=== PATIENT | female | born 1945 | race Caucasian/White ===

== ENCOUNTER → 2020-02-06 | Outpatient (CLI) | payer MEDICARE ==
[2020-02-06 12:22] LABS: Albumin 3.6 g/dL (3.5-5.0); Calcium 8.9 mg/dL (8.4-10.2); Potassium 4.2 mmol/L (3.5-5.1); Total Protein 6.4 g/dL (6.3-8.2)
[2020-02-06 12:25] LABS: Basophils # (A) 0.1 k/uL (0-0.2); Basophils % (A) 1 %; Eosinophils # (A) 0.2 k/uL (0-0.7); Eosinophils % (A) 4 %; HCT 40.6 % (34.0-46.0); HGB 12.8 gm/dL (11.4-16.0); Lymphocytes # (A) 1.2 k/uL (1.0-4.8); Lymphocytes % (A) 19 %; MCH 28.3 pg (25.0-35.0); MCHC 31.7 g/dL (31.0-37.0); MCV 89.5 fL (80.0-100.0); Mean Platelet Volume 6.8; Monocytes # (A) 0.4 k/uL (0-1.0); Monocytes % (A) 6 %; Neutrophils # (A) 4.4 k/uL (1.3-7.7); Neutrophils % (A) 67 %; Platelet Count 194 k/uL (150-450); RBC 4.53 m/uL (3.80-5.40); RDW 15.5 % (11.5-15.5); WBC 6.5 k/uL (3.8-10.6)
--- NOTE | 2020-02-06 13:25 | CT ---
EXAMINATION TYPE: CT angio chest DATE OF EXAM: 02/06/2020 1:13 PM COMPARISON: None. HISTORY: hemoptysis CT DLP: 122.7 mGycm Automated exposure control for dose reduction was used. CONTRAST: CTA scan of the thorax is performed with IV Contrast, patient injected with 58cc mL of Isovue 370, pu lmonary embolism protocol. . FINDINGS: There are diffuse emphysematous changes throughout both lungs. There is interstitial change present bilaterally. There is gross honeycombing in the right lower lobe. There is apical pleural thickening present bilaterally. There is extensive vascular calcification present. There is aneurysmal dilatation of the aortic root which measures 4.7 cm. The proximal arch is aneurysmal measuring 3.6 cm. The proximal descending thor acic aorta is aneurysmal measuring 3.2 cm. At the level of the aortic hiatus, there is ectasia of the thoracic aorta measuring 3 cm. There is no significant axillary, internal mammary, mediastinal or hilar adenopathy. There is no evidence of pulmonary embolus. There is a tiny right-sided effusion. There is a 6.8 mm pericardial effusion. Visualized upper abdominal structures are unremarkable.. IMPRESSION: 1. THIS EXAMINATION IS NEGATIVE FOR PULMONARY EMBOLUS. 2. THORACIC AORTIC ANEURYSM WITH MAXIMAL TRANSVERSE DIAMETER OF 4.7 CM. 3. DIFFUSE EMPHYSEMATOUS CHANGE WITH HONEYCOMBING IN THE RIGHT LOWER LOBE. 4. TINY RIGHT PLEURAL EFFUSION WELL A 6.8 MM PERICARDIAL EFFUSION.
== END | disposition home or self-care (01) ==
LOC: RADCTMAIN 11:36
PROVIDERS: ATTEND Family Medicine
DX: I71.2 Thoracic aortic aneurysm, without rupture (principal); J43.8 Other emphysema; J90 Pleural effusion, not elsewhere classified; I31.3 Pericardial effusion (noninflammatory); R04.2 Hemoptysis
CPT/HCPCS: 80053; 85025; 71275; 36415; Q9967

== ENCOUNTER → 2022-01-18 | Outpatient (CLI) | payer MEDICARE | END | disposition home or self-care (01) | LOC: RADCTMAIN 08:10 | PROVIDERS: ATTEND Surgery | DX: I71.4 Abdominal aortic aneurysm, without rupture (principal) | CPT/HCPCS: 82565; 84520 ==

== ENCOUNTER → 2022-02-09 | Outpatient (CLI) | payer MEDICARE ==
--- NOTE | 2022-02-12 23:46 | CT ---
EXAMINATION TYPE: CT angio abd aorta w/Runoff DATE OF EXAM: 02/09/2022 INDICATION: AAA CT DLP: 1443.2 mGy.cm Automated Exposure Control for Dose Reduction was Utilized. TECHNIQUE AND CONTRAST: CT scan of the abdomen, pelvis and lower extremity is performed without and with IV Contrast, patient injected with 80ml mL of Isovue 370. MIP and 3-D reconstruction images were generated on an [employer] workstation and reviewed. COMPARISON: None available FINDINGS: Extensive arterial atherosclerotic calcification and atheromatous plaques. Ascending aortic aneurysm measuring up to 4.7 cm. Dilated inferior aspect of the descending thoracic aorta measuring up to 3.2 cm. Abdominal aortic aneurysm repair with aortoiliac bypass graft, apparently patent. No gross eviden ce of endovascular leak. The aneurysmal sac measures up to 5.9 cm. No evidence of aortic stenosis, occlusion or dissection. Severe stenosis of the origin of the superio r mesenteric artery yet patent distally. Apparently occluded superior aspect of the inferior mesenter ic artery yet patent distally. Severe stenosis of the origin the left renal artery yet patent distall y. Apparently occluded proximal portion of the right renal artery yet opacified distally. Ectatic iliac arteries without significant stenosis or occlusion. Severe atherosclerotic changes of t he internal iliac arteries. Atherosclerotic changes of the external iliac arteries. Questionable yaneth ts at the external iliac/common femoral arteries bilaterally. Complete occlusion of the left superfic ial femoral artery with reconstitution of the popliteal artery posterior to the knee likely via colla terals from the left deep femoral artery. Unremarkable deep femoral artery bilaterally. Attenuated yet opacified left leg arteries down to the ankle. Hypoplastic inferior aspect of the left peroneal artery. Opacified left dorsalis pedis artery. Atherosclerotic changes of the right superfic ial femoral artery with multiple segments of stenosis yet without complete occlusion. Severe stenosis is seen at the proximal portion of the right popliteal artery yet patent distally. Opacified right l eg arteries down to the ankle with hypoplastic right peroneal artery. Opacified right dorsalis pedis artery. Cardiomegaly. Coronary arterial calcifications. Small pericardial effusion. COPD changes and mild fib rotic changes in the lung bases. Few millimetric hyperenhancing foci in segment 7/8 of the liver, non specific. Recommend further targeted ultrasound assessment. Possible small hemangioma in segment 4A o f the liver measuring 11 mm which can be also assessed on the ultrasound. A few pancreatic head cysts measuring up to 14 mm, please correlate with previous unavailable scans. Further MRI assessment can be considered. Atrophic right kidney with multiple variable sized bilatera l renal cysts. Suspected left parapelvic hemorrhagic renal cyst measuring 12 mm, for ultrasound confi rmation. Multiple uterine calcifications. Colonic diverticulosis. 9 mm skin lesion at the right poste rolateral aspect of the abdominal wall, please correlate clinically. 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 Postoperative changes and other atherosclerotic changes as detailed above. Recommend clinical correlation and correlation with previous unavailable CT scans. Other multiple incidental findings and recommendations as described jose enrique ortiz.
== END | disposition home or self-care (01) ==
LOC: RADCTMAIN 13:34
PROVIDERS: ATTEND Surgery
DX: I71.4 Abdominal aortic aneurysm, without rupture (principal); I70.202 Unspecified atherosclerosis of native arteries of extremities, left leg; N26.1 Atrophy of kidney (terminal); K57.30 Diverticulosis of large intestine without perforation or abscess without bleeding
CPT/HCPCS: 82565; 84520; 75635; 36415; 96360; Q9967

== ENCOUNTER → 2022-02-09 | Outpatient (CLI) | payer MEDICARE ==
[~2022-02-09] MED LIST: SODIUM CHLORIDE 0.9% 1,000 ML IV ONE
[2022-02-09 14:02] VITALS: BP 117/68; PULSE 81; RESP 16; TEMP 97.8
== END ==
LOC: PROCWHC3 08:12
PROVIDERS: ATTEND Surgery
DX: E86.0 Dehydration (principal)
CPT/HCPCS: 96360

== ENCOUNTER → 2022-03-13 | Outpatient (CLI) | payer MEDICARE ==
--- NOTE | 2022-03-13 10:46 | US ---
EXAMINATION TYPE: US venous doppler duplex LE LT DATE OF EXAM: 03/13/2022 10:36 AM COMPARISON: NONE CLINICAL HISTORY: I82.40 ACUTE EMBOLISM AND THOMBOS UNSP DEEP VEINS. Left calf swelling x 1 week SIDE PERFORMED: Left TECHNIQUE: The lower extremity deep venous system is examined utilizing real time linear array sonog madison with graded compression, doppler sonography and color-flow sonography. VESSELS IMAGED: Common Femoral Vein Deep Femoral Vein Greater Saphenous Vein * Femoral Vein Popliteal Vein Small Saphenous Vein * Proximal Calf Veins (* superficial vessels) Left Leg: Negative for DVT IMPRESSION: Grayscale, color doppler, spectral doppler imaging performed of the deep veins of the lo wer extremities. There is normal flow, compressibility, vascular waveforms.
== END | disposition home or self-care (01) ==
LOC: RADUSWWP 10:12
PROVIDERS: ATTEND Surgery
DX: I82.402 Acute embolism and thrombosis of unspecified deep veins of left lower extremity (principal); M79.662 Pain in left lower leg; R22.42 Localized swelling, mass and lump, left lower limb

== ENCOUNTER 2022-07-04 18:18 | Inpatient (IN) | payer MEDICARE ==
[2022-07-04] MEDS ORDERED: RX INFO: IV CONTRAST WAS GIVEN 1 EACH MISC MISCELLANE PRN (19:10)
[2022-07-04] MEDS ORDERED: HYDROmorphone 1 MG/ML 1 ML SYRINGE IVP STA (19:12)
[2022-07-04 19:14] LABS: Anisocytosis Slight; Basophils # (A) 0.1 k/uL (0-0.2); Basophils % (A) 1 %; Eosinophils # (A) 0.3 k/uL (0-0.7); Eosinophils % (A) 3 %; HCT 48.7 % (34.0-46.0); Hypochromasia Marked; Lymphocytes % (A) 20 %; MCH 23.6 pg (25.0-35.0); MCHC 30.8 g/dL (31.0-37.0); MCV 76.6 fL (80.0-100.0); Mean Platelet Volume 7.6; Microcytosis Slight; Monocytes # (A) 1.1 k/uL (0-1.0); Monocytes % (A) 11 %; Neutrophils # (A) 6.5 k/uL (1.3-7.7); Neutrophils % (A) 63 %; Platelet Count 248 k/uL (150-450); RBC 6.36 m/uL (3.80-5.40); WBC 10.3 k/uL (3.8-10.6)
[2022-07-04 19:25] LABS: Albumin 4.1 g/dL (3.5-5.0); Calcium 8.8 mg/dL (8.4-10.2); Magnesium 2.2 mg/dL (1.6-2.3); Potassium 4.6 mmol/L (3.5-5.1); Total Bilirubin 0.7 mg/dL (0.2-1.3); Total Protein 6.6 g/dL (6.3-8.2)
[2022-07-04 19:49] LABS: INR 1.1 (<1.2); Partial Thromboplastin Time 22.7 sec (22.0-30.0); Prothrombin Time 11.4 sec (9.0-12.0)
--- NOTE | 2022-07-04 19:52 | XR ---
EXAMINATION TYPE: XR chest 2V DATE OF EXAM: 07/04/2022 7:36 PM COMPARISON: Chest radiographs from 06/30/2012. TECHNIQUE: XR chest 2V Frontal and lateral views of the chest. CLINICAL INDICATION:Female, 77 years old with history of Chest Pain; FINDINGS: Lungs/Pleura: There is no evidence of pleural effusion, focal consolidation, or pneumothorax. Pulmonary vascularity: Unremarkable. Heart/mediastinum: Cardiomediastinal silhouette is unremarkable. Musculoskeletal: No acute osseous pathology. IMPRESSION: No acute cardiopulmonary disease/process.
--- NOTE | 2022-07-04 20:40 | CT ---
EXAMINATION TYPE: CT angio abd aorta w/Runoff CT DLP: 1105.7 mGycm, Automated exposure control for dose reduction was used. DATE OF EXAM: 07/04/2022 8:01 PM COMPARISON: 02/09/2022 CLINICAL INDICATION:Female, 77 years old with history of pulseless, painful right leg, pulseless, sun nful right leg TECHNIQUE: Multiple thin slice sub-millimeter images were obtained through the abdomen, pelvis, and l ower extremities after administration of contrast. 3-D reconstructed images and maximum intensity pr ojection images were obtained of the abdomen, pelvis, and lower extremities. CT Contrast: Contrast used:80 mL of Isovue 370 with IV Contrast, Oral contrast used: None FINDINGS: CTA Abdomen and pelvis: Atherosclerosis of the arterial vasculature. There is an aortic stent graft n oted in the proximal aorta. Its appears intact. There is a infrarenal aortic aneurysm with patency ma terial within the aneurysmal sac 09/30/2001 image 58 which is unchanged from prior. Aneurysmal sac capo suring up to 5.1 cm which may be minimally decreased from prior. Bilateral iliac artery stent grafts are in place. They both appear intact. Mild mural thrombus seen throughout the visualized aorta inclu ding the stent grafts. Just distal to the stent graft bilaterally is calcified and noncalcified plaqu ing of the external iliac arteries. The origin of the celiac artery is patent. The superior mesenteri c artery is similar in morphology. The connection of the superior mesenteric artery to the aorta is n ot definitively visualized however there is dense contrast within the superior mesenteric artery sugg esting patency. Stent within the left renal artery appears patent with contrast within the left renal artery. The right renal artery is atrophic with a diminutive appearance of the more proximal portion of aorta. CTA Lower extremities: Right: The right common femoral artery romaine patent. There is occlusion of the superficial femoral zulema ry just at its origin with reconstitution at the popliteal artery. There is atherosclerosis with vary ing degrees of narrowing of the popliteal artery. The right leg vessels appear diminutive. Only the a nterior tibial artery crosses the ankle. The posterior artery does not definitely cross the ankle. Left: A left common femoral artery is patent. There is occlusion of the and left superficial femoral artery just past its origin extending to the distal portion with reconstitution at the popliteal zulema ry. The vessels of the leg are created. The anterior and posterior tibial arteries do not definitely cross the ankle. LOWER CHEST: No evidence of focal consolidation, pneumothorax or pleural effusion. LIVER: Hepatic dome hyperenhancing 9 mm focus in segment 7/8. GALLBLADDER AND BILE DUCTS: Unremarkable. PANCREAS: Unremarkable. SPLEEN: Unremarkable. ADRENAL GLANDS: Unremarkable. KIDNEYS AND URETERS: No evidence of hydronephrosis or renal calculus. Multiple right-sided renal cyst s are present. Hyperdense left renal cyst measuring 84 Hounsfield units consistent with a hemorrhagic /proteinaceous cyst. PELVIS BLADDER: Unremarkable REPRODUCTIVE: Unremarkable. ABDOMEN & PELVIS STOMACH AND BOWEL: No evidence of bowel obstruction. Scattered clonic diverticula present. Small hiat al hernia is present PERITONEUM: No evidence of pneumoperitoneum or free fluid. VASCULATURE: No evidence of aortic aneurysm. MUSCULOSKELETAL: No acute osseous abnormalities LYMPH NODES: No gross evidence for lymphadenopathy. SOFT TISSUE/ABDOMINAL WALL: Unremarkable IMPRESSION: Right: * Occlusion of the right superficial femoral artery extending from its origin to the distal portion near the popliteal artery. * Only the anterior tibial artery crosses the right ankle. Posterior tibial artery is diminutive and does not cross the ankle. Left: * Occlusion of the left superficial femoral artery extending from its origin to the distal portion o f the proximal artery. * No vessels definitively cross the ankle. Abdomen: * Indeterminate right hepatic dome lesion. Liver mass protocol CT or MRI as clinically warranted. * Small hiatal hernia. * Colonic diverticulosis. * Atrophic right kidney with cystic changes. * Abdominal aorta aneurysm with similar morphology.
--- NOTE | 2022-07-04 20:59 | ED ---
General Adult HPI - General Chief complaint: Chest Pain Stated complaint: chest pain Time Seen by Provider: 07/04/22 18:35 Source: EMS Mode of arrival: EMS Limitations: no limitations - History of Present Illness Initial comments: 77-year-old female with past medical history of A. fib, heart failure, COPD, DVT, aortic aneurysm with grafting who presents to the emergency department with chest pain and right foot numbness. Patient reports that for 2 weeks she has noted a bulge to her right groin. She followed with Dr. Tovar who is her vascular surgeon. States that she was evaluated and was told that if her symptoms got worse she would need further imaging studies. Patient states that she has had no pain in the groin. On Saturday the patient began having some numbness to her right foot. States that her symptoms are better with her leg at rest and symptoms are worse with ambulation. She called Dr. Pisano office and is supposed to be seeing him tomorrow. He states that today she began having intense chest pain therefore called an ambulance transported to the hospital. EMS gave her 324 of aspirin and nitro. She was found to be in A. fib with a rapid rate. She denies a history of A. fib to me however this is in her chart. She denies fevers, chills or cough. Patient not on any anticoagulation. No other alleviating, precipitating or modifying factors - Related Data Home Medications Medication Instructions Recorded Confirmed Albuterol Inhaler [Ventolin Hfa 2 puff INHALATION RT-QID PRN 02/09/22 07/04/22 Inhaler] Aspirin [Adult Low Dose Aspirin EC] 81 mg PO DAILY 02/09/22 07/04/22 Atorvastatin [Lipitor] 80 mg PO DAILY 02/09/22 07/04/22 Cholecalciferol [Vitamin D3 (25 50 mcg PO DAILY 02/09/22 07/04/22 Mcg = 1000 Iu)] Clopidogrel [Plavix] 75 mg PO DAILY 02/09/22 07/04/22 Hydrocodone/Acetaminophen 1 tab PO BID PRN 02/09/22 07/04/22 [Hydrocodone/Acetaminophen 5-325] Montelukast Sodium [Singulair] 10 mg PO DAILY 02/09/22 07/04/22 carvediloL 25 mg PO BID 02/09/22 07/04/22 Benazepril HCl 20 mg PO DAILY 07/04/22 07/04/22 Budesonide/Glycopyr/Formoterol 2 puff INHALATION DIRECTED 07/04/22 07/04/22 [Breztri Aerosphere Inhaler] Ipratropium-Albuterol Nebulize 3 ml INHALATION RT-QID 07/04/22 07/05/22 [Duoneb 0.5 mg-3 mg/3 ml Soln] Allergies Allergy/AdvReac Type Severity Reaction Status Date / Time No Known Allergies Allergy Verified 07/04/22 20:41 Review of Systems ROS Statement: Those systems with pertinent positive or pertinent negative responses have been documented in the HPI. ROS Other: All systems not noted in ROS Statement are negative. Past Medical History Past Medical History: Atrial Fibrillation, Heart Failure, COPD, Deep Vein Thrombosis (DVT), Hyperlipidemia, Hypertension, Osteoarthritis (OA), Pneumonia, Thyroid Disorder Additional Past Medical History / Comment(s): AORTIC ANEURYSM. History of Any Multi-Drug Resistant Organisms: None Reported Past Surgical History: Appendectomy, Tonsillectomy, Tubal Ligation Additional Past Surgical History / Comment(s): STENT- AORTIC ANEURSYM AND STENT- RENAL ARTERY. BILATERAL CAROTIDS. Past Anesthesia/Blood Transfusion Reactions: No Reported Reaction Past Psychological History: No Psychological Hx Reported Smoking Status: Former smoker Past Alcohol Use History: None Reported Past Drug Use History: None Reported - Past Family History fmaily Family Medical History: Cancer General Exam Limitations: no limitations General appearance: alert, in no apparent distress Eye exam: Present: normal appearance, PERRL, EOMI. Absent: scleral icterus, conjunctival injection, periorbital swelling ENT exam: Present: normal exam, mucous membranes moist Neck exam: Present: normal inspection. Absent: tenderness, meningismus, lymphadenopathy Respiratory exam: Present: normal lung sounds bilaterally. Absent: respiratory distress, wheezes, rales, rhonchi, stridor Cardiovascular Exam: Present: regular rate, irregular rhythm GI/Abdominal exam: Present: soft, normal bowel sounds. Absent: distended, tenderness, guarding, rebound, rigid Extremities exam: Present: other (no palpable pulse rle. normal color, normal cap refill bl le) Course Vital Signs 07/04/22 07/04/22 07/04/22 18:26 19:23 20:00 Temperature 97.5 F L Pulse Rate 96 85 73 Respiratory 22 22 11 L Rate Blood Pressure 195/138 183/124 200/116 O2 Sat by Pulse 98 96 97 Oximetry 07/04/22 07/04/22 07/04/22 20:15 20:30 20:31 Temperature Pulse Rate 84 82 82 Respiratory 12 25 H 20 Rate Blood Pressure 172/104 O2 Sat by Pulse 96 96 95 Oximetry 07/04/22 07/04/22 07/04/22 20:45 21:00 21:15 Temperature Pulse Rate 78 82 73 Respiratory 23 23 10 L Rate Blood Pressure 172/104 160/119 O2 Sat by Pulse 94 L 98 Oximetry 07/04/22 07/04/22 07/04/22 21:21 21:30 21:45 Temperature Pulse Rate 82 82 84 Respiratory 18 17 18 Rate Blood Pressure 160/119 173/133 O2 Sat by Pulse 95 97 Oximetry 07/04/22 07/04/22 07/04/22 22:00 22:15 22:23 Temperature Pulse Rate 75 67 79 Respiratory 18 14 18 Rate Blood Pressure 171/89 171/89 O2 Sat by Pulse 95 98 95 Oximetry 07/04/22 07/04/22 22:30 22:45 Temperature Pulse Rate 74 Respiratory 19 Rate Blood Pressure 151/108 O2 Sat by Pulse 96 Oximetry - Reevaluation(s) Reevaluation #1: 07/04/22 20:[address] Vincent - does not feel heparin drip is necessary as this is a chronic issue EKG Findings - EKG Comments: EKG Findings:: EKG interpreted by myself. Demonstrates A. fib with rate of 88. QRS 98. QTC of 429. Baseline artifact. No acute ST segment elevations or depressions Medical Decision Making - Medical Decision Making Upon arrival patient was placed in room trauma 2. There are history and physical exam was performed. IV access was established laboratory studies were conducted. Patient is sent for CT angiography of her abdomen, pelvis and lower extremities. Does demonstrate cut off of the contrasts bilaterally. Patient d oes have good pulses in the left lower extremity. Right pulse is unable to be palpated. She does have normal coloration to the right lower extremity. Called and spoke with Dr. Vincent about the patient. He does not feel the patient needs to be heparinized at this time and to be followed up in the outpatient setting. Patient will be admitted for chest pain for which she was agreeable. Patient pending a bed on the floor stable condition - Lab Data Result diagrams: 07/07/22 19:18 07/07/22 06:15 Lab Results 07/04/22 07/04/22 07/04/22 Range/Units 19:00 19:00 19:00 WBC 10.3 (3.8-10.6) k/uL RBC 6.36 H (3.80-5.40) m/uL Hgb 15.0 (11.4-16.0) gm/dL Hct 48.7 H (34.0-46.0) % MCV 76.6 L (80.0-100.0) fL MCH 23.6 L (25.0-35.0) pg MCHC 30.8 L (31.0-37.0) g/dL RDW 17.0 H (11.5-15.5) % Plt Count 248 (150-450) k/uL MPV 7.6 Neutrophils % 63 % Lymphocytes % 20 % Monocytes % 11 % Eosinophils % 3 % Basophils % 1 % Neutrophils # 6.5 (1.3-7.7) k/uL Lymphocytes # 2.0 (1.0-4.8) k/uL Monocytes # 1.1 H (0-1.0) k/uL Eosinophils # 0.3 (0-0.7) k/uL Basophils # 0.1 (0-0.2) k/uL Hypochromasia Marked Anisocytosis Slight Microcytosis Slight PT 11.4 (9.0-12.0) sec INR 1.1 (<1.2) APTT 22.7 (22.0-30.0) sec D-Dimer 4.93 H (<0.60) mg/L FEU Sodium 139 (137-145) mmol/L Potassium 4.6 (3.5-5.1) mmol/L Chloride 103 (98-107) mmol/L Carbon Dioxide 28 (22-30) mmol/L Anion Gap 8 mmol/L BUN 28 H (7-17) mg/dL Creatinine 1.07 H (0.52-1.04) mg/dL Est GFR (CKD-EPI)AfAm 58 (>60 ml/min/1.73 sqM) Est GFR (CKD-EPI)NonAf 50 (>60 ml/min/1.73 sqM) Glucose 100 H (74-99) mg/dL Plasma Lactic Acid Adam (0.7-2.0) mmol/L Calcium 8.8 (8.4-10.2) mg/dL Magnesium 2.2 (1.6-2.3) mg/dL Total Bilirubin 0.7 (0.2-1.3) mg/dL AST 23 (14-36) U/L ALT 17 (4-34) U/L Alkaline Phosphatase 105 (38-126) U/L Troponin I (0.000-0.034) ng/mL NT-Pro-B Natriuret Pep pg/mL Total Protein 6.6 (6.3-8.2) g/dL Albumin 4.1 (3.5-5.0) g/dL 07/04/22 07/04/22 07/04/22 Range/Units 19:00 19:00 19:19 WBC (3.8-10.6) k/uL RBC (3.80-5.40) m/uL Hgb (11.4-16.0) gm/dL Hct (34.0-46.0) % MCV (80.0-100.0) fL MCH (25.0-35.0) pg MCHC (31.0-37.0) g/dL RDW (11.5-15.5) % Plt Count (150-450) k/uL MPV Neutrophils % % Lymphocytes % % Monocytes % % Eosinophils % % Basophils % % Neutrophils # (1.3-7.7) k/uL Lymphocytes # (1.0-4.8) k/uL Monocytes # (0-1.0) k/uL Eosinophils # (0-0.7) k/uL Basophils # (0-0.2) k/uL Hypochromasia Anisocytosis Microcytosis PT (9.0-12.0) sec INR (<1.2) APTT (22.0-30.0) sec D-Dimer (<0.60) mg/L FEU Sodium (137-145) mmol/L Potassium (3.5-5.1) mmol/L Chloride (98-107) mmol/L Carbon Dioxide (22-30) mmol/L Anion Gap mmol/L BUN (7-17) mg/dL Creatinine (0.52-1.04) mg/dL Est GFR (CKD-EPI)AfAm (>60 ml/min/1.73 sqM) Est GFR (CKD-EPI)NonAf (>60 ml/min/1.73 sqM) Glucose (74-99) mg/dL Plasma Lactic Acid Adam 1.2 (0.7-2.0) mmol/L Calcium (8.4-10.2) mg/dL Magnesium (1.6-2.3) mg/dL Total Bilirubin (0.2-1.3) mg/dL AST (14-36) U/L ALT (4-34) U/L Alkaline Phosphatase (38-126) U/L Troponin I <0.012 (0.000-0.034) ng/mL NT-Pro-B Natriuret Pep 4150 pg/mL Total Protein (6.3-8.2) g/dL Albumin (3.5-5.0) g/dL Disposition Clinical Impression: Chest pain, Accelerated hypertension, Right leg numbness Disposition: ADMITTED IP TO THIS [facility] Condition: Stable Is patient prescribed a controlled substance at d/c from ED?: No Time of Disposition: 20:59 Decision to Admit Reason: Admit from EC Decision Date: 07/04/22 Decision Time: 20:59
[2022-07-04] MEDS ORDERED: NALOXONE 0.4 MG/ML 1 ML VIAL IV PRN (21:00)
[2022-07-04] MEDS ORDERED: NITROGLYCERIN OINT 1 INCH/GM PACKET TOPICAL STA (21:08)
[2022-07-04] MEDS ORDERED: IPRATROPIUM-ALBUTEROL 3 ML NEB INHALATION SCH (21:15)
[2022-07-04] MEDS: carvediloL 12.5 MG TAB PO SCH (21:23)
[2022-07-04] MEDS: HYDROcodone/APAP 5-325MG 1 EACH TAB PO PRN (23:51)
[2022-07-05] MEDS: IPRATROPIUM-ALBUTEROL 3 ML NEB INHALATION PRN ×3 (00:10→19:54)
[2022-07-05] MEDS ORDERED: HEPARIN SODIUM 1,000 UN/ML (10ML VL) IV PRN (02:56)
[2022-07-05] MEDS ORDERED: HEPARIN SODIUM 1,000 UN/ML (10ML VL) IV ONE (02:56)
--- NOTE | 2022-07-05 02:56 | P.HPIM ---
History of Present Illness H&P Date: 07/04/22 Chief Complaint: chest pain 77 year old female with afib peripheral arterial disease patient coming in for evaluation due to sudden onset chest pain , felt like central chest pressure 7/10 wiht some heavy breathing, and nausea. denies any profuse sweating, dizziness or palpitations. she denies any cardiac history. she is not aware of history of afib. she also reports that for 3 days now she noticed some buldging over the right groin with intermittent claudications over her right leg with ambulation , and associated numbness in the right foot with ambulation . however these symptoms disappear with rest. she had an appointment with her vascular surgeon tomorrow. she had history of AAA with stenting and PAD with stenting no recent travel or hospital stay. denies any URI symptoms workup in the ed showed microcytosis with out anemia , elevated d dimer vital signs stable Ct angio showed peripheral arterial disease bilateral legs, with occlusion of superficial femoral arteries bilaterally , vascular surgery notified and recommended no heparin at this time , as they recognize its a chronic problem trops negative ekg SHOWED afib , patient is not on blood thinners for that Review of Systems Pertinent positives as noted in HPI. All other systems were reviewed and are negative Past Medical History Past Medical History: Atrial Fibrillation, Heart Failure, COPD, Deep Vein Thrombosis (DVT), Hyperlipidemia, Hypertension, Osteoarthritis (OA), Pneumonia, Thyroid Disorder Additional Past Medical History / Comment(s): AORTIC ANEURYSM. History of Any Multi-Drug Resistant Organisms: None Reported Past Surgical History: Appendectomy, Tonsillectomy, Tubal Ligation Additional Past Surgical History / Comment(s): STENT- AORTIC ANEURSYM AND STENT- RENAL ARTERY. BILATERAL CAROTIDS. Past Anesthesia/Blood Transfusion Reactions: No Reported Reaction Past Psychological History: No Psychological Hx Reported Smoking Status: Former smoker Past Alcohol Use History: None Reported Past Drug Use History: None Reported - Past Family History fmaily Family Medical History: Cancer Medications and Allergies Home Medications Medication Instructions Recorded Confirmed Type Albuterol Inhaler [Ventolin Hfa 2 puff INHALATION RT-QID PRN 02/09/22 07/04/22 History Inhaler] Aspirin [Adult Low Dose Aspirin EC] 81 mg PO DAILY 02/09/22 07/04/22 History Atorvastatin [Lipitor] 80 mg PO DAILY 02/09/22 07/04/22 History Cholecalciferol [Vitamin D3 (25 50 mcg PO DAILY 02/09/22 07/04/22 History Mcg = 1000 Iu)] Clopidogrel [Plavix] 75 mg PO DAILY 02/09/22 07/04/22 History Hydrocodone/Acetaminophen 1 tab PO BID PRN 02/09/22 07/04/22 History [Hydrocodone/Acetaminophen 5-325] Montelukast Sodium [Singulair] 10 mg PO DAILY 02/09/22 07/04/22 History carvediloL 25 mg PO BID 02/09/22 07/04/22 History Benazepril HCl 20 mg PO DAILY 07/04/22 07/04/22 History Budesonide/Glycopyr/Formoterol 2 puff INHALATION DIRECTED 07/04/22 07/04/22 History [Breztri Aerosphere Inhaler] Ipratropium-Albuterol Nebulize 3 ml INHALATION DIRECTED 07/04/22 07/04/22 History [Duoneb 0.5 mg-3 mg/3 ml Soln] Allergies Allergy/AdvReac Type Severity Reaction Status Date / Time No Known Allergies Allergy Verified 07/04/22 20:41 Physical Exam Vitals: Vital Signs Temp Pulse Resp BP Pulse Ox 07/04/22 20:31 82 20 172/104 95 07/04/22 19:23 85 22 183/124 96 07/04/22 18:26 97.5 F L 96 22 195/138 98 Intake and Output 07/04/22 07/04/22 07/04/22 06:59 14:59 22:59 Other: Weight 52.163 kg Constitutional: No acute distress, conversant, pleasant Eyes: Anicteric sclerae, moist conjunctiva, Pupils equal round reactive to light ENMT: NC/AT Oropharynx clear, no erythema, or exudates Neck: Supple, no masses, or JVD No carotid bruits No thyromegaly Lungs: Clear to auscultation Clear to percussion Normal respiratory effort, no accessory muscle use Cardiovascular: Heart irregular No murmurs, gallops, or rubs No peripheral edema Abdominal: Soft Nontender, no guarding, rebound or rigidity Abdomen moving with respiration Normoactive bowel sounds No hepatomegaly, No splenomegaly No palpable mass No abdominal wall hernia noted Skin: Normal temperature, tone, texture, turgor No induration No subcutaneous nodules No rash, lesions No ulcers Extremities: No digital cyanosis No clubbing Pedal pulses absent on the right , postive with doppler on the left Radial pulses intact and symmetrical No calf tenderness Psychiatric: Alert and oriented to person, place and time Appropriate affect fair judgement Neuro Muscles Strength 5/5 in all 4 extremities Sensation to light touch grossly present throughout Cranial nerves II-XII grossly intact Lymphatics: no palpable cervical or supraclavicular lymph nodes Results CBC & Chem 7: 07/04/22 19:00 07/04/22 19:00 Labs: Abnormal Lab Results - Last 24 Hours (Table) 07/04/22 07/04/22 07/04/22 Range/Units 19:00 19:00 19:00 RBC 6.36 H (3.80-5.40) m/uL Hct 48.7 H (34.0-46.0) % MCV 76.6 L (80.0-100.0) fL MCH 23.6 L (25.0-35.0) pg MCHC 30.8 L (31.0-37.0) g/dL RDW 17.0 H (11.5-15.5) % Monocytes # 1.1 H (0-1.0) k/uL D-Dimer 4.93 H (<0.60) mg/L FEU BUN 28 H (7-17) mg/dL Creatinine 1.07 H (0.52-1.04) mg/dL Glucose 100 H (74-99) mg/dL Assessment and Plan Assessment: atypical chest pain rule out ACS EKG no acute changes CXR no acute pathology trops negative X2 monitoring specialist monitor vital signs ASA, statin cardiology consult A1c, lipid panel , TSH pain control severe Peripheral arterial disease vascular consult continue plavix , ASA , statin CT angio showed peripheral arterial disease afib rate controlled not on blood thinners await cardiology input initiate heprin drip hypertensive urgency improved resume home meds DVT PPX heparin gtt for afib full code
[2022-07-05 04:23] LABS: Anisocytosis Slight; Basophils % (A) 1 %; Eosinophils # (A) 0.2 k/uL (0-0.7); Eosinophils % (A) 3 %; HCT 42.4 % (34.0-46.0); HGB 13.4 gm/dL (11.4-16.0); Hypochromasia Marked; Lymphocytes # (A) 1.3 k/uL (1.0-4.8); Lymphocytes % (A) 20 %; MCH 24.2 pg (25.0-35.0); MCHC 31.6 g/dL (31.0-37.0); MCV 76.7 fL (80.0-100.0); Mean Platelet Volume 7.4; Microcytosis Slight; Monocytes # (A) 0.7 k/uL (0-1.0); Monocytes % (A) 10 %; Neutrophils # (A) 4.3 k/uL (1.3-7.7); Neutrophils % (A) 64 %; Platelet Count 185 k/uL (150-450); RBC 5.53 m/uL (3.80-5.40); RDW 16.9 % (11.5-15.5); WBC 6.8 k/uL (3.8-10.6)
[2022-07-05 04:32] LABS: Calcium 8.3 mg/dL (8.4-10.2); Potassium 4.4 mmol/L (3.5-5.1)
[2022-07-05 04:34] LABS: INR 1.1 (<1.2); Partial Thromboplastin Time 23.8 sec (22.0-30.0); Prothrombin Time 11.8 sec (9.0-12.0)
[2022-07-05] MEDS: HEPARIN SOD,PORK IN 0.45% NACL 25,000 UNIT in 0.45% NACL 1 250ML.BAG IV SCH (04:46)
--- NOTE | 2022-07-05 08:17 | P.CRDCN ---
History of Present Illness Consult date: 07/05/22 History of present illness: History of Present Illness: The patient is a 77-year-old female with a known history of hypertension, hyperlipidemia, peripheral vascular disease, followed by Dr. Sanchez who presented with worsening right leg discomfort. This started initially was physical activity on Saturday and yesterday was quite severe even at rest. She presented to the emergency room and subsequently admitted. She has chronic dyspnea on exertion and chronic obstructive lung disease, has been on inhalers in the past. She has stopped smoking. She has been complaining of sharp chest discomfort, respirophasic, not activity related. She was noted to be in atrial fibrillation which is new since she was seen in the office in March of this year. She had an echocardiogram at in May of last year that showed a normal systolic function was mild to moderate mitral and mild aortic regurgitation. She underwent an MPI in November that showed no evidence of stress-induced ischemia. She has underwent revascularization of her lower extremities with stenting of the left lower extremity. She has no peripheral edema, no PND or orthopnea. She denies any dizziness or palpitation or knowledge of the arrhythmia. Her activity has been limited recently because of her leg pain. She underwent CT angiogram of the lower extremities that showed occlusion of the right superficial femoral artery with the intertibial noted and closure of the posterior tibial. In the emergency room her troponin was normal. Medications: DuoNeb, Singulair, benazepril 20 mg daily, Plavix 75 mg daily, Lipitor 80 mg daily, aspirin once a day Review of Systems: Respiratory: She has chronic dyspnea on exertion with wheezing and cough GI: No nausea or vomiting . No history of peptic ulcer disease. No recent GI bleed. : No hematuria or dysuria. Nervous System: No stroke or seizure. Physical Examination: 7 atrial female, alert oriented no apparent distress,Blood pressure 131/60, Heart rate 60 Head: Normocephalic. Eyes: Sclerae nonicteric. Neck: Good carotid upstroke, bilateral bruit, no jugular venous distention. Lungs: Scattered rhonchi and wheezes Heart: Irregular rate and rhythm, S1-S2, no S3, no rub. Systolic ejection murmur. Abdomen: Soft nontender, positive bowel sounds no organomegaly. Extremities: No edema, absent posterior tibial bilaterally, weak dorsalis pedis. 2+ femoral pulse Labs: Hemoglobin 13.4, potassium 4.4, BUN 25, creatinine 1.07. Troponin less than 0.012. NT proBNP 4150. EKG: Atrial fibrillation with nonspecific ST-T wave changes Impression: 1. Right lower extremity discomfort with occluded SFA and rest pain in a patient with known history of abdominal aortic aneurysm and revascularization of the lower extremities 2. Atrial fibrillation, not diagnosed in the past,[id number] score is 5 3. Chest discomfort, probably noncardiac 4. History of COPD 5. History of hypertension 6. History of hyperlipidemia Plan: 1. Continue IV heparin 2. Patient will need to be anticoagulated because of the atrial fibrillation once evaluated by vascular surgery 3. Continue statin and BAM inhibitor 4. Obtain an echocardiogram with Doppler 5. Depending on her progress further recommendations will be made, thank you for this consult we will follow with you. Past Medical History Past Medical History: Atrial Fibrillation, Heart Failure, COPD, Deep Vein Thrombosis (DVT), Hyperlipidemia, Hypertension, Osteoarthritis (OA), Pneumonia, Thyroid Disorder Additional Past Medical History / Comment(s): AORTIC ANEURYSM. History of Any Multi-Drug Resistant Organisms: None Reported Past Surgical History: Appendectomy, Tonsillectomy, Tubal Ligation Additional Past Surgical History / Comment(s): STENT- AORTIC ANEURSYM AND STENT- RENAL ARTERY. BILATERAL CAROTIDS. Past Anesthesia/Blood Transfusion Reactions: No Reported Reaction Past Psychological History: No Psychological Hx Reported Smoking Status: Former smoker Past Alcohol Use History: None Reported Past Drug Use History: None Reported - Past Family History fmaily Family Medical History: Cancer Medications and Allergies Home Medications Medication Instructions Recorded Confirmed Type Albuterol Inhaler [Ventolin Hfa 2 puff INHALATION RT-QID PRN 02/09/22 07/04/22 History Inhaler] Aspirin [Adult Low Dose Aspirin EC] 81 mg PO DAILY 02/09/22 07/04/22 History Atorvastatin [Lipitor] 80 mg PO DAILY 02/09/22 07/04/22 History Cholecalciferol [Vitamin D3 (25 50 mcg PO DAILY 02/09/22 07/04/22 History Mcg = 1000 Iu)] Clopidogrel [Plavix] 75 mg PO DAILY 02/09/22 07/04/22 History Hydrocodone/Acetaminophen 1 tab PO BID PRN 02/09/22 07/04/22 History [Hydrocodone/Acetaminophen 5-325] Montelukast Sodium [Singulair] 10 mg PO DAILY 02/09/22 07/04/22 History carvediloL 25 mg PO BID 02/09/22 07/04/22 History Benazepril HCl 20 mg PO DAILY 07/04/22 07/04/22 History Budesonide/Glycopyr/Formoterol 2 puff INHALATION DIRECTED 07/04/22 07/04/22 History [Breztri Aerosphere Inhaler] Ipratropium-Albuterol Nebulize 3 ml INHALATION DIRECTED 07/04/22 07/04/22 History [Duoneb 0.5 mg-3 mg/3 ml Soln] Allergies Allergy/AdvReac Type Severity Reaction Status Date / Time No Known Allergies Allergy Verified 07/04/22 20:41 Physical Exam Vitals: Vital Signs Temp Pulse Pulse Resp BP BP Pulse Ox 07/05/22 02:18 98.0 F 66 18 131/63 97 07/05/22 00:19 84 07/05/22 00:10 84 07/04/22 23:46 97.4 F L 84 19 133/82 98 07/04/22 22:23 79 18 171/89 95 07/04/22 21:21 82 18 160/119 95 07/04/22 20:31 82 20 172/104 95 07/04/22 19:23 85 22 183/124 96 07/04/22 18:26 97.5 F L 96 22 195/138 98 Intake and Output 07/04/22 07/05/22 07/05/22 22:59 06:59 14:59 Other: Voiding Method Toilet # Voids 1 Weight 52.163 kg 52.163 kg Results 07/05/22 03:53 07/05/22 03:53 Cardiac Enzymes 07/04/22 07/04/22 07/04/22 Range/Units 19:00 19:00 23:43 AST 23 (14-36) U/L Troponin I <0.012 <0.012 (0.000-0.034) ng/mL 07/05/22 Range/Units 03:53 AST (14-36) U/L Troponin I <0.012 (0.000-0.034) ng/mL Coagulation 07/04/22 07/05/22 Range/Units 19:00 03:53 PT 11.4 11.8 (9.0-12.0) sec APTT 22.7 23.8 (22.0-30.0) sec CBC 07/04/22 07/05/22 Range/Units 19:00 03:53 WBC 10.3 6.8 (3.8-10.6) k/uL RBC 6.36 H 5.53 H (3.80-5.40) m/uL Hgb 15.0 13.4 (11.4-16.0) gm/dL Hct 48.7 H 42.4 (34.0-46.0) % Plt Count 248 185 (150-450) k/uL Comprehensive Metabolic Panel 07/04/22 07/05/22 Range/Units 19:00 03:53 Sodium 139 134 L (137-145) mmol/L Potassium 4.6 4.4 (3.5-5.1) mmol/L Chloride 103 102 (98-107) mmol/L Carbon Dioxide 28 29 (22-30) mmol/L BUN 28 H 25 H (7-17) mg/dL Creatinine 1.07 H 1.07 H (0.52-1.04) mg/dL Glucose 100 H 86 (74-99) mg/dL Calcium 8.8 8.3 L (8.4-10.2) mg/dL AST 23 (14-36) U/L ALT 17 (4-34) U/L Alkaline Phosphatase 105 (38-126) U/L Total Protein 6.6 (6.3-8.2) g/dL Albumin 4.1 (3.5-5.0) g/dL Current Medications Generic Name Dose Route Start Last Admin Trade Name Freq PRN Reason Stop Dose Admin Hydrocodone Bitart/Acetaminophen 1 each 07/04/22 21:14 07/04/22 23:51 Hydrocodone/Apap 5-325mg 1 Each Tab PO 1 each BID PRN Administration Pain Albuterol/Ipratropium 3 ml 07/04/22 21:17 07/05/22 00:10 Ipratropium-Albuterol 3 Ml Neb INHALATION 3 ml Q4HR PRN Administration Shortness Of Breath Or Wheezing Aspirin 81 mg 07/05/22 09:00 Aspirin 81 Mg PO DAILY DEWEY Atorvastatin Calcium 80 mg 07/05/22 09:00 Atorvastatin 80 Mg Tab PO DAILY DEWEY Carvedilol 25 mg 07/04/22 21:15 07/04/22 21:23 Carvedilol 12.5 Mg Tab PO 25 mg BID DEWEY Administration Clopidogrel Bisulfate 75 mg 07/05/22 09:00 Clopidogrel 75 Mg Tab PO DAILY [facility] Heparin Sodium (Porcine) 0 unit 07/05/22 02:56 Heparin Sodium 1,000 Un/Ml (10ml Vl) IV PER PROTOCOL PRN Low PTT Protocol Heparin Sodium/Sodium Chloride 250 mls @ 6.26 mls/hr 07/05/22 03:00 07/05/22 04:46 25,000 unit/ Sodium Chloride IV 12 units/kg/hr .Q24H DEWEY 6.26 mls/hr Administration Protocol 12 UNITS/KG/HR Lisinopril 20 mg 07/05/22 09:00 Lisinopril 20 Mg Tab PO DAILY [facility] Miscellaneous Information 1 each 07/04/22 19:10 Rx Info: Iv Contrast Was Given 1 Each Misc MISCELLANE 07/06/22 19:10 DAILY PRN Per Protocol Montelukast Sodium 10 mg 07/05/22 09:00 Montelukast 10 Mg Tab PO DAILY [facility] Naloxone HCl 0.2 mg 07/04/22 21:00 Naloxone 0.4 Mg/Ml 1 Ml Vial IV Q2M PRN Opioid Reversal Non-Formulary Medication 2 puff 07/05/22 09:00 Budesonide/Glycopyr/Formoterol [Breztri Aerosphere Inhaler] INHALATION DIRECTED [facility] Intake and Output 07/04/22 07/05/22 07/05/22 22:59 06:59 14:59 Other: Voiding Method Toilet # Voids 1 Weight 52.163 kg 52.163 kg 07/05/22 03:53 07/05/22 03:53
[2022-07-05] MEDS: CLOPIDOGREL 75 MG TAB PO SCH (09:47)
[2022-07-05] MEDS: ASPIRIN 81 MG PO SCH (09:47)
[2022-07-05] MEDS: carvediloL 12.5 MG TAB PO SCH ×2 (09:47→20:53)
[2022-07-05] MEDS: ATORVASTATIN 80 MG TAB PO SCH (09:47)
[2022-07-05] MEDS: MONTELUKAST 10 MG TAB PO SCH (09:47)
[2022-07-05] MEDS: lisinopriL 20 MG TAB PO SCH (09:47)
[2022-07-05] MEDS: IPRATROPIUM 0.5 MG/2.5 ML NEBU INHALATION SCH ×4 (11:21→19:51)
--- NOTE | 2022-07-05 14:36 | P.GSCN ---
History of Present Illness Consult date: 07/05/22 Reason for Consult: Right lower extremity pain Requesting physician: Sabrina Rodriguez History of present illness: This is a pleasant 77-year-old female with a past medical history including peripheral arterial disease, abdominal aortic aneurysm with repair and iliac stenting, atrial fibrillation, heart failure, COPD, and DVT. The patient states she's been having right lower extremity pain since Saturday pain is present when standing and ambulating. She was at the grocery store with her son and states that she started having pain and progressively went down her leg she started getting numbness. It has progressively gotten worse over the week. She was planning on coming into the emergency department for evaluation, prior to leaving for the hospital she started having intense chest pain and called EMS. She was found to be in A. fib with rapid rate. She is seeing Dr. Sanchez in the past and underwent abdominal aortic aneurysm repair with iliac stenting in January of this year at [facility]. Vascular surgery [place] patient had no palpable pulse in the right PT DP. s consulted for right lower extremity numbness and pain with previous abdominal aortic aneurysm repair. Patient currently denies any chest pain or shortness of breath. She was getting a breathing treatment this morning. Denies any pain currently as she is sitting down. When she gets up and walks around she does have pain in that right lower extremity. She had a CT of the abdomen, pelvis and aorta with runoff which reported right SFA patency. Occlusion of the SFA just at its origin with reconstitution at the popliteal artery. There is a nurse there sclerosis with varying degree of narrowing of the popliteal artery. The right leg vessels appear diminutive. Only anterior tibial artery crosses the ankle. Posterior artery does not definitely cross the ankle. Left lower extremity shows left common femoral artery patency. Occlusion of the left SFA just past its origin extending to the distal portion with reconstitution at the popliteal artery. Vessels of the leg are created. Anterior posterior tibial arteries do not definitely cross the ankle. Abdomen reported Indeterminate right hepatic dome lesion. Liver mass protocol CT or MRI clinically warranted, small hiatal hernia, colonic diverticulosis atrophic right kidney with cystic changes abdominal aorta aneurysm with similar morphology Review of Systems A 14 point review systems was completed all pertinent positives and negatives as stated in the HPI. Past Medical History Past Medical History: Atrial Fibrillation, Heart Failure, COPD, Deep Vein Thrombosis (DVT), Hyperlipidemia, Hypertension, Osteoarthritis (OA), Pneumonia, Thyroid Disorder Additional Past Medical History / Comment(s): AORTIC ANEURYSM. History of Any Multi-Drug Resistant Organisms: None Reported Past Surgical History: Appendectomy, Tonsillectomy, Tubal Ligation Additional Past Surgical History / Comment(s): STENT- AORTIC ANEURSYM AND STENT- RENAL ARTERY. BILATERAL CAROTIDS. Past Anesthesia/Blood Transfusion Reactions: No Reported Reaction Past Psychological History: No Psychological Hx Reported Smoking Status: Former smoker Past Alcohol Use History: None Reported Past Drug Use History: None Reported - Past Family History fmaily Family Medical History: Cancer Medications and Allergies Home Medications Medication Instructions Recorded Confirmed Type Albuterol Inhaler [Ventolin Hfa 2 puff INHALATION RT-QID PRN 02/09/22 07/04/22 History Inhaler] Aspirin [Adult Low Dose Aspirin EC] 81 mg PO DAILY 02/09/22 07/04/22 History Atorvastatin [Lipitor] 80 mg PO DAILY 02/09/22 07/04/22 History Cholecalciferol [Vitamin D3 (25 50 mcg PO DAILY 02/09/22 07/04/22 History Mcg = 1000 Iu)] Clopidogrel [Plavix] 75 mg PO DAILY 02/09/22 07/04/22 History Hydrocodone/Acetaminophen 1 tab PO BID PRN 02/09/22 07/04/22 History [Hydrocodone/Acetaminophen 5-325] Montelukast Sodium [Singulair] 10 mg PO DAILY 02/09/22 07/04/22 History carvediloL 25 mg PO BID 02/09/22 07/04/22 History Benazepril HCl 20 mg PO DAILY 07/04/22 07/04/22 History Budesonide/Glycopyr/Formoterol 2 puff INHALATION DIRECTED 07/04/22 07/04/22 History [Breztri Aerosphere Inhaler] Ipratropium-Albuterol Nebulize 3 ml INHALATION RT-QID 07/04/22 07/05/22 History [Duoneb 0.5 mg-3 mg/3 ml Soln] Allergies Allergy/AdvReac Type Severity Reaction Status Date / Time No Known Allergies Allergy Verified 07/04/22 20:41 Surgical - Exam Vital Signs Temp Pulse Resp BP Pulse Ox 97.5 F L 96 22 195/138 98 07/04/22 18:26 07/04/22 18:26 07/04/22 18:26 07/04/22 18:26 07/04/22 18:26 General appearance: The patient is alert, oriented, appears in no acute dist ress. HET: Head is normocephalic and atraumatic. Pupils are equal and reactive. Neck: Supple without lymphadenopathy. Trachea midline. No audible carotid bruit. Heart: Regular. Lungs: Equal expansion, normal respiratory effort. Abdomen: Soft, nontender, nondistended. Extremities: Normal skin color and turgor. Bilateral lower extremity warm to the touch with good capillary refill. Palpable bilateral femoral pulses. Nonpalpable PT and DP pulses. Neurological: No focal deficits. Strength and sensation are grossly intact. Results - Labs 07/05/22 03:53 07/05/22 03:53 Abnormal Lab Results - Last 24 Hours (Table) 07/04/22 07/04/22 07/04/22 Range/Units 19:00 19:00 19:00 RBC 6.36 H (3.80-5.40) m/uL Hct 48.7 H (34.0-46.0) % MCV 76.6 L (80.0-100.0) fL MCH 23.6 L (25.0-35.0) pg MCHC 30.8 L (31.0-37.0) g/dL RDW 17.0 H (11.5-15.5) % Monocytes # 1.1 H (0-1.0) k/uL D-Dimer 4.93 H (<0.60) mg/L FEU Sodium (137-145) mmol/L BUN 28 H (7-17) mg/dL Creatinine 1.07 H (0.52-1.04) mg/dL Glucose 100 H (74-99) mg/dL Calcium (8.4-10.2) mg/dL 07/05/22 07/05/22 Range/Units 03:53 03:53 RBC 5.53 H (3.80-5.40) m/uL Hct (34.0-46.0) % MCV 76.7 L (80.0-100.0) fL MCH 24.2 L (25.0-35.0) pg MCHC (31.0-37.0) g/dL RDW 16.9 H (11.5-15.5) % Monocytes # (0-1.0) k/uL D-Dimer (<0.60) mg/L FEU Sodium 134 L (137-145) mmol/L BUN 25 H (7-17) mg/dL Creatinine 1.07 H (0.52-1.04) mg/dL Glucose (74-99) mg/dL Calcium 8.3 L (8.4-10.2) mg/dL Diabetes panel 07/04/22 07/05/22 Range/Units 19:00 03:53 Sodium 139 134 L (137-145) mmol/L Potassium 4.6 4.4 (3.5-5.1) mmol/L Chloride 103 102 (98-107) mmol/L Carbon Dioxide 28 29 (22-30) mmol/L BUN 28 H 25 H (7-17) mg/dL Creatinine 1.07 H 1.07 H (0.52-1.04) mg/dL Glucose 100 H 86 (74-99) mg/dL Calcium 8.8 8.3 L (8.4-10.2) mg/dL AST 23 (14-36) U/L ALT 17 (4-34) U/L Alkaline Phosphatase 105 (38-126) U/L Total Protein 6.6 (6.3-8.2) g/dL Albumin 4.1 (3.5-5.0) g/dL Calcium panel 07/04/22 07/05/22 Range/Units 19:00 03:53 Calcium 8.8 8.3 L (8.4-10.2) mg/dL Albumin 4.1 (3.5-5.0) g/dL Pituitary panel 07/04/22 07/05/22 Range/Units 19:00 03:53 Sodium 139 134 L (137-145) mmol/L Potassium 4.6 4.4 (3.5-5.1) mmol/L Chloride 103 102 (98-107) mmol/L Carbon Dioxide 28 29 (22-30) mmol/L BUN 28 H 25 H (7-17) mg/dL Creatinine 1.07 H 1.07 H (0.52-1.04) mg/dL Glucose 100 H 86 (74-99) mg/dL Calcium 8.8 8.3 L (8.4-10.2) mg/dL Adrenal panel 07/04/22 07/05/22 Range/Units 19:00 03:53 Sodium 139 134 L (137-145) mmol/L Potassium 4.6 4.4 (3.5-5.1) mmol/L Chloride 103 102 (98-107) mmol/L Carbon Dioxide 28 29 (22-30) mmol/L BUN 28 H 25 H (7-17) mg/dL Creatinine 1.07 H 1.07 H (0.52-1.04) mg/dL Glucose 100 H 86 (74-99) mg/dL Calcium 8.8 8.3 L (8.4-10.2) mg/dL Total Bilirubin 0.7 (0.2-1.3) mg/dL AST 23 (14-36) U/L ALT 17 (4-34) U/L Alkaline Phosphatase 105 (38-126) U/L Total Protein 6.6 (6.3-8.2) g/dL Albumin 4.1 (3.5-5.0) g/dL - Imaging Comments: See HPI Assessment and Plan Assessment: 1. Right lower extremity pain, claudication 2. History of abdominal aortic aneurysm status post repair 3. Chest pain 4. Atrial fibrillation 5. History COPD 6. History of hypertension hyperlipidemia Plan: 1. Continue heparin drip as ordered by cardiology 2. Lower extremity arterial duplex ordered 3. Continue with workup, recommendations from cardiology 4. Further recommendations forthcoming per vascular surgeon Thank you for this consultation, we will continue to follow The impression and plan of care has been dictated as directed. I performed a history and examination of this patient, discussed the same with the dictator. I agree with the dictator's note ,documented as a scribe. Any additional findings or plans will be noted.
--- NOTE | 2022-07-05 16:48 | P.PN ---
Subjective Progress Note Date: 07/05/22 (delayed charting seen at 1130) Patient is a 77-year-old female with COPD, DVT, and known peripheral arterial disease with prior stenting who presented to the ER with complaints of worsening right lower extremity claudication and some chest pain. Patient was found to be in atrial fibrillation with controlled ventricular response. She adamantly denies history of atrial fibrillation. On arrival to the ER she was hypertensive with a blood pressure of 195/138. Initial laboratory analysis demo nstrated a normal troponin, mildly elevated d-dimer at 4.93, and creatinine 1.07 which is better than her baseline of 1.2. Chest x-ray showed no acute process. CT aorta with runoff showed occlusion of the right superficial femoral artery with a diminutive posterior tibial artery there is an occlusion of the left superficial femoral artery. She was admitted for further monitoring. Troponins were trended and remained negative. She is continuing on aspirin, Plavix, and statin. Cardiology was consulted who recommended an echocardiogram and anticoagulation on discharge due to new onset A. fib. She was seen by vascular surgery who recommended a venous arterial Doppler. Patient seen and examined at bedside. She reports excruciating pain that she can no longer handle and ambulating. This is in her right lower extremity and occurs even at short distances such as to the bathroom in the room. She describes an episode of retrosternal discomfort. She describes it is not sharp or stabbing pain but she just knew something was there. She denies a history of atrial fibrillation that she was aware of. General: nontoxic, no distress, appears at stated age Derm: warm, dry Head: atraumatic, normocephalic, symmetric Eyes: EOMI, no lid lag, anicteric sclera Mouth: no lip lesion, mucus membranes moist Cardiovascular: S1S2 regular, no murmur, positive posterior tibial pulse bilateral, Lungs: CTA bilateral, no rhonchi, no rales , no accessory muscle use Abdominal: soft, nontender to palpation, no guarding, no appreciable organomegaly Ext: no gross muscle atrophy, no edema, no contractures Neuro: CN II-XI grossly intact, no focal neuro deficits Psych: Alert, oriented, appropriate affect Assessment/plan: Chest pain Newly discovered atrial fibrillation Hypertensive urgency -Cardiology recommendations appreciated -Await echocardiogram -Continue with heparin drip -We'll need anticoagulation on discharge. Likely could discontinue aspirin or Plavix to avoid triple therapy in this high risk elderly patient. Will defer to cardiology and vascular. -Continue with BAM inhibitor and Coreg -Follow blood pressures Peripheral arterial disease with claudication -Vascular surgery management Intermittent right hepatic dome lesion -Outpatient follow-up with GI Chronic: COPD without exacerbation Dyslipidemia DVT Aortic aneurysm Hypothyroidism DVT prophylaxis: Heparin drip Anticipate Home in a.m. Objective - Vital Signs Vital signs: Vital Signs Temp 97.7 F 07/05/22 14:47 Pulse 68 07/05/22 14:47 Resp 18 07/05/22 14:47 BP 127/77 07/05/22 14:47 Pulse Ox 95 07/05/22 14:47 FiO2 Intake & Output 07/04/22 07/05/22 07/05/22 18:59 06:59 18:59 Intake Total 164.22 Balance 164.22 Weight 52.163 kg 52.163 kg Intake: Intake, IV Titration 46.22 Amount Heparin Sod,Pork in 0.45% 46.22 NaCl 25,000 unit In 0.45 % NaCl 1 250ml.bag @ 12 UNITS/KG/HR 6.26 mls/hr IV .Q24H [facility] Rx#: [id number] Oral 118 Other: Voiding Method Toilet Toilet # Voids 1 - Labs CBC & Chem 7: 07/05/22 03:53 07/05/22 03:53 Labs: Abnormal Lab Results - Last 24 Hours (Table) 07/04/22 07/04/22 07/04/22 Range/Units 19:00 19:00 19:00 RBC 6.36 H (3.80-5.40) m/uL Hct 48.7 H (34.0-46.0) % MCV 76.6 L (80.0-100.0) fL MCH 23.6 L (25.0-35.0) pg MCHC 30.8 L (31.0-37.0) g/dL RDW 17.0 H (11.5-15.5) % Monocytes # 1.1 H (0-1.0) k/uL APTT (22.0-30.0) sec D-Dimer 4.93 H (<0.60) mg/L FEU Sodium (137-145) mmol/L BUN 28 H (7-17) mg/dL Creatinine 1.07 H (0.52-1.04) mg/dL Glucose 100 H (74-99) mg/dL Calcium (8.4-10.2) mg/dL 07/05/22 07/05/22 07/05/22 Range/Units 03:53 03:53 11:18 RBC 5.53 H (3.80-5.40) m/uL Hct (34.0-46.0) % MCV 76.7 L (80.0-100.0) fL MCH 24.2 L (25.0-35.0) pg MCHC (31.0-37.0) g/dL RDW 16.9 H (11.5-15.5) % Monocytes # (0-1.0) k/uL APTT 34.1 H (22.0-30.0) sec D-Dimer (<0.60) mg/L FEU Sodium 134 L (137-145) mmol/L BUN 25 H (7-17) mg/dL Creatinine 1.07 H (0.52-1.04) mg/dL Glucose (74-99) mg/dL Calcium 8.3 L (8.4-10.2) mg/dL 07/05/22 Range/Units 15:46 RBC (3.80-5.40) m/uL Hct (34.0-46.0) % MCV (80.0-100.0) fL MCH (25.0-35.0) pg MCHC (31.0-37.0) g/dL RDW (11.5-15.5) % Monocytes # (0-1.0) k/uL APTT 34.1 H (22.0-30.0) sec D-Dimer (<0.60) mg/L FEU Sodium (137-145) mmol/L BUN (7-17) mg/dL Creatinine (0.52-1.04) mg/dL Glucose (74-99) mg/dL Calcium (8.4-10.2) mg/dL
[2022-07-05] MEDS: SYMBICORT 160-4.5 MCG INHALER INHALATION SCH (19:54)
[2022-07-05] MEDS: HYDROcodone/APAP 5-325MG 1 EACH TAB PO PRN (20:53)
[2022-07-06] MEDS: HEPARIN SOD,PORK IN 0.45% NACL 25,000 UNIT in 0.45% NACL 1 250ML.BAG IV SCH ×2 (03:26→20:00)
[2022-07-06 06:24] LABS: Anisocytosis Slight; HCT 44.7 % (34.0-46.0); Hypochromasia Marked; MCHC 31.3 g/dL (31.0-37.0); MCV 76.7 fL (80.0-100.0); Mean Platelet Volume 7.5; Microcytosis Slight; Platelet Count 188 k/uL (150-450); RBC 5.83 m/uL (3.80-5.40); RDW 17.2 % (11.5-15.5); WBC 6.1 k/uL (3.8-10.6)
[2022-07-06 06:36] LABS: African American GFR (CKD) 54 (>60 ml/min/1.73 sqM); Anion Gap 2 mmol/L; Blood Urea Nitrogen 20 mg/dL (7-17); Calcium 8.4 mg/dL (8.4-10.2); Carbon Dioxide 29 mmol/L (22-30); Chloride 106 mmol/L (98-107); Glucose 92 mg/dL (74-99); Non-African American GFR(CKD) 47 (>60 ml/min/1.73 sqM); Potassium 4.5 mmol/L (3.5-5.1); Sodium 137 mmol/L (137-145)
[2022-07-06] MEDS: IPRATROPIUM 0.5 MG/2.5 ML NEBU INHALATION SCH ×4 (07:37→21:45)
[2022-07-06] MEDS: SYMBICORT 160-4.5 MCG INHALER INHALATION SCH ×2 (07:38→21:45)
--- NOTE | 2022-07-06 08:28 | P.PN ---
Subjective Progress Note Date: 07/06/22 PROGRESS NOTE The patient is a 77-year-old female with known history of peripheral vascular disease, chronic obstructive lung disease, hypertension and hyperlipidemia who presented with severe right lower extremity discomfort. She was noted to be in atrial fibrillation. She continues to have intermittent claudication with minimal activity. She denies any chest discomfort, she has dyspnea with some co ugh but unchanged. She continues to be on IV heparin. She was seen by the vascular surgical team and further recommendations are coming out today Medications: Aspirin, Lipitor 80 mg daily, Coreg 25 mg twice a day, Plavix 75 mg daily, IV heparin, lisinopril 20 mg daily, Singulair PHYSICAL EXAMINATION: Blood pressure 159/80 heart rate 80 LUNGS: Decreased breath sounds with no wheezes HEART: Irregular rate and rhythm, S1, S2. No S3. systolic ejection murmur ABDOMEN: Soft, nontender, no organomegaly EXTREMETIES: No edema, decreased pulses LAB: Hemoglobin 14, BUN 20, creatinine 1.12 IMPRESSION: 1. Severe peripheral vascular disease with rest pain 2. Atrial fibrillation , scores 5, not documented in the past 3. History of hypertension 4. History of hyperlipidemia PLAN: 1. Changed to oral anticoagulation when okay with vascular surgery, discussed with the team 2. Add amlodipine for blood pressure control 3. When she is on anticoagulation, stop Plavix if okay with vascular surgery 4. Depending on her progress further recommendations will be made, Objective - Vital Signs Vital signs: Vital Signs Temp 98.2 F 07/06/22 02:31 Pulse 80 07/06/22 07:55 Resp 18 07/06/22 02:31 BP 171/90 07/06/22 02:31 Pulse Ox 96 07/06/22 02:31 FiO2 Intake & Output 07/05/22 07/06/22 07/06/22 18:59 06:59 18:59 Intake Total 320.427 97.646 Balance 320.427 97.646 Intake: Intake, IV Titration 84.427 97.646 Amount Heparin Sod,Pork in 0.45% 84.427 97.646 NaCl 25,000 unit In 0.45 % NaCl 1 250ml.bag @ 12 UNITS/KG/HR 6.26 mls/hr IV .Q24H [facility] Rx#: [id number] Oral 236 Other: Voiding Method Toilet Toilet # Voids 1 1 - Labs CBC & Chem 7: 07/06/22 05:53 07/06/22 05:53 Labs: Abnormal Lab Results - Last 24 Hours (Table) 07/05/22 07/05/22 07/05/22 Range/Units 11: 15:46 22:28 RBC (3.80-5.40) m/uL MCV (80.0-100.0) fL MCH (25.0-35.0) pg RDW (11.5-15.5) % APTT 34.1 H 34.1 H 61.0 H (22.0-30.0) sec BUN (7-17) mg/dL Creatinine (0.52-1.04) mg/dL 07/06/22 07/06/22 07/06/22 Range/Units 05:53 05:53 05:53 RBC 5.83 H (3.80-5.40) m/uL MCV 76.7 L (80.0-100.0) fL MCH 24.0 L (25.0-35.0) pg RDW 17.2 H (11.5-15.5) % APTT 65.1 H (22.0-30.0) sec BUN 20 H (7-17) mg/dL Creatinine 1.12 H (0.52-1.04) mg/dL
--- NOTE | 2022-07-06 09:52 | P.PN ---
Subjective Progress Note Date: 07/06/22 Principal diagnosis: Right lower extremity claudication This is a pleasant 77-year-old female with a past medical history including peripheral arterial disease, abdominal aortic aneurysm with repair and iliac stenting, atrial fibrillation, heart failure, COPD, and DVT. The patient states she's been having right lower extremity pain since Saturday pain is present when standing and ambulating. She was at the grocery store with her son and states that she started having pain and progressively went down her leg she started getting numbness. It has progressively gotten worse over the week. She was planning on coming into the emergency department for evaluation, prior to santos ving for the hospital she started having intense chest pain and called EMS. She was found to be in A. fib with rapid rate. She is seeing Dr. Sanchez in the past and underwent abdominal aortic aneurysm repair with iliac stenting in January of this year at [facility]. Vascular surgery wa patient had no palpable pulse in the right PT DP. s consulted for right lower extremity numbness and pain with previous abdominal aortic aneurysm repair. Patient currently denies any chest pain or shortness of breath. She was getting a breathing treatment this morning. Denies any pain currently as she is sitting down. When she gets up and walks around she does have pain in that right lower extremity. She had a CT of the abdomen, pelvis and aorta with runoff which reported right SFA patency. Occlusion of the SFA just at its origin with reconstitution at the popliteal artery. There is a nurse there sclerosis with varying degree of narrowing of the popliteal artery. The right leg vessels appear diminutive. Only anterior tibial artery crosses the ankle. Posterior artery does not definitely cross the ankle. Left lower extremity shows left common femoral artery patency. Occlusion of the left SFA just past its origin extending to the distal portion with reconstitution at the popliteal artery. Vessels of the leg are created. Anterior posterior tibial arteries do not definitely cross the ankle. Abdomen reported Indeterminate right hepatic dome lesion. Liver mass protocol CT or MRI clinically warranted, small hiatal hernia, colonic diverticulosis atrophic right kidney with cystic changes abdominal aorta aneurysm with similar morphology 07/06/2022. Patient seen and examined today as a follow-up for right lower extremity pain/claudication. Today she states pain is somewhat better. She has no pain at rest. She does get some pain in her right lower extremity by the time she is getting back to bed from going to the bathroom more of a throbbing discomfort. She denies any shortness of breath, chest pain, or help palpitations at this time. Patient remains on a heparin drip at this time. Cardiology is recommending patient continue anticoagulation for new onset atrial fibrillation. Arterial ultrasound of lower extremities revealed right MIS 0.37 and left 0.8. Objective - Vital Signs Vital signs: Vital Signs Temp 98.2 F 07/06/22 02:31 Pulse 80 07/06/22 07:55 Resp 18 07/06/22 02:31 BP 171/90 07/06/22 02:31 Pulse Ox 96 07/06/22 02:31 FiO2 Intake & Output 07/05/22 07/06/22 07/06/22 18:59 06:59 18:59 Intake Total 320.427 97.646 Balance 320.427 97.646 Intake: Intake, IV Titration 84.427 97.646 Amount Heparin Sod,Pork in 0.45% 84.427 97.646 NaCl 25,000 unit In 0.45 % NaCl 1 250ml.bag @ 12 UNITS/KG/HR 6.26 mls/hr IV .Q24H [facility] Rx#: [id number] Oral 236 Other: Voiding Method Toilet Toilet # Voids 1 1 - Exam General appearance: The patient is alert, oriented, appears in no acute distress. HET: Head is normocephalic and atraumatic. Pupils are equal and reactive. Neck: Supple without lymphadenopathy. Trachea midline. No audible carotid bruit. Heart: Regular. Lungs: Equal expansion, normal respiratory effort. Abdomen: Soft, nontender, nondistended. Extremities: Normal skin color and turgor. Bilateral lower extremity warm to t he touch with good capillary refill. Palpable bilateral femoral pulses. Nonpalpable PT and DP pulses. Neurological: No focal deficits. Strength and sensation are grossly intact. - Labs CBC & Chem 7: 07/06/22 05:53 07/06/22 05:53 Labs: Abnormal Lab Results - Last 24 Hours (Table) 07/05/22 07/05/22 07/05/22 Range/Units 11: 15:46 22:28 RBC (3.80-5.40) m/uL MCV (80.0-100.0) fL MCH (25.0-35.0) pg RDW (11.5-15.5) % APTT 34.1 H 34.1 H 61.0 H (22.0-30.0) sec BUN (7-17) mg/dL Creatinine (0.52-1.04) mg/dL 07/06/22 07/06/22 07/06/22 Range/Units 05:53 05:53 05:53 RBC 5.83 H (3.80-5.40) m/uL MCV 76.7 L (80.0-100.0) fL MCH 24.0 L (25.0-35.0) pg RDW 17.2 H (11.5-15.5) % APTT 65.1 H (22.0-30.0) sec BUN 20 H (7-17) mg/dL Creatinine 1.12 H (0.52-1.04) mg/dL Assessment and Plan Assessment: 1. Right lower extremity pain, claudication 2. History of abdominal aortic aneurysm status post repair 3. Chest pain 4. Atrial fibrillation on heparin 5. History COPD 6. History of hypertension hyperlipidemia Plan: 1. Hold heparin at 1430 2. Lower extremity arterial duplex reviewed 3. Continue with workup, recommendations from cardiology 4. Nothing by mouth 5. We will proceed with right lower extremity angiogram Thank you for this consultation, we will continue to follow The impression and plan of care has been dictated as directed. I performed a history and examination of this patient, discussed the same with the dictator. I agree with the dictator's note ,documented as a scribe. Any additional findings or plans will be noted. Reviewed CTA with patient and son in full detail. There is thrombosis of the right SFA at the takeoff which previous CTA did not demonstrate and due to her acute symptoms and findings we discussed options including thrombolytic therapy which is recommended at this time. Due to her previous aortic graft we will access the brachial artery. All risks, benefits and complications were discussed with the patient and she is agreeable to the intervention which will be performed today.
[2022-07-06] MEDS: lisinopriL 20 MG TAB PO SCH (10:05)
[2022-07-06] MEDS: ATORVASTATIN 80 MG TAB PO SCH (10:06)
[2022-07-06] MEDS: carvediloL 12.5 MG TAB PO SCH ×2 (10:06→20:44)
[2022-07-06] MEDS: amLODIPine 5 MG TAB PO SCH (10:06)
[2022-07-06] MEDS: ASPIRIN 81 MG PO SCH (10:06)
[2022-07-06] MEDS: CLOPIDOGREL 75 MG TAB PO SCH (10:06)
[2022-07-06] MEDS: MONTELUKAST 10 MG TAB PO SCH ×2 (10:09→20:45)
--- NOTE | 2022-07-06 12:16 | CA ---
Transthoracic Echo Report Name: Jennifer Evangelista Age: 77 Gender: F : 1945 Exam Date: 07/06/2022 08:51 Exam Location: [facility] Ht (in): 64 Wt (lb): 115 Ordering Physician: Jose Dey MD ([id number]) Attending/Referring Phys: Commercial Finance Analyst Colette Piedra RDCS Procedure CPT: Indications: afib Cardiac Hx: Technical Quality: Good Contrast 1: Total Dose (mL): Contrast 2: Total Dose (mL): MEASUREMENTS (Male / Female) Normal Values 2D ECHO LV Diastolic Diameter PLAX 3.7 cm 4.2 - 5.9 / 3.9 - 5.3 cm LV Systolic Diameter PLAX 2.6 cm IVS Diastolic Thickness 1.4 cm 0.6 - 1.0 / 0.6 - 0.9 cm LVPW Diastolic Thickness 1.2 cm 0.6 - 1.0 / 0.6 - 0.9 cm LV Relative Wall Thickness 0.7 RV Internal Dim ED PLAX 3.3 cm LA Systolic Diameter LX 3.3 cm 3.0 - 4.0 / 2.7 - 3.8 cm LA Volume 57.8 cm??? 18 - 58 / 22 - 52 cm??? M-MODE Aortic Root Diameter MM 2.7 cm MV E Point Septal Separation 0.2 cm DOPPLER AV Peak Velocity 115.7 cm/s AV Peak Gradient 5.4 mmHg AI Peak Velocity 361.1 cm/s AI Peak Gradient 52.2 mmHg AI Pressure Half Time 1043.2 ms MV Area PHT 5.4 cm??? MR Peak Velocity 483.5 cm/s MR Peak Gradient 93.5 mmHg MV Deceleration Time 126.1 ms TR Peak Velocity 287.6 cm/s TR Peak Gradient 33.1 mmHg Right Ventricular Systolic Press 37.3 mmHg FINDINGS Left Ventricle Left ventricular ejection fraction is estimated at 55-60 %. Moderate left ventricle hypertrophy. left ventricular cavity size normal. Right Ventricle Mild right ventricular dilatation. Mild pulmonary hypertension. Right Atrium Normal right atrial size. Left Atrium Mildly increased left atrial volume. No evidence for an atrial septal defect. Mitral Valve Mitral valve thickened. Mild mitral annular calcification. Mild to moderate mitral regurgitation. Aortic Valve Trileaflet aortic valve. Focal thickening of the aortic valve cusps. Mild aortic regurgitation. Tricuspid Valve [id number] tricuspid regurgitation. Structurally normal tricuspid valve. Pulmonic Valve Trace pulmonic regurgitation. Pericardium Normal pericardium. No pericardial effusion. Aorta Normal size aortic root and proximal ascending aorta. CONCLUSIONS 1. Normal size and systolic function 2. Mild to moderate mitral and tricuspid regurgitation 3. Mild aortic regurgitation Previewed by: Dr. Jose Dey MD (Electronically Signed) Final Date: 06 July 2022 12:16
--- NOTE | 2022-07-06 16:36 | P.PN ---
Subjective Progress Note Date: 07/06/22 (delayed charting seen at 0930) Patient is a 77-year-old female with COPD, DVT, and known peripheral arterial disease with prior stenting who presented to the ER with complaints of worsening right lower extremity claudication and some chest pain. Patient was found to be in atrial fibrillation with controlled ventricular response. She adamantly denies history of atrial fibrillation. On arrival to the ER she was hypertensive with a blood pressure of 195/138. Initial laboratory analysis demo nstrated a normal troponin, mildly elevated d-dimer at 4.93, and creatinine 1.07 which is better than her baseline of 1.2. Chest x-ray showed no acute process. CT aorta with runoff showed occlusion of the right superficial femoral artery with a diminutive posterior tibial artery there is an occlusion of the left superficial femoral artery. She was admitted for further monitoring. Troponins were trended and remained negative. She is continuing on aspirin, Plavix, and statin. Cardiology was consulted who recommended an echocardiogram and anticoagulation on discharge due to new onset A. fib. She was seen by vascular surgery who recommended a venous arterial Doppler. Patient seen and examined at bedside. She is still having a ton of pain when ambulating and even just with standing. No chest pain, no shortness of breath. General: nontoxic, no distress, appears at stated age Derm: warm, dry Head: atraumatic, normocephalic, symmetric Eyes: EOMI, no lid lag, anicteric sclera Mouth: no lip lesion, mucus membranes moist Cardiovascular: S1S2 regular, no murmur, positive posterior tibial pulse bilateral, Lungs: CTA bilateral, no rhonchi, no rales , no accessory muscle use Abdominal: soft, nontender to palpation, no guarding, no appreciable organomegaly Ext: no gross muscle atrophy, no edema, no contractures Neuro: CN II-XI grossly intact, no focal neuro deficits Psych: Alert, oriented, appropriate affect Assessment/plan: Chest pain Newly discovered atrial fibrillation Hypertensive urgency -Cardiology recommendations appreciated -Echocardiogram EF 55-60^ -Continue with heparin drip -We'll need anticoagulation on discharge. -Continue with BAM inhibitor and Coreg -Follow blood pressures Critical Limb Ischemia Peripheral arterial disease with claudication -Vascular surgery management: plan is for OR today with stent Intermittent right hepatic dome lesion -Outpatient follow-up with GI Chronic: COPD without exacerbation Dyslipidemia DVT Aortic aneurysm Hypothyroidism D/W Vascular plan will be to discharge home on Plavix and eliquis, no aspirin needed. DVT prophylaxis: Heparin drip Anticipate Home in a.m. Objective - Vital Signs Vital signs: Vital Signs Temp 97.9 F 07/06/22 15:00 Pulse 85 07/06/22 15:19 Resp 16 07/06/22 15:00 BP 97/68 07/06/22 15:00 Pulse Ox 96 07/06/22 15:09 FiO2 Intake & Output 07/05/22 07/06/22 07/06/22 18:59 06:59 18:59 Intake Total 320.427 97.646 222.218 Balance 320.427 97.646 222.218 Intake: Intake, IV Titration 84.427 97.646 104.218 Amount Heparin Sod,Pork in 0.45% 84.427 97.646 104.218 NaCl 25,000 unit In 0.45 % NaCl 1 250ml.bag @ 12 UNITS/KG/HR 6.26 mls/hr IV .Q24H [facility] Rx#: [id number] Oral 236 118 Other: Voiding Method Toilet Toilet Toilet # Voids 1 1 2 - Labs CBC & Chem 7: 07/06/22 05:53 07/06/22 05:53 Labs: Abnormal Lab Results - Last 24 Hours (Table) 07/05/22 07/05/22 07/06/22 Range/Units 15:46 22:28 05:53 RBC (3.80-5.40) m/uL MCV (80.0-100.0) fL MCH (25.0-35.0) pg RDW (11.5-15.5) % APTT 34.1 H 61.0 H (22.0-30.0) sec BUN 20 H (7-17) mg/dL Creatinine 1.12 H (0.52-1.04) mg/dL 07/06/22 07/06/22 Range/Units 05:53 05:53 RBC 5.83 H (3.80-5.40) m/uL MCV 76.7 L (80.0-100.0) fL MCH 24.0 L (25.0-35.0) pg RDW 17.2 H (11.5-15.5) % APTT 65.1 H (22.0-30.0) sec BUN (7-17) mg/dL Creatinine (0.52-1.04) mg/dL
[2022-07-06] MEDS ORDERED: LIDOCAINE 1% INJ 10MG/ML (30 ML VIAL-PF) SQ ONE (18:17)
[2022-07-06] MEDS ORDERED: VERAPAMIL 2.5 MG/ML 2 ML AMP ONE (18:29)
[2022-07-06] MEDS ORDERED: HEPARIN SODIUM 1,000 UN/ML (10ML VL) ONE (18:29)
[2022-07-06] MEDS ORDERED: MIDAZOLAM 2 MG/2 ML VIAL IV ONE (18:29)
[2022-07-06] MEDS ORDERED: ALTEPLASE 10 MG in SODIUM CHLORIDE 0.9% 90 ML IA ONE (18:33)
[2022-07-06] MEDS ORDERED: SODIUM CHLORIDE 0.9% 1,000 ML IV ONE (18:38)
[2022-07-06] MEDS: NITROGLYCERIN 1000MCG/10ML SYRINGE INTRAARTER ONE (18:38)
[2022-07-06] MEDS ORDERED: HEPARIN SODIUM 1,000 UN/ML (10ML VL) MISCELLANE ONE (18:38)
[2022-07-06] MEDS ORDERED: VERAPAMIL SYRINGE (5 MG/10 ML) INTRAARTER ONE (18:38)
[2022-07-06] MEDS ORDERED: IOPAMIDOL-250 100ML BTL INTRAARTER ONE (18:40)
--- NOTE | 2022-07-06 19:07 | P.OP ---
Date of Procedure: 07/06/22 Preoperative Diagnosis: Right lower extremity limb ischemia Christa 4 Right SFA thrombosis Postoperative Diagnosis: Same Procedure(s) Performed: 1. Ultrasound guided left brachial artery access 2. Selective right lower extremity ilio-femoral, femoral-popliteal and tibial angiograms 3rd order 3. Placement of thrombolytic catheter at the right femoral-popliteal region 4. Initiation of thrombolysis 5. Conscious sedation x 36 minutes Anesthesia: local Surgeon: Ramy Sanchez Estimated Blood Loss (ml): 5 Pathology: none sent Condition: stable Disposition: ICU Indications for Procedure: 77-year-old female with history of AAA, endovascular aortic repair with left renal artery stenting presents to the hospital secondary to acute onset of right lower extremity pain and inability to ambulate. She underwent lower extremity arterial Doppler which demonstrated significant decrease in blood flow with ABIs of .37 on the right and 0.80 on the left. She then underwent CTA of the abdomen and pelvis with runoff which demonstrated widely patent aortic graft with occlusion noted at the right superficial femoral artery extending down to the popliteal artery. After discussion with the patient patient presents for right lower extremity angiogram and possible revascularization with thrombolysis. Description of Procedure: After written informed consent was obtained the patient all risks benefits competitions were described the patient is brought to the [facility] and laid in a supine position. The area of the left arm was prepped and draped in the usual sterile fashion. Local anesthesia with moderate sedation was performed with continuous pulse ox monitoring and EKG monitoring. Utilizing ultrasound the left brachial artery was visualized and shown to be patent without any significant plaque. Utilizing a multipurpose needle under ultrasound guidance the artery was accessed. Guidewire was placed followed by 5-Zambian sheath. 035 Glidewire was then placed followed by a RBI catheter and descending thoracic aorta was entered and guidewire was placed into the right iliac graft. Selective angiogram was then obtained demonstrating occlusion of the superficial femoral artery just after the takeoff with reconstitution at the popliteal artery distally. 035 Glidewire advantage was then placed followed by a quick cross catheter and the superficial femoral artery was accessed easily. The wire was then placed into the popliteal artery followed by the quick cross catheter and selective distal angiogram was obtained of the popliteal artery and tibial vessels. Three-vessel takeoff and two-vessel runoff to the foot was noted. Patient was administered heparin, nitro and and verapamil cocktail. A 6-Zambian 90 cm sheath was then placed after removal of the 5-Zambian sheath in the arm down to the iliac artery just above the femoral artery. Angiogram was once again obtained demonstrating occlusion approximately 35 cm in length and therefore a 40 cm EKOS catheter was chosen and placed across the lesion. The catheter and sheath were then secured with nylon suture. Thrombolytics were then initiated. The area was cleansed and dressings were placed. Patient tolerated the procedure well and thrombolysis will be continued overnight and recheck tomorrow morning.
[2022-07-06 19:32] LABS: Glucose,Whole Blood 92 mg/dL (70-110)
[2022-07-06 20:43] LABS: Anisocytosis Slight; Basophils # (A) 0.1 k/uL (0-0.2); Basophils % (A) 1 %; Eosinophils # (A) 0.2 k/uL (0-0.7); Eosinophils % (A) 3 %; HCT 43.1 % (34.0-46.0); HGB 13.4 gm/dL (11.4-16.0); Hypochromasia Marked; Lymphocytes # (A) 1.2 k/uL (1.0-4.8); Lymphocytes % (A) 18 %; MCH 23.6 pg (25.0-35.0); MCHC 31.2 g/dL (31.0-37.0); MCV 75.7 fL (80.0-100.0); Mean Platelet Volume 7.6; Microcytosis Slight; Monocytes # (A) 0.6 k/uL (0-1.0); Monocytes % (A) 9 %; Neutrophils # (A) 4.2 k/uL (1.3-7.7); Neutrophils % (A) 66 %; Platelet Count 193 k/uL (150-450); RDW 16.9 % (11.5-15.5); WBC 6.4 k/uL (3.8-10.6)
[2022-07-06] MEDS: HYDROcodone/APAP 5-325MG 1 EACH TAB PO PRN (20:45)
[2022-07-06 20:54] LABS: INR 1.1 (<1.2); Prothrombin Time 11.4 sec (9.0-12.0)
[2022-07-06] MEDS ORDERED: NALOXONE 0.4 MG/ML 1 ML VIAL IV PRN (21:43)
[2022-07-06] MEDS ORDERED: MORPHINE PCA 50 MG/50 ML BAG IV PRN (21:43)
[2022-07-07 07:04] LABS: Anisocytosis Slight; Basophils % (A) 1 %; Eosinophils # (A) 0.2 k/uL (0-0.7); Eosinophils % (A) 3 %; HCT 42.2 % (34.0-46.0); HGB 13.1 gm/dL (11.4-16.0); Hypochromasia Marked; Lymphocytes # (A) 0.9 k/uL (1.0-4.8); Lymphocytes % (A) 16 %; MCH 23.9 pg (25.0-35.0); MCHC 31.1 g/dL (31.0-37.0); Mean Platelet Volume 7.2; Microcytosis Slight; Monocytes # (A) 0.5 k/uL (0-1.0); Monocytes % (A) 9 %; Neutrophils % (A) 69 %; Platelet Count 175 k/uL (150-450); RBC 5.48 m/uL (3.80-5.40); WBC 5.9 k/uL (3.8-10.6)
[2022-07-07 07:09] LABS: INR 1.1 (<1.2); Partial Thromboplastin Time 29.5 sec (22.0-30.0); Prothrombin Time 11.4 sec (9.0-12.0)
[2022-07-07] MEDS: IPRATROPIUM 0.5 MG/2.5 ML NEBU INHALATION SCH ×4 (07:22→19:56)
[2022-07-07] MEDS: SYMBICORT 160-4.5 MCG INHALER INHALATION SCH ×2 (07:22→19:56)
[2022-07-07] MEDS: ASPIRIN 81 MG PO SCH (08:56)
[2022-07-07] MEDS: CLOPIDOGREL 75 MG TAB PO SCH (08:56)
[2022-07-07] MEDS: lisinopriL 20 MG TAB PO SCH (08:56)
[2022-07-07] MEDS: amLODIPine 5 MG TAB PO SCH (08:56)
[2022-07-07] MEDS: ATORVASTATIN 80 MG TAB PO SCH (08:56)
[2022-07-07 09:00] LABS: Calcium 8.3 mg/dL (8.4-10.2); Potassium 4.3 mmol/L (3.5-5.1)
[2022-07-07] MEDS: carvediloL 12.5 MG TAB PO SCH ×2 (09:15→20:08)
[2022-07-07] MEDS ORDERED: fentaNYL (PF) 50 MCG/ML 2 ML AMP ONE (10:51)
[2022-07-07] MEDS ORDERED: VERAPAMIL SYRINGE (5 MG/10 ML) INTRAARTER ONE (10:52)
[2022-07-07] MEDS ORDERED: MIDAZOLAM HCL 10 MG/10 ML VIAL IVP ONE (10:54)
[2022-07-07] MEDS ORDERED: fentaNYL (PF) 50 MCG/ML 2 ML AMP IVP ONE (10:55)
[2022-07-07] MEDS ORDERED: IV FLUID CONTINUATION 500 ML IV ONE (10:55)
--- NOTE | 2022-07-07 10:57 | P.PN ---
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 Patient is doing well, having repeat angiography done to determine further need for TPA, EKOS. Gen: awake, alert, thin, elderly woman HEENT: normocephalic, atraumatic, good hearing acuity, moist mucous membranes Resp: good air exchange, breathing comfortably with no accessory muscle use CVS: good distal perfusion x 4, GI: soft, NTTP, ND : no SPT, no CVAT, main catheter not present MSK: no pitting edema, no clubbing Neuro: non-focal, moving all extremities Psych: cooperative, euthymic mood Assessment/plan: Chest pain Newly discovered atrial fibrillation Hypertensive urgency -Cardiology recommendations appreciated -Echocardiogram EF 55-60^ -Continue with heparin drip -We'll need anticoagulation on discharge, Eliquis currently planned -Continue with BAM inhibitor and Coreg -Follow blood pressures Critical Limb Ischemia Peripheral arterial disease with claudication -Vascular surgery management: plan is for OR today to re-evaluate need for repeat EKOS and ongoing tPA -s/p OR on 07/06 with post op management in ICU s/p EKOS and tPA infusion Intermittent right hepatic dome lesion -Outpatient follow-up with GI Chronic: COPD without exacerbation Dyslipidemia DVT Aortic aneurysm Hypothyroidism D/W Vascular plan will be to discharge home on Plavix and eliquis, no aspirin needed; i discontinued inpt ASA 07/07 DVT prophylaxis: Heparin drip Anticipate Home in a.m. Objective - Vital Signs Vital signs: Vital Signs Temp 98.1 F 07/07/22 08:00 Pulse 70 07/07/22 09:00 Resp 17 07/07/22 09:00 BP 169/74 07/07/22 09:00 Pulse Ox 98 07/07/22 09:00 FiO2 Intake & Output 07/06/22 07/07/22 07/07/22 18:59 06:59 18:59 Intake Total 372.218 Output Total 100 Balance 372.218 -100 Intake: IV 150 Intake, IV Titration 104.218 Amount Heparin Sod,Pork in 0.45% 104.218 NaCl 25,000 unit In 0.45 % NaCl 1 250ml.bag @ 12 UNITS/KG/HR 6.26 mls/hr IV .Q24H [facility] Rx#: [id number] Oral 118 Output: Urine 100 Other: Voiding Method Toilet Bedpan # Voids 2 1 - Labs CBC & Chem 7: 07/07/22 06:15 07/07/22 06:15 Labs: Abnormal Lab Results - Last 24 Hours (Table) 07/06/22 07/06/22 07/07/22 Range/Units 20:04 20:04 06:15 RBC 5.70 H 5.48 H (3.80-5.40) m/uL MCV 75.7 L 77.0 L (80.0-100.0) fL MCH 23.6 L 23.9 L (25.0-35.0) pg RDW 16.9 H 17.0 H (11.5-15.5) % Lymphocytes # 0.9 L (1.0-4.8) k/uL Chloride (98-107) mmol/L Carbon Dioxide (22-30) mmol/L BUN 21 H (7-17) mg/dL Calcium (8.4-10.2) mg/dL 07/07/22 Range/Units 06:15 RBC (3.80-5.40) m/uL MCV (80.0-100.0) fL MCH (25.0-35.0) pg RDW (11.5-15.5) % Lymphocytes # (1.0-4.8) k/uL Chloride 110 H (98-107) mmol/L Carbon Dioxide 20 L (22-30) mmol/L BUN (7-17) mg/dL Calcium 8.3 L (8.4-10.2) mg/dL
[2022-07-07] MEDS ORDERED: HEPARIN SODIUM 1,000 UN/ML (10ML VL) IV ONE (11:15)
[2022-07-07] MEDS ORDERED: NITROGLYCERIN 1000MCG/10ML SYRINGE INTRAARTER ONE (11:50)
[2022-07-07] MEDS: NITROGLYCERIN 1000MCG/10ML SYRINGE INTRAARTER ONE (12:05)
--- NOTE | 2022-07-07 12:08 | P.CNPUL ---
History of Present Illness Consult date: 07/07/22 Requesting physician: Ramy Sanchez Reason for consult: other (Critical care management) Chief complaint: Chest pain History of present illness: This is a 77-year-old female patient with a known history of atrial fibrillation, DVT, congestive heart failure, hyperlipidemia, hypertension, hypothyroidism, aortic aneurysm with previous stenting, carotid artery disease with bilateral carotid endarterectomies, former smoker. She presented here on 07/04/2022 with complaints of sudden onset of chest pain, pressure and heaviness. Chest x-ray revealed no acute pulmonary process. CT angiogram of the abdomen and pelvis and lower extremities revealed occlusion of the right superficial femoral artery extending from its origin to the distal portion near the popliteal artery. Only the anterior tibial artery crosses the right ankle. Posterior tibial artery is diminutive and does not cross ankle. On the left side there was occlusion of the left superficial coronary femoral artery extending from its origin to the distal portion of paroxysmal artery. No vessels definitely cross the ankle. Abdomen revealed intermediate right hepatic dome lesion. Small hiatal hernia. Colonic diverticulosis. Echocardiogram revealed preserved left ventricular systolic function. Mild to moderate mitral and tricuspid regurgitation. Yesterday she had undergone selective right lower extremity iliofemoral, femoral popliteal and tibial angiograms with placement of thrombolytic catheter and initiation of sample lysis. From there she was admitted to the ICU and we're consulted for the same. His only, she is resting comfortably in bed. Awake and alert in no acute distress. She is somewhat hypertensive. White count 5.9. Hemoglobin 13.1. INR 1.1. Fibrinogen 232. Sodium 138. Potassium 4.3. Bicarb 20. BUN 17. Creatinine 0.96. Left brachial artery was utilized for EKOS catheter placement. Review of Systems REVIEW OF SYSTEMS: CONSTITUTIONAL: Denies any recent significant weight loss or weight gain. EYES: Denies change in vision. EARS, NOSE, MOUTH, THROAT: Denies headaches, denies sore throat. CARDIOVASCULAR: Positive for chest pain, palpitations no syncopal episodes. RESPIRATORY: Denies shortness of breath, cough, congestion or hemoptysis. GASTROINTESTINAL: Denies change in appetite, denies abdominal pain GENITOURINARY: Denies hematuria, denies infections. MUSKULOSKELETAL: Positive for right lower extremity pain, denies swelling. INTEGUMENTARY: Denies rash, denies eczema. NEUROLOGICAL: Denies recent memory loss, no recent seizure activity. PSYCHIATRIC: Denies anxiety, denies depression. HEMATOLOGIC/LYMPHATIC: Denies anemia, denies enlarged lymph nodes. Past Medical History Past Medical History: Atrial Fibrillation, Heart Failure, COPD, Deep Vein Thrombosis (DVT), Hyperlipidemia, Hypertension, Osteoarthritis (OA), Pneumonia, Thyroid Disorder Additional Past Medical History / Comment(s): AORTIC ANEURYSM. History of Any Multi-Drug Resistant Organisms: None Reported Past Surgical History: Appendectomy, Tonsillectomy, Tubal Ligation Additional Past Surgical History / Comment(s): STENT- AORTIC ANEURSYM AND STENT- RENAL ARTERY. BILATERAL CAROTIDS. Past Anesthesia/Blood Transfusion Reactions: No Reported Reaction Past Psychological History: No Psychological Hx Reported Smoking Status: Former smoker Past Alcohol Use History: None Reported Past Drug Use History: None Reported - Past Family History fmaily Family Medical History: Cancer Medications and Allergies Home Medications Medication Instructions Recorded Confirmed Type Albuterol Inhaler [Ventolin Hfa 2 puff INHALATION RT-QID PRN 02/09/22 07/04/22 History Inhaler] Aspirin [Adult Low Dose Aspirin EC] 81 mg PO DAILY 02/09/22 07/04/22 History Atorvastatin [Lipitor] 80 mg PO DAILY 02/09/22 07/04/22 History Cholecalciferol [Vitamin D3 (25 50 mcg PO DAILY 02/09/22 07/04/22 History Mcg = 1000 Iu)] Clopidogrel [Plavix] 75 mg PO DAILY 02/09/22 07/04/22 History Hydrocodone/Acetaminophen 1 tab PO BID PRN 02/09/22 07/04/22 History [Hydrocodone/Acetaminophen 5-325] Montelukast Sodium [Singulair] 10 mg PO DAILY 02/09/22 07/04/22 History carvediloL 25 mg PO BID 02/09/22 07/04/22 History Benazepril HCl 20 mg PO DAILY 07/04/22 07/04/22 History Budesonide/Glycopyr/Formoterol 2 puff INHALATION DIRECTED 07/04/22 07/04/22 History [Breztri Aerosphere Inhaler] Ipratropium-Albuterol Nebulize 3 ml INHALATION RT-QID 07/04/22 07/05/22 History [Duoneb 0.5 mg-3 mg/3 ml Soln] Allergies Allergy/AdvReac Type Severity Reaction Status Date / Time No Known Allergies Allergy Verified 07/04/22 20:41 Physical Exam Vitals: Vital Signs Temp Pulse Pulse Resp BP BP Pulse Ox 07/07/22 10:00 73 11 L 177/103 96 07/07/22 09:30 63 20 182/99 97 07/07/22 09:00 70 17 169/74 98 07/07/22 08:30 54 L 16 158/82 99 07/07/22 08:00 98.1 F 73 11 L 145/94 96 07/07/22 07:32 78 07/07/22 07:30 62 10 L 171/98 100 07/07/22 07:24 98 07/07/22 07:22 70 07/07/22 07:00 64 22 173/109 97 07/07/22 06:30 70 17 131/116 98 07/07/22 06:00 70 14 149/106 96 07/07/22 05:30 78 12 149/89 07/07/22 05:00 64 12 166/96 98 07/07/22 04:30 75 15 159/98 97 07/07/22 04:00 97.6 F 79 18 178/92 96 07/07/22 03:30 82 14 161/113 98 07/07/22 03:00 88 17 191/100 97 07/07/22 02:30 78 35 H 185/90 95 07/07/22 02:00 83 17 186/92 96 07/07/22 01:30 85 20 192/94 96 07/07/22 01:00 80 18 193/104 97 07/07/22 00:30 81 21 193/83 94 L 07/07/22 00:03 84 12 187/99 92 L 07/07/22 00:00 97.5 F L 80 20 187/99 93 L 07/06/22 23:30 81 21 186/125 92 L 07/06/22 23:00 74 19 185/105 94 L 07/06/22 22:30 97.7 F 64 15 170/104 95 07/06/22 22:00 82 16 156/92 92 L 07/06/22 21:59 84 07/06/22 21:45 87 39 H 167/102 92 L 07/06/22 21:43 96 07/06/22 21:30 81 28 H 145/131 95 07/06/22 21:15 101 H 33 H 143/114 89 L 07/06/22 21:00 82 32 H 190/107 96 07/06/22 20:45 81 26 H 176/90 94 L 07/06/22 20:30 75 26 H 164/105 95 07/06/22 20:15 78 23 147/105 94 L 07/06/22 20:00 76 19 157/110 95 07/06/22 19:54 97.8 F 07/06/22 19:45 76 21 162/108 95 07/06/22 19:30 65 23 95 07/06/22 15:19 85 07/06/22 15:09 84 96 07/06/22 15:00 97.9 F 62 16 97/68 95 07/06/22 14:00 16 Intake and Output 07/06/22 07/07/22 07/07/22 22:59 06:59 14:59 Intake Total 150 50 Output Total 100 Balance 150 -100 50 Intake: IV 150 50 Output: Urine 100 Other: Voiding Method Bedpan Bedpan Bedpan # Voids 0 1 GENERAL EXAM: Alert, pleasant 77-year-old female, on 2 L nasal cannula, comfortable in no apparent distress. HEAD: Normocephalic. EYES: Normal reaction of pupils, equal size. NOSE: Clear with pink turbinates. THROAT: No erythema or exudates. NECK: No masses, no JVD. CHEST: No chest wall deformity. LUNGS: Equal air entry with no crackles, wheeze, rhonchi or dullness. CVS: S1 and S2 normal with no audible murmur, regular rhythm. ABDOMEN: No hepatosplenomegaly, normal bowel sounds, no guarding or rigidity. SPINE: No scoliosis or deformity SKIN: No rashes CENTRAL NERVOUS SYSTEM: No focal deficits, tone is normal in all 4 extremities. EXTREMITIES: Left brachial catheter in place. There is no peripheral edema. No clubbing, no cyanosis. Peripheral pulses are intact. Results - Laboratory Findings CBC and BMP: 07/07/22 06:15 07/07/22 06:15 PT/INR, D-dimer PT 11.4 sec (9.0-12.0) 07/07/22 06:15 INR 1.1 (<1.2) 07/07/22 06:15 D-Dimer 4.93 mg/L FEU (<0.60) H 07/04/22 19:00 Abnormal lab findings: Abnormal Labs 07/04/22 07/04/22 07/04/22 19:00 19:00 19:00 RBC 6.36 H Hct 48.7 H MCV 76.6 L MCH 23.6 L MCHC 30.8 L RDW 17.0 H Lymphocytes # Monocytes # 1.1 H APTT D-Dimer 4.93 H Sodium Chloride Carbon Dioxide BUN 28 H Creatinine 1.07 H Glucose 100 H Calcium 07/05/22 07/05/22 07/05/22 03:53 03:53 11:18 RBC 5.53 H Hct MCV 76.7 L MCH 24.2 L MCHC RDW 16.9 H Lymphocytes # Monocytes # APTT 34.1 H D-Dimer Sodium 134 L Chloride Carbon Dioxide BUN 25 H Creatinine 1.07 H Glucose Calcium 8.3 L 07/05/22 07/05/22 07/06/22 15:46 22:28 05:53 RBC Hct MCV MCH MCHC RDW Lymphocytes # Monocytes # APTT 34.1 H 61.0 H D-Dimer Sodium Chloride Carbon Dioxide BUN 20 H Creatinine 1.12 H Glucose Calcium 07/06/22 07/06/22 07/06/22 05:53 05:53 20:04 RBC 5.83 H 5.70 H Hct MCV 76.7 L 75.7 L MCH 24.0 L 23.6 L MCHC RDW 17.2 H 16.9 H Lymphocytes # Monocytes # APTT 65.1 H D-Dimer Sodium Chloride Carbon Dioxide BUN Creatinine Glucose Calcium 07/06/22 07/07/22 07/07/22 20:04 06:15 06:15 RBC 5.48 H Hct MCV 77.0 L MCH 23.9 L MCHC RDW 17.0 H Lymphocytes # 0.9 L Monocytes # APTT D-Dimer Sodium Chloride 110 H Carbon Dioxide 20 L BUN 21 H Creatinine Glucose Calcium 8.3 L - Diagnostic Findings Chest x-ray: image reviewed Assessment and Plan Assessment: Chest pain, acute coronary syndrome ruled out Right lower extremity pain with claudication, status post TPA 07/06/2022, plans return to CVL today 07/07/2022 History of atrial fibrillation History of COPD on Breztri, albuterol HFA and DuoNeb inhalations in the outpatient setting Hypertension Hyperlipidemia History of congestive heart failure History of aortic aneurysm status post stenting Carotid artery disease status post bilateral carotid endarterectomies Former smoker Hypothyroidism Plan: The patient was seen and evaluated Currently stable and on 2 L nasal cannula Continue Symbicort, DuoNeb inhalations Received TPA and plans return to the CVL today We will continue to follow and make further recommendations based on her clinical status I have personally seen and examined the patient, performed the documentation and the assessment and plan as written. Number of minutes spent on the visit: 20.
[2022-07-07] MEDS ORDERED: LIDOCAINE 1% INJ 10MG/ML (30 ML VIAL-PF) SQ ONE (12:11)
[2022-07-07] MEDS ORDERED: IOPAMIDOL-250 100ML BTL INTRAARTER ONE (12:12)
--- NOTE | 2022-07-07 12:26 | P.OP ---
Date of Procedure: 07/07/22 Preoperative Diagnosis: acute right lower extremity ischemia Right SFA thrombosis, occlusion s/p thrombolysis Postoperative Diagnosis: Same right popliteal artery thrombus Procedure(s) Performed: 1. Right lower extremity selective angiogram via existing catheter 2. Right SFA PTBA with [id number] evercross, 6x80mm Impact 3. Right SFA transluminal stenting with 6x39mm Omnilink stent 4. Right Popliteal artery PTBA with 6x39mm balloon 5. Placement of thrombolytic catheter and initiation of thrombolysis 6. Conscious sedation x 77 minutes Anesthesia: local Surgeon: Ramy Sanchez Estimated Blood Loss (ml): 5 Pathology: none sent Condition: stable Disposition: ICU Indications for Procedure: 77-year-old female currently being treated for acute limb ischemia of the right lower extremity with catheter directed thrombolysis presents to the Construction Sales Representative for reevaluation and reimaging. She states the pain in her foot has not improved overnight and still feels cold and numb. She is able to move her foot and per nursing staff she has signal to her DP and PT. Operative Findings: Occluded right SFA just after the takeoff with multiple areas of stenosis throughout to the popliteal artery which appears to have some swirling/thrombus. Two-vessel takeoff and runoff which is slow to the foot Description of Procedure: After written and informed consent was obtained the patient and all risks, benefits and complications were described the patient is brought to the Construction Sales Representative and laid in a supine position. The area of the existing catheter and sheath was prepped and draped in usual sterile fashion. 035 Glidewire was then placed through the existing thrombolytic catheter and the catheter was removed. Angiogram was then obtained through the sheath which demonstrated marked occlusion of the SFA at the takeoff with multiple areas of refilling and stenosis. Balloon angioplasty was then performed after patient was administered 3000 units of heparin. A 5 x 150 mm balloon was then placed across the lesion and an angioplasty was performed. Angiogram was then obtained after demonstrating some improvement. A 6 x 80 mm drug-eluting balloon was then placed and balloon angioplasty was performed with significant improvement of the lumen gain. There was still some haziness and plaque noted with decreased blood flow through the takeoff and therefore decision was made to place a 6 x 39 mm balloon expandable stent. This was placed in normal fashion. Once completed angiogram was obtained demonstrating brisk flow through this area but multiple areas of stenosis noted throughout the SFA down to the popliteal artery where there was some early flow with some thrombus. Guidewire was placed and balloon angioplasty Route the entirety of the SFA was performed with a 5 x 250 mm drug- eluting balloon. Once completed angiogram was then again obtained still demonstrating the same thrombus within the popliteal artery with two-vessel takeoff and slow runoff. A 6 x 39 mm balloon was then placed distally across the popliteal artery. Nitro was given distally to help with spasm and angiogram again was obtained once again demonstrating an area of thrombus. At that time it was decided to place a thrombolytic catheter and continue thrombolysis until tomorrow. She will follow back up for recheck tomorrow morning.
[2022-07-07] MEDS ORDERED: ALTEPLASE 10 MG in SODIUM CHLORIDE 0.9% 90 ML IA ONE (12:30)
[2022-07-07] MEDS: HYDROcodone/APAP 5-325MG 1 EACH TAB PO PRN (13:46)
--- NOTE | 2022-07-07 14:04 | P.PN ---
Subjective Progress Note Date: 07/07/22 Patient is seen postoperatively acute right lower extremity ischemia, Right SFA thrombosis and occlusion s/p thrombolysis. She underwent ballooning and stenting of her right FSA. She is her EKOS has been turned off. She remains on TPA and heparin IV. She remains to have limited blood flow to her foot. And the AV taken back in tomorrow for additional angioplasty. She denies chest pain or increased shortness of breath. vital signs are stable. . She remains in atrial fibrillation on telemetry Objective - Vital Signs Vital signs: Vital Signs Temp 98.1 F 07/07/22 08:00 Pulse 73 07/07/22 10:00 Resp 11 L 07/07/22 10:00 BP 177/103 07/07/22 10:00 Pulse Ox 96 07/07/22 10:00 FiO2 Intake & Output 07/06/22 07/07/22 07/07/22 18:59 06:59 18:59 Intake Total 372.218 50 Output Total 100 Balance 372.218 -100 50 Intake: IV 150 50 Intake, IV Titration 104.218 Amount Heparin Sod,Pork in 0.45% 104.218 NaCl 25,000 unit In 0.45 % NaCl 1 250ml.bag @ 12 UNITS/KG/HR 6.26 mls/hr IV .Q24H [facility] Rx#: [id number] Oral 118 Output: Urine 100 Other: Voiding Method Toilet Bedpan Bedpan # Voids 2 1 - Exam PHYSICAL EXAM: VITAL SIGNS: Reviewed. GENERAL: Well-developed in no acute distress. HEENT: Head is normocephalic. Pupils are equal, round. Sclerae anicteric. Mucous membranes of the mouth are moist. NECK: Supple. No JVD or thyromegaly RESPIRATORY: Respirations even and unlabored. Lungs diminished to auscultation bilaterally. CARDIO: irRegular rate and rhythm. S1 and S2 heard. No murmur or gallops. EXTREMITIES: Normal range of motion. No clubbing or cyanosis. Peripheral pulses intact. Negative for bilateral lower extremity edema NEURO: Orientated to person, time, mood is appropriate - Labs CBC & Chem 7: 07/07/22 06:15 07/07/22 06:15 Labs: Abnormal Lab Results - Last 24 Hours (Table) 07/06/22 07/06/22 07/07/22 Range/Units 20:04 20:04 06:15 RBC 5.70 H 5.48 H (3.80-5.40) m/uL MCV 75.7 L 77.0 L (80.0-100.0) fL MCH 23.6 L 23.9 L (25.0-35.0) pg RDW 16.9 H 17.0 H (11.5-15.5) % Lymphocytes # 0.9 L (1.0-4.8) k/uL Chloride (98-107) mmol/L Carbon Dioxide (22-30) mmol/L BUN 21 H (7-17) mg/dL Calcium (8.4-10.2) mg/dL 07/07/22 Range/Units 06:15 RBC (3.80-5.40) m/uL MCV (80.0-100.0) fL MCH (25.0-35.0) pg RDW (11.5-15.5) % Lymphocytes # (1.0-4.8) k/uL Chloride 110 H (98-107) mmol/L Carbon Dioxide 20 L (22-30) mmol/L BUN (7-17) mg/dL Calcium 8.3 L (8.4-10.2) mg/dL Assessment and Plan Assessment: Severe peripheral vascular disease status post PCI to the right FSA Atrial fibrillation Hypertension Hyperlipidemia Plan: Will transition patient to oral anticoagulation when okay with vascular surgery Continue with optimal blood pressure control Further recommendations based on clinical course The above impression and plan of care have been discussed and directed by the signing physician. Martina Freeman, nurse practitioner, acting as scribe for signing physician.
[2022-07-07 14:17] LABS: Anisocytosis Slight; Basophils # (A) 0.1 k/uL (0-0.2); Basophils % (A) 1 %; Eosinophils # (A) 0.2 k/uL (0-0.7); Eosinophils % (A) 2 %; HCT 45.7 % (34.0-46.0); HGB 13.7 gm/dL (11.4-16.0); Hypochromasia Marked; Lymphocytes # (A) 0.9 k/uL (1.0-4.8); Lymphocytes % (A) 13 %; MCH 23.1 pg (25.0-35.0); MCHC 29.9 g/dL (31.0-37.0); MCV 77.4 fL (80.0-100.0); Microcytosis Slight; Monocytes # (A) 0.6 k/uL (0-1.0); Monocytes % (A) 9 %; Neutrophils % (A) 73 %; Platelet Count 183 k/uL (150-450); RBC 5.91 m/uL (3.80-5.40); WBC 6.9 k/uL (3.8-10.6)
[2022-07-07] MEDS: IPRATROPIUM-ALBUTEROL 3 ML NEB INHALATION PRN (14:57)
[2022-07-07 19:32] LABS: Anisocytosis Slight; HCT 41.5 % (34.0-46.0); HGB 12.9 gm/dL (11.4-16.0); Hypochromasia Marked; MCH 24.1 pg (25.0-35.0); MCV 77.6 fL (80.0-100.0); Mean Platelet Volume 7.9; Microcytosis Slight; Platelet Count 166 k/uL (150-450); RBC 5.35 m/uL (3.80-5.40); WBC 6.1 k/uL (3.8-10.6)
[2022-07-07 19:43] LABS: INR 1.1 (<1.2); Partial Thromboplastin Time 32.3 sec (22.0-30.0); Prothrombin Time 11.6 sec (9.0-12.0)
[2022-07-07] MEDS: ALTEPLASE 10 MG in SODIUM CHLORIDE 0.9% 90 ML IA SCH (19:56)
[2022-07-07] MEDS: MONTELUKAST 10 MG TAB PO SCH (20:08)
[2022-07-08] MEDS: ALTEPLASE 10 MG in SODIUM CHLORIDE 0.9% 90 ML IA SCH (04:51)
[2022-07-08] MEDS: HEPARIN SOD,PORK IN 0.45% NACL 25,000 UNIT in 0.45% NACL 1 250ML.BAG IV SCH (06:46)
[2022-07-08] MEDS: SYMBICORT 160-4.5 MCG INHALER INHALATION SCH ×2 (07:10→21:00)
[2022-07-08] MEDS: IPRATROPIUM 0.5 MG/2.5 ML NEBU INHALATION SCH ×4 (07:10→21:00)
[2022-07-08] MEDS ORDERED: fentaNYL (PF) 50 MCG/ML 2 ML AMP ONE ×2 (07:58→08:27)
[2022-07-08] MEDS ORDERED: IV FLUID CONTINUATION 1,000 ML IV ONE (08:12)
[2022-07-08] MEDS: fentaNYL (PF) 50 MCG/ML 2 ML AMP IVP ONE ×2 (08:12→08:15)
[2022-07-08] MEDS ORDERED: IOPAMIDOL-250 100ML BTL INTRAARTER ONE (08:30)
[2022-07-08] MEDS ORDERED: fentaNYL (PF) 50 MCG/ML 2 ML AMP IVP ONE (08:30)
[2022-07-08] MEDS ORDERED: LIDOCAINE 1% INJ 10MG/ML (30 ML VIAL-PF) SQ ONE (08:30)
--- NOTE | 2022-07-08 08:56 | P.OP ---
Date of Procedure: 07/08/22 Preoperative Diagnosis: Right femoral popliteal thrombosis, currently undergoing TPA thrombolysis. Postoperative Diagnosis: Same plus no evidence of residual thrombus right lower extremity. Procedure(s) Performed: Angiogram via existing catheter. Anesthesia: none Surgeon: Thony Vincent Estimated Blood Loss (ml): 5 Pathology: none sent Condition: stable Disposition: no change Indications for Procedure: Patient is a 77-year-old female who presented with ischemic rest pain and paresthesias secondary to severe right lower extremity arterial occlusive disease/thrombosis. She had been undergoing TPA thrombolysis and yesterday had undergone balloon dilation of her SFA and stent placement in the proximal portion of the right SFA secondary to severe arterial occlusive disease. TPA thrombolysis was continued overnight patient now presents today for repeat imaging. Description of Procedure: Patient was brought to the cardiac catheterization lab. Patient's left upper extremity sterilely prepped and draped in usual manner. Via the existing thrombolytic catheter right femoral angiogram was performed. Findings: The common femoral, femoral, popliteal and tibial arteries are patent. Flow is visualized through the anterior posterior tibial arteries are cross the ankle mortise and foot. The superficial femoral artery had varying degrees of stenosis in areas previously dilated. Further dilation was not attempted. The tibial arteries had varying degrees of stenosis. With the above findings noted and with the patient's clinical findings of much improved motor and sensory function as well as decreased pain in the foot on the right the procedure was completed. The infusion catheter was removed followed by the sheath and the puncture wound at the brachial artery was closed with a 6-[place] Angio-Seal device. Patient tolerated the procedure well. Plan is to continue to antiplatelet therapy Total fluoroscopy time: 1 minute. Total conscious sedation time: 19 minutes. Total contrast volume: 25 ML's of Isovue 250.
[2022-07-08] MEDS ORDERED: ALBUTEROL NEBULIZED 2.5 MG/3 ML INHALATION PRN (08:57)
[2022-07-08] MEDS: carvediloL 12.5 MG TAB PO SCH ×2 (10:35→20:53)
[2022-07-08] MEDS: CHOLECALCIFEROL 25 MCG (1000 IU) TABLET PO SCH (10:35)
[2022-07-08] MEDS: ATORVASTATIN 80 MG TAB PO SCH (10:35)
[2022-07-08] MEDS: CLOPIDOGREL 75 MG TAB PO SCH (10:35)
[2022-07-08] MEDS: lisinopriL 20 MG TAB PO SCH (10:35)
[2022-07-08] MEDS: amLODIPine 5 MG TAB PO SCH (10:35)
[2022-07-08] MEDS: HYDROcodone/APAP 5-325MG 1 EACH TAB PO PRN ×3 (11:32→20:52)
--- NOTE | 2022-07-08 12:06 | P.PN ---
Subjective Progress Note Date: 07/08/22 Principal diagnosis: Right lower extremity vascular occlusion. This is a 77-year-old female patient with a known history of atrial fibrillation, DVT, congestive heart failure, hyperlipidemia, hypertension, hypothyroidism, aortic aneurysm with previous stenting, carotid artery disease with bilateral carotid endarterectomies, former smoker. She presented here on 07/04/2022 with complaints of sudden onset of chest pain, pressure and heaviness. Chest x-ray revealed no acute pulmonary process. CT angiogram of the abdomen and pelvis and lower extremities revealed occlusion of the right superficial femoral artery extending from its origin to the distal portion near the popliteal artery. Only the anterior tibial artery crosses the right ankle. Posterior tibial artery is diminutive and does not cross ankle. On the left side there was occlusion of the left superficial coronary femoral artery extending from its origin to the distal portion of paroxysmal artery. No vess els definitely cross the ankle. Abdomen revealed intermediate right hepatic dome lesion. Small hiatal hernia. Colonic diverticulosis. Echocardiogram revealed preserved left ventricular systolic function. Mild to moderate mitral and tricuspid regurgitation. Yesterday she had undergone selective right lower extremity iliofemoral, femoral popliteal and tibial angiograms with placement of thrombolytic catheter and initiation of sample lysis. From there she was admitted to the ICU and we're consulted for the same. His only, she is resting comfortably in bed. Awake and alert in no acute distress. She is somewhat hypertensive. White count 5.9. Hemoglobin 13.1. INR 1.1. Fibrinogen 232. Sodium 138. Potassium 4.3. Bicarb 20. BUN 17. Creatinine 0.96. Left brachial artery was utilized for EKOS catheter placement. Progress note dated 07/08/2022. This is a 77-year-old female seen in room 257. She was seen by our team yesterday in consultation. The patient is currently on 2 L of oxygen. She's getting saline at 25 mL an hour. She had an occlusion to the right lower extremity, treated with TPA. Postop day #2. No new laboratory data today. From yesterday, white count 6.1, hemoglobin 12.9, hematocrit 41.5, and platelet count of 266,000. PTT is 32.3. Objective - Vital Signs Vital signs: Vital Signs Temp 98.1 F 07/08/22 04:00 Pulse 79 07/08/22 07:20 Resp 24 07/08/22 07:00 BP 185/114 07/08/22 07:00 Pulse Ox 98 07/08/22 07:13 FiO2 Intake & Output 07/07/22 07/08/22 07/08/22 18:59 06:59 18:59 Intake Total 400 474.167 481.583 Output Total 800 350 250 Balance -400 124.167 231.583 Intake: IV 400 385 285 0.9 KVO 200 220 20 Alteplase 10 mg In Sodium 100 110 10 Chloride 0.9% 90 ml @ 1 MG/HR 10 mls/hr IA .Q10H [facility] Rx#:[id number] Heparin Sod,Pork in 0.45% 50 NaCl 25,000 unit In 0.45 % NaCl 1 250ml.bag @ 12 UNITS/KG/HR 6.26 mls/hr IV .Q24H [facility] Rx#: [id number] Heparin Sod,Pork in 0.45% 55 5 NaCl 25,000 unit In 0.45 % NaCl 1 250ml.bag @ 5 mls/hr IV .Q24H [facility] Rx#: [id number] Intake, IV Titration 89.167 196.583 Amount Alteplase 10 mg In Sodium 89.167 21.5 Chloride 0.9% 90 ml @ 1 MG/HR 10 mls/hr IA .Q10H [facility] Rx#:[id number] Heparin Sod,Pork in 0.45% 175.083 NaCl 25,000 unit In 0.45 % NaCl 1 250ml.bag @ 5 mls/hr IV .Q24H [facility] Rx#: [id number] Output: Urine 800 350 250 Other: Voiding Method Bedpan Bedpan # Voids 1 0 1 - Exam No acute distress, oriented 3. Currently on 2 L nasal cannula. HEENT examination is grossly unremarkable. Neck supple. Full range of motion. No adenopathy thyromegaly or neck vein distention. Cardiovascular examination reveals regular rhythm rate. S1-S2 normal. No S3 or S4. No discernible murmur noted. Heart rate 79 bpm. Heart sounds are distant. Lungs reveal clear breath sounds. Breath sounds are equal bilaterally. No adventitious lung sounds including wheezes rhonchi or crackles. Saturations are 98% on 2 L. Abdomen soft bowel sounds are heard. No masses or tenderness. Extremities are intact. No cyanosis clubbing or edema. Weak left radial pulse. Skin is without rash or lesion. Neurologic examination is brief but nonfocal. - Labs CBC & Chem 7: 07/07/22 19:18 07/07/22 06:15 Labs: Abnormal Lab Results - Last 24 Hours (Table) 07/07/22 07/07/22 07/07/22 Range/Units 13:51 19:18 19:18 RBC 5.91 H (3.80-5.40) m/uL MCV 77.4 L 77.6 L (80.0-100.0) fL MCH 23.1 L 24.1 L (25.0-35.0) pg MCHC 29.9 L (31.0-37.0) g/dL RDW 17.0 H 17.0 H (11.5-15.5) % Lymphocytes # 0.9 L (1.0-4.8) k/uL APTT 32.3 H (22.0-30.0) sec Assessment and Plan Assessment: Chest pain, acute coronary syndrome, ruled out. Right lower extremity pain with claudication, status post TPA 07/06/2022, plans return to CVL today 07/07/2022. History of atrial fibrillation. History of COPD on Breztri, albuterol HFA and DuoNeb inhalations in the outpatient setting. Hypertension. Hyperlipidemia. History of congestive heart failure. History of aortic aneurysm status post stenting. Carotid artery disease status post bilateral carotid endarterectomies. Former smoker. Hypothyroidism. Plan: Plan dated 07/08/2022. The patient is seen in evaluated in room 257. She remains on oxygen at 2 L. She is postop day #2. The patient is well enough according to vascular surgery, to leave the intensive care unit. The patient continues on DuoNeb's, and Symbicort. Additional recommendations and suggestions are forthcoming. Prognosis is guarded. Labs, x-rays, and all medications are reviewed. Time with Patient: Less than 30
--- NOTE | 2022-07-08 12:53 | P.PN ---
Subjective Progress Note Date: 07/08/22 Patient states pain in her leg is much improved. Has hematoma from catheter, has pain in left arm.. Gen: awake, alert, thin, elderly woman HEENT: normocephalic, atraumatic, good hearing acuity, moist mucous membranes Resp: good air exchange, breathing comfortably with no accessory muscle use CVS: good distal perfusion x 4, GI: soft, NTTP, ND : no SPT, no CVAT, main catheter not present MSK: no pitting edema, no clubbing Neuro: non-focal, moving all extremities Psych: cooperative, euthymic mood Assessment/plan: Chest pain Newly discovered atrial fibrillation Hypertensive urgency -Cardiology recommendations appreciated -Echocardiogram EF 55-60^ -Continue with heparin drip -We'll need anticoagulation on discharge, Eliquis currently planned -Continue with BAM inhibitor and Coreg -Follow blood pressures Critical Limb Ischemia Peripheral arterial disease with claudication -Vascular surgery management: plan is for OR today to re-evaluate need for repeat EKOS and ongoing tPA -s/p OR on 07/06 with post op management in ICU s/p EKOS and tPA infusion Intermittent right hepatic dome lesion -Outpatient follow-up with GI Chronic: COPD without exacerbation Dyslipidemia DVT Aortic aneurysm Hypothyroidism D/W Vascular plan will be to discharge home on Plavix and eliquis, no aspirin needed; i discontinued inpt ASA 07/07 DVT prophylaxis: Heparin drip Anticipate Home in a.m. Objective - Vital Signs Vital signs: Vital Signs Temp 98.1 F 07/08/22 04:00 Pulse 98 07/08/22 12:42 Resp 24 07/08/22 07:00 BP 185/114 07/08/22 07:00 Pulse Ox 98 07/08/22 07:13 FiO2 Intake & Output 07/07/22 07/08/22 07/08/22 18:59 06:59 18:59 Intake Total 400 474.167 481.583 Output Total 800 350 250 Balance -400 124.167 231.583 Intake: IV 400 385 285 0.9 KVO 200 220 20 Alteplase 10 mg In Sodium 100 110 10 Chloride 0.9% 90 ml @ 1 MG/HR 10 mls/hr IA .Q10H [facility] Rx#:[id number] Heparin Sod,Pork in 0.45% 50 NaCl 25,000 unit In 0.45 % NaCl 1 250ml.bag @ 12 UNITS/KG/HR 6.26 mls/hr IV .Q24H [facility] Rx#: [id number] Heparin Sod,Pork in 0.45% 55 5 NaCl 25,000 unit In 0.45 % NaCl 1 250ml.bag @ 5 mls/hr IV .Q24H [facility] Rx#: [id number] Intake, IV Titration 89.167 196.583 Amount Alteplase 10 mg In Sodium 89.167 21.5 Chloride 0.9% 90 ml @ 1 MG/HR 10 mls/hr IA .Q10H [facility] Rx#:[id number] Heparin Sod,Pork in 0.45% 175.083 NaCl 25,000 unit In 0.45 % NaCl 1 250ml.bag @ 5 mls/hr IV .Q24H [facility] Rx#: [id number] Output: Urine 800 350 250 Other: Voiding Method Bedpan Bedpan # Voids 1 0 1 - Labs CBC & Chem 7: 07/07/22 19:18 07/07/22 06:15 Labs: Abnormal Lab Results - Last 24 Hours (Table) 07/07/22 07/07/22 07/07/22 Range/Units 13:51 19:18 19:18 RBC 5.91 H (3.80-5.40) m/uL MCV 77.4 L 77.6 L (80.0-100.0) fL MCH 23.1 L 24.1 L (25.0-35.0) pg MCHC 29.9 L (31.0-37.0) g/dL RDW 17.0 H 17.0 H (11.5-15.5) % Lymphocytes # 0.9 L (1.0-4.8) k/uL APTT 32.3 H (22.0-30.0) sec
[2022-07-08] MEDS: MONTELUKAST 10 MG TAB PO SCH (20:52)
[2022-07-09] MEDS: HYDROcodone/APAP 5-325MG 1 EACH TAB PO PRN ×4 (01:10→22:24)
[2022-07-09] MEDS: SYMBICORT 160-4.5 MCG INHALER INHALATION SCH ×2 (07:08→19:56)
[2022-07-09] MEDS: IPRATROPIUM 0.5 MG/2.5 ML NEBU INHALATION SCH ×4 (07:08→19:56)
--- NOTE | 2022-07-09 08:06 | IR ---
EXAMINATION TYPE: IR angio lower extremity RT DATE OF EXAM: 07/08/2022 COMPARISON: NONE HISTORY: Fluoroscopy time. Fluoroscopy was provided to the referring clinician.
--- NOTE | 2022-07-09 08:08 | IR ---
EXAMINATION TYPE: IR transcath infusion therapy DATE OF EXAM: 07/07/2022 COMPARISON: NONE HISTORY: Fluoroscopy time. Fluoroscopy was provided to the referring clinician.
--- NOTE | 2022-07-09 08:08 | IR ---
EXAMINATION TYPE: IR transcath embolizat therapy DATE OF EXAM: 07/06/2022 COMPARISON: NONE HISTORY: Fluoroscopy time. Fluoroscopy was provided to the referring clinician.
[2022-07-09] MEDS: lisinopriL 20 MG TAB PO SCH (08:22)
[2022-07-09] MEDS: CLOPIDOGREL 75 MG TAB PO SCH (08:22)
[2022-07-09] MEDS: amLODIPine 5 MG TAB PO SCH (08:22)
[2022-07-09] MEDS: ATORVASTATIN 80 MG TAB PO SCH (08:22)
[2022-07-09] MEDS: CHOLECALCIFEROL 25 MCG (1000 IU) TABLET PO SCH (08:22)
[2022-07-09] MEDS: carvediloL 12.5 MG TAB PO SCH ×2 (08:23→21:32)
--- NOTE | 2022-07-09 09:08 | P.PN ---
Subjective Progress Note Date: 07/09/22 Patient is seen and examined sitting as a follow-up. She is status post SFA thrombosis status post thrombolytics and balloon angioplasty as well as stenting with access through the left brachial artery. A closure device was used. Patient then started experiencing numbness and tingling of the left arm and, fingers. This morning patient states she is feeling better, numbness tingling and pain have improved. She is able to wiggle her fingers and move her hand and upper extremity. Areas marked with bruising and hematoma in the left upper extremity near the access site. Patient also currently has a peripheral IVs just below. Patient denies any shortness of breath or chest pain. She's not had any bleeding. She does state her right lower extremity she has no pain, her second toe still has a little numbness and tingling to it. Foot is warm. She has no pain with ambulation. Objective - Vital Signs Vital signs: Vital Signs Temp 97.3 F L 07/09/22 04:15 Pulse 88 07/09/22 08:23 Resp 15 07/09/22 04:15 BP 118/68 07/09/22 08:23 Pulse Ox 99 07/09/22 04:15 FiO2 Intake & Output 07/08/22 07/09/22 07/09/22 18:59 06:59 18:59 Intake Total 701.583 118 Output Total 250 Balance 451.583 118 Intake: IV 505 0.9 KVO 240 Alteplase 10 mg In Sodium 10 Chloride 0.9% 90 ml @ 1 MG/HR 10 mls/hr IA .Q10H [facility] Rx#:[id number] Heparin Sod,Pork in 0.45% 5 NaCl 25,000 unit In 0.45 % NaCl 1 250ml.bag @ 5 mls/hr IV .Q24H [facility] Rx#: [id number] Intake, IV Titration 196.583 Amount Alteplase 10 mg In Sodium 21.5 Chloride 0.9% 90 ml @ 1 MG/HR 10 mls/hr IA .Q10H [facility] Rx#:[id number] Heparin Sod,Pork in 0.45% 175.083 NaCl 25,000 unit In 0.45 % NaCl 1 250ml.bag @ 5 mls/hr IV .Q24H [facility] Rx#: [id number] Oral 118 Output: Urine 250 Other: Voiding Method Bedpan Bedpan # Voids 1 1 - Exam General appearance: The patient is alert, oriented, appears in no acute distress. HET: Head is normocephalic and atraumatic. Pupils are equal and reactive. Neck: Supple without lymphadenopathy. Trachea midline. No audible carotid bruit. Heart: Regular. Lungs: Equal expansion, normal respiratory effort. Abdomen: Soft, nontender, nondistended. Extremities: Right lower extremity warm to the touch, able to wiggle her toes. Nonpalpable DP pulses bilaterally, bilateral PT Doppler signal. Left DP monophasic signal. Left upper extremity nonpalpable radial pulse. Left upper extremity palpable radial pulse although week. Unable to obtain radial or ulnar Doppler signal, able to get a brachial Doppler signal. Left upper extremity medial aspect near access site, and some bruising noted. Patient is able to move her left upper extremity, wiggle her fingers and grasp with her hand. Hand and fingers are warm to touch. Neurological: No focal deficits. Strength and sensation are grossly intact. ( - Labs CBC & Chem 7: 07/07/22 19:18 07/07/22 06:15 Assessment and Plan Assessment: 1. Status post right lower extremity angiogram, thrombolysis, angioplasty and stenting through access of right brachial artery 2. Hematoma of right brachial artery access with nonpalpable radial pulse 3. Right lower extremity pain, claudication with right lower extremity limb ischemia 4. Right SFA occlusion 5. History of abdominal aortic aneurysm status post repair 6. Chest pain 7. Atrial fibrillation 8. History COPD 9. History of hypertension hyperlipidemia Plan: 1. Make nothing by mouth 2. Hold anticoagulation 3. Arterial duplex ordered left upper extremity stat 4. Further recommendations forthcoming per vascular surgeon Thank you for this consultation, we will continue to follow. The impression and plan of care has been dictated as directed. I performed a history and examination of this patient, discussed the same with the dictator. I agree with the dictator's note ,documented as a scribe. Any additional findings or plans will be noted.
--- NOTE | 2022-07-09 11:51 | P.PN ---
Subjective Progress Note Date: 07/09/22 Patient states pain in her leg is much improved, pain in left arm improved as well but still no palpable radial pulse. Gen: awake, alert, thin, elderly woman HEENT: normocephalic, atraumatic, good hearing acuity, moist mucous membranes Resp: good air exchange, breathing comfortably with no accessory muscle use CVS: good distal perfusion x 4, GI: soft, NTTP, ND : no SPT, no CVAT, main catheter not present MSK: no pitting edema, no clubbing Neuro: non-focal, moving all extremities Psych: cooperative, euthymic mood Assessment/plan: Chest pain Newly discovered atrial fibrillation Hypertensive urgency -Cardiology recommendations appreciated -Echocardiogram EF 55-60^ -Continue with heparin drip -We'll need anticoagulation on discharge, Eliquis currently planned -Continue with BAM inhibitor and Coreg -Follow blood pressures Critical Limb Ischemia Peripheral arterial disease with claudication -Vascular surgery management: plan is for OR today to re-evaluate need for repeat EKOS and ongoing tPA -s/p OR on 07/06 with post op management in ICU s/p EKOS and tPA infusion Intermittent right hepatic dome lesion -Outpatient follow-up with GI Chronic: COPD without exacerbation Dyslipidemia DVT Aortic aneurysm Hypothyroidism D/W Vascular plan will be to discharge home on Plavix and eliquis, no aspirin needed; i discontinued inpt ASA 07/07 DVT prophylaxis: Heparin drip Anticipate Home in a.m. Objective - Vital Signs Vital signs: Vital Signs Temp 97.3 F L 07/09/22 04:15 Pulse 72 07/09/22 11:23 Resp 15 07/09/22 04:15 BP 118/68 07/09/22 08:23 Pulse Ox 99 07/09/22 04:15 FiO2 Intake & Output 07/08/22 07/09/22 07/09/22 18:59 06:59 18:59 Intake Total 701.583 118 Output Total 250 Balance 451.583 118 Intake: IV 505 0.9 KVO 240 Alteplase 10 mg In Sodium 10 Chloride 0.9% 90 ml @ 1 MG/HR 10 mls/hr IA .Q10H [facility] Rx#:[id number] Heparin Sod,Pork in 0.45% 5 NaCl 25,000 unit In 0.45 % NaCl 1 250ml.bag @ 5 mls/hr IV .Q24H [facility] Rx#: [id number] Intake, IV Titration 196.583 Amount Alteplase 10 mg In Sodium 21.5 Chloride 0.9% 90 ml @ 1 MG/HR 10 mls/hr IA .Q10H [facility] Rx#:[id number] Heparin Sod,Pork in 0.45% 175.083 NaCl 25,000 unit In 0.45 % NaCl 1 250ml.bag @ 5 mls/hr IV .Q24H [facility] Rx#: [id number] Oral 118 Output: Urine 250 Other: Voiding Method Bedpan Bedpan # Voids 1 1 - Labs CBC & Chem 7: 07/07/22 19:18 07/07/22 06:15
--- NOTE | 2022-07-09 12:10 | P.PN ---
Subjective Progress Note Date: 07/09/22 HISTORY OF PRESENT ILLNESS: This is a 77 year old female who is status post SFA thrombosis status post thrombolytics and balloon angioplasty as well as stenting with access through th e left brachial artery. Patient has a hematoma of the left upper extremity. She denies chest pain or pressure. Denies SOB. Reports improvement in the pain in her leg. Vital signs are stable. Echo completed revealing EF 55-60%. Patient remains in atrial fibrillation with controlled ventricular rates. PHYSICAL EXAM: VITAL SIGNS: Reviewed. GENERAL: Well-developed in no acute distress. NECK: Supple. No JVD or thyromegaly LUNGS: Respirations even and unlabored. Lungs essentially clear to auscultation bilaterally. HEART: Irregular rate and rhythm. S1 and S2 heard. EXTREMITIES: Normal range of motion. No clubbing or cyanosis. No lower extremity edema. Bruising and hematoma noted to left upper extremity. ASSESSMENT: Critical limb ischemia, status post SFA thrombosis status post thrombolytics and balloon angioplasty as well as stenting Left upper extremity hematoma with nonpalpable radial pulse New onset persistent atrial fibrillation Hyperlipidemia History of DVT History of aortic aneurysm PLAN: Anticoagulation remains on hold per vascular surgery. Await further input. Continue additional cardiac medications Continue telemetry monitoring Further recommendations pending patient course Nurse practitioner note has been reviewed by physician. Signing provider agrees with the documented findings, assessment, and plan of care. Objective - Vital Signs Vital signs: Vital Signs Temp 97.3 F L 07/09/22 04:15 Pulse 72 07/09/22 11:23 Resp 15 07/09/22 04:15 BP 118/68 07/09/22 08:23 Pulse Ox 99 07/09/22 04:15 FiO2 Intake & Output 07/08/22 07/09/22 07/09/22 18:59 06:59 18:59 Intake Total 701.583 118 Output Total 250 Balance 451.583 118 Intake: IV 505 0.9 KVO 240 Alteplase 10 mg In Sodium 10 Chloride 0.9% 90 ml @ 1 MG/HR 10 mls/hr IA .Q10H [facility] Rx#:[id number] Heparin Sod,Pork in 0.45% 5 NaCl 25,000 unit In 0.45 % NaCl 1 250ml.bag @ 5 mls/hr IV .Q24H [facility] Rx#: [id number] Intake, IV Titration 196.583 Amount Alteplase 10 mg In Sodium 21.5 Chloride 0.9% 90 ml @ 1 MG/HR 10 mls/hr IA .Q10H [facility] Rx#:[id number] Heparin Sod,Pork in 0.45% 175.083 NaCl 25,000 unit In 0.45 % NaCl 1 250ml.bag @ 5 mls/hr IV .Q24H [facility] Rx#: [id number] Oral 118 Output: Urine 250 Other: Voiding Method Bedpan Bedpan # Voids 1 1 - Labs CBC & Chem 7: 07/07/22 19:18 07/07/22 06:15
[2022-07-09] MEDS ORDERED: IV FLUID CONTINUATION 1,000 ML IV ONE (13:41)
[2022-07-09] MEDS ORDERED: METOCLOPRAMIDE 5 MG/ML 2 ML VIAL ONE (13:45)
[2022-07-09] MEDS ORDERED: METOCLOPRAMIDE 5 MG/ML 2 ML VIAL IVP ONE (13:50)
[2022-07-09] MEDS ORDERED: DEXAMETHASONE SOD PHOSPHATE 4 MG/ML 1 ML VIAL IVP ONE (13:50)
[2022-07-09] MEDS ORDERED: FAMOTIDINE 20 MG/2 ML VIAL IVP ONE (13:50)
--- NOTE | 2022-07-09 14:50 | P.PN ---
Progress Note - Text Progress Note Date: 07/09/22 patient seen and examined in the pre-op. Complaining of numbness in her left hand but still able to move hand and fingers. Left hand is cool with slow capillary refill. Non-palpable brachial, radial or ulnar pulses. Discussed with patient and operating room- open thrombectomy scheduled to go e mergently.
[2022-07-09] MEDS ORDERED: NEOSTIGMINE 1 MG/ML 10 ML VIAL ONE (14:54)
[2022-07-09] MEDS ORDERED: fentaNYL (PF) 50 MCG/ML 2 ML AMP ONE (14:54)
[2022-07-09] MEDS ORDERED: PHENYLEPHRINE-0.9% NACL SYG 1,000 MCG/10 ML SYRINGE ONE (14:54)
[2022-07-09] MEDS ORDERED: PROPOFOL 10 MG/ML 20 ML VIAL IV ONE (14:54)
[2022-07-09] MEDS ORDERED: HEPARIN SODIUM,PORCINE 10,000 UNIT/ML 1 ML VIAL ONE (14:54)
[2022-07-09] MEDS ORDERED: LIDOCAINE 2% INJ 20 MG/ML (2 ML VIAL) ONE (14:54)
[2022-07-09] MEDS ORDERED: GLYCOPYRROLATE 0.2 MG/ML 2 ML VIAL ONE (14:54)
[2022-07-09] MEDS ORDERED: ROCURONIUM 10 MG/ML (5 ML VIAL) IV ONE (14:54)
[2022-07-09] MEDS ORDERED: PROTAMINE SULFATE 10 MG/ML 5 ML VIAL IV ONE (14:54)
[2022-07-09] MEDS ORDERED: SODIUM CHLORIDE 0.9% 50 ML with ceFAZolin 1,000 MG IV ONE ×4 (15:10)
[2022-07-09] MEDS ORDERED: SODIUM CHLORIDE 0.9% 500 ML 500 ML with HEPARIN SODIUM,PORCINE 2,000 UNIT IV ONE ×2 (15:30)
[2022-07-09] MEDS ORDERED: ceFAZolin 2,000 MG in SODIUM CHLORIDE 0.9% 500 ML IRRIGATION ONE (15:30)
--- NOTE | 2022-07-09 16:37 | P.PN ---
Subjective Progress Note Date: 07/09/22 This is a 77-year-old female patient with a known history of atrial fibrillation, DVT, congestive heart failure, hyperlipidemia, hypertension, hypothyroidism, aortic aneurysm with previous stenting, carotid artery disease with bilateral carotid endarterectomies, former smoker. She presented here on 07/04/2022 with complaints of sudden onset of chest pain, pressure and heaviness. Chest x-ray revealed no acute pulmonary process. CT angiogram of the abdomen and pelvis and lower extremities revealed occlusion of the right superficial femoral artery extending from its origin to the distal portion near the popliteal artery. Only the anterior tibial artery crosses the right ankle. Posterior tibial artery is diminutive and does not cross ankle. On the left side there was occlusion of the left superficial coronary femoral artery extending from its origin to the distal portion of paroxysmal artery. No vessels definitely cross the ankle. Abdomen revealed intermediate right hepatic dome lesion. Small hiatal hernia. Colonic diverticulosis. Echocardiogram revealed preserved left ventricular systolic function. Mild to moderate mitral and tricuspid regurgitation. Yesterday she had undergone selective right lower extremity iliofemoral, femoral popliteal and tibial angiograms with placement of thrombolytic catheter and initiation of sample lysis. From there she was admitted to the ICU and we're consulted for the same. His only, she is resting comfortably in bed. Awake and alert in no acute distress. She is somewhat hypertensive. White count 5.9. Hemoglobin 13.1. INR 1.1. Fibrinogen 232. Sodium 138. Potassium 4.3. Bicarb 20. BUN 17. Creatinine 0.96. Left brachial artery was utilized for EKOS catheter placement. Progress note dated 07/08/2022. This is a 77-year-old female seen in room 257. She was seen by our team yesterday in consultation. The patient is currently on 2 L of oxygen. She's getting saline at 25 mL an hour. She had an occlusion to the right lower extremity, treated with TPA. Postop day #2. No new laboratory data today. From yesterday, white count 6.1, hemoglobin 12.9, hematocrit 41.5, and platelet count of 266,000. PTT is 32.3. On today's evaluation of 07/09/2022, overall rest or status is stable. The patient continues to have numbness in her left hand which is able to move her fingers. The patient was seen by vascular surgery and the patient is going to be taken to open thrombectomy by vascular surgery. No new labs are available from today. Note that the patient also had a occlusion of the right superficial femoral artery extending to the origin of the distal portion near the popliteal artery. The patient underwent catheter directed thrombolytic therapy and she is postop day 3. Note that the patient underwent a left brachial artery access Objective - Vital Signs Vital signs: Vital Signs Temp 97.7 F 07/09/22 13:40 Pulse 67 07/09/22 13:40 Resp 16 07/09/22 13:40 BP 117/58 07/09/22 13:40 Pulse Ox 97 07/09/22 13:40 FiO2 Intake & Output 07/08/22 07/09/22 07/09/22 18:59 06:59 18:59 Intake Total 701.583 118 852 Output Total 250 Balance 451.583 118 852 Intake: IV 505 852 0.9 KVO 240 Alteplase 10 mg In Sodium 10 Chloride 0.9% 90 ml @ 1 MG/HR 10 mls/hr IA .Q10H [facility] Rx#:[id number] Heparin Sod,Pork in 0.45% 5 NaCl 25,000 unit In 0.45 % NaCl 1 250ml.bag @ 5 mls/hr IV .Q24H [facility] Rx#: [id number] Intake, IV Titration 196.583 Amount Alteplase 10 mg In Sodium 21.5 Chloride 0.9% 90 ml @ 1 MG/HR 10 mls/hr IA .Q10H [facility] Rx#:[id number] Heparin Sod,Pork in 0.45% 175.083 NaCl 25,000 unit In 0.45 % NaCl 1 250ml.bag @ 5 mls/hr IV .Q24H [facility] Rx#: [id number] Oral 118 Output: Urine 250 Other: Voiding Method Bedpan Bedpan # Voids 1 1 - Exam No acute distress, oriented 3. Currently on 2 L nasal cannula. HEENT examination is grossly unremarkable. Neck supple. Full range of motion. No adenopathy thyromegaly or neck vein distention. Cardiovascular examination reveals regular rhythm rate. S1-S2 normal. No S3 or S4. No discernible murmur noted . Heart sounds are distant. Lungs reveal clear breath sounds. Breath sounds are equal bilaterally. No adventitious lung sounds including wheezes rhonchi or crackles. Saturations are 98% on 2 L. Abdomen soft bowel sounds are heard. No masses or tenderness. Extremities are intact. No cyanosis clubbing or edema. Weak left radial pulse. Skin is without rash or lesion. Neurologic examination is brief but nonfocal.thrombectomy. - Labs CBC & Chem 7: 07/07/22 19:18 07/07/22 06:15 Assessment and Plan Plan: Right lower extremity pain with claudication, status post TPA 07/06/2022 left hand pain/numbness, awaiting a surgical thrombectomy History of atrial fibrillation. History of COPD on Breztri, albuterol HFA and DuoNeb inhalations in the outpatient setting. Hypertension. Hyperlipidemia. History of congestive heart failure. History of aortic aneurysm status post stenting. Carotid artery disease status post bilateral carotid endarterectomies. Former smoker. Hypothyroidism. Plan: awaiting vascular surgical intervention pulmonary status is stable for now
[2022-07-09] MEDS ORDERED: GELATIN SPONGE,ABSORB (LARGE) 1 EACH SPONGE TOPICAL ONE (16:41)
[2022-07-09] MEDS ORDERED: THROMBIN (BOVINE) 5,000 UNIT VIAL TOPICAL ONE (16:41)
--- NOTE | 2022-07-09 17:36 | P.OP ---
Date of Procedure: 07/09/22 Preoperative Diagnosis: Acute left upper extremity ischemia Acute brachial artery thrombosis Postoperative Diagnosis: same Procedure(s) Performed: 1. Left upper extremity exploration 2. Left brachial, ulnar and radial artery open thrombectomy 3. Left brachial artery repair Anesthesia: LEO Surgeon: Ramy Sanchez Estimated Blood Loss (ml): 50 Pathology: none sent Condition: stable Disposition: PACU Indications for Procedure: 77 year old female who has been treated with percutaneous thrombolysis of the right lower extremity via left brachial artery access presents to the operating room secondary to acute pain and parathesias of the left hand. Upon examination the hand was cold and pulseless. Arterial doppler demonstrated no flow from the brachial artery to the wrist, radial or ulnar arteries. Operative Findings: brachial artery thrombosis, artery injury due to previous sheath Description of Procedure: After written and informed consent was obtained and all risks, benefits and complications were described the patient was brought to the operative suite and laid in a supine position with her left arm on an armboard. The area of the left arm was prepped and draped in the usual sterile fashion. Antibiotics given prior to incision. Timeout was performed in usual fashion. A vertical incision was then created with a 15 blade scalpel overlying the brachial artery access and dissection was carried down to the brachial artery with electrocautery. There was a large hematoma that was expressed. The artery was dissected free in a circumferential manner and controlled with vessel loops. Patient was given 5000 units of heparin at this time. The previous area of access was located and the lumen was located and a 3 Emma was passed proximally with a large clot removed and pulsatile flow returned. The Emma was passed again without any more thrombus removed, the vessel was then heparinized. The 3 Emma followed by a 2 Emma were then passed to the wrist down the ulnar and radial arteries with some thrombus removed and brisk backbleeding noted. This was heparinzed as well. The arteriotomy site was then freshened up with a Joiner scissors and the posterior wall was tacked with 7-0 Prolene suture. The arteriotomy site was then closed with 6-0 Prolene suture in an interrupted fashion. Control was released revealing good pulsatile flow to the distal brachial artery with multiphasic signal noted at the radial and ulnar arteries. There was multiphasic signal at the palmar arch as well. The incision was then irrigated with antibiotic solution and closed in a multilayer fashion after hemostasis was controlled with Gelfoam and thrombin. The skin was then cleansed and dressings were placed. The patient tolerated the procedure well and was sent to PACU for recovery.
[2022-07-09] MEDS: MONTELUKAST 10 MG TAB PO SCH (21:31)
[2022-07-10 03:38] LABS: Glucose,Whole Blood 149 mg/dL (70-110)
[2022-07-10] MEDS: CLOPIDOGREL 75 MG TAB PO SCH (08:41)
[2022-07-10] MEDS: carvediloL 12.5 MG TAB PO SCH (08:41)
[2022-07-10] MEDS: CHOLECALCIFEROL 25 MCG (1000 IU) TABLET PO SCH (08:41)
[2022-07-10] MEDS: ATORVASTATIN 80 MG TAB PO SCH (08:41)
[2022-07-10] MEDS: lisinopriL 20 MG TAB PO SCH ×2 (08:41→11:58)
[2022-07-10] MEDS: amLODIPine 5 MG TAB PO SCH (08:41)
[2022-07-10] MEDS: HYDROcodone/APAP 5-325MG 1 EACH TAB PO PRN (08:46)
[2022-07-10] MEDS: IPRATROPIUM 0.5 MG/2.5 ML NEBU INHALATION SCH ×2 (08:58→12:16)
[2022-07-10] MEDS: SYMBICORT 160-4.5 MCG INHALER INHALATION SCH (08:58)
[2022-07-10] MEDS ORDERED: ASPIRIN 81 MG PO SCH (09:00)
[2022-07-10 09:40] VITALS: RESP 17
[2022-07-10] MEDS ORDERED: APIXABAN 2.5 MG TABLET PO SCH (09:45)
[2022-07-10] MEDS ORDERED: APIXABAN 5 MG TAB PO SCH (09:45)
--- NOTE | 2022-07-10 09:57 | P.PN ---
Subjective Progress Note Date: 07/10/22 Patient underwent exploration of the left upper extremity yesterday with thrombolysis. Gen: awake, alert, thin, elderly woman HEENT: normocephalic, atraumatic, good hearing acuity, moist mucous membranes Resp: good air exchange, breathing comfortably with no accessory muscle use CVS: good distal perfusion x 4, GI: soft, NTTP, ND : no SPT, no CVAT, main catheter not present MSK: no pitting edema, no clubbing Neuro: non-focal, moving all extremities Psych: cooperative, euthymic mood Assessment/plan: Chest pain Newly discovered atrial fibrillation Hypertensive urgency -Cardiology recommendations appreciated -Echocardiogram EF 55-60^ -Continue with heparin drip -We'll need anticoagulation on discharge, Eliquis currently planned -Continue with BAM inhibitor and Coreg -Follow blood pressures Critical Limb Ischemia Peripheral arterial disease with claudication -Vascular surgery management: plan is for OR today to re-evaluate need for repeat EKOS and ongoing tPA -s/p OR on 07/06 with post op management in ICU s/p EKOS and tPA infusion Intermittent right hepatic dome lesion -Outpatient follow-up with GI Chronic: COPD without exacerbation Dyslipidemia DVT Aortic aneurysm Hypothyroidism D/W Vascular plan will be to discharge home on Plavix and eliquis, no aspirin needed; i discontinued inpt ASA 07/07 DVT prophylaxis: Heparin drip Anticipate Home in a.m. Objective - Vital Signs Vital signs: Vital Signs Temp 97.6 F 07/10/22 08:45 Pulse 70 07/10/22 09:12 Resp 17 07/10/22 08:45 BP 102/59 07/10/22 08:45 Pulse Ox 96 07/10/22 09:00 FiO2 Intake & Output 07/09/22 07/10/22 07/10/22 18:59 06:59 18:59 Intake Total 652 50 Output Total 50 600 Balance 602 -550 Weight 52.163 kg 52.163 kg Intake: IV 652 50 Output: Urine 600 Estimated Blood Loss 50 Other: Voiding Method Bedpan Toilet Diaper # Voids 4 - Labs CBC & Chem 7: 07/07/22 19:18 07/07/22 06:15 Labs: Abnormal Lab Results - Last 24 Hours (Table) 07/10/22 Range/Units 03:36 POC Glucose (mg/dL) 149 H (70-110) mg/dL
--- NOTE | 2022-07-10 10:26 | P.PN ---
Subjective Progress Note Date: 07/10/22 Principal diagnosis: Right lower extremity claudication Patient is seen and examined sitting as a follow-up. She had right SFA thrombosis status post thrombolytics and balloon angioplasty as well as stenting with access through the left brachial artery. Following the procedure she had some pain to the left upper extremity with numbness and tingling. Yesterday she underwent arterial duplex of the left upper extremity that showed no waveforms of the brachial, radial and ulnar pulses. She underwent a left brachial thrombectomy yesterday. Today she states that her left upper extremity is painful at the incision site, however her hand and fingers feel good. She is able to move left upper extremity including fingers without any complications. No numbness or tingling. Also states right lower extremity pain significantly improved. She is able to ambulate without any pain. Patient denies any shortness of breath, chest pain, nausea, vomiting abdominal pain fevers or chills. Objective - Vital Signs Vital signs: Vital Signs Temp 99.3 F 07/10/22 04:00 Pulse 81 07/10/22 04:00 Resp 18 07/10/22 04:00 BP 138/76 07/10/22 04:00 Pulse Ox 99 07/10/22 04:00 FiO2 Intake & Output 07/09/22 07/10/22 07/10/22 18:59 06:59 18:59 Intake Total 652 50 Output Total 50 600 Balance 602 -550 Weight 52.163 kg 52.163 kg Intake: IV 652 50 Output: Urine 600 Estimated Blood Loss 50 Other: Voiding Method Bedpan Diaper # Voids 4 - Exam General appearance: The patient is alert, oriented, appears in no acute distress. HET: Head is normocephalic and atraumatic. Pupils are equal and reactive. Neck: Supple without lymphadenopathy. Trachea midline. No audible carotid bruit. Heart: Irregular. Lungs: Equal expansion, normal respiratory effort. Abdomen: Soft, nontender, nondistended. Extremities: Right lower extremity warm to the touch, able to wiggle her toes. Multiphasic DP signal bilaterally. Left upper arm with bruising, dressing clean dry and intact. Palpable but weak radial pulse, patient has radial and ulnar Doppler signal. Fingers and hand are warm to touch, patient has good range of motion of fingers and hand. Neurological: No focal deficits. Strength and sensation are grossly intact. - Labs CBC & Chem 7: 07/07/22 19:18 07/07/22 06:15 Labs: Abnormal Lab Results - Last 24 Hours (Table) 07/10/22 Range/Units 03:36 POC Glucose (mg/dL) 149 H (70-110) mg/dL Assessment and Plan Assessment: 1. Acute left upper extremity ischemia, acute brachial artery thrombosis status post left upper extremity exploration, brachial ulnar and radial arteries open thrombectomy with left brachial artery repair 2. Status post right lower extremity angiogram, thrombolysis, angioplasty and stenting through access of right brachial artery 3. Right lower extremity pain, claudication with right lower extremity limb ischemia 4. Right SFA occlusion 5. History of abdominal aortic aneurysm status post repair 6. Chest pain 7. Atrial fibrillation 8. History COPD 9. History of hypertension hyperlipidemia Plan: 1. Diet as tolerated 2. May start anticoagulation per cardiology recommendations, stop ASA if starting anticoagulation 3. Continue Plavix 4. May apply Enrique wrap to left upper extremity for swelling and pain 5. Anticipate patient discharged this afternoon 6. Patient to follow-up with Dr. Sanchez in 2 weeks Patient is cleared for discharge from vascular surgery. Thank you for this consultation. The impression and plan of care has been dictated as directed. Dr. Sanchez I performed a history and examination of this patient, discussed the same with the dictator. I agree with the dictator's note ,documented as a scribe. Any additional findings or plans will be noted.
--- NOTE | 2022-07-10 10:33 | P.PN ---
Subjective This is a 77 year old female who is status post SFA thrombosis status post thrombolytics and balloon angioplasty as well as stenting with access through the left brachial artery. She denies chest pain or pressure. Denies SOB. Reports improvement in the pain in her leg. Vital signs are stable. Echo completed revealing EF 55-60%. Patient remains in atrial fibrillation with controlled ventricular rates. She is currently on aspirin 81mg daily and Plavix 75mg daily. PHYSICAL EXAM: VITAL SIGNS: Reviewed. GENERAL: Well-developed in no acute distress. NECK: Supple. No JVD or thyromegaly LUNGS: Respirations even and unlabored. Lungs essentially clear to auscultation bilaterally. HEART: Irregular rate and rhythm. S1 and S2 heard. EXTREMITIES: Normal range of motion. No clubbing or cyanosis. No lower extremity edema. Bruising and hematoma noted to left upper extremity. ASSESSMENT: Critical limb ischemia, status post SFA thrombosis status post thrombolytics and balloon angioplasty as well as stenting Left upper extremity hematoma with nonpalpable radial pulse New onset persistent atrial fibrillation Hyperlipidemia History of DVT History of aortic aneurysm PLAN: Per vascular surgery ok to start Eliquis. Start Eliquis 2.5mg BID and continue Plavix 75mg daily Discontinue aspirin Continue additional cardiac medications Continue telemetry monitoring while inpatient Case management consulted for Eliquis coverage/cost From a cardiology perspective, no further inpatient workup at this time. Discharge per primary and clearance from vascular. Follow up outpatient in 1-2 weeks. Nurse practitioner note has been reviewed by physician. Signing provider agrees with the documented findings, assessment, and plan of care. Objective - Vital Signs Vital signs: Vital Signs Temp 97.6 F 07/10/22 08:45 Pulse 70 07/10/22 09:12 Resp 17 07/10/22 08:45 BP 102/59 07/10/22 08:45 Pulse Ox 96 07/10/22 09:00 FiO2 Intake & Output 07/09/22 07/10/22 07/10/22 18:59 06:59 18:59 Intake Total 652 50 Output Total 50 600 Balance 602 -550 Weight 52.163 kg 52.163 kg Intake: IV 652 50 Output: Urine 600 Estimated Blood Loss 50 Other: Voiding Method Bedpan Toilet Diaper # Voids 4 - Labs CBC & Chem 7: 07/07/22 19:18 07/07/22 06:15 Labs: Abnormal Lab Results - Last 24 Hours (Table) 07/10/22 Range/Units 03:36 POC Glucose (mg/dL) 149 H (70-110) mg/dL
[2022-07-10 11:35] VITALS: BP 127/72; TEMP 97.4
[2022-07-10 12:26] VITALS: PULSE 72
--- NOTE | 2022-07-10 13:00 | P.DS ---
Providers Date of admission: 07/06/22 17:00 Expected date of discharge: 07/10/22 Attending physician: Brenda Zhang MD Consults: 07/04/22 21:00 Consult Physician Urgent Consulting Provider: [facility] Consult Reason/Comments: acute chest pain, acc htn Do you want consulting provider notified?: Yes Consult Physician Urgent Consulting Provider: Thony Vincent Consult Reason/Comments: right leg numbess, hx abd aneurysm Do you want consulting provider notified?: Already Contacted 07/06/22 19:08 Consult Physician Routine Consulting Provider: Teja Jensen Consult Reason/Comments: icu care Do you want consulting provider notified?: Yes [facility] care physician[facility] Course: Chest pain Newly discovered atrial fibrillation Hypertensive urgency Critical Limb Ischemia Peripheral arterial disease with claudication Intermittent right hepatic dome lesion COPD without exacerbation Dyslipidemia DVT Aortic aneurysm Hypothyroidism Patient is a 77-year-old female with COPD, DVT, and known peripheral arterial disease with prior stenting who presented to the ER with complaints of worsening right lower extremity claudication and some chest pain. Patient was found to be in atrial fibrillation with controlled ventricular response. On arrival to the ER she was hypertensive with a blood pressure of 195/138. Initial laboratory analysis demonstrated a normal troponin, mildly elevated d-dimer at 4.93, and creatinine 1.07 which is better than her baseline of 1.2. Chest x-ray showed no acute process. CT aorta with runoff showed occlusion of the right superficial femoral artery with a diminutive posterior tibial artery there is an occlusion of the left superficial femoral artery. She was admitted for further monitoring. Troponins were trended and remained negative. She is continuing on aspirin, Plavix, and statin. Cardiology was consulted who recommended an echocardiogram and anticoagulation on discharge due to new onset A. fib. She was seen by vascular surgery who recommended a venous arterial Doppler. She underwent EKOS and thrombectomy, heparin infusion, tPA infusion. This resolved her leg pain, however, she developed left arm pain with occlusion, and was taken to the operating room again with thrombectomy. She was discharged on Plavix, Apixiban. She'll follow-up with vascular surgery, PCP, cardiology. I spent 40 minutes coordinating this discharge, discharge date 07/10 See same day progress note for physical exam Patient Condition at Discharge: Good Plan - Discharge Summary New Discharge Prescriptions: New HYDROcodone/APAP 5-325MG [[place] 5-325] 1 each PO Q4HR PRN 2 Days #12 tab PRN Reason: Pain Apixaban [Eliquis] 2.5 mg PO BID #60 tab amLODIPine [Norvasc] 5 mg PO DAILY #30 tab Continue carvediloL 25 mg PO BID Clopidogrel [Plavix] 75 mg PO DAILY Cholecalciferol [Vitamin D3 (25 Mcg = 1000 Iu)] 50 mcg PO DAILY Atorvastatin [Lipitor] 80 mg PO DAILY Ipratropium-Albuterol Nebulize [Duoneb 0.5 mg-3 mg/3 ml Soln] 3 ml INHALATION RT-QID Budesonide/Glycopyr/Formoterol [Breztri Aerosphere Inhaler] 2 puff INHALATION DIRECTED Albuterol Inhaler [Ventolin Hfa Inhaler] 2 puff INHALATION RT-QID PRN PRN Reason: Shortness Of Breath Montelukast Sodium [Singulair] 10 mg PO DAILY Benazepril HCl 20 mg PO DAILY Discontinued Aspirin [Adult Low Dose Aspirin EC] 81 mg PO DAILY Hydrocodone/Acetaminophen [Hydrocodone/Acetaminophen 5-325] 1 tab PO BID PRN PRN Reason: Pain Discharge Medication List Albuterol Inhaler [Ventolin Hfa Inhaler] 2 puff INHALATION RT-QID PRN 02/09/22 [History] Atorvastatin [Lipitor] 80 mg PO DAILY 02/09/22 [History] Cholecalciferol [Vitamin D3 (25 Mcg = 1000 Iu)] 50 mcg PO DAILY 02/09/22 [History] Clopidogrel [Plavix] 75 mg PO DAILY 02/09/22 [History] Montelukast Sodium [Singulair] 10 mg PO DAILY 02/09/22 [History] carvediloL 25 mg PO BID 02/09/22 [History] Benazepril HCl 20 mg PO DAILY 07/04/22 [History] Budesonide/Glycopyr/Formoterol [Breztri Aerosphere Inhaler] 2 puff INHALATION DIRECTED 07/04/22 [History] Ipratropium-Albuterol Nebulize [Duoneb 0.5 mg-3 mg/3 ml Soln] 3 ml INHALATION RT-QID 07/04/22 [History] Apixaban [Eliquis] 2.5 mg PO BID #60 tab 07/10/22 [Rx] HYDROcodone/APAP 5-325MG [[place] 5-325] 1 each PO Q4HR PRN 2 Days #12 tab 07/10/22 [Rx] amLODIPine [Norvasc] 5 mg PO DAILY #30 tab 07/10/22 [Rx] Follow up Appointment(s)/Referral(s): Jose Dey MD [STAFF PHYSICIAN] - 07/20/22 11:00 am Raj Sanon MD [Primary Care Provider] - 1-2 days (Call to schedule appointment, needs to chose new PCP.) Ramy Sanchez DO [STAFF PHYSICIAN] - 07/24/22 4:00 pm [facility] Visiting Nurse, [NON-STAFF] - Patient Instructions/Handouts: Peripheral Artery Disease (DC), Peripheral Vascular Angioplasty (DC), Peripheral Vascular Stent Placement (DC) Activity/Diet/Wound Care/Special Instructions: No driving for two days. Avoid heavy lifting greater than 10 lbs , pushing, pulling, straining, flights of stairs for three days. ok to shower tomorrow but no baths, pools, soaking in tubs for three days to avoid risk of infection. signs of infection ie: fever, rash, drainage from puncture site, swelling contact doctor or return to ER immediately. Heavy bleeding from puncture site apply firm direct pressure and return to ER. Do not attempt to drive self. low sodium/low fat diet Discharge Disposition: HOME WITH HOME HEALTH SERVICES
--- NOTE | 2022-07-17 10:25 | US ---
EXAMINATION TYPE: US arterial UE multi level DATE OF EXAM: 07/09/2022 10:36 AM CLINICAL HISTORY: nonpalpable radial pulse, s/p brachial acess. Doppler Waveforms: Right: Axillary: Biphasic Brachial: Biphasic Radial: Biphasic Ulnar: Biphasic Left: Axillary: Biphasic Wrist Brachial Indices: Right: 1.05 Left: CNO IMPRESSION: Occluded left arterial system suspected as could not obtain brachial ulnar or radial art roxie pressures. Further workup and follow-up advised.
== END 2022-07-10 13:29 | disposition home health service (06) | DRG 254 ==
LOC: SUPCPDRO 18:18 → EC 18:18 → 6NMEDSUR 21:06 → OBSVTOIN 07-06 17:00 → 2SICU 07-06 18:53 → 5NMEDONC 07-08 13:57 → 3SCARD 07-09 20:43
PROVIDERS: ADMIT Internal Medicine; ATTEND Internal Medicine
PROC: 03Q70ZZ Repair Right Brachial Artery, Open Approach (ICD-10-PCS; 2022-07-06)
PROC: B41C1ZZ Fluoroscopy of Pelvic Arteries using Low Osmolar Contrast (ICD-10-PCS; 2022-07-06)
PROC: 3E05317 Introduction of Other Thrombolytic into Peripheral Artery, Percutaneous Approach (ICD-10-PCS; 2022-07-06)
PROC: 4A0 Measurement and Monitoring, Physiological Systems, Measurement (ICD-10-PCS; 2022-07-06)
PROC: B41F1ZZ Fluoroscopy of Right Lower Extremity Arteries using Low Osmolar Contrast (ICD-10-PCS; principal; 2022-07-06 16:30)
PROC: 03C70ZZ Extirpation of Matter from Right Brachial Artery, Open Approach (ICD-10-PCS; 2022-07-06 16:30)
PROC: 03CB0ZZ Extirpation of Matter from Right Radial Artery, Open Approach (ICD-10-PCS; 2022-07-06 16:30)
PROC: 03C90ZZ Extirpation of Matter from Right Ulnar Artery, Open Approach (ICD-10-PCS; 2022-07-06 16:30)
PROC: 047K3DZ Dilation of Right Femoral Artery with Intraluminal Device, Percutaneous Approach (ICD-10-PCS; 2022-07-07)
PROC: 047K3ZZ Dilation of Right Femoral Artery, Percutaneous Approach (ICD-10-PCS; 2022-07-07)
PROC: 047M3ZZ Dilation of Right Popliteal Artery, Percutaneous Approach (ICD-10-PCS; 2022-07-07)
PROC: 04FK3Z0 Fragmentation of Right Femoral Artery, Percutaneous Approach, Ultrasonic (ICD-10-PCS; 2022-07-07)
PROC: 04FK3Z0 Fragmentation of Right Femoral Artery, Percutaneous Approach, Ultrasonic (ICD-10-PCS; 2022-07-07)
PROC: 04FM3Z0 Fragmentation of Right Popliteal Artery, Percutaneous Approach, Ultrasonic (ICD-10-PCS; 2022-07-07)
PROC: B41F1ZZ Fluoroscopy of Right Lower Extremity Arteries using Low Osmolar Contrast (ICD-10-PCS; 2022-07-07)
PROC: 3E05317 Introduction of Other Thrombolytic into Peripheral Artery, Percutaneous Approach (ICD-10-PCS; 2022-07-07)
PROC: 3E05317 Introduction of Other Thrombolytic into Peripheral Artery, Percutaneous Approach (ICD-10-PCS; 2022-07-08)
DX: I99.8 Other disorder of circulatory system (principal); I74.2 Embolism and thrombosis of arteries of the upper extremities; T85.868A Thrombosis due to other internal prosthetic devices, implants and grafts, initial encounter; I74.3 Embolism and thrombosis of arteries of the lower extremities; I82.411 Acute embolism and thrombosis of right femoral vein; I82.431 Acute embolism and thrombosis of right popliteal vein; I20.9 Angina pectoris, unspecified; I48.19 Other persistent atrial fibrillation; I70.203 Unspecified atherosclerosis of native arteries of extremities, bilateral legs; E03.9 Hypothyroidism, unspecified; E78.5 Hyperlipidemia, unspecified; I08.1 Rheumatic disorders of both mitral and tricuspid valves; I11.0 Hypertensive heart disease with heart failure; I16.0 Hypertensive urgency; I50.9 Heart failure, unspecified; K57.30 Diverticulosis of large intestine without perforation or abscess without bleeding; I70.223 Atherosclerosis of native arteries of extremities with rest pain, bilateral legs; I71.40 Abdominal aortic aneurysm, without rupture, unspecified; J44.9 Chronic obstructive pulmonary disease, unspecified; K44.9 Diaphragmatic hernia without obstruction or gangrene; N26.1 Atrophy of kidney (terminal); M79.81 Nontraumatic hematoma of soft tissue; Z87.19 Personal history of other diseases of the digestive system; Z79.01 Long term (current) use of anticoagulants; Z79.02 Long term (current) use of antithrombotics/antiplatelets; Z79.82 Long term (current) use of aspirin; Z79.899 Other long term (current) drug therapy; Z86.718 Personal history of other venous thrombosis and embolism; Z87.891 Personal history of nicotine dependence; Z86.79 Personal history of other diseases of the circulatory system; Z98.61 Coronary angioplasty status; Z98.51 Tubal ligation status; Y84.8 Other medical procedures as the cause of abnormal reaction of the patient, or of later complication, without mention of misadventure at the time of the procedure
CPT/HCPCS: 36247; 36415; 37211; 37213; 37214; 37226; 71046; 75635; 75710; 76937; 80048; 80053; 82565; 83605; 83735; 83880; 84484; 84520; 85025; 85027; 85379; 85384; 85610; 85730; 86850; 86900; 86901; 93005; 93306; 93923; 94640; 94760; 96374; 99285

== ENCOUNTER → 2023-04-08 | Outpatient (CLI) | payer MEDICARE ==
[2023-04-08 12:44] LABS: ALT 20 U/L (4-34); AST 28 U/L (14-36); African American GFR (CKD) 57 (>60 ml/min/1.73 sqM); Albumin/Globulin Ratio 1.3; Alkaline Phosphatase 114 U/L (38-126); Anion Gap 7 mmol/L; Blood Urea Nitrogen 30 mg/dL (7-17); Carbon Dioxide 25 mmol/L (22-30); Chloride 105 mmol/L (98-107); Globulin 3.1 g/dL; Glucose 103 mg/dL (74-99); Non-African American GFR(CKD) 49 (>60 ml/min/1.73 sqM); Potassium 4.6 mmol/L (3.5-5.1); Sodium 137 mmol/L (137-145); Total Bilirubin 0.9 mg/dL (0.2-1.3); Total Protein 7.1 g/dL (6.3-8.2)
[2023-04-08 17:42] LABS: Chol/HDL Ratio 3.52 Ratio; LDL Cholesterol,Calculated 107.1 mg/dL (0.0-131.0)
--- NOTE | 2023-04-10 20:36 | CT ---
EXAMINATION TYPE: CT angio abdomen pelvis DATE OF EXAM: 04/08/2023 COMPARISON: 07/04/2022 HISTORY: 77-year-old female I71.4, I71.2, f/u stent placement TECHNIQUE: Contiguous axial scanning of the abdomen and pelvis before and after administration of 80 ml Isovue-370 IV contrast. Delayed images during the stent graft coronal/sagittal reconstructions pe rformed. 3-D reconstructions generated on a dedicated independent workstation. CT DLP: 826.4 mGycm Automated exposure control for dose reduction was used. FINDINGS: Chest: The heart is mildly enlarged. Small anterior pericardial effusion measuring 7 mm. LAD coronary calcif ications are present. Moderate atherosclerotic calcifications throughout the thoracic aorta. Conventional arch vessel branc harsha anatomy. No thoracic lymphadenopathy by CT size anterior. Moderate to advanced emphysematous change. Biapical pleural-parenchymal scarring. Mild diffuse bronch ial wall thickening. Areas of endobronchial opacification right lower lobe and right middle lobe. No deon consolidation or pleural effusion. ABDOMEN: Portal venous system is patent. Gallbladder within normal limits. No biliary ductal dilatation. Stabl e hypervascular focus measuring 1 cm in the right hepatic dome suggesting flash filling hemangioma or area of vascular shunting. Adrenal glands and spleen with hilar splenule within normal limits. Unchanged 1.6 cm lobulated cystic area along the right lateral aspect of the pancreatic head. Asymmetrically delayed enhancement of the right kidney suggesting a significant renal artery stenosis . Multiple right renal cysts are redemonstrated measuring up to 2.6 cm. No hydronephrosis on either s eulalia. No dilated small bowel, free fluid, or free air. No mesenteric or retroperitoneal lymphadenopathy is seen. Mild to moderate stool in the right-sided the abdomen. Sigmoid diverticulosis with chronic-appearing wall thickening but no surrounding inflammation. Vasculature: Aneurysmal ascending aorta at 4.5 cm. Conventional arch vessel branching anatomy. Ectatic upper descending thoracic aorta 3.2 cm. Moderate metastatic plaque and calcifications through out the remainder of the thoracic aorta. Ectatic lower descending thoracic aorta at 2.9 cm. Upper abdominal aorta aneurysmal at 3.5 cm, unchanged. Abdominal aortobiiliac stent graft redemonstrated. Celiac axis is patent. Appearance of the origin of the SMA. Severe stenosis at the origin of the diminutive right renal artery. Suspected severe stenosis origin of the left renal artery as well. Long segment AAA [place] sac measuring up to 5.2 x 4.9 cm versus 5.4 x 5.2 cm, previously. Distal abdominal aorta [place] sac remains aneurysmal 3.2 cm versus 3.4 cm, previously. Stented right common iliac artery is mildly aneurysmal at 2.1 cm, unchanged. Stented left common iliac artery shows saccular protuberance is anteriorly with overall caliber measu ring up to 2.2 cm, unchanged. Interval narrowing of the patent lumen of the stented right common iliac artery down to 5 mm versus 9 mm, previously. Moderate segmental stenoses right common iliac artery bifurcation and right external iliac artery. There is a stent now present along the previously occluded right common femoral artery. Severe stenosis left external iliac artery, axial image 563. Redemonstrated proximal left SFA occlusion with patent left PFA. Similar densities including nonmetallic segments of the stent graft and calcifications within the ane urysmal [place] sac. No convincing contrast extravasation is identified to suggest endoleak. Pelvis: Bladder nondistended. Lobulated uterus redemonstrated relating to focal fibroids measuring up to 2.8 cm. Ovaries not well delayed from adjacent bowel loops. No abnormal fluid collection in the pelvis or pelvic lymphadenopathy seen. Bone: No osseous destructive process. IMPRESSION: 1. REDEMONSTRATED AORTOBIILIAC ENDOVASCULAR STENT GRAFT. [place] AP[place]HE SAC SHOWS CALIBER OF 5.2 X 4.9 CM, SL IGHTLY SMALLER FROM 5.4 X 5.2 CM, PREVIOUSLY. NO EVIDENCE FOR ENDOLEAK. SIMILAR TO SLIGHTLY SMALLER D ISTAL ABDOMINAL AORTIC [place] APACHE SAC OF 3.2 CM VERSUS 3.4 CM, PREVIOUSLY. 2. SIMILAR MILD ANEURYSMS OF THE STENTED RIGHT AND LEFT COMMON ILIAC ARTERIES MEASURING UP TO 2.1 CM AND 2.2 CM, RESPECTIVELY. HOWEVER, WE NOTE INTERVAL NARROWING OF THE STENTED RIGHT COMMON ILIAC ARTER Y LUMEN DOWN TO 5 MM NOW VERSUS 9 MM, PREVIOUSLY. 3. INTERVAL STENTING AND PATENCY OF THE PREVIOUSLY OCCLUDED RIGHT COMMON FEMORAL ARTERY. 4. SEVERE FOCAL STENOSIS LEFT EXTERNAL ILIAC ARTERY. REDEMONSTRATED PROXIMAL LEFT SFA OCCLUSION WITH PATENT LEFT PFA. 5. BILATERAL PROXIMAL RENAL ARTERY STENOSES, LIKELY SIGNIFICANT ON THE RIGHT GIVEN ASYMMETRIC DELAYED ENHANCEMENT OF THE RIGHT KIDNEY. 6. 4.5 CM ANEURYSM ASCENDING AORTA. INCIDENTAL: 7. CARDIOMEGALY, LAD CORONARY ARTERY CALCIFICATIONS. 8. COPD WITH MODERATE TO ADVANCED EMPHYSEMA. AREAS OF ENDOBRONCHIAL MUCOID OPACIFICATION RIGHT MIDDLE LOBE AND RIGHT LOWER LOBE. 9. SIGMOID DIVERTICULOSIS AND LIKELY CHRONIC DIVERTICULITIS GIVEN CHRONIC WALL THICKENING. BULKY, LOB ULATED FIBROID UTERUS.
== END | disposition home or self-care (01) ==
LOC: RADCTMAIN 11:51
PROVIDERS: ATTEND Surgery
DX: I71.40 Abdominal aortic aneurysm, without rupture, unspecified (principal); I71.20 Thoracic aortic aneurysm, without rupture, unspecified; I70.1 Atherosclerosis of renal artery; I25.10 Atherosclerotic heart disease of native coronary artery without angina pectoris; I51.7 Cardiomegaly; J43.9 Emphysema, unspecified; K57.30 Diverticulosis of large intestine without perforation or abscess without bleeding; D25.9 Leiomyoma of uterus, unspecified; R91.8 Other nonspecific abnormal finding of lung field
CPT/HCPCS: 80061; 80053; 36415; 74174; Q9967

== ENCOUNTER 2023-06-07 10:52 | Inpatient (IN) | payer MEDICARE ==
[2023-06-07] MEDS ORDERED: ASPIRIN 81 MG PO STA (11:11)
[2023-06-07] MEDS ORDERED: NITROGLYCERIN OINT 1 INCH/GM PACKET TOPICAL STA (11:11)
--- NOTE | 2023-06-07 11:13 | ED ---
General Adult HPI - General Chief complaint: Shortness of Breath Stated complaint: SOB, Chest Pain Time Seen by Provider: 06/07/23 11:00 Source: patient, EMS, RN notes reviewed, old records reviewed Mode of arrival: EMS Limitations: no limitations - History of Present Illness Initial comments: This is a 77-year-old female with a past medical history significant for coronary artery disease with a stent placement, COPD, high cholesterol and a history of smoking which she has stopped. Patient comes in today stating that she started having chest pain still couldn't breathing treatment did not help her patient states the chest pain radiates to her back and she also had shortness of breath with it. Patient states until she took a nitroglycerin she continued to have the pain but once symmetrical so was given to her pain subsided. Patient denies any recent fever chills or cough per patient denies any lightheadedness or dizziness. Patient denies any palpitation. Patient denies any abdominal pain patient denies nausea vomiting diarrhea. - Related Data Home Medications Medication Instructions Recorded Confirmed Albuterol Inhaler [Ventolin Hfa 2 puff INHALATION RT-QID PRN 02/09/22 10/12/22 Inhaler] Atorvastatin [Lipitor] 80 mg PO DAILY 02/09/22 10/12/22 Cholecalciferol [Vitamin D3 (25 50 mcg PO DAILY 02/09/22 10/12/22 Mcg = 1000 Iu)] Clopidogrel [Plavix] 75 mg PO DAILY 02/09/22 10/12/22 Montelukast Sodium [Singulair] 10 mg PO DAILY 02/09/22 10/12/22 carvediloL 25 mg PO BID 02/09/22 10/12/22 Benazepril HCl 20 mg PO DAILY 07/04/22 10/12/22 Ipratropium-Albuterol Nebulize 3 ml INHALATION RT-QID PRN 07/04/22 10/12/22 [Duoneb 0.5 mg-3 mg/3 ml Soln] Rivaroxaban [Xarelto] 15 mg PO DAILY 10/12/22 10/12/22 hydrOXYzine HCL [Atarax] 25 mg PO HS 10/12/22 10/12/22 Previous Rx's Medication Instructions Recorded Aspirin 81 mg PO DAILY #7 tab 10/16/22 amLODIPine [Norvasc] 10 mg PO DAILY #30 tab 10/16/22 Allergies Allergy/AdvReac Type Severity Reaction Status Date / Time No Known Allergies Allergy Verified 06/07/23 10:59 Review of Systems ROS Statement: Those systems with pertinent positive or pertinent negative responses have been documented in the HPI. ROS Other: All systems not noted in ROS Statement are negative. Past Medical History Past Medical History: Atrial Fibrillation, Heart Failure, COPD, Deep Vein Thrombosis (DVT), Hyperlipidemia, Hypertension, Osteoarthritis (OA), Pneumonia, Thyroid Disorder Additional Past Medical History / Comment(s): AORTIC ANEURYSM. History of Any Multi-Drug Resistant Organisms: None Reported Past Surgical History: Appendectomy, Tonsillectomy, Tubal Ligation Additional Past Surgical History / Comment(s): STENT- AORTIC ANEURSYM AND STENT- RENAL ARTERY. BILATERAL CAROTIDS. Past Anesthesia/Blood Transfusion Reactions: No Reported Reaction Past Psychological History: No Psychological Hx Reported Smoking Status: Former smoker Past Alcohol Use History: None Reported Past Drug Use History: None Reported - Past Family History fmaily Family Medical History: Cancer General Exam - General Exam Comments Initial Comments: GENERAL: Patient is well-developed and well-nourished. Patient is nontoxic and well- hydrated and is in mild distress. ENT: Neck is soft and supple. No significant lymphadenopathy is noted. Oropharynx is clear. Moist mucous membranes. Neck has full range of motion without el iciting any pain. EYES: The sclera were anicteric and conjunctiva were pink and moist. Extraocular movements were intact and pupils were equal round and reactive to light. Eyelids were unremarkable. PULMONARY: Unlabored respirations. Good breath sounds bilaterally. No audible rales rhonchi or wheezing was noted. CARDIOVASCULAR: There is a regular rate and rhythm without any murmurs gallops or rubs. ABDOMEN: Soft and nontender with normal bowel sounds. SKIN: Skin is clear with no lesions or rashes and otherwise unremarkable. NEUROLOGIC: Patient is alert and oriented x3. Cranial nerves II through XII are grossly intact. Motor and sensory are also intact. Normal speech, volume and content. Symmetrical smile. MUSCULOSKELETAL: Normal extremities with adequate strength and full range of motion. No lower extremity swelling or edema. No calf tenderness. LYMPHATICS: No significant lymphadenopathy is noted PSYCHIATRIC: Normal psychiatric evaluation. Limitations: no limitations Course Vital Signs 06/07/23 06/07/23 06/07/23 10:55 11:18 11:20 Temperature 97.8 F Pulse Rate 85 79 77 Respiratory 19 18 20 Rate Blood Pressure 167/108 191/128 O2 Sat by Pulse 99 97 Oximetry 06/07/23 06/07/23 06/07/23 11:30 11:40 11:50 Temperature Pulse Rate 80 90 72 Respiratory 17 19 16 Rate Blood Pressure O2 Sat by Pulse 97 96 96 Oximetry 06/07/23 06/07/23 06/07/23 12:00 12:10 12:30 Temperature Pulse Rate 86 84 68 Respiratory 20 23 12 Rate Blood Pressure 168/102 O2 Sat by Pulse 96 98 92 L Oximetry 06/07/23 06/07/23 06/07/23 12:40 12:50 13:00 Temperature Pulse Rate 83 78 82 Respiratory 11 L 28 H 17 Rate Blood Pressure 188/105 O2 Sat by Pulse 94 L 97 94 L Oximetry 06/07/23 06/07/23 06/07/23 13:10 13:20 13:30 Temperature Pulse Rate 85 79 84 Respiratory 17 16 18 Rate Blood Pressure 167/107 O2 Sat by Pulse 97 95 98 Oximetry 06/07/23 06/07/23 06/07/23 13:40 13:50 14:00 Temperature Pulse Rate 80 70 64 Respiratory 17 20 16 Rate Blood Pressure 170/144 O2 Sat by Pulse 97 93 L 97 Oximetry 06/07/23 06/07/23 06/07/23 14:10 14:20 14:30 Temperature Pulse Rate 83 76 87 Respiratory 18 18 25 H Rate Blood Pressure 151/134 O2 Sat by Pulse 96 95 98 Oximetry Medical Decision Making - Medical Decision Making EKG is reviewed by myself. EKG shows atrial fibrillation at 84 bpm QRS is 98 QT interval 389 QTC is 4:30. Patient's EKG shows no ST segment. Depression. Was pt. sent in by a medical professional or institution (, PA, SEMICONDUCTOR ASSEMBLER, urgent care, hospital, or senior care...) When possible be specific @ -No Did you speak to anyone other than the patient for history (EMS, parent, family, police, friend...)? What history was obtained from this source @ -No Did you review nursing and triage notes (agree or disagree)? Why? @ -I reviewed and agree with nursing and triage notes Were old charts reviewed (outside hosp., previous admission, EMS record, old EKG, old radiological studies, urgent care reports/EKG's, senior care records)? Report findings @ -I reviewed prior charts and lab work on this patient Differential Diagnosis (chest pain, altered mental status, abdominal pain women, abdominal pain men, vaginal bleeding, weakness, fever, dyspnea, syncope, headache, dizziness, GI bleed, back pain, seizure, CVA, palpatations, mental health, musculoskeletal)? @ -Differential Chest Pain: Stable Angina, Unstable Angina, STEMI, NSTEMI Aortic Dissection, Pneumothorax, Musculoskeletal, Esophageal Spasm GERD, Cholecystitis, Pancreatitis, Zoster, this is not meant to be an all-inclusive list. EKG interpreted by me (3pts min.). @ -As above X-rays interpreted by me (1pt min.). @ -Chest x-ray shows no acute abnormality CT interpreted by me (1pt min.). @ -None done U/S interpreted by me (1pt. min.). @ -None done What testing was considered but not performed or refused? (CT, X-rays, U/S, labs)? Why? @ -None What meds were considered but not given or refused? Why? @ -None Did you discuss the management of the patient with other professionals (professionals i.e. , PA, SEMICONDUCTOR ASSEMBLER, lab, RT, psych nurse, social service director, automatic serging machine operator, teacher, chief procurement officer, caser)? Give summary @ -[facility] I admitted the patient wrote admitting orders Was smoking cessation discussed for >3mins.? @ -No Was critical care preformed (if so, how long)? @ -No Were there social determinants of health that impacted care today? How? (Homelessness, low income, unemployed, alcoholism, drug addiction, transportation, low edu. Level, literacy, decrease access to med. care, [facility], rehab)? @ -No Was there de-escalation of care discussed even if they declined (Discuss DNR or withdrawal of care, Hospice)? DNR status @ -No What co-morbidities impacted this encounter? (DM, HTN, Smoking, COPD, CAD, Cancer, CVA, ARF, Chemo, Hep., AIDS, mental health diagnosis, sleep apnea, morbid obesity)? @ -None Was patient admitted / discharged? Hospital course, mention meds given and route, prescriptions, significant lab abnormalities, going to OR and other pertinent info. @ -Patient started having chest pain this morning took a nitroglycerin after breathing treatment patient states the breathing treatment did not help with the nitroglycerin took her pain away immediately. I spoke with the patient [facility] they were in agreement with admitting the patient admitted the patient I wrote admitting orders and I consult cardiology Undiagnosed new problem with uncertain prognosis? @ -No Drug Therapy requiring intensive monitoring for toxicity (Heparin, Nitro, Insulin, Cardizem)? @ -No Were any procedures done? @ -No Diagnosis/symptom? @ -Chest pain Acute, or Chronic, or Acute on Chronic? @ -Acute Uncomplicated (without systemic symptoms) or Complicated (systemic symptoms)? @ -Complicated Side effects of treatment? @ -No Exacerbation, Progression, or Severe Exacerbation? @ -No Poses a threat to life or bodily function? How? (Chest pain, USA, MD, pneumonia, PE, COPD, DKA, ARF, appy, cholecystitis, CVA, Diverticulitis, Homicidal, Suicidal, threat to staff... and all critical care pts) @ -Yes this could lead to an MD and end organ dysfunction - Lab Data Result diagrams: 06/07/23 11:25 06/07/23 11:25 Lab Results 06/07/23 06/07/23 06/07/23 Range/Units 11:25 11:25 11:25 WBC 7.9 (3.8-10.6) k/uL RBC 5.29 (3.80-5.40) m/uL Hgb 13.9 (11.4-16.0) gm/dL Hct 42.9 (34.0-46.0) % MCV 81.1 (80.0-100.0) fL MCH 26.3 (25.0-35.0) pg MCHC 32.5 (31.0-37.0) g/dL RDW 18.4 H (11.5-15.5) % Plt Count 179 (150-450) k/uL MPV 7.5 Neutrophils % 70 % Lymphocytes % 16 % Monocytes % 7 % Eosinophils % 4 % Basophils % 0 % Neutrophils # 5.5 (1.3-7.7) k/uL Lymphocytes # 1.2 (1.0-4.8) k/uL Monocytes # 0.6 (0-1.0) k/uL Eosinophils # 0.3 (0-0.7) k/uL Basophils # 0.0 (0-0.2) k/uL Anisocytosis Slight Microcytosis Slight PT 12.1 (10.0-12.5) sec INR 1.1 (<1.2) APTT 25.1 (22.0-30.0) sec Sodium 137 (137-145) mmol/L Potassium 4.6 (3.5-5.1) mmol/L Chloride 103 (98-107) mmol/L Carbon Dioxide 23 (22-30) mmol/L Anion Gap 11 mmol/L BUN 24 H (7-17) mg/dL Creatinine 1.13 H (0.52-1.04) mg/dL Est GFR (CKD-EPI)AfAm 54 (>60 ml/min/1.73 sqM) Est GFR (CKD-EPI)NonAf 47 (>60 ml/min/1.73 sqM) Glucose 107 H (74-99) mg/dL Calcium 9.3 (8.4-10.2) mg/dL Magnesium 2.1 (1.6-2.3) mg/dL Total Bilirubin 0.9 (0.2-1.3) mg/dL AST 21 (14-36) U/L ALT 13 (4-34) U/L Alkaline Phosphatase 114 (38-126) U/L Troponin I (0.000-0.034) ng/mL Total Protein 6.4 (6.3-8.2) g/dL Albumin 3.8 (3.5-5.0) g/dL 06/07/23 Range/Units 11:25 WBC (3.8-10.6) k/uL RBC (3.80-5.40) m/uL Hgb (11.4-16.0) gm/dL Hct (34.0-46.0) % MCV (80.0-100.0) fL MCH (25.0-35.0) pg MCHC (31.0-37.0) g/dL RDW (11.5-15.5) % Plt Count (150-450) k/uL MPV Neutrophils % % Lymphocytes % % Monocytes % % Eosinophils % % Basophils % % Neutrophils # (1.3-7.7) k/uL Lymphocytes # (1.0-4.8) k/uL Monocytes # (0-1.0) k/uL Eosinophils # (0-0.7) k/uL Basophils # (0-0.2) k/uL Anisocytosis Microcytosis PT (10.0-12.5) sec INR (<1.2) APTT (22.0-30.0) sec Sodium (137-145) mmol/L Potassium (3.5-5.1) mmol/L Chloride (98-107) mmol/L Carbon Dioxide (22-30) mmol/L Anion Gap mmol/L BUN (7-17) mg/dL Creatinine (0.52-1.04) mg/dL Est GFR (CKD-EPI)AfAm (>60 ml/min/1.73 sqM) Est GFR (CKD-EPI)NonAf (>60 ml/min/1.73 sqM) Glucose (74-99) mg/dL Calcium (8.4-10.2) mg/dL Magnesium (1.6-2.3) mg/dL Total Bilirubin (0.2-1.3) mg/dL AST (14-36) U/L ALT (4-34) U/L Alkaline Phosphatase (38-126) U/L Troponin I <0.012 (0.000-0.034) ng/mL Total Protein (6.3-8.2) g/dL Albumin (3.5-5.0) g/dL Disposition Clinical Impression: Chest pain Disposition: ADMITTED IP TO THIS HOSP Referrals: Sid Wilkes DO [Primary Care Provider] - 1-2 days Time of Disposition: 14:44
[2023-06-07 11:33] LABS: Anisocytosis Slight; Basophils % (A) 0 %; Eosinophils # (A) 0.3 k/uL (0-0.7); Eosinophils % (A) 4 %; HCT 42.9 % (34.0-46.0); HGB 13.9 gm/dL (11.4-16.0); Lymphocytes # (A) 1.2 k/uL (1.0-4.8); Lymphocytes % (A) 16 %; MCH 26.3 pg (25.0-35.0); MCHC 32.5 g/dL (31.0-37.0); MCV 81.1 fL (80.0-100.0); Mean Platelet Volume 7.5; Microcytosis Slight; Monocytes # (A) 0.6 k/uL (0-1.0); Monocytes % (A) 7 %; Neutrophils # (A) 5.5 k/uL (1.3-7.7); Neutrophils % (A) 70 %; Platelet Count 179 k/uL (150-450); RBC 5.29 m/uL (3.80-5.40); RDW 18.4 % (11.5-15.5); WBC 7.9 k/uL (3.8-10.6)
[2023-06-07 11:46] LABS: ALT 13 U/L (4-34); AST 21 U/L (14-36); African American GFR (CKD) 54 (>60 ml/min/1.73 sqM); Albumin 3.8 g/dL (3.5-5.0); Alkaline Phosphatase 114 U/L (38-126); Anion Gap 11 mmol/L; Blood Urea Nitrogen 24 mg/dL (7-17); Calcium 9.3 mg/dL (8.4-10.2); Carbon Dioxide 23 mmol/L (22-30); Chloride 103 mmol/L (98-107); Glucose 107 mg/dL (74-99); Magnesium 2.1 mg/dL (1.6-2.3); Non-African American GFR(CKD) 47 (>60 ml/min/1.73 sqM); Potassium 4.6 mmol/L (3.5-5.1); Sodium 137 mmol/L (137-145); Total Bilirubin 0.9 mg/dL (0.2-1.3); Total Protein 6.4 g/dL (6.3-8.2)
[2023-06-07 11:49] LABS: INR 1.1 (<1.2); Partial Thromboplastin Time 25.1 sec (22.0-30.0); Prothrombin Time 12.1 sec (10.0-12.5)
--- NOTE | 2023-06-07 12:26 | XR ---
EXAMINATION TYPE: XR chest 2V DATE OF EXAM: 06/07/2023 COMPARISON: 10/12/2022 HISTORY: Shortness of breath TECHNIQUE: Frontal and lateral views of the chest are obtained. FINDINGS: Scattered senescent parenchymal changes noted. Hyperinflation compatible with COPD. No evidence for infiltrate. No evidence for atelectasis. Cardiomegaly without evidence for overt failure. Mediastinal structures are stable and grossly unremarkable. No evidence for hilar prominence. Degenerative changes dorsal spine. IMPRESSION: 1. No evidence for acute pulmonary disease.
--- NOTE | 2023-06-07 14:34 | P.HPIM ---
History of Present Illness H&P Date: 06/07/23 History of present illness; 77-year-old female with past medical history of persistent atrial fibrillation, dyslipidemia, peripheral vascular disease, hypertension presented to the ER because of chest pain. She stated that she was all right this morning when after waking up she started experiencing chest pressure which was central in location, nonradiating, no aggravating or relieving factors associated with this chest pain. Patient was complaining of shortness of breath at that time. Denies any nausea or vomiting at this time. Denies any palpitation or diaphoresis at that time. There was no complain of orthopnea or PND. Because of this chest pain, EMS was called. Patient received nitro which relieved her pain. Initial lab work done in the ER showed WBC 7.9, hemoglobin 13.9, platelet count 179, sodium 137, potassium 4.6, BUN 24, creatinine 1.13, troponin 0.012, AST 21, ALT 13, alk phos 114, EKG done in the ER showed no ST segment elevation, no T-wave inversion. Chest x-ray done in the ER no evidence of acute pulmonary disease Patient admitted to medicine service REVIEW OF SYSTEMS: CONSTITUTIONAL: No fever, no malaise, no fatigue. HEENT: No recent visual problems or hearing problems. Denied any sore throat. CARDIOVASCULAR: As mentioned in HPI PULMONARY: As mentioned in HPI GASTROINTESTINAL: No diarrhea, no nausea, no vomiting, no abdominal pain. NEUROLOGICAL: No headaches, no weakness, no numbness. HEMATOLOGICAL: Denies any bleeding or petechiae. GENITOURINARY: Denies any burning micturition, frequency, or urgency. MUSCULOSKELETAL/RHEUMATOLOGICAL: Denies any joint pain, swelling, or any muscle pain. ENDOCRINE: Denies any polyuria or polydipsia. The rest of the 14-point review of systems is negative. PHYSICAL EXAMINATION: GENERAL: The patient is alert and oriented x3, not in any acute distress. Well developed, well nourished. HEENT: Pupils are round and equally reacting to light. EOMI. No scleral icterus. No conjunctival pallor. Normocephalic, atraumatic. No pharyngeal erythema. No thyromegaly. CARDIOVASCULAR: S1 and S2 present. No murmurs, rubs, or gallops. PULMONARY: Chest is clear to auscultation, no wheezing or crackles. ABDOMEN: Soft, nontender, nondistended, normoactive bowel sounds. No palpable organomegaly. MUSCULOSKELETAL: No joint swelling or deformity. EXTREMITIES: No cyanosis, clubbing, or pedal edema. NEUROLOGICAL: Gross neurological examination did not reveal any focal deficits. SKIN: No rashes. Assessment and plan Unstable angina COPD exacerbation Hypertension Hyperlipidemia Persistent atrial fibrillation Peripheral vascular disease Monitor vital signs Monitor CBC Monitor CMP Continue telemetry monitoring Trend troponin. Ordered d-dimer Ordered 2-D echo Resume home meds Consult cardiology Labs and medication were reviewed.. Continue same treatment. Continue with symptomatic treatment. Resume home medication. Monitor labs and vitals. DVT and GI prophylaxis. Further recommendations as per clinical course of the patient Dictation was produced using [employer] dictation software. please excuse any grammatical, word or spelling errors. Past Medical History Past Medical History: Atrial Fibrillation, Heart Failure, COPD, Deep Vein Thrombosis (DVT), Hyperlipidemia, Hypertension, Osteoarthritis (OA), Pneumonia, Thyroid Disorder Additional Past Medical History / Comment(s): AORTIC ANEURYSM. History of Any Multi-Drug Resistant Organisms: None Reported Past Surgical History: Appendectomy, Tonsillectomy, Tubal Ligation Additional Past Surgical History / Comment(s): STENT- AORTIC ANEURSYM AND STENT- RENAL ARTERY. BILATERAL CAROTIDS. Past Anesthesia/Blood Transfusion Reactions: No Reported Reaction Past Psychological History: No Psychological Hx Reported Smoking Status: Former smoker Past Alcohol Use History: None Reported Past Drug Use History: None Reported - Past Family History fmaily Family Medical History: Cancer Medications and Allergies Home Medications Medication Instructions Recorded Confirmed Type Albuterol Inhaler [Ventolin Hfa 2 puff INHALATION RT-QID PRN 02/09/22 10/12/22 History Inhaler] Atorvastatin [Lipitor] 80 mg PO DAILY 02/09/22 10/12/22 History Cholecalciferol [Vitamin D3 (25 50 mcg PO DAILY 02/09/22 10/12/22 History Mcg = 1000 Iu)] Clopidogrel [Plavix] 75 mg PO DAILY 02/09/22 10/12/22 History Montelukast Sodium [Singulair] 10 mg PO DAILY 02/09/22 10/12/22 History carvediloL 25 mg PO BID 02/09/22 10/12/22 History Benazepril HCl 20 mg PO DAILY 07/04/22 10/12/22 History Ipratropium-Albuterol Nebulize 3 ml INHALATION RT-QID PRN 07/04/22 10/12/22 History [Duoneb 0.5 mg-3 mg/3 ml Soln] Rivaroxaban [Xarelto] 15 mg PO DAILY 10/12/22 10/12/22 History hydrOXYzine HCL [Atarax] 25 mg PO HS 10/12/22 10/12/22 History Aspirin 81 mg PO DAILY #7 tab 10/16/22 Rx amLODIPine [Norvasc] 10 mg PO DAILY #30 tab 10/16/22 Rx Allergies Allergy/AdvReac Type Severity Reaction Status Date / Time No Known Allergies Allergy Verified 06/07/23 10:59 Physical Exam Vitals: Vital Signs Temp Pulse Resp BP Pulse Ox 06/07/23 10:55 97.8 F 85 19 167/108 99 Intake and Output 06/06/23 06/07/23 06/07/23 22:59 06:59 14:59 Other: Weight 52.617 kg Results CBC & Chem 7: 06/07/23 11:25 06/07/23 11:25 Labs: Abnormal Lab Results - Last 24 Hours (Table) 06/07/23 06/07/23 Range/Units 11:25 11:25 RDW 18.4 H (11.5-15.5) % BUN 24 H (7-17) mg/dL Creatinine 1.13 H (0.52-1.04) mg/dL Glucose 107 H (74-99) mg/dL
[2023-06-07] MEDS ORDERED: MAG HYDROX/AL HYDROX/SIMETH 30 ML CUP PO PRN (14:35)
[2023-06-07] MEDS ORDERED: NALOXONE 0.4 MG/ML 1 ML VIAL IV PRN (14:35)
[2023-06-07] MEDS ORDERED: HYDROmorphone 1 MG/ML 1 ML SYRINGE IVP PRN (14:35)
[2023-06-07] MEDS ORDERED: NITROGLYCERIN SL TABS 0.4 MG TAB SUBLINGUAL PRN (14:45)
[2023-06-07] MEDS ORDERED: hydrALAZINE HCL 20 MG/ML 1 ML VIAL IVP STA (14:45)
[2023-06-07] MEDS: NITROGLYCERIN OINT 1 INCH/GM PACKET TOPICAL SCH ×2 (18:58→23:08)
[2023-06-07] MEDS ORDERED: hydrOXYzine HCL 25 MG TAB PO PRN (22:14)
[2023-06-07] MEDS: MONTELUKAST 10 MG TAB PO SCH (23:07)
--- NOTE | 2023-06-08 00:25 | NM ---
EXAMINATION TYPE: NM pul vent and perfuse DATE OF EXAM: 06/08/2023 CLINICAL INDICATION: Female, 77 years old with history of elevated d-dimer with increased creatinine; TECHNIQUE: Utilizing inhalation of 36.7 mCi Tc 99m DTPA aerosol and intravenous injection of 4.8 mCi of Tc 99m MAA, ventilation and perfusion images are acquired post injection in multiple projections. FINDINGS: Radiotracer clumping which limits evaluation. Likely secondary to COPD versus mixing inject ion technique. Normal radiotracer distribution is noted in the lungs. There is no evidence of mismatched defects. IMPRESSION: No evidence for pulmonary embolus.
[2023-06-08] MEDS: ACETAMINOPHEN TAB 325 MG TAB PO PRN ×2 (03:25→19:38)
[2023-06-08] MEDS: NITROGLYCERIN OINT 1 INCH/GM PACKET TOPICAL SCH ×3 (06:56→15:25)
[2023-06-08] MEDS ORDERED: ASPIRIN 325 MG TAB PO SCH (09:00)
[2023-06-08] MEDS ORDERED: HEPARIN SODIUM 1,000 UN/ML (10ML VL) IV PRN (09:04)
[2023-06-08] MEDS ORDERED: HEPARIN SODIUM 1,000 UN/ML (10ML VL) IV ONE (09:15)
[2023-06-08] MEDS: CHOLECALCIFEROL 25 MCG (1000 IU) TABLET PO SCH (09:33)
[2023-06-08] MEDS: lisinopriL 20 MG TAB PO SCH (09:33)
[2023-06-08] MEDS: CLOPIDOGREL 75 MG TAB PO SCH (09:34)
[2023-06-08] MEDS: HEPARIN SOD,PORK IN 0.45% NACL 25,000 UNIT in 0.45% NACL 1 250ML.BAG IV SCH (09:34)
[2023-06-08] MEDS: carvediloL 12.5 MG TAB PO SCH ×2 (09:34→17:31)
[2023-06-08] MEDS ORDERED: hydrALAZINE HCL 20 MG/ML 1 ML VIAL IVP PRN (11:43)
[2023-06-08 12:45] LABS: INR 1.1 (<1.2); Partial Thromboplastin Time 60.6 sec (22.0-30.0); Prothrombin Time 12.2 sec (10.0-12.5)
[2023-06-08 12:53] LABS: Anisocytosis Slight; Basophils % (A) 1 %; Eosinophils # (A) 0.2 k/uL (0-0.7); Eosinophils % (A) 3 %; HCT 42.2 % (34.0-46.0); HGB 13.6 gm/dL (11.4-16.0); Lymphocytes % (A) 16 %; MCH 26.2 pg (25.0-35.0); MCHC 32.3 g/dL (31.0-37.0); MCV 81.1 fL (80.0-100.0); Mean Platelet Volume 7.6; Microcytosis Slight; Monocytes # (A) 0.4 k/uL (0-1.0); Monocytes % (A) 7 %; Neutrophils # (A) 4.2 k/uL (1.3-7.7); Neutrophils % (A) 71 %; Platelet Count 166 k/uL (150-450); RDW 18.7 % (11.5-15.5)
[2023-06-08] MEDS: IPRATROPIUM-ALBUTEROL 3 ML NEB INHALATION PRN ×2 (13:03→16:06)
[2023-06-08 13:24] LABS: ALT 11 U/L (4-34); AST 22 U/L (14-36); African American GFR (CKD) 54 (>60 ml/min/1.73 sqM); Albumin 3.3 g/dL (3.5-5.0); Alkaline Phosphatase 100 U/L (38-126); Anion Gap 10 mmol/L; Blood Urea Nitrogen 26 mg/dL (7-17); Calcium 8.6 mg/dL (8.4-10.2); Carbon Dioxide 21 mmol/L (22-30); Chloride 106 mmol/L (98-107); Glucose 89 mg/dL (74-99); Non-African American GFR(CKD) 47 (>60 ml/min/1.73 sqM); Potassium 4.2 mmol/L (3.5-5.1); Sodium 137 mmol/L (137-145); Total Bilirubin 0.7 mg/dL (0.2-1.3); Total Protein 5.7 g/dL (6.3-8.2)
--- NOTE | 2023-06-08 13:35 | P.PN ---
Subjective Progress Note Date: 06/08/23 77-year-old female with past medical history of persistent atrial fibrillation, dyslipidemia, peripheral vascular disease, hypertension presented to the ER because of chest pain. She stated that she was all right this morning when after waking up she started experiencing chest pressure which was central in location, nonradiating, no aggravating or relieving factors associated with this chest pain. Patient was complaining of shortness of breath at that time. Denies any nausea or vomiting at this time. Denies any palpitation or diaphoresis at that time. There was no complain of orthopnea or PND. Because of this chest pain, EMS was called. Patient received nitro which relieved her pain. Initial lab work done in the ER showed WBC 7.9, hemoglobin 13.9, platelet count 179, sodium 137, potassium 4.6, BUN 24, creatinine 1.13, troponin 0.012, AST 21, ALT 13, alk phos 114, EKG done in the ER showed no ST segment elevation, no T-wave inversion. Chest x-ray done in the ER no evidence of acute pulmonary disease Patient admitted to medicine service 06/08. Patient seen and examined. Blood pressure has been elevated. Patient not taking Xarelto at home for the last few days. States she is unable to afford it. REVIEW OF SYSTEMS: CONSTITUTIONAL: No fever, no malaise,. CARDIOVASCULAR: No chest pain, no palpitations, no syncope. PULMONARY: No shortness of breath, no cough, GASTROINTESTINAL: No diarrhea, no nausea, no vomiting, no abdominal pain. NEUROLOGICAL: No headaches, no weakness, PHYSICAL EXAMINATION: GENERAL: The patient is alert and oriented x3, not in any acute distress. Well developed, well nourished. HEENT: Pupils are round and equally reacting to light. EOMI. No scleral icterus. No conjunctival pallor. Normocephalic, atraumatic. No pharyngeal erythema. No thyromegaly. CARDIOVASCULAR: S1 and S2 present. No murmurs, rubs, or gallops. PULMONARY: Chest is clear to auscultation, no wheezing or crackles. ABDOMEN: Soft, nontender, nondistended, normoactive bowel sounds. No palpable organomegaly. MUSCULOSKELETAL: No joint swelling or deformity. EXTREMITIES: No cyanosis, clubbing, or pedal edema. NEUROLOGICAL: Gross neurological examination did not reveal any focal deficits. SKIN: No rashes. Assessment and plan Unstable angina COPD exacerbation Hypertension Hyperlipidemia Persistent atrial fibrillation Peripheral vascular disease Monitor CBC Monitor CMP Continue telemetry monitoring Trend troponin. D-dimer was elevated, VQ scan done was low probably for PE Ordered 2-D echo Patient taking Xarelto at home but has been unable to afford it had not taken her medications, start patient on pharmacy dose heparin for now Resume Coreg, BAM inhibitor Cardiology consulted Labs and medication were reviewed.. Continue same treatment. Continue with symptomatic treatment. Resume home medication. Monitor labs and vitals. DVT and GI prophylaxis. Further recommendations as per clinical course of the patient Dictation was produced using [employer] dictation software. please excuse any grammatical, word or spelling errors. Objective - Vital Signs Vital signs: Vital Signs Temp 97.7 F 06/08/23 07:40 Pulse 64 06/08/23 07:40 Resp 16 06/08/23 07:40 BP 179/95 06/08/23 07:40 Pulse Ox 97 06/08/23 08:14 FiO2 Intake & Output 06/07/23 06/08/23 06/08/23 18:59 06:59 18:59 Weight 52.617 kg 52.617 kg Other: Voiding Method Toilet Toilet # Voids 2 - Labs CBC & Chem 7: 06/08/23 10:52 06/08/23 10:52 Labs: Abnormal Lab Results - Last 24 Hours (Table) 06/07/23 06/07/23 06/07/23 Range/Units 11:25 11:25 15:20 RDW 18.4 H (11.5-15.5) % D-Dimer 5.67 H (<0.60) mg/L FEU BUN 24 H (7-17) mg/dL Creatinine 1.13 H (0.52-1.04) mg/dL Glucose 107 H (74-99) mg/dL
[2023-06-08] MEDS: amLODIPine 5 MG TAB PO SCH (17:30)
[2023-06-08] MEDS: ISOSORBIDE MONONITRATE ER 30 MG TAB.ER.24H PO SCH (17:30)
[2023-06-08] MEDS: NIFEdipine XL 90 MG TAB.ER.24 PO SCH (17:36)
--- NOTE | 2023-06-08 18:01 | US ---
EXAMINATION TYPE: US venous doppler duplex LE BI DATE OF EXAM: 06/08/2023 5:01 PM COMPARISON: 03/13/2022 CLINICAL INDICATION: Female, 77 years old with history of swelling, elevated d-dimer; On IV heparin. No leg redness or swelling. SIDE PERFORMED: Bilateral TECHNIQUE: The lower extremity deep venous system is examined utilizing real time linear array sonog madison with graded compression, doppler sonography and color-flow sonography. VESSELS IMAGED: Common Femoral Vein Deep Femoral Vein Greater Saphenous Vein * Femoral Vein Popliteal Vein Small Saphenous Vein * Proximal Calf Veins (* superficial vessels) Right Leg: Negative for DVT Left Leg: Negative for DVT IMPRESSION: Grayscale, color doppler, spectral doppler imaging performed of the deep veins of the lo wer extremities. There is normal flow, compressibility, vascular waveforms.
--- NOTE | 2023-06-08 18:21 | P.CRDCN ---
History of Present Illness Consult date: 06/08/23 History of present illness: HISTORY OF PRESENTING ILLNESS 77-year-old who is known to Dr. Dey. She has a history of coronary artery disease status post PCI, persistent atrial fibrillation, dyslipidemia, peripheral arterial disease, bilateral renal artery stenting, aortic aneurysm status post endograft repair, hypertension. She presented to the hospital with concerns of substernal chest pain. On admission she was noticed to be significantly hypertensive. Patient reported that lately her blood pressure has been running high and she attributes her chest pain to it. Her troponin 3 have been negative. Hemoglobin 13.6, platelets 166, creatinine 1.12 which is appearing to be her baseline. Last heart cath from September 2022 showed 60% OM disease which was not intervened on, 90% diagonal disease which got PCI. 30% RCA disease REVIEW OF SYSTEMS 14 point review of system is negative except what is mentioned above in HPI. PHYSICAL EXAMINATION Vital signs reviewed. Head: Normocephalic. Eyes: Sclerae nonicteric. Neck: Brisk carotid upstroke, no jugular venous distention. Lungs: Clear to auscultation. Heart: Regular rate and rhythm, S1-S2, no S3, no murmur or rub. Abdomen: Soft nontender, positive bowel sounds no organomegaly. Extremities: No edema, intact distal pulses. Neuro: Alert, oritented, no focal deficits ASSESSMENT Unstable angina Substernal chest pain, atypical in nature getting worse with activity and get a better with rest. Intermittent. Prior history of CAD status post PCI to diagonal artery 09/2022. 60% as well as OM disease. 30% RCA disease Peripheral artery disease with bilateral renal artery stenting, aortic endograft repair Essential hypertension, poorly controlled Dyslipidemia Persistent atrial fibrillation Mild stable exacerbation Prior smoker PLAN Optimize and dependence. Continue metoprolol. Add Imdur 30 mg. Add Procardia XL 90 mg daily. Continue lisinopril 20 mg Continue aspirin and Plavix. Continue high-intensity statin Continue IV heparin drip. Xarelto is on hold. Patient has reported that she has been not been able to take Xarelto and Eliquis due to significantly high co- pays. At the time of discharge and will have to make a decision about doing warfarin with Plavix. Obtain echocardiogram If no wall motion abnormality, preserved EF and symptoms get better after intensified antianginal therapy, recommend outpatient follow-up with Dr. Dey and Mikaela stress test Past Medical History Past Medical History: Atrial Fibrillation, Heart Failure, COPD, Deep Vein Thrombosis (DVT), Hyperlipidemia, Hypertension, Osteoarthritis (OA), Pneumonia, Thyroid Disorder Additional Past Medical History / Comment(s): AORTIC ANEURYSM. History of Any Multi-Drug Resistant Organisms: None Reported Past Surgical History: Appendectomy, Tonsillectomy, Tubal Ligation Additional Past Surgical History / Comment(s): STENT- AORTIC ANEURSYM AND STENT- RENAL ARTERY. BILATERAL CAROTIDS. Past Anesthesia/Blood Transfusion Reactions: No Reported Reaction Past Psychological History: No Psychological Hx Reported Smoking Status: Former smoker Past Alcohol Use History: None Reported Past Drug Use History: None Reported - Past Family History fmaily Family Medical History: Cancer Medications and Allergies Home Medications Medication Instructions Recorded Confirmed Type Atorvastatin [Lipitor] 80 mg PO DAILY 02/09/22 06/07/23 History Cholecalciferol [Vitamin D3 (25 50 mcg PO DAILY 02/09/22 06/07/23 History Mcg = 1000 Iu)] Clopidogrel [Plavix] 75 mg PO DAILY 02/09/22 06/07/23 History Montelukast Sodium [Singulair] 10 mg PO HS 02/09/22 06/07/23 History carvediloL 25 mg PO BID 02/09/22 06/07/23 History Benazepril HCl 20 mg PO DAILY 07/04/22 06/07/23 History Ipratropium-Albuterol Nebulize 3 ml INHALATION RT-QID PRN 07/04/22 06/07/23 History [Duoneb 0.5 mg-3 mg/3 ml Soln] hydrOXYzine HCL [Atarax] 25 mg PO HS 10/12/22 06/07/23 History Triamcinolone 0.1% Cream [Kenalog 1 applic TOPICAL BID 06/07/23 06/07/23 History 0.1% Cream] Allergies Allergy/AdvReac Type Severity Reaction Status Date / Time No Known Allergies Allergy Verified 06/07/23 17:35 Physical Exam Vitals: Vital Signs Temp Pulse Pulse Resp BP BP BP 06/08/23 17:29 153/90 06/08/23 16:18 84 06/08/23 16:07 80 06/08/23 15:24 97.9 F 82 20 143/79 06/08/23 13:15 82 10/21/23 13:12 80 06/08/23 13:06 84 06/08/23 11:48 192/103 06/08/23 11:06 80 16 185/95 06/08/23 08:14 06/08/23 07:40 97.7 F 64 16 179/95 06/08/23 07:03 198/105 195/105 06/08/23 02:00 64 16 06/07/23 21:30 97.6 F 81 18 175/83 06/07/23 18:57 98 18 162/80 Pulse Ox 06/08/23 17:29 06/08/23 16:18 06/08/23 16:07 06/08/23 15:24 96 06/08/23 13:15 06/08/23 13:12 06/08/23 13:06 06/08/23 11:48 06/08/23 11:06 97 06/08/23 08:14 97 06/08/23 07:40 98 06/08/23 07:03 06/08/23 02:00 06/07/23 21:30 97 06/07/23 18:57 99 Intake and Output 06/08/23 06/08/23 06/08/23 06:59 14:59 22:59 Intake Total 240 37.884 Balance 240 37.884 Intake: Intake, IV Titration 37.884 Amount Heparin Sod,Pork in 0.45% 37.884 NaCl 25,000 unit In 0.45 % NaCl 1 250ml.bag @ 12 UNITS/KG/HR 6.314 mls/hr IV .Q24H [facility] Rx#: [id number] Oral 240 Other: Voiding Method Toilet Toilet # Voids 2 1 Results 06/08/23 10:52 06/08/23 10:52 Cardiac Enzymes 06/08/23 Range/Units 10:52 AST 22 (14-36) U/L Coagulation 06/08/23 06/08/23 Range/Units 10:52 14:29 PT 12.2 (10.0-12.5) sec APTT 60.6 H 36.4 H (22.0-30.0) sec CBC 06/08/23 Range/Units 10:52 WBC 6.0 (3.8-10.6) k/uL RBC 5.20 (3.80-5.40) m/uL Hgb 13.6 (11.4-16.0) gm/dL Hct 42.2 (34.0-46.0) % Plt Count 166 (150-450) k/uL Comprehensive Metabolic Panel 06/08/23 Range/Units 10:52 Sodium 137 (137-145) mmol/L Potassium 4.2 (3.5-5.1) mmol/L Chloride 106 (98-107) mmol/L Carbon Dioxide 21 L (22-30) mmol/L BUN 26 H (7-17) mg/dL Creatinine 1.12 H (0.52-1.04) mg/dL Glucose 89 (74-99) mg/dL Calcium 8.6 (8.4-10.2) mg/dL AST 22 (14-36) U/L ALT 11 (4-34) U/L Alkaline Phosphatase 100 (38-126) U/L Total Protein 5.7 L (6.3-8.2) g/dL Albumin 3.3 L (3.5-5.0) g/dL Current Medications Generic Name Dose Route Start Last Admin Trade Name Freq PRN Reason Stop Dose Admin Acetaminophen 650 mg 06/07/23 14:35 06/08/23 03:25 Acetaminophen Tab 325 Mg Tab PO 650 mg Q6HR PRN Administration Mild Pain or Fever > 100.5 Al Hydroxide/Mg Hydroxide 15 ml 06/07/23 14:35 Mag Hydrox/Al Hydrox/Simeth 30 Ml Cup PO Q6HR PRN Indigestion Albuterol/Ipratropium 3 ml 06/08/23 09:04 06/08/23 16:06 Ipratropium-Albuterol 3 Ml Neb INHALATION 3 ml RT-QID PRN Administration Shortness Of Breath Amlodipine Besylate 5 mg 06/08/23 17:15 06/08/23 17:30 Amlodipine 5 Mg Tab PO 5 mg DAILY DEWEY Administration Atorvastatin Calcium 80 mg 06/09/23 09:00 Atorvastatin 80 Mg Tab PO DAILY DEWEY Carvedilol 25 mg 06/08/23 09:15 06/08/23 17:31 Carvedilol 12.5 Mg Tab PO 25 mg AC-BID DEWEY Administration Cholecalciferol 50 mcg 06/08/23 09:15 06/08/23 09:33 Cholecalciferol 25 Mcg (1000 Iu) Tablet PO 50 mcg DAILY DEWEY Administration Clopidogrel Bisulfate 75 mg 06/08/23 09:15 06/08/23 09:34 Clopidogrel 75 Mg Tab PO 75 mg DAILY DEWEY Administration Heparin Sodium (Porcine) 0 unit 06/08/23 09:04 06/08/23 15:40 Heparin Sodium 1,000 Un/Ml (10ml Vl) IV 1,300 unit PER PROTOCOL PRN Administration Low PTT Protocol Hydralazine HCl 10 mg 06/08/23 11:43 06/08/23 11:53 Hydralazine Hcl 20 Mg/Ml 1 Ml Vial IVP 10 mg Q6HR PRN Administration Blood Pressure - High Hydromorphone HCl 1 mg 06/07/23 14:35 Hydromorphone 1 Mg/Ml 1 Ml Syringe IVP Q3HR PRN Severe Pain (Scale 7 to 10) Hydroxyzine HCl 25 mg 06/07/23 22:14 06/07/23 23:06 Hydroxyzine Hcl 25 Mg Tab PO 25 mg HS PRN Administration Itching Heparin Sodium/Sodium Chloride 250 mls @ 6.314 mls/hr 06/08/23 09:15 06/08/23 15:34 25,000 unit/ Sodium Chloride IV 14 units/kg/hr .Q24H DEWEY 7.366 mls/hr Titration Protocol 12 UNITS/KG/HR Isosorbide Mononitrate 30 mg 06/08/23 17:15 06/08/23 17:30 Isosorbide Mononitrate Er 30 Mg Tab.Er.24h PO 30 mg DAILY DEWEY Administration Lisinopril 20 mg 06/08/23 09:15 06/08/23 09:33 Lisinopril 20 Mg Tab PO 20 mg DAILY DEWEY Administration Montelukast Sodium 10 mg 06/07/23 22:30 06/07/23 23:07 Montelukast 10 Mg Tab PO 10 mg HS DEWEY Administration Naloxone HCl 0.2 mg 06/07/23 14:35 Naloxone 0.4 Mg/Ml 1 Ml Vial IV Q2M PRN Opioid Reversal Nifedipine 90 mg 06/08/23 17:15 06/08/23 17:36 Nifedipine Xl 90 Mg Tab.Er.24 PO 90 mg DAILY DEWEY Administration Nitroglycerin 0.4 mg 06/07/23 14:45 Nitroglycerin Sl Tabs 0.4 Mg Tab SUBLINGUAL Q5M PRN Chest Pain Intake and Output 06/08/23 06/08/23 06/08/23 06:59 14:59 22:59 Intake Total 240 37.884 Balance 240 37.884 Intake: Intake, IV Titration 37.884 Amount Heparin Sod,Pork in 0.45% 37.884 NaCl 25,000 unit In 0.45 % NaCl 1 250ml.bag @ 12 UNITS/KG/HR 6.314 mls/hr IV .Q24H [facility] Rx#: [id number] Oral 240 Other: Voiding Method Toilet Toilet # Voids 2 1 06/08/23 10:52 06/08/23 10:52
[2023-06-08] MEDS ORDERED: hydrOXYzine HCL 25 MG TAB PO SCH (21:00)
[2023-06-08] MEDS: MONTELUKAST 10 MG TAB PO SCH (21:52)
[2023-06-08 23:03] LABS: Chol/HDL Ratio 4.09 Ratio; LDL Cholesterol,Calculated 107.2 mg/dL (0.0-131.0); VLDL Calculation 11.38 mg/dL (5.00-40.00)
[2023-06-09 06:40] LABS: INR 1.1 (<1.2); Partial Thromboplastin Time 48.1 sec (22.0-30.0); Prothrombin Time 11.6 sec (10.0-12.5)
[2023-06-09] MEDS: carvediloL 12.5 MG TAB PO SCH ×2 (06:46→16:39)
[2023-06-09 07:17] LABS: Anisocytosis Slight; Basophils % (A) 1 %; Eosinophils # (A) 0.2 k/uL (0-0.7); Eosinophils % (A) 4 %; HCT 38.7 % (34.0-46.0); HGB 12.7 gm/dL (11.4-16.0); Lymphocytes % (A) 18 %; MCH 26.7 pg (25.0-35.0); MCHC 32.9 g/dL (31.0-37.0); MCV 81.4 fL (80.0-100.0); Mean Platelet Volume 7.1; Microcytosis Slight; Monocytes # (A) 0.4 k/uL (0-1.0); Monocytes % (A) 7 %; Neutrophils # (A) 3.9 k/uL (1.3-7.7); Neutrophils % (A) 68 %; Platelet Count 176 k/uL (150-450); RBC 4.76 m/uL (3.80-5.40); RDW 18.6 % (11.5-15.5); WBC 5.7 k/uL (3.8-10.6)
[2023-06-09] MEDS: ISOSORBIDE MONONITRATE ER 30 MG TAB.ER.24H PO SCH (07:29)
[2023-06-09] MEDS: CHOLECALCIFEROL 25 MCG (1000 IU) TABLET PO SCH (07:33)
[2023-06-09] MEDS: CLOPIDOGREL 75 MG TAB PO SCH (07:33)
[2023-06-09] MEDS: ATORVASTATIN 80 MG TAB PO SCH (07:34)
[2023-06-09] MEDS: HEPARIN SOD,PORK IN 0.45% NACL 25,000 UNIT in 0.45% NACL 1 250ML.BAG IV SCH (08:04)
[2023-06-09] MEDS: amLODIPine 5 MG TAB PO SCH (11:07)
[2023-06-09] MEDS: ACETAMINOPHEN TAB 325 MG TAB PO PRN (11:07)
[2023-06-09] MEDS: lisinopriL 20 MG TAB PO SCH (11:07)
--- NOTE | 2023-06-09 12:18 | CA ---
Transthoracic Echo Report Name: Jennifer Evangelista Age: 77 Gender: F : 1945 Exam Date: 06/08/2023 08:52 Exam Location: [facility] Ht (in): 64 Wt (lb): 116 Ordering Physician: Sander Cummings MD Attending/Referring Phys: Acid Changer Micaela Silver RDCS Procedure CPT: Indications: Chest Pain Cardiac Hx: Technical Quality: Fair Contrast 1: Total Dose (mL): Contrast 2: Total Dose (mL): MEASUREMENTS (Male / Female) Normal Values 2D ECHO LV Diastolic Diameter PLAX 4.0 cm 4.2 - 5.9 / 3.9 - 5.3 cm LV Systolic Diameter PLAX 3.0 cm IVS Diastolic Thickness 1.9 cm 0.6 - 1.0 / 0.6 - 0.9 cm LVPW Diastolic Thickness 1.5 cm 0.6 - 1.0 / 0.6 - 0.9 cm LV Relative Wall Thickness 0.8 RV Internal Dim ED PLAX 3.1 cm LA Volume 91.0 cm??? 18 - 58 / 22 - 52 cm??? LA Volume Index 59.2 cm???/m??? 16 - 28 cm???/m??? M-MODE Aortic Root Diameter MM 3.0 cm LA Systolic Diameter MM 5.2 cm LA Ao Ratio MM 1.8 DOPPLER AV Peak Velocity 152.2 cm/s AV Peak Gradient 9.3 mmHg AV Mean Velocity 105.4 cm/s AV Mean Gradient 4.9 mmHg AV Velocity Time Integral 27.3 cm AI Peak Velocity 646.4 cm/s AI Peak Gradient 167.1 mmHg AI Pressure Half Time 620.6 ms LVOT Peak Velocity 77.6 cm/s LVOT Peak Gradient 2.4 mmHg LVOT Velocity Time Integral 15.3 cm MV Area PHT 4.2 cm??? Mitral E Point Velocity 104.0 cm/s Mitral A Point Velocity 0.5 cm/s Mitral E to A Ratio 190.5 MV Deceleration Time 179.8 ms MV E' Velocity 5.0 cm/s Mitral E to MV E' Ratio 20.8 TR Peak Velocity 280.0 cm/s TR Peak Gradient 31.4 mmHg Right Ventricular Systolic Press 34.9 mmHg FINDINGS Left Ventricle Moderately increased left ventricular wall thickness. Left ventricular cavity size normal. Normal left ventricular systolic function with no obvious regional wall motion abnormalities. Left ventricular ejection fraction is estimated at 55-60 %. Right Ventricle Normal right ventricular size and function. Mild pulmonary hypertension. Right Atrium Severe right atrial dilatation Left Atrium Severe left atrial dilatation Mitral Valve Structurally normal mitral valve. Mitral valve thickened. Mild mitral annular calcification. Moderate mitral regurgitation. Aortic Valve Trileaflet aortic valve. Diffuse thickening (sclerosis) of the aortic valve cusps without reduced excursion. Thickened aortic valve without stenosis. Moderate aortic regurgitation. Tricuspid Valve Structurally normal tricuspid valve. [id number] tricuspid regurgitation. Pulmonic Valve Trace pulmonic regurgitation. Pericardium Small pericardial effusion. Pericardial effusion located posteriorly. Aorta Normal size aortic root and proximal ascending aorta. CONCLUSIONS Left ventricular ejection fraction is estimated at 55-60 %. Wall motion could not be commented due to poor nature echo Severe biatrial dilatation, patient in atrial fibrillation Elevated left atrial pressures Moderate functional MR, moderate AI Small posterior pericardial effusion When compared to prior echo from 06/2022, severe biatrial dilatation his chronic Previewed by: Dr Sung Moon (Electronically Signed) Final Date: 09 June 2023 12:17
--- NOTE | 2023-06-09 12:18 | P.PN ---
Subjective Progress Note Date: 06/09/23 77-year-old female with past medical history of persistent atrial fibrillation, dyslipidemia, peripheral vascular disease, hypertension presented to the ER because of chest pain. She stated that she was all right this morning when after waking up she started experiencing chest pressure which was central in location, nonradiating, no aggravating or relieving factors associated with this chest pain. Patient was complaining of shortness of breath at that time. Denies any nausea or vomiting at this time. Denies any palpitation or diaphoresis at that time. There was no complain of orthopnea or PND. Because of this chest pain, EMS was called. Patient received nitro which relieved her pain. Initial lab work done in the ER showed WBC 7.9, hemoglobin 13.9, platelet count 179, sodium 137, potassium 4.6, BUN 24, creatinine 1.13, troponin 0.012, AST 21, ALT 13, alk phos 114, EKG done in the ER showed no ST segment elevation, no T-wave inversion. Chest x-ray done in the ER no evidence of acute pulmonary disease Patient admitted to medicine service 06/08. Patient seen and examined. Blood pressure has been elevated. Patient not taking Xarelto at home for the last few days. States she is unable to afford it. 06/09. Patient seen and examined. Blood pressure has improved. Complaining of wheezing this morning REVIEW OF SYSTEMS: CONSTITUTIONAL: No fever, no malaise,. CARDIOVASCULAR: No chest pain, no palpitations, no syncope. PULMONARY: No shortness of breath, no cough, complaining of wheezing GASTROINTESTINAL: No diarrhea, no nausea, no vomiting, no abdominal pain. NEUROLOGICAL: No headaches, no weakness, PHYSICAL EXAMINATION: GENERAL: The patient is alert and oriented x3, not in any acute distress. Well developed, well nourished. HEENT: Pupils are round and equally reacting to light. EOMI. No scleral icterus. No conjunctival pallor. Normocephalic, atraumatic. No pharyngeal erythema. No thyromegaly. CARDIOVASCULAR: S1 and S2 present. No murmurs, rubs, or gallops. PULMONARY: Chest is clear to auscultation, no wheezing or crackles. ABDOMEN: Soft, nontender, nondistended, normoactive bowel sounds. No palpable o rganomegaly. MUSCULOSKELETAL: No joint swelling or deformity. EXTREMITIES: No cyanosis, clubbing, or pedal edema. NEUROLOGICAL: Gross neurological examination did not reveal any focal deficits. SKIN: No rashes. Assessment and plan Unstable angina COPD exacerbation Hypertension Hyperlipidemia Persistent atrial fibrillation Peripheral vascular disease Monitor CBC Monitor CMP Continue telemetry monitoring Trend troponin. D-dimer was elevated, VQ scan done was low probably for PE Ordered 2-D echo Started patient on Symbicort, continue breathing treatments Added Mucinex Patient taking Xarelto at home but has been unable to afford it had not taken her medications, continue pharmacy dose heparin for now Continue Coreg, BAM inhibitor Cardiology evaluated the patient, added imdur and Procardia Labs and medication were reviewed.. Continue same treatment. Continue with symptomatic treatment. Resume home medication. Monitor labs and vitals. DVT and GI prophylaxis. Further recommendations as per clinical course of the patient Dictation was produced using [employer] dictation software. please excuse any grammatical, word or spelling errors. Objective - Vital Signs Vital signs: Vital Signs Temp 98.1 F 06/09/23 07:31 Pulse 70 06/09/23 07:31 Resp 20 06/09/23 07:31 BP 101/63 06/09/23 07:31 Pulse Ox 94 L 06/09/23 07:31 FiO2 Intake & Output 06/08/23 06/09/23 06/09/23 18:59 06:59 18:59 Intake Total 277.884 46.897 265.313 Balance 277.884 46.897 265.313 Intake: Intake, IV Titration 37.884 46.897 85.313 Amount Heparin Sod,Pork in 0.45% 37.884 46.897 85.313 NaCl 25,000 unit In 0.45 % NaCl 1 250ml.bag @ 12 UNITS/KG/HR 6.314 mls/hr IV .Q24H [facility] Rx#: [id number] Oral 240 180 Other: Voiding Method Toilet Toilet Toilet # Voids 1 1 - Labs CBC & Chem 7: 06/09/23 05:31 06/08/23 10:52 Labs: Abnormal Lab Results - Last 24 Hours (Table) 06/08/23 06/08/23 06/08/23 Range/Units 10:52 10:52 10:52 RDW 18.7 H (11.5-15.5) % APTT 60.6 H (22.0-30.0) sec Carbon Dioxide 21 L (22-30) mmol/L BUN 26 H (7-17) mg/dL Creatinine 1.12 H (0.52-1.04) mg/dL Total Protein 5.7 L (6.3-8.2) g/dL Albumin 3.3 L (3.5-5.0) g/dL HDL Cholesterol 38.40 L (40.00-60.00) mg/dL 06/08/23 06/08/23 06/09/23 Range/Units 14:29 21:07 05:31 RDW 18.6 H (11.5-15.5) % APTT 36.4 H 39.9 H (22.0-30.0) sec Carbon Dioxide (22-30) mmol/L BUN (7-17) mg/dL Creatinine (0.52-1.04) mg/dL Total Protein (6.3-8.2) g/dL Albumin (3.5-5.0) g/dL HDL Cholesterol (40.00-60.00) mg/dL 06/09/23 Range/Units 05:31 RDW (11.5-15.5) % APTT 48.1 H (22.0-30.0) sec Carbon Dioxide (22-30) mmol/L BUN (7-17) mg/dL Creatinine (0.52-1.04) mg/dL Total Protein (6.3-8.2) g/dL Albumin (3.5-5.0) g/dL HDL Cholesterol (40.00-60.00) mg/dL
[2023-06-09] MEDS: NIFEdipine XL 90 MG TAB.ER.24 PO SCH (15:09)
--- NOTE | 2023-06-09 19:11 | P.PN ---
Subjective Progress Note Date: 06/09/23 Progress note: Patient denies having any active chest pain chest pressure shortness of breath over last 24 hours. Her blood pressure is better controlled and her chest tightness got better after that. She had significant headache with the use of Imdur. BP 127/77, heart rate 70 bpm, hemoglobin 12.7 HISTORY OF PRESENTING ILLNESS 77-year-old who is known to Dr. Dey. She has a history of coronary artery disease status post PCI, persistent atrial fibrillation, dyslipidemia, p eripheral arterial disease, bilateral renal artery stenting, aortic aneurysm status post endograft repair, hypertension. She presented to the hospital with concerns of substernal chest pain. On admi ssion she was noticed to be significantly hypertensive. Patient reported that lately her blood pressure has been running high and she attributes her chest pain to it. Her troponin 3 have been negative. Hemoglobin 13.6, platelets 166, creatinine 1.12 which is appearing to be her baseline. Last heart cath from September 2022 showed 60% OM disease which was not intervened on, 90% diagonal disease which got PCI. 30% RCA disease REVIEW OF SYSTEMS 14 point review of system is negative except what is mentioned above in HPI. PHYSICAL EXAMINATION Vital signs reviewed. Head: Normocephalic. Eyes: Sclerae nonicteric. Neck: Brisk carotid upstroke, no jugular venous distention. Lungs: Clear to auscultation. Heart: Regular rate and rhythm, S1-S2, no S3, no murmur or rub. Abdomen: Soft nontender, positive bowel sounds no organomegaly. Extremities: No edema, intact distal pulses. Neuro: Alert, oritented, no focal deficits ASSESSMENT Unstable angina Substernal chest pain, atypical in nature getting worse with activity and get a better with rest. Intermittent. Prior history of CAD status post PCI to diagonal artery 09/2022. 60% as well as OM disease. 30% RCA disease Peripheral artery disease with bilateral renal artery stenting, aortic endograft repair Essential hypertension, poorly controlled Dyslipidemia Persistent atrial fibrillation Mild stable exacerbation Prior smoker Echo showed preserved LV systolic function with no major valvular abnormalities. PLAN Continue metoprolol. Continue lisinopril 20 mg. Add amlodipine 5 mg daily. Continue aspirin and Plavix. Continue high-intensity statin Continue IV heparin drip. Xarelto is on hold. Patient has reported that she has been not been able to take Xarelto and Eliquis due to significantly high co- pays. No wall motion on echocardiogram. Plan is to intensify antianginals and optimize blood pressure control. Could not increase metoprolol further due to limiting heart rate. Could not continue Imdur due to significant headache Patient is doing well on current regimen of antihypertensives. No reported chest pain After detailed discussion with the patient we have come to the conclusion that she would like to go home on warfarin therapy. Tomorrow we will discontinue IV heparin and started on warfarin along with Objective - Vital Signs Vital signs: Vital Signs Temp 98.3 F 06/09/23 15:07 Pulse 70 06/09/23 15:07 Resp 20 06/09/23 15:07 BP 127/66 06/09/23 15:07 Pulse Ox 96 06/09/23 15:07 FiO2 Intake & Output 06/09/23 06/09/23 06/10/23 06:59 18:59 06:59 Intake Total 46.897 445.313 Balance 46.897 445.313 Intake: Intake, IV Titration 46.897 85.313 Amount Heparin Sod,Pork in 0.45% 46.897 85.313 NaCl 25,000 unit In 0.45 % NaCl 1 250ml.bag @ 12 UNITS/KG/HR 6.314 mls/hr IV .Q24H [facility] Rx#: [id number] Oral 360 Other: Voiding Method Toilet Toilet # Voids 1 1 - Labs CBC & Chem 7: 06/09/23 05:31 06/08/23 10:52 Labs: Abnormal Lab Results - Last 24 Hours (Table) 06/08/23 06/08/23 06/09/23 Range/Units 10:52 21:07 05:31 RDW 18.6 H (11.5-15.5) % APTT 39.9 H (22.0-30.0) sec HDL Cholesterol 38.40 L (40.00-60.00) mg/dL 06/09/23 Range/Units 05:31 RDW (11.5-15.5) % APTT 48.1 H (22.0-30.0) sec HDL Cholesterol (40.00-60.00) mg/dL
[2023-06-09] MEDS: MONTELUKAST 10 MG TAB PO SCH (20:12)
[2023-06-09] MEDS: guaiFENesin 600 MG TABLET.ER PO SCH (20:12)
[2023-06-09] MEDS: SYMBICORT 80-4.5 MCG INHALER INHALATION SCH (21:11)
[2023-06-10] MEDS: carvediloL 12.5 MG TAB PO SCH ×2 (06:31→17:14)
[2023-06-10 08:25] LABS: Anisocytosis Slight; HCT 42.2 % (34.0-46.0); HGB 13.3 gm/dL (11.4-16.0); MCH 25.9 pg (25.0-35.0); MCHC 31.5 g/dL (31.0-37.0); Mean Platelet Volume 7.7; Microcytosis Slight; Platelet Count 205 k/uL (150-450); RBC 5.15 m/uL (3.80-5.40); RDW 18.6 % (11.5-15.5); WBC 6.3 k/uL (3.8-10.6)
[2023-06-10] MEDS: SYMBICORT 80-4.5 MCG INHALER INHALATION SCH ×2 (08:27→20:55)
[2023-06-10] MEDS: CHOLECALCIFEROL 25 MCG (1000 IU) TABLET PO SCH (08:34)
[2023-06-10] MEDS: lisinopriL 20 MG TAB PO SCH (08:34)
[2023-06-10] MEDS: ATORVASTATIN 80 MG TAB PO SCH (08:34)
[2023-06-10] MEDS: CLOPIDOGREL 75 MG TAB PO SCH (08:34)
[2023-06-10] MEDS: amLODIPine 2.5 MG TAB PO SCH (08:35)
[2023-06-10] MEDS: guaiFENesin 600 MG TABLET.ER PO SCH ×2 (08:35→20:07)
[2023-06-10 08:46] LABS: ALT 12 U/L (4-34); AST 20 U/L (14-36); African American GFR (CKD) 59 (>60 ml/min/1.73 sqM); Albumin 3.7 g/dL (3.5-5.0); Alkaline Phosphatase 102 U/L (38-126); Anion Gap 10 mmol/L; Blood Urea Nitrogen 22 mg/dL (7-17); Calcium 8.9 mg/dL (8.4-10.2); Carbon Dioxide 21 mmol/L (22-30); Chloride 107 mmol/L (98-107); Glucose 101 mg/dL (74-99); Non-African American GFR(CKD) 51 (>60 ml/min/1.73 sqM); Potassium 4.3 mmol/L (3.5-5.1); Sodium 138 mmol/L (137-145); Total Bilirubin 0.7 mg/dL (0.2-1.3); Total Protein 6.2 g/dL (6.3-8.2)
[2023-06-10] MEDS: HEPARIN SOD,PORK IN 0.45% NACL 25,000 UNIT in 0.45% NACL 1 250ML.BAG IV SCH (09:24)
--- NOTE | 2023-06-10 12:36 | P.PN ---
Subjective Progress Note Date: 06/10/23 HISTORY OF PRESENTING ILLNESS 77-year-old who is known to Dr. Dey. She has a history of coronary artery disease status post PCI, persistent atrial fibrillation, dyslipidemia, pe ripheral arterial disease, bilateral renal artery stenting, aortic aneurysm status post endograft repair, hypertension. She presented to the hospital with concerns of substernal chest pain. On admiss ion she was noticed to be significantly hypertensive. Patient reported that lately her blood pressure has been running high and she attributes her chest pain to it. Her troponin 3 have been negative. Hemoglobin 13.6, platelets 166, creatinine 1.12 which is appearing to be her baseline. Last heart cath from September 2022 showed 60% OM disease which was not intervened on, 90% diagonal disease which got PCI. 30% RCA disease Progress Note Date: 06/09/23 Progress note: Patient denies having any active chest pain chest pressure shortness of breath over last 24 hours. Her blood pressure is better controlled and her chest tightness got better after that. She had significant headache with the use of Imdur. BP 127/77, heart rate 70 bpm, hemoglobin 12.7 06/10 Patient is seen today in follow-up. Patient denies having any chest pain/ pressure, no shortness of breath. She remains on a heparin drip and issue with anticoagulation will be addressed today. Patient has persistent atrial fibrillation and has not been able to afford Xarelto in the past. Patient is agreeable to start warfarin. Patient has been started on amlodipine with some improvement of blood pressure. Systolic is running between 115 and 164. PHYSICAL EXAMINATION Vital signs reviewed. Head: Normocephalic. Eyes: Sclerae nonicteric. Neck: Brisk carotid upstroke, no jugular venous distention. Lungs: Clear to auscultation. Heart: Regular rate and rhythm, S1-S2, no S3, no murmur or rub. Abdomen: Soft nontender, positive bowel sounds no organomegaly. Extremities: No edema, intact distal pulses. Neuro: Alert, oritented, no focal deficits ASSESSMENT Unstable angina Substernal chest pain, atypical in nature getting worse with activity and get a better with rest. Intermittent. Prior history of CAD status post PCI to [place] artery 09/2022. 60% as well as OM disease. 30% RCA disease Peripheral artery disease with bilateral renal artery stenting, aortic endograft repair Essential hypertension, poorly controlled Dyslipidemia Persistent atrial fibrillation Mild stable exacerbation Prior smoker Echo showed preserved LV systolic function with no major valvular abnormalities. PLAN Continue metoprolol. Continue lisinopril 20 mg. continue added amlodipine 2.5 mg daily. Continue Plavix. Continue high-intensity statin Discontinue IV heparin Patient may be discharged home on Coumadin 5 mg daily with plan to obtain INR in 2-3 days in the office Nurse practitioner note has been reviewed, I agree with the documented findings and plan of care. Patient was seen and examined. Objective - Vital Signs Vital signs: Vital Signs Temp 97.7 F 06/10/23 03:55 Pulse 88 06/10/23 03:55 Resp 19 06/10/23 03:55 BP 164/68 06/10/23 03:55 Pulse Ox 94 L 06/10/23 03:55 FiO2 Intake & Output 06/09/23 06/10/23 06/10/23 18:59 06:59 18:59 Intake Total 445.313 Balance 445.313 Intake: Intake, IV Titration 85.313 Amount Heparin Sod,Pork in 0.45% 85.313 NaCl 25,000 unit In 0.45 % NaCl 1 250ml.bag @ 12 UNITS/KG/HR 6.314 mls/hr IV .Q24H [facility] Rx#: [id number] Oral 360 Other: Voiding Method Toilet Toilet # Voids 1 1 - Labs CBC & Chem 7: 06/10/23 07:18 06/10/23 07:18
--- NOTE | 2023-06-10 12:51 | P.PN ---
Subjective Progress Note Date: 06/10/23 * 77-year-old female with past medical history of persistent atrial fibrillation, dyslipidemia, peripheral vascular disease, hypertension presented to the ER because of chest pain. She stated that she was all right this morning when after waking up she started experiencing chest pressure which was central in location, nonradiating, no aggravating or relieving factors associated with this chest pain. Patient was complaining of shortness of breath at that time. Denies any nausea or vomiting at this time. Denies any palpitation or diaphoresis at that time. There was no complain of orthopnea or PND. Because of this chest pain, EMS was called. Patient received nitro which relieved her pain. * Initial lab work done in the ER showed WBC 7.9, hemoglobin 13.9, platelet count 179, sodium 137, potassium 4.6, BUN 24, creatinine 1.13, troponin 0.012, AST 21, ALT 13, alk phos 114, * EKG done in the ER showed no ST segment elevation, no T-wave inversion. * Chest x-ray done in the ER no evidence of acute pulmonary disease * Patient admitted to medicine service * 06/08. Patient seen and examined. Blood pressure has been elevated. Patient not taking Xarelto at home for the last few days. States she is unable to afford it. * 06/09. Patient seen and examined. Blood pressure has improved. Complaining of wheezing this morning * 06/10 patient seen and evaluated bedside, care plan discussed started on Lovenox, heparin discontinued and started on Coumadin patient will need bridging will need to check for Lovenox cost I to discharge K plan discussed with patient and son PHYSICAL EXAMINATION: GENERAL: The patient is alert and oriented x3, not in any acute distress. Well developed, well nourished. HEENT: Pupils are round and equally reacting to light. EOMI. No scleral icterus. No conjunctival pallor. Normocephalic, atraumatic. No pharyngeal erythema. No thyromegaly. CARDIOVASCULAR: S1 and S2 present. No murmurs, rubs, or gallops. PULMONARY: Chest is clear to auscultation, no wheezing or crackles. ABDOMEN: Soft, nontender, nondistended, normoactive bowel sounds. No palpable organomegaly. MUSCULOSKELETAL: No joint swelling or deformity. EXTREMITIES: No cyanosis, clubbing, or pedal edema. NEUROLOGICAL: Gross neurological examination did not reveal any focal deficits. SKIN: No rashes. Objective - Vital Signs Vital signs: Vital Signs Temp 97.9 F 06/10/23 11:22 Pulse 77 06/10/23 11:22 Resp 16 06/10/23 11:22 BP 123/76 06/10/23 11:22 Pulse Ox 94 L 06/10/23 11:22 FiO2 Intake & Output 06/09/23 06/10/23 06/10/23 18:59 06:59 18:59 Intake Total 445.313 633.825 Balance 445.313 633.825 Intake: Intake, IV Titration 85.313 213.825 Amount Heparin Sod,Pork in 0.45% 85.313 213.825 NaCl 25,000 unit In 0.45 % NaCl 1 250ml.bag @ 12 UNITS/KG/HR 6.314 mls/hr IV .Q24H [facility] Rx#: [id number] Oral 360 420 Other: Voiding Method Toilet Toilet Toilet # Voids 1 1 - Labs CBC & Chem 7: 06/10/23 07:18 06/10/23 07:18 Labs: Abnormal Lab Results - Last 24 Hours (Table) 06/10/23 06/10/23 06/10/23 Range/Units 07:18 07:18 07:18 RDW 18.6 H (11.5-15.5) % APTT 37.3 H (22.0-30.0) sec Carbon Dioxide 21 L (22-30) mmol/L BUN 22 H (7-17) mg/dL Creatinine 1.05 H (0.52-1.04) mg/dL Glucose 101 H (74-99) mg/dL Total Protein 6.2 L (6.3-8.2) g/dL Assessment and Plan Assessment: Assessment and plan * Unstable angina * COPD exacerbation * Hypertension * Hyperlipidemia * Persistent atrial fibrillation * Peripheral vascular disease * Patient started on Lovenox along with Coumadin bridge , IV heparin discontinued * Continue telemetry monitoring * D-dimer was elevated, VQ scan done was low probably for PE * Started patient on Symbicort, continue breathing treatments , continue mucinex * Patient taking Xarelto at home but has been unable to afford it had not taken her medications, continue pharmacy dose heparin for now * Continue Coreg, BAM inhibitor * Cardiology evaluated the patient, started imdur and Procardia
[2023-06-10] MEDS: ENOXAPARIN 60 MG/0.6 ML SYRINGE SQ SCH ×2 (12:58→20:07)
[2023-06-10 16:39] VITALS: BMI 19.9
[2023-06-10] MEDS ORDERED: WARFARIN 5 MG TAB PO ONE (18:00)
[2023-06-10] MEDS: MONTELUKAST 10 MG TAB PO SCH (20:07)
[2023-06-10] MEDS: IPRATROPIUM-ALBUTEROL 3 ML NEB INHALATION PRN (20:55)
[2023-06-11] MEDS: carvediloL 12.5 MG TAB PO SCH (06:22)
[2023-06-11] MEDS: ENOXAPARIN 60 MG/0.6 ML SYRINGE SQ SCH (08:19)
[2023-06-11] MEDS: ATORVASTATIN 80 MG TAB PO SCH (08:19)
[2023-06-11] MEDS: CHOLECALCIFEROL 25 MCG (1000 IU) TABLET PO SCH (08:21)
[2023-06-11] MEDS: amLODIPine 2.5 MG TAB PO SCH (08:21)
[2023-06-11] MEDS: guaiFENesin 600 MG TABLET.ER PO SCH (08:21)
[2023-06-11] MEDS: lisinopriL 20 MG TAB PO SCH (08:21)
[2023-06-11] MEDS: CLOPIDOGREL 75 MG TAB PO SCH (08:21)
[2023-06-11 09:01] LABS: Anisocytosis Slight; HCT 41.9 % (34.0-46.0); HGB 13.6 gm/dL (11.4-16.0); Hypochromasia Slight; MCH 26.7 pg (25.0-35.0); MCHC 32.5 g/dL (31.0-37.0); MCV 82.2 fL (80.0-100.0); Mean Platelet Volume 7.6; Microcytosis Slight; Platelet Count 204 k/uL (150-450); RDW 18.8 % (11.5-15.5); WBC 6.2 k/uL (3.8-10.6)
[2023-06-11 09:12] LABS: African American GFR (CKD) 58 (>60 ml/min/1.73 sqM); Anion Gap 6 mmol/L; Blood Urea Nitrogen 20 mg/dL (7-17); Calcium 8.9 mg/dL (8.4-10.2); Carbon Dioxide 26 mmol/L (22-30); Chloride 106 mmol/L (98-107); Glucose 86 mg/dL (74-99); Non-African American GFR(CKD) 51 (>60 ml/min/1.73 sqM); Potassium 4.4 mmol/L (3.5-5.1); Sodium 138 mmol/L (137-145)
[2023-06-11] MEDS: SYMBICORT 80-4.5 MCG INHALER INHALATION SCH (09:20)
[2023-06-11] MEDS: IPRATROPIUM-ALBUTEROL 3 ML NEB INHALATION PRN (09:20)
--- NOTE | 2023-06-11 11:05 | P.DS ---
Providers Date of admission: 06/10/23 11:12 Expected date of discharge: 06/11/23 Attending physician: Sander Cummings MD Consults: 06/07/23 14:37 Consult Physician Routine Consulting Provider: Jose Dey Consult Reason/Comments: chest pain Do you want consulting provider notified?: Yes Primary care physician: [facility] Course: 77-year-old female with past medical history of persistent atrial fibrillation, dyslipidemia, peripheral vascular disease, hypertension presented to the ER because of chest pain. She stated that she was all right this morning when afte r waking up she started experiencing chest pressure which was central in location, nonradiating, no aggravating or relieving factors associated with this chest pain. Patient was complaining of shortness of breath at that time. Denies any nausea or vomiting at this time. Denies any palpitation or diaphoresis at that time. There was no complain of orthopnea or PND. Because of this chest pain, EMS was called. Patient received nitro which relieved her pain. * Initial lab work done in the ER showed WBC 7.9, hemoglobin 13.9, platelet count 179, sodium 137, potassium 4.6, BUN 24, creatinine 1.13, troponin 0.012, AST 21, ALT 13, alk phos 114, * EKG done in the ER showed no ST segment elevation, no T-wave inversion. * Chest x-ray done in the ER no evidence of acute pulmonary disease * Patient admitted to medicine service * 06/08. Patient seen and examined. Blood pressure has been elevated. Patient not taking Xarelto at home for the last few days. States she is unable to afford it. * 06/09. Patient seen and examined. Blood pressure has improved. Complaining of wheezing this morning * 06/10 patient seen and evaluated bedside, care plan discussed started on Lovenox, heparin discontinued and started on Coumadin patient will need bridging will need to check for Lovenox cost I to discharge K plan discussed with patient and son * 06/11/23: Patient evaluated bedside, educated regarding use of Lovenox, prescription coverage checked, continue Coumadin, outpatient follow-up with primary care and cardiology for INR check PHYSICAL EXAMINATION: GENERAL: The patient is alert and oriented x3, not in any acute distress. Well developed, well nourished. HEENT: Pupils are round and equally reacting to light. EOMI. CARDIOVASCULAR: S1 and S2 present. No murmurs, rubs, or gallops. PULMONARY: Chest is clear to auscultation, no wheezing or crackles. ABDOMEN: Soft, nontender, nondistended, normoactive bowel sounds. No palpable organomegaly. MUSCULOSKELETAL: No joint swelling or deformity. EXTREMITIES: No cyanosis, clubbing, or pedal edema. NEUROLOGICAL: Gross neurological examination did not reveal any focal deficits. SKIN: No rashes. Assessment: Assessment and plan * Unstable angina with coronary artery disease history of PCI * Peripheral arterial disease with renal artery stenting, aortic endograft repair * COPD exacerbation * Hypertension * Hyperlipidemia * Persistent atrial fibrillation * Peripheral vascular disease * Patient started on Lovenox along with Coumadin bridge , IV heparin discontinued * D-dimer was elevated, VQ scan done was low probably for PE * In regards to COPD continue DuoNeb and Symbicort * Patient taking Xarelto at home but has been unable to afford it had not taken her medications, position to Coumadin * Cardiology evaluated the patient, continue Coreg, lisinopril, amlodipine, Plavix Plan - Discharge Summary Discharge Rx Participant: No New Discharge Prescriptions: New amLODIPine [Norvasc] 2.5 mg PO DAILY 30 Days #30 tab Warfarin [Coumadin] 5 mg PO DAILY #30 tab Enoxaparin [Lovenox] 52.617 mg SQ BID 5 Days #10 each Continue carvediloL 25 mg PO BID Clopidogrel [Plavix] 75 mg PO DAILY Cholecalciferol [Vitamin D3 (25 Mcg = 1000 Iu)] 50 mcg PO DAILY Atorvastatin [Lipitor] 80 mg PO DAILY Ipratropium-Albuterol Nebulize [Duoneb 0.5 mg-3 mg/3 ml Soln] 3 ml INHALATION RT-QID PRN PRN Reason: Shortness Of Breath Triamcinolone 0.1% Cream [Kenalog 0.1% Cream] 1 applic TOPICAL BID Montelukast Sodium [Singulair] 10 mg PO HS Benazepril HCl 20 mg PO DAILY hydrOXYzine HCL [Atarax] 25 mg PO HS Discharge Medication List Atorvastatin [Lipitor] 80 mg PO DAILY 02/09/22 [History] Cholecalciferol [Vitamin D3 (25 Mcg = 1000 Iu)] 50 mcg PO DAILY 02/09/22 [History] Clopidogrel [Plavix] 75 mg PO DAILY 02/09/22 [History] Montelukast Sodium [Singulair] 10 mg PO HS 02/09/22 [History] carvediloL 25 mg PO BID 02/09/22 [History] Benazepril HCl 20 mg PO DAILY 07/04/22 [History] Ipratropium-Albuterol Nebulize [Duoneb 0.5 mg-3 mg/3 ml Soln] 3 ml INHALATION RT-QID PRN 07/04/22 [History] hydrOXYzine HCL [Atarax] 25 mg PO HS 10/12/22 [History] Triamcinolone 0.1% Cream [Kenalog 0.1% Cream] 1 applic TOPICAL BID 06/07/23 [History] Enoxaparin [Lovenox] 52.617 mg SQ BID 5 Days #10 each 06/10/23 [Rx] Warfarin [Coumadin] 5 mg PO DAILY #30 tab 06/10/23 [Rx] amLODIPine [Norvasc] 2.5 mg PO DAILY 30 Days #30 tab 06/11/23 [Rx] Follow up Appointment(s)/Referral(s): Sid Wilkes DO [Primary Care Provider] - 1-2 days Jose Dey MD [STAFF PHYSICIAN] - 1-2 Days (will need follow-up for INR checkup) Ambulatory/Diagnostic Orders: Prothrombin Time INR [LAB.AMB] Location: None Selected Activity/Diet/Wound Care/Special Instructions: Follow up for INR check in the office. Call for appointment. Discharge Disposition: HOME SELF-CARE
[2023-06-11 11:37] VITALS: BP 151/85; PULSE 67; RESP 16; TEMP 97.8
--- NOTE | 2023-06-11 12:18 | P.PN ---
Subjective Progress Note Date: 06/11/23 HISTORY OF PRESENTING ILLNESS 77-year-old who is known to Dr. Dey. She has a history of coronary artery disease status post PCI, persistent atrial fibrillation, dyslipidemia, pe ripheral arterial disease, bilateral renal artery stenting, aortic aneurysm status post endograft repair, hypertension. She presented to the hospital with concerns of substernal chest pain. On admiss ion she was noticed to be significantly hypertensive. Patient reported that lately her blood pressure has been running high and she attributes her chest pain to it. Her troponin 3 have been negative. Hemoglobin 13.6, platelets 166, creatinine 1.12 which is appearing to be her baseline. Last heart cath from September 2022 showed 60% OM disease which was not intervened on, 90% diagonal disease which got PCI. 30% RCA disease Progress Note Date: 06/09/23 Progress note: Patient denies having any active chest pain chest pressure shortness of breath over last 24 hours. Her blood pressure is better controlled and her chest tightness got better after that. She had significant headache with the use of Imdur. BP 127/77, heart rate 70 bpm, hemoglobin 12.7 06/10 Patient is seen today in follow-up. Patient denies having any chest pain/ pressure, no shortness of breath. She remains on a heparin drip and issue with anticoagulation will be addressed today. Patient has persistent atrial fibrillation and has not been able to afford Xarelto in the past. Patient is agreeable to start warfarin. Patient has been started on amlodipine with some improvement of blood pressure. Systolic is running between 115 and 164. 06/11 Patient states that she is feeling well. She denies chest pain. Creat 1.06. K 4.4. PHYSICAL EXAMINATION Vital signs reviewed. Head: Normocephalic. Eyes: Sclerae nonicteric. Neck: Brisk carotid upstroke, no jugular venous distention. Lungs: Clear to auscultation. Heart: Regular rate and rhythm, S1-S2, no S3, no murmur or rub. Abdomen: Soft nontender, positive bowel sounds no organomegaly. Extremities: No edema, intact distal pulses. Neuro: Alert, oritented, no focal deficits ASSESSMENT Unstable angina Substernal chest pain, atypical in nature getting worse with activity and get a better with rest. Intermittent. Prior history of CAD status post PCI to diagonal artery 09/2022. 60% as well as OM disease. 30% RCA disease Peripheral artery disease with bilateral renal artery stenting, aortic endograft repair Essential hypertension, poorly controlled Dyslipidemia Persistent atrial fibrillation Mild stable exacerbation Prior smoker Echo showed preserved LV systolic function with no major valvular abnormalities. PLAN Continue metoprolol. Continue lisinopril 20 mg. continue added amlodipine 2.5 mg daily. Continue Plavix. Continue high-intensity statin Patient may be discharged home on Coumadin 5 mg daily with plan to obtain INR in 2-3 days in the office Nurse practitioner note has been reviewed, I agree with the documented findings and plan of care. Patient was seen and examined. Objective - Vital Signs Vital signs: Vital Signs Temp 98.1 F 06/11/23 08:00 Pulse 70 06/11/23 09:42 Resp 18 06/11/23 08:00 BP 145/80 06/11/23 08:00 Pulse Ox 97 06/11/23 08:00 FiO2 Intake & Output 06/10/23 06/11/23 06/11/23 18:59 06:59 18:59 Intake Total 1533.825 480 Balance 1533.825 480 Weight 52.617 kg Intake: Intake, IV Titration 213.825 Amount Heparin Sod,Pork in 0.45% 213.825 NaCl 25,000 unit In 0.45 % NaCl 1 250ml.bag @ 12 UNITS/KG/HR 6.314 mls/hr IV .Q24H [facility] Rx#: [id number] Oral 1320 480 Other: Voiding Method Toilet Toilet Toilet # Voids 3 1 - Labs CBC & Chem 7: 06/11/23 06:52 06/11/23 06:52 Labs: Abnormal Lab Results - Last 24 Hours (Table) 06/11/23 06/11/23 Range/Units 06:52 06:52 RDW 18.8 H (11.5-15.5) % BUN 20 H (7-17) mg/dL Creatinine 1.06 H (0.52-1.04) mg/dL
== END 2023-06-11 13:26 | disposition home or self-care (01) | DRG 303 ==
LOC: EC 10:52 → 6NMEDSUR 14:40 → 3SCARD 17:31 → OBSVTOIN 06-10 11:12
PROVIDERS: ADMIT Internal Medicine; ATTEND Internal Medicine
DX: I25.110 Atherosclerotic heart disease of native coronary artery with unstable angina pectoris (principal); I48.19 Other persistent atrial fibrillation; J44.1 Chronic obstructive pulmonary disease with (acute) exacerbation; F32.A Depression, unspecified; E78.00 Pure hypercholesterolemia, unspecified; I11.0 Hypertensive heart disease with heart failure; I25.10 Atherosclerotic heart disease of native coronary artery without angina pectoris; I50.9 Heart failure, unspecified; Z79.01 Long term (current) use of anticoagulants; Z79.02 Long term (current) use of antithrombotics/antiplatelets; Z79.82 Long term (current) use of aspirin; Z79.899 Other long term (current) drug therapy; Z95.5 Presence of coronary angioplasty implant and graft
CPT/HCPCS: 36415; 71046; 78582; 80048; 80053; 80061; 83735; 84484; 85025; 85027; 85379; 85610; 85730; 93005; 93306; 93970; 94640; 94760; 96374; 99285

== ENCOUNTER → 2023-07-19 | Outpatient (CLI) | payer MEDICARE ==
[2023-07-19 19:04] LABS: Basophils # (A) 0.09 X 10*3/uL (0.00-0.10); Basophils % (A) 1.3 %; Eosinophils # (A) 0.23 X 10*3/uL (0.04-0.35); Eosinophils % (A) 3.3 %; HCT 46.1 % (37.2-46.3); HGB 14.3 g/dL (12.0-15.0); Lymphocytes # (A) 1.18 X 10*3/uL (0.90-5.00); MCH 26.1 pg (27.0-32.0); MCV 84.3 FL (80.0-97.0); Monocytes % (A) 11.5 %; NRBC Per 100 WBC 0 X 10*3/uL (0.00-0.01); Neutrophils # (A) 4.59 X 10*3/uL (1.80-7.70); Neutrophils % (A) 66.3 %; Platelet Count 172 X 10*3/uL (140-440); RBC 5.47 X 10*6/uL (4.10-5.20); RDW 16.4 % (11.5-14.5); WBC 6.93 X 10*3/uL (4.50-10.00)
[2023-07-19 19:46] LABS: Chol/HDL Ratio 4.12 Ratio; LDL Cholesterol,Calculated 102.3 mg/dL (0.0-131.0); Magnesium 2.2 mg/dL (1.5-2.4); Phosphorus 3.9 mg/dL (2.4-5.1)
[2023-07-19 19:58] LABS: ALT 16 U/L (8-44); AST 40 U/L (13-35); Albumin 4.2 g/dL (3.8-4.9); Albumin/Globulin Ratio 1.75 Ratio (1.60-3.17); Alkaline Phosphatase 112 U/L (41-126); BUN/Creat Ratio 16.09 Ratio (12.00-20.00); Blood Urea Nitrogen 17.7 mg/dL (9.0-27.0); Calcium 9.7 mg/dL (8.7-10.3); Carbon Dioxide 25.1 mmol/L (21.6-31.8); Chloride 104 mmol/L (96-109); Globulin 2.4 g/dL (1.6-3.3); Glucose 91 mg/dL (70-110); Potassium 5.1 mmol/L (3.5-5.5); Sodium 140 mmol/L (135-145); Total Bilirubin 0.5 mg/dL (0.3-1.2); Total Protein 6.6 g/dL (6.2-8.2)
[2023-07-20 04:54] LABS: Appearance,Urine Clear (Clear); Bilirubin,Urine Negative (Negative); Blood,Urine Negative (Negative); Color,Urine Yellow (Yellow); Ketones,Urine Negative (Negative); Nitrite,Urine Negative (Negative); Specific Gravity,Urine 1.007 (1.001-1.030); Urobilinogen,Urine 0.2 E.U./DL
[2023-07-20 04:58] LABS: Bacteria,Urine None Seen (None Seen)
== END | disposition home or self-care (01) ==
LOC: LABWHC1 11:30
PROVIDERS: ATTEND Family Medicine
DX: E78.2 Mixed hyperlipidemia (principal); N18.30 Chronic kidney disease, stage 3 unspecified
CPT/HCPCS: 36415; 80053; 80061; 81001; 83735; 84100; 85025

== ENCOUNTER 2023-08-15 03:32 | Inpatient (IN) | payer MEDICARE ==
--- NOTE | 2023-08-15 04:44 | ED ---
General Adult HPI - General Chief complaint: Abdominal Pain Stated complaint: Flank Pain Time Seen by Provider: 08/15/23 03:51 Source: patient, EMS Mode of arrival: EMS Limitations: no limitations - History of Present Illness Initial comments: A 8-year-old female presents the emergency department today via ambulance for evaluation of severe stabbing left flank pain. Patient reports she fell asleep on her couch she was woken at around 3 AM with a stabbing pain in her left flank with associated nausea without vomiting. No chest pain no palpitations no shortness of breath. No history of kidney stones. She's not urinated since onset. No recent illness no change in bowel or bladder habits. - Related Data Home Medications Medication Instructions Recorded Confirmed Atorvastatin [Lipitor] 80 mg PO DAILY 02/09/22 06/07/23 Cholecalciferol [Vitamin D3 (25 50 mcg PO DAILY 02/09/22 06/07/23 Mcg = 1000 Iu)] Clopidogrel [Plavix] 75 mg PO DAILY 02/09/22 06/07/23 Montelukast Sodium [Singulair] 10 mg PO HS 02/09/22 06/07/23 carvediloL 25 mg PO BID 02/09/22 06/07/23 Benazepril HCl 20 mg PO DAILY 07/04/22 06/07/23 Ipratropium-Albuterol Nebulize 3 ml INHALATION RT-QID PRN 07/04/22 06/07/23 [Duoneb 0.5 mg-3 mg/3 ml Soln] hydrOXYzine HCL [Atarax] 25 mg PO HS 10/12/22 06/07/23 Triamcinolone 0.1% Cream [Kenalog 1 applic TOPICAL BID 06/07/23 06/07/23 0.1% Cream] Previous Rx's Medication Instructions Recorded Warfarin [Coumadin] 5 mg PO DAILY #30 tab 06/10/23 Budesonide-Formot 160-4.5 Mcg 2 puff INHALATION BID #10.2 gm 06/11/23 [Symbicort 160-4.5 Mcg Inhaler] Enoxaparin [Lovenox] 60 mg SQ Q12H 5 Days #10 each 06/11/23 amLODIPine [Norvasc] 2.5 mg PO DAILY 30 Days #30 tab 06/11/23 Allergies Allergy/AdvReac Type Severity Reaction Status Date / Time No Known Allergies Allergy Verified 08/15/23 03:54 Review of Systems ROS Statement: Those systems with pertinent positive or pertinent negative responses have been documented in the HPI. ROS Other: All systems not noted in ROS Statement are negative. Past Medical History Past Medical History: Atrial Fibrillation, Heart Failure, COPD, Deep Vein Thrombosis (DVT), Hyperlipidemia, Hypertension, Osteoarthritis (OA), Pneumonia, Thyroid Disorder Additional Past Medical History / Comment(s): AORTIC ANEURYSM. History of Any Multi-Drug Resistant Organisms: None Reported Past Surgical History: Appendectomy, Tonsillectomy, Tubal Ligation Additional Past Surgical History / Comment(s): STENT- AORTIC ANEURSYM AND STENT- RENAL ARTERY. BILATERAL CAROTIDS. Past Anesthesia/Blood Transfusion Reactions: No Reported Reaction Past Psychological History: No Psychological Hx Reported Smoking Status: Former smoker Past Alcohol Use History: None Reported Past Drug Use History: None Reported - Past Family History fmaily Family Medical History: Cancer General Exam Limitations: no limitations General appearance: alert, other (Appears uncomfortable a chronically ill- appearing underweight) Head exam: Present: atraumatic, normocephalic Eye exam: Present: PERRL Respiratory exam: Absent: respiratory distress Cardiovascular Exam: Present: regular rate GI/Abdominal exam: Present: soft, tenderness, normal bowel sounds Rectal exam: Present: deferred Extremities exam: Present: normal inspection Back exam: Present: CVA tenderness (L) Neurological exam: Present: alert, oriented X3 Psychiatric exam: Present: normal affect, normal mood Course Vital Signs 08/15/23 08/15/23 08/15/23 03:51 03:54 04:00 Temperature 98.1 F Pulse Rate 82 103 H 98 Pulse Rate [ 97 Lands Resource Manager ] Respiratory 18 18 18 Rate Blood Pressure 192/100 180/132 192/100 O2 Sat by Pulse 94 L 93 L Oximetry 08/15/23 08/15/23 08/15/23 04:30 05:00 05:22 Temperature Pulse Rate 109 H 91 83 Pulse Rate [ Lands Resource Manager ] Respiratory 18 18 18 Rate Blood Pressure 180/132 181/99 172/106 O2 Sat by Pulse 94 L Oximetry 08/15/23 08/15/23 08/15/23 06:00 07:00 07:02 Temperature Pulse Rate 90 93 90 Pulse Rate [ Lands Resource Manager ] Respiratory 22 22 18 Rate Blood Pressure 188/99 189/101 192/97 O2 Sat by Pulse 91 L Oximetry 08/15/23 07:55 Temperature Pulse Rate 78 Pulse Rate [ Lands Resource Manager ] Respiratory 18 Rate Blood Pressure 167/95 O2 Sat by Pulse Oximetry EKG Findings - EKG Comments: EKG Findings:: GG interpreted by me, EKG obtained at 3:40 AM rate is 105 rhythm is narrow complex irregularly irregular rhythm consistent with an atrial fibrillation. T wave depressions laterally no acute ST elevations no evidence of acute infarction. Medical Decision Making - Medical Decision Making Was pt. sent in by a medical professional or institution (, PA, ADVANCED CLINICAL SPECIALIST, urgent ca re, hospital, or long term...) When possible be specific @ -No Did you speak to anyone other than the patient for history (EMS, parent, family, police, friend...)? What history was obtained from this source @ -No Did you review nursing and triage notes (agree or disagree)? Why? @ -I reviewed and agree with nursing and triage notes Were old charts reviewed (outside hosp., previous admission, EMS record, old EKG, old radiological studies, urgent care reports/EKG's, long term records)? Report findings @ -Previous admissions and CT images were reviewed Differential Diagnosis (chest pain, altered mental status, abdominal pain women, abdominal pain men, vaginal bleeding, weakness, fever, dyspnea, syncope, headache, dizziness, GI bleed, back pain, seizure, CVA, palpatations, mental health)? @ -Differential flank pain - renal stone, pyelonephritis, aortic dissection, renal artery dissection, renal artery occlusion, renal infarction EKG interpreted by me (3pts min.). @ -As above X-rays interpreted by me (1pt min.). @ -None done CT interpreted by me (1pt min.). @ -AAA appears unchanged from previous, aorto by iliac stents in place, no obvious hydronephrosis no stones identified U/S interpreted by me (1pt. min.). @ -None done What testing was considered but not performed or refused? (CT, X-rays, U/S, labs)? Why? @ -Artery ultrasound ordered upon admission What meds were considered but not given or refused? Why? @ -Toradol was considered but not given due to patient's advanced age and unknown pathology Did you discuss the management of the patient with other professionals (professionals i.e. , PA, ADVANCED CLINICAL SPECIALIST, lab, RT, psych nurse, health care social worker, logistics supply officer, teacher, deck officer, director case)? Give summary @ -No Was smoking cessation discussed for >3mins.? @ -No Was critical care preformed (if so, how long)? @ -No Were there social determinants of health that impacted care today? How? (Homelessness, low income, unemployed, alcoholism, drug addiction, transportation, low edu. Level, literacy, decrease access to med. care, m[facility], rehab)? @ -No Was there de-escalation of care discussed even if they declined (Discuss DNR or withdrawal of care, Hospice)? DNR status @ -No What co-morbidities impacted this encounter? (DM, HTN, Smoking, COPD, CAD, Cancer, CVA, ARF, Chemo, Hep., AIDS, mental health diagnosis, sleep apnea, morbid obesity)? @ -PAD Was patient admitted / discharged? Hospital course, mention meds given and route, prescriptions, significant lab abnormalities, going to OR and other pertinent info. @ Admit She was seen and evaluated history is obtained from patient. Patient was sudden onset left-sided flank pain, patient with extensive vascular history Labs resulted with evidence of acute kidney injury CT with chronic changes no acute hydronephrosis or signs of kidney stone Given the patient's left flank pain and worsening kidney function I do have concern for renal infarction and will plan to admit the patient for renal artery ultrasounds. Patient received Dilaudid for pain management and had complete resolution of her pain upon reevaluation she was sleeping comfortably. Undiagnosed new problem with uncertain prognosis? @ -No Drug Therapy requiring intensive monitoring for toxicity (Heparin, Nitro, Insulin, Cardizem)? @ -No Were any procedures done? @ -No Diagnosis/symptom? @ -AAMIR Acute, or Chronic, or Acute on Chronic? @ -Acute Uncomplicated (without systemic symptoms) or Complicated (systemic symptoms)? @ -default Side effects of treatment? @ -No Exacerbation, Progression, or Severe Exacerbation? @ -No Poses a threat to life or bodily function? How? (Chest pain, [place], [place], pneumonia, PE, COPD, DKA, ARF, appy, cholecystitis, CVA, Diverticulitis, Homicidal, Suicidal, threat to staff... and all critical care pts) @ Yes - Lab Data Result diagrams: 08/15/23 05:29 08/15/23 05:29 Lab Results 08/15/23 08/15/23 08/15/23 Range/Units 05:29 05:29 05:29 WBC 9.9 (3.8-10.6) k/uL RBC 5.06 (3.80-5.40) m/uL Hgb 13.9 (11.4-16.0) gm/dL Hct 42.3 (34.0-46.0) % MCV 83.5 (80.0-100.0) fL MCH 27.4 (25.0-35.0) pg MCHC 32.8 (31.0-37.0) g/dL RDW 14.8 (11.5-15.5) % Plt Count 265 (150-450) k/uL MPV 7.8 Neutrophils % 78 % Lymphocytes % 10 % Monocytes % 8 % Eosinophils % 2 % Basophils % 1 % Neutrophils # 7.8 H (1.3-7.7) k/uL Lymphocytes # 1.0 (1.0-4.8) k/uL Monocytes # 0.8 (0-1.0) k/uL Eosinophils # 0.2 (0-0.7) k/uL Basophils # 0.1 (0-0.2) k/uL Hypochromasia Slight PT (10.0-12.5) sec INR (<1.2) APTT (22.0-30.0) sec Sodium 138 (137-145) mmol/L Potassium 5.0 (3.5-5.1) mmol/L Chloride 103 (98-107) mmol/L Carbon Dioxide 23 (22-30) mmol/L Anion Gap 12 mmol/L BUN 37 H (7-17) mg/dL Creatinine 2.83 H (0.52-1.04) mg/dL Est GFR (CKD-EPI)AfAm 18 (>60 ml/min/1.73 sqM) Est GFR (CKD-EPI)NonAf 15 (>60 ml/min/1.73 sqM) Glucose 124 H (74-99) mg/dL Plasma Lactic Acid Adam 1.0 (0.7-2.0) mmol/L Calcium 9.0 (8.4-10.2) mg/dL Total Bilirubin 0.7 (0.2-1.3) mg/dL AST 30 (14-36) U/L ALT 14 (4-34) U/L Alkaline Phosphatase 116 (38-126) U/L Total Protein 6.4 (6.3-8.2) g/dL Albumin 3.6 (3.5-5.0) g/dL Lipase 177 (23-300) U/L Urine Color Urine Appearance (Clear) Urine pH (5.0-8.0) Ur Specific [place] (1.001-1.035) Urine Protein (Negative) Urine Glucose (UA) (Negative) Urine Ketones (Negative) Urine Blood (Negative) Urine Nitrite (Negative) Urine Bilirubin (Negative) Urine Urobilinogen (<2.0) mg/dL Ur Leukocyte Esterase (Negative) Urine RBC (0-5) /hpf Urine WBC (0-5) /hpf Ur Squamous Epith Cells (0-4) /hpf Urine Bacteria (None) /hpf Urine Mucus (None) /hpf 08/15/23 08/15/23 Range/Units 06:12 07:07 WBC (3.8-10.6) k/uL RBC (3.80-5.40) m/uL Hgb (11.4-16.0) gm/dL Hct (34.0-46.0) % MCV (80.0-100.0) fL MCH (25.0-35.0) pg MCHC (31.0-37.0) g/dL RDW (11.5-15.5) % Plt Count (150-450) k/uL MPV Neutrophils % % Lymphocytes % % Monocytes % % Eosinophils % % Basophils % % Neutrophils # (1.3-7.7) k/uL Lymphocytes # (1.0-4.8) k/uL Monocytes # (0-1.0) k/uL Eosinophils # (0-0.7) k/uL Basophils # (0-0.2) k/uL Hypochromasia PT 21.2 H (10.0-12.5) sec INR 2.1 H (<1.2) APTT 31.3 H (22.0-30.0) sec Sodium (137-145) mmol/L Potassium (3.5-5.1) mmol/L Chloride (98-107) mmol/L Carbon Dioxide (22-30) mmol/L Anion Gap mmol/L BUN (7-17) mg/dL Creatinine (0.52-1.04) mg/dL Est GFR (CKD-EPI)AfAm (>60 ml/min/1.73 sqM) Est GFR (CKD-EPI)NonAf (>60 ml/min/1.73 sqM) Glucose (74-99) mg/dL Plasma Lactic Acid Adam (0.7-2.0) mmol/L Calcium (8.4-10.2) mg/dL Total Bilirubin (0.2-1.3) mg/dL AST (14-36) U/L ALT (4-34) U/L Alkaline Phosphatase (38-126) U/L Total Protein (6.3-8.2) g/dL Albumin (3.5-5.0) g/dL Lipase (23-300) U/L Urine Color Yellow Urine Appearance Cloudy H (Clear) Urine pH 5.5 (5.0-8.0) Ur Specific [place] 1.019 (1.001-1.035) Urine Protein 1+ H (Negative) Urine Glucose (UA) Negative (Negative) Urine Ketones Negative (Negative) Urine Blood Negative (Negative) Urine Nitrite Negative (Negative) Urine Bilirubin Negative (Negative) Urine Urobilinogen <2.0 (<2.0) mg/dL Ur Leukocyte Esterase Small H (Negative) Urine RBC 1 (0-5) /hpf Urine WBC 4 (0-5) /hpf Ur Squamous Epith Cells 1 (0-4) /hpf Urine Bacteria Rare H (None) /hpf Urine Mucus Rare H (None) /hpf Disposition Clinical Impression: AAMIR (acute kidney injury), AAA (abdominal aortic aneurysm), PAD (peripheral artery disease) Disposition: ADMITTED IP TO THIS [facility] Condition: Stable Is patient prescribed a controlled substance at d/c from ED?: No Referrals: None,Stated [Primary Care Provider] - 1-2 days
[2023-08-15] MEDS ORDERED: SODIUM CHLORIDE 0.9% 1,000 ML IV STA (05:15)
[2023-08-15] MEDS ORDERED: ONDANSETRON 4 MG/2 ML VIAL IVP STA (05:15)
[2023-08-15] MEDS ORDERED: MORPHINE SULFATE 4 MG/ML SYRINGE IVP STA (05:16)
[2023-08-15 05:37] LABS: Basophils # (A) 0.1 k/uL (0-0.2); Basophils % (A) 1 %; Eosinophils # (A) 0.2 k/uL (0-0.7); Eosinophils % (A) 2 %; HCT 42.3 % (34.0-46.0); HGB 13.9 gm/dL (11.4-16.0); Hypochromasia Slight; Lymphocytes % (A) 10 %; MCH 27.4 pg (25.0-35.0); MCHC 32.8 g/dL (31.0-37.0); MCV 83.5 fL (80.0-100.0); Mean Platelet Volume 7.8; Monocytes # (A) 0.8 k/uL (0-1.0); Monocytes % (A) 8 %; Neutrophils # (A) 7.8 k/uL (1.3-7.7); Neutrophils % (A) 78 %; Platelet Count 265 k/uL (150-450); RBC 5.06 m/uL (3.80-5.40); RDW 14.8 % (11.5-15.5); WBC 9.9 k/uL (3.8-10.6)
[2023-08-15 05:55] LABS: ALT 14 U/L (4-34); AST 30 U/L (14-36); African American GFR (CKD) 18 (>60 ml/min/1.73 sqM); Albumin 3.6 g/dL (3.5-5.0); Alkaline Phosphatase 116 U/L (38-126); Anion Gap 12 mmol/L; Blood Urea Nitrogen 37 mg/dL (7-17); Carbon Dioxide 23 mmol/L (22-30); Chloride 103 mmol/L (98-107); Glucose 124 mg/dL (74-99); Lipase 177 U/L (23-300); Non-African American GFR(CKD) 15 (>60 ml/min/1.73 sqM); Sodium 138 mmol/L (137-145); Total Bilirubin 0.7 mg/dL (0.2-1.3); Total Protein 6.4 g/dL (6.3-8.2)
[2023-08-15 06:49] LABS: Appearance,Urine Cloudy (Clear); Bacteria,Urine Rare /hpf; Bilirubin,Urine Negative (Negative); Blood,Urine Negative (Negative); Color,Urine Yellow; Glucose,Urine (UA) Negative (Negative); Ketones,Urine Negative (Negative); Leukocyte Esterase,Urine Small (Negative); Mucus,Urine Rare /hpf; Nitrite,Urine Negative (Negative); PH, Urine 5.5 (5.0-8.0); Protein,Urine 1+ (Negative); RBC,Urine 1 /hpf (0-5); Specific Gravity,Urine 1.019 (1.001-1.035); Squamous Epithelial Cell,Urine 1 /hpf (0-4); Urobilinogen,Urine <2.0 mg/dL (<2.0); WBC,Urine 4 /hpf (0-5)
[2023-08-15] MEDS ORDERED: cefTRIAXone IN SWFI 1,000 MG/10 ML SYRINGE IVP STA (06:50)
[2023-08-15] MEDS ORDERED: carvediloL 12.5 MG TAB PO STA (06:53)
[2023-08-15] MEDS ORDERED: HYDROmorphone 0.5 MG/0.5 ML SYRINGE IVP STA (06:53)
--- NOTE | 2023-08-15 08:01 | CT ---
EXAMINATION TYPE: CT abdomen pelvis wo con DATE OF EXAM: 08/15/2023 COMPARISON: 04/08/2023 HISTORY: 78-year-old female left flank pain CT DLP: 260.7 mGycm. Automated exposure control for dose reduction was used. TECHNIQUE: Contiguous axial scanning of the abdomen and pelvis without IV contrast. Coronal and sagit petey reconstructions performed. FINDINGS: The heart is mildly enlarged. Small pericardial effusion measuring 6 mm thick. Underlying emphysemato us change of the lower lungs. Some additional patchy opacities at the right base. No pleural effusion . Noncontrast appearance of the liver, gallbladder, spleen, splenule, adrenal glands, atrophic pancreas overdose of neurology. Redemonstrated multiple cysts within both kidneys, most numerous in the right kidney measuring up to 2.7 cm. An indeterminate 1.2 cm lesion in left kidney could represent a hemorrhagic or proteinaceous cyst and should be reassessed. Punctate 2 mm nonobstructive left renal calculus. No hydronephrosis on either side. No dilated small bowel, free fluid, or free air. No mesenteric or retroperitoneal adenopathy clearly identified. 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 Aortobiiliac endovascular stent graft. [place] sac measuring up to 5.1 x 4.6 cm versus 5.1 x 4.6 cm on 04/08/2023. Heterogeneous density including calcification within the [place] sac remains unchanged. 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 Bladder is collapsed. Uterus retroverted. Neither ovary clearly identified. Scattered mild stool burden with sigmoid diverticulosis. No pericolonic inflammatory change. No abnormal fluid collection in the pelvis or pelvic adenopathy seen. Mild degenerative change at the hips. Facet arthropathy lower lumbar spine. IMPRESSION: 1. Punctate 2 mm nonobstructive left renal calculus. No hydronephrosis seen on either side. 2. Bilateral renal cysts measuring up to 2.7 cm. A 1.2 cm indeterminate lesion in the left kidney griffith spected to represent a hemorrhagic or proteinaceous cysts, similar compared to 04/08/2023. 3. Previous aortobiiliac endovascular stent graft. [place] sac similar at 5.1 cm. The heterogeneous d ensity including calcification within the [place] sac also remains unchanged. Stable aneurysm of the a bdominal aorta 3.2 cm. 4. No new patchy infiltrates at the right base. Correlate to exclude infectious or aspiration pneumo jenniffer. Background COPD. 5. Sigmoid diverticulosis without acute diverticulitis.
[2023-08-15 08:05] LABS: INR 2.1 (<1.2); Partial Thromboplastin Time 31.3 sec (22.0-30.0); Prothrombin Time 21.2 sec (10.0-12.5)
[2023-08-15] MEDS ORDERED: NALOXONE 0.4 MG/ML 1 ML VIAL IV PRN (08:39)
[2023-08-15] MEDS ORDERED: HYDROmorphone 0.5 MG/0.5 ML SYRINGE IVP PRN ×2 (08:39→13:53)
[2023-08-15] MEDS: SODIUM CHLORIDE 0.9% 1,000 ML IV SCH ×2 (09:24→21:30)
--- NOTE | 2023-08-15 09:47 | US ---
EXAMINATION TYPE: US renal artery duplex complet DATE OF EXAM: 08/15/2023 COMPARISON: CT 08/15/2023 CLINICAL INDICATION: Female, 78 years old with history of AAMIR - history of stenting; Hx AAA with sten ts extending to Bilateral Iliacs; Hx renal lesions. MEASUREMENTS: RENAL SIZE: Right Kidney: 8.6 x 4.3 x 4.7 cm Left Kidney: 11.6 x 4.8 x 5.1 cm Right Kidney: multiple cysts; no cortical medullary differentiation Left Kidney: No suspicious solid renal masses or hydronephrosis. Abd Aorta: AAA; Stents noted RESISTANCE INDEX Right: 0.67 Left: 0.45 RA/AO RATIO (< 3.5 ) Right: 0.7 Left: 1.7 RENAL ARTERY VELOCITY ( < 180 cm/s) Right: 47.8 Left: 30.6 Portainer Operator Notes: Difficult exam - patient not able to hold breath, labored breathing, and due to s mall body habitus IMPRESSION: No evidence for renal artery stenosis. Multiple right renal cyst. Some of the cysts are more complex appearing. Further evaluation with MRI renal mass protocol recommended
[2023-08-15] MEDS ORDERED: ACETAMINOPHEN TAB 325 MG TAB PO PRN (10:33)
[2023-08-15] MEDS: amLODIPine 2.5 MG TAB PO SCH (10:46)
[2023-08-15] MEDS: IPRATROPIUM-ALBUTEROL 3 ML NEB INHALATION PRN ×2 (11:31→20:15)
[2023-08-15] MEDS: HYDROcodone/APAP 5-325MG 1 EACH TAB PO PRN (13:33)
[2023-08-15] MEDS: ONDANSETRON 4 MG/2 ML VIAL IVP PRN (13:50)
[2023-08-15] MEDS: HYDROmorphone 0.5 MG/0.5 ML SYRINGE IVP PRN ×2 (14:13→20:44)
--- NOTE | 2023-08-15 15:10 | P.HPIM ---
History of Present Illness H&P Date: 08/15/23 This is a 78 year old female with medical history of atrial fibrillation, COPD, DVT, hypertension, hyperlipidemia, thyroid disorder, aortic aneurysm, former smoker. Patient is anticoagulated with warfarin, INR 2.1. Patient comes into the ER by ambulance complaining of severe left flank pain radiating into the left lower quadrant. Patient states that she had pain earlier in the day Saturday briefly which went away quickly, she went to sleep last night and was woken up around 3 AM today with stabbing pain in the left flank had some nausea but has not vomited. Came in by ambulance. Denies any history of kidney stones. No fever or chills. No change in bowel habits no diarrhea, no black tarry, bloody or dark stools. No dysuria, no urgency frequency or burning sensation. Earlier this month was in to see her PCP for routine check up and was sent to nephrology office due to kidney function states she was given the all clear. Creatinine at that time was 1.1. Initial blood work in the ER this admission shows BUN of 37 and creatinine of 2.83. White blood cell count is normal at 9.9. Normal hemoglobin. Urinalysis reveals cloudy urine, 1+ protein, small leukocyte esterase, rare bacteria and rare mucus. Patient had an abdominal/Pelvis CT done showing punctate 2 millimeter nonobstructing left renal calculus with no hydronephrosis seen on either side. There is bilateral renal cysts measuring up to 2.7 cm a 1.2 cm indeterminate lesion in the left kidney suspected to represent hemorrhagic or proteinaceous cysts similar compared to April [id number]. There is a previous aortobiiliac endovascular stent graft with a cahuilla sac similar to 5.1 cm. The heterogenous sensitivity including calcification within the cahuilla sac also remains unchanged. A stable aneurysm of the abdominal aorta 3.2 cm. There is a patchy obesity at the right base rule out infectious versus summation pneumonia background COPD. There is sigmoid diverticulosis without acute diverticulitis. Renal duplex shows no renal artery stenosis. Patient is admitted in observation for pain management and hydration, nephrology and urology have been consulted. REVIEW OF SYSTEMS: CONSTITUTIONAL: No fever, no malaise, no fatigue. HEENT: No recent visual problems or hearing problems. Denied any sore throat. CARDIOVASCULAR: No chest pain, orthopnea, PND, no palpitations, no syncope. PULMONARY: No shortness of breath, no cough, no hemoptysis. GASTROINTESTINAL: No diarrhea, no nausea, no vomiting, Reports left flank pain. NEUROLOGICAL: No headaches, no weakness, no numbness. HEMATOLOGICAL: Denies any bleeding or petechiae. GENITOURINARY: Denies any burning micturition, frequency, or urgency. MUSCULOSKELETAL/RHEUMATOLOGICAL: Denies any joint pain, swelling, or any muscle pain. ENDOCRINE: Denies any polyuria or polydipsia. The rest of the 14-point review of systems is negative. PHYSICAL EXAMINATION: GENERAL: The patient is alert and oriented x3, not in any acute distress. Well developed, well nourished. HEENT: Pupils are round and equally reacting to light. EOMI. No scleral icterus. No conjunctival pallor. Normocephalic, atraumatic. No pharyngeal erythema. No thyromegaly. CARDIOVASCULAR: S1 and S2 present. No murmurs, rubs, or gallops. PULMONARY: Scattered expiratory wheezing. ABDOMEN: Soft, nontender, nondistended, normoactive bowel sounds. No palpable organomegaly. Left CVA tenderness MUSCULOSKELETAL: No joint swelling or deformity. EXTREMITIES: No cyanosis, clubbing, or pedal edema. NEUROLOGICAL: Gross neurological examination did not reveal any focal deficits. SKIN: No rashes. Assessment and Plan -Acute kidney injury likely prerenal due to decreased oral intake, and med ication affect patient is on ACEI outpatient which will be held at this time. Imaging does not reveal any obstructive uropathy. Nephrology on consultation patient is being hydrated will repeat BMP in the AM. -Left flank pain with CT imaging revealing a 2mm nonobstructive renal calculi suspect patient is passing the stone will consult urology for evaluation as symptoms are persisting. Pain management in place with IV dilaudid and norco. -Hx of AAA with stenting stable at 3.2 cm. ' -Hx of renal artery stenting with no stenosis noted on imaging. -Persistent atrial fibrillation anticoagulated with warfarin INR stable at 2.1. -Hx of COPD with mild acute excerbation Mention of scattered opacities on CT will follow up with chest xray continue on symbicort and duoneb. -Hypertension resumed on home medications carvedilol and amlodipine -Hx of DVT -Hx of diastolic heart failure with no acute exacerbation GI prophylaxis DVT prophylaxis The impression and plan of care has been dictated by Nina Monroe Nurse Practitioner as directed. Dr. Becky MD I have performed a history and physical examination and medical decision making of this patient, discussed the same with the dictator, and agree with the dictators assessment and plan as written, documented as a scribe. Based on total visit time, I have performed more than 50% of this visit. Past Medical History Past Medical History: Atrial Fibrillation, Heart Failure, COPD, Deep Vein Thrombosis (DVT), Hyperlipidemia, Hypertension, Osteoarthritis (OA), Pneumonia, Thyroid Disorder Additional Past Medical History / Comment(s): AORTIC ANEURYSM. History of Any Multi-Drug Resistant Organisms: None Reported Past Surgical History: Appendectomy, Tonsillectomy, Tubal Ligation Additional Past Surgical History / Comment(s): STENT- AORTIC ANEURSYM AND STENT- RENAL ARTERY. BILATERAL CAROTIDS. Past Anesthesia/Blood Transfusion Reactions: No Reported Reaction Past Psychological History: No Psychological Hx Reported Smoking Status: Former smoker Past Alcohol Use History: None Reported Past Drug Use History: None Reported - Past Family History fmaily Family Medical History: Cancer Medications and Allergies Home Medications Medication Instructions Recorded Confirmed Type Atorvastatin [Lipitor] 80 mg PO DAILY 02/09/22 08/15/23 History Cholecalciferol [Vitamin D3 (25 50 mcg PO DAILY 02/09/22 08/15/23 History Mcg = 1000 Iu)] Montelukast Sodium [Singulair] 10 mg PO HS 02/09/22 08/15/23 History carvediloL 25 mg PO BID 02/09/22 08/15/23 History Benazepril HCl 20 mg PO DAILY 07/04/22 08/15/23 History Ipratropium-Albuterol Nebulize 3 ml INHALATION RT-QID PRN 07/04/22 08/15/23 History [Duoneb 0.5 mg-3 mg/3 ml Soln] hydrOXYzine HCL [Atarax] 25 mg PO HS 10/12/22 08/15/23 History Triamcinolone 0.1% Cream [Kenalog 1 applic TOPICAL BID PRN 06/07/23 08/15/23 History 0.1% Cream] amLODIPine [Norvasc] 2.5 mg PO DAILY 30 Days #30 tab 06/11/23 08/15/23 Rx Aspirin 81 mg PO DAILY 08/15/23 08/15/23 History Budesonide-Formot 160-4.5 Mcg 2 puff INHALATION RT-BID 08/15/23 08/15/23 History [Symbicort 160-4.5 Mcg Inhaler] Ezetimibe [Zetia] 10 mg PO DAILY 08/15/23 08/15/23 History Warfarin [Coumadin] 2.5 mg PO SUMOTUWEFRSA 08/15/23 08/15/23 History Warfarin [Coumadin] 5 mg PO TH 08/15/23 08/15/23 History Allergies Allergy/AdvReac Type Severity Reaction Status Date / Time No Known Allergies Allergy Verified 08/15/23 10:06 Physical Exam Vitals: Vital Signs Temp Pulse Pulse Resp BP BP Pulse Ox 08/15/23 11:44 70 08/15/23 11:32 68 08/15/23 10:33 78 20 172/96 91 L 08/15/23 08:00 79 22 167/95 08/15/23 07:55 78 18 167/95 08/15/23 07:02 90 18 192/97 91 L 08/15/23 07:00 93 22 189/101 08/15/23 06:00 90 22 188/99 08/15/23 05:22 83 18 172/106 94 L 08/15/23 05:00 91 18 181/99 08/15/23 04:30 109 H 18 180/132 08/15/23 04:00 98 18 192/100 08/15/23 03:54 103 H 97 18 180/132 93 L 08/15/23 03:51 98.1 F 82 18 192/100 94 L Intake and Output 08/14/23 08/15/23 08/15/23 22:59 06:59 14:59 Other: Weight 48.988 kg Results CBC & Chem 7: 08/15/23 05:29 08/15/23 05:29 Labs: Abnormal Lab Results - Last 24 Hours (Table) 08/15/23 08/15/23 08/15/23 Range/Units 05:29 05:29 06:12 Neutrophils # 7.8 H (1.3-7.7) k/uL PT (10.0-12.5) sec INR (<1.2) APTT (22.0-30.0) sec BUN 37 H (7-17) mg/dL Creatinine 2.83 H (0.52-1.04) mg/dL Glucose 124 H (74-99) mg/dL Urine Appearance Cloudy H (Clear) Urine Protein 1+ H (Negative) Ur Leukocyte Esterase Small H (Negative) Urine Bacteria Rare H (None) /hpf Urine Mucus Rare H (None) /hpf 08/15/23 Range/Units 07:07 Neutrophils # (1.3-7.7) k/uL PT 21.2 H (10.0-12.5) sec INR 2.1 H (<1.2) APTT 31.3 H (22.0-30.0) sec BUN (7-17) mg/dL Creatinine (0.52-1.04) mg/dL Glucose (74-99) mg/dL Urine Appearance (Clear) Urine Protein (Negative) Ur Leukocyte Esterase (Negative) Urine Bacteria (None) /hpf Urine Mucus (None) /hpf Assessment and Plan Time with Patient: Less than 30
--- NOTE | 2023-08-15 16:59 | XR ---
EXAMINATION TYPE: XR chest 2V DATE OF EXAM: 08/15/2023 3:14 PM CLINICAL INDICATION:Female, 78 years old with history of wheezing; COMPARISON: Chest radiographs from 06/07/2023. TECHNIQUE: XR chest 2V Frontal and lateral views of the chest. FINDINGS: Lungs/Pleura: right lower lung airspace opacities. There is no evidence of pleural effusion, focal co nsolidation, or pneumothorax. Pulmonary vascularity: Pulmonary vascular congestion. Heart/mediastinum: Cardiomediastinal silhouette is enlarged and stable. Musculoskeletal: No acute osseous pathology. Other findings: Aortic stent graft is present. IMPRESSION: 1. Right lower lung airspace opacities. Correlate for pneumonia. 2. Cardiomegaly and mild pulmonary vascular congestion. Correlate with BNP for congestive heart fail ure.
[2023-08-15] MEDS ORDERED: WARFARIN 5 MG TAB PO ONE (18:00)
[2023-08-15] MEDS: carvediloL 12.5 MG TAB PO SCH (18:06)
[2023-08-15] MEDS: SYMBICORT 160-4.5 MCG INHALER INHALATION SCH (20:16)
[2023-08-15] MEDS: MONTELUKAST 10 MG TAB PO SCH (20:44)
[2023-08-16] MEDS: HYDROcodone/APAP 5-325MG 1 EACH TAB PO PRN ×2 (03:47→23:47)
[2023-08-16] MEDS: HYDROmorphone 0.5 MG/0.5 ML SYRINGE IVP PRN ×2 (03:52→08:58)
[2023-08-16 05:53] LABS: INR 3.6 (<1.2)
[2023-08-16] MEDS: carvediloL 12.5 MG TAB PO SCH ×2 (06:17→17:33)
--- NOTE | 2023-08-16 07:42 | P.GSCN ---
History of Present Illness Consult date: 08/16/23 History of present illness: 78 yo female came to the er yesterday with severe left flank pain. SHe has a significant vascular history with a previously placed aortic stent. She had a ct scan in the er which showed a non obstructing left 2mm renal stone Because of the flank pain and the stone we were asked to see the patient. On ct scan there was no hydro seen. Her urine was clear. there is no history of stones. She had a renal artery duplex that didnot show renal artery stenosis. Her creatinine is 2.8 where her baseline is in the low one range. The patient's pain went away yesterday but his return today. The pain is demonstrated over the left sacroiliac joint. The patient does describe back pain chronically with radiation into her legs. Whether this is vascular or neurologic is indeterminate. There is been no hematuria. There is no history urine infections. Review of Systems All systems: negative - Constitutional Denies fever, Denies weight loss - EENT Eyes: denies blurred vision Ears, nose, mouth and throat: Denies dysphagia - Cardiovascular Denies chest pain, Denies shortness of breath - Respiratory Denies cough, Denies 7 - Gastrointestinal Reports as per HPI - Genitourinary Genitourinary: Denies dysuria, Denies hematuria - Integumentary Denies rash, Denies unusual bruising - Neurological Denies headaches, Denies syncope - Hematologic/Lymphatic Denies easy bleeding, Denies easy bruising Past Medical History Past Medical History: Atrial Fibrillation, Heart Failure, COPD, Deep Vein Thrombosis (DVT), Hyperlipidemia, Hypertension, Osteoarthritis (OA), Pneumonia, Thyroid Disorder Additional Past Medical History / Comment(s): AORTIC ANEURYSM. History of Any Multi-Drug Resistant Organisms: None Reported Past Surgical History: Appendectomy, Tonsillectomy, Tubal Ligation Additional Past Surgical History / Comment(s): STENT- AORTIC ANEURSYM AND STENT- RENAL ARTERY. BILATERAL CAROTIDS. Past Anesthesia/Blood Transfusion Reactions: No Reported Reaction Smoking Status: Former smoker - Past Family History fmaily Family Medical History: Cancer Medications and Allergies Home Medications Medication Instructions Recorded Confirmed Type Atorvastatin [Lipitor] 80 mg PO DAILY 02/09/22 08/15/23 History Cholecalciferol [Vitamin D3 (25 50 mcg PO DAILY 02/09/22 08/15/23 History Mcg = 1000 Iu)] Montelukast Sodium [Singulair] 10 mg PO HS 02/09/22 08/15/23 History carvediloL 25 mg PO BID 02/09/22 08/15/23 History Benazepril HCl 20 mg PO DAILY 07/04/22 08/15/23 History Ipratropium-Albuterol Nebulize 3 ml INHALATION RT-QID PRN 07/04/22 08/15/23 History [Duoneb 0.5 mg-3 mg/3 ml Soln] hydrOXYzine HCL [Atarax] 25 mg PO HS 10/12/22 08/15/23 History Triamcinolone 0.1% Cream [Kenalog 1 applic TOPICAL BID PRN 06/07/23 08/15/23 History 0.1% Cream] amLODIPine [Norvasc] 2.5 mg PO DAILY 30 Days #30 tab 06/11/23 08/15/23 Rx Aspirin 81 mg PO DAILY 08/15/23 08/15/23 History Budesonide-Formot 160-4.5 Mcg 2 puff INHALATION RT-BID 08/15/23 08/15/23 History [Symbicort 160-4.5 Mcg Inhaler] Ezetimibe [Zetia] 10 mg PO DAILY 08/15/23 08/15/23 History Warfarin [Coumadin] 2.5 mg PO SUMOTUWEFRSA 08/15/23 08/15/23 History Warfarin [Coumadin] 5 mg PO TH 08/15/23 08/15/23 History Allergies Allergy/AdvReac Type Severity Reaction Status Date / Time No Known Allergies Allergy Verified 08/15/23 10:06 Surgical - Exam Vital Signs Temp Pulse Resp BP Pulse Ox 98.1 F 82 18 192/100 94 L 08/15/23 03:51 08/15/23 03:51 08/15/23 03:51 08/15/23 03:51 08/15/23 03:51 - General Mild distress, marked shortness of breath well developed, well nourished - ENT no hearing loss - Neck trachea midline - Respiratory Shortness of breath at rest chronic oxygen use, marked COPD - Cardiovascular Rhythm: regular - Abdomen Abdomen: soft, non tender, no guarding, no rigid, no rebound - Neurologic normal coordination, normal sensation - Musculoskeletal normal posture - Psychiatric oriented to time, oriented to person, oriented to place, speech is normal, memory intact Results - Labs 08/15/23 05:29 08/15/23 05:29 Abnormal Lab Results - Last 24 Hours (Table) 08/15/23 08/15/23 08/16/23 Range/Units 06:12 07:07 04:40 PT 21.2 H 35.0 H (10.0-12.5) sec INR 2.1 H 3.6 H (<1.2) APTT 31.3 H (22.0-30.0) sec Urine Appearance Cloudy H (Clear) Urine Protein 1+ H (Negative) Ur Leukocyte Esterase Small H (Negative) Urine Bacteria Rare H (None) /hpf Urine Mucus Rare H (None) /hpf - Imaging CT scan - abdomen: report reviewed, image reviewed CT scan - pelvis: report reviewed, image reviewed Assessment and Plan Assessment: Impression: This patient's left-sided flank pain does not appear to be urologic. He has marked vascular disease. She has had previous surgeries. She has marked COPD Recommendations: Upon review the computed tomography scan, history and physical examination and I do not believe this problem is urologic. He does have a very tiny probable 1 mm left renal stone that I do not think is contributing to her discomfort. She does have renal cysts that I also don't think is contributing to her discomfort. Nothing urologic at this point in time needs to be done.
[2023-08-16] MEDS: SYMBICORT 160-4.5 MCG INHALER INHALATION SCH ×2 (08:25→20:14)
[2023-08-16] MEDS: IPRATROPIUM-ALBUTEROL 3 ML NEB INHALATION PRN (08:25)
[2023-08-16] MEDS: ATORVASTATIN 80 MG TAB PO SCH (08:57)
[2023-08-16] MEDS: amLODIPine 2.5 MG TAB PO SCH (08:57)
[2023-08-16] MEDS: FAMOTIDINE 20 MG TAB PO SCH (08:57)
[2023-08-16] MEDS: ASPIRIN 81 MG PO SCH (08:58)
[2023-08-16] MEDS: CHOLECALCIFEROL 25 MCG (1000 IU) TABLET PO SCH (08:58)
[2023-08-16] MEDS: EZETIMIBE 10 MG TAB PO SCH (08:58)
[2023-08-16 09:01] LABS: BUN/Creat Ratio 8.55 Ratio (12.00-20.00); Blood Urea Nitrogen 40.2 mg/dL (9.0-27.0); Calcium 8.9 mg/dL (8.7-10.3); Carbon Dioxide 20.3 mmol/L (21.6-31.8); Chloride 104 mmol/L (96-109); Glucose 106 mg/dL (70-110); Potassium 6.1 mmol/L (3.5-5.5); Sodium 138 mmol/L (135-145)
--- NOTE | 2023-08-16 09:01 | P.NPCON ---
History of Present Illness - Reason for Consult acute renal failure, chronic renal failure - History of Present Illness Reason for consultation: Acute kidney injury on chronic kidney disease History of present illness: Patient is a 78-year-old female seen in renal consultation for acute kidney injury on chronic kidney disease. Patient has chronic kidney disease stage III a baseline creatinine 1.1-1.2 secondary to nephrosclerosis. Patient came in the hospital due to sudden onset of left-sided flank pain. Imaging showed 2 mm left nonobstructing kidney stone with no hydronephrosis. She is currently receiving IV fluids. Patient's creatinine on admission was 2.83 No history of diabetes. Denies family history of renal disease. Denies use of nonsteroidals. She does have coronary disease and had a stent placed in 2021. Denies gross hematuria. She has been seen by urology with no interventions planned at this time. Blood pressure was high on admission but is better controlled now. Blood pressure this morning was 130/72. No fever or chills. Pain is better controlled. Vital signs are stable. General: No acute distress. HEENT: Head exam is unremarkable. LUNGS: No audible rhonchi or wheezes. HEART: Rate and Rhythm are regular. ABDOMEN: Nontender. EXTREMITITES: No edema. Past Medical History Past Medical History: Atrial Fibrillation, Heart Failure, COPD, Deep Vein Thrombosis (DVT), Hyperlipidemia, Hypertension, Osteoarthritis (OA), Pneumonia, Thyroid Disorder Additional Past Medical History / Comment(s): AORTIC ANEURYSM. History of Any Multi-Drug Resistant Organisms: None Reported Past Surgical History: Appendectomy, Tonsillectomy, Tubal Ligation Additional Past Surgical History / Comment(s): STENT- AORTIC ANEURSYM AND STENT- RENAL ARTERY. BILATERAL CAROTIDS. Past Anesthesia/Blood Transfusion Reactions: No Reported Reaction Smoking Status: Former smoker - Past Family History fmaily Family Medical History: Cancer Medications and Allergies Home Medications Medication Instructions Recorded Confirmed Type Atorvastatin [Lipitor] 80 mg PO DAILY 02/09/22 08/15/23 History Cholecalciferol [Vitamin D3 (25 50 mcg PO DAILY 02/09/22 08/15/23 History Mcg = 1000 Iu)] Montelukast Sodium [Singulair] 10 mg PO HS 02/09/22 08/15/23 History carvediloL 25 mg PO BID 02/09/22 08/15/23 History Benazepril HCl 20 mg PO DAILY 07/04/22 08/15/23 History Ipratropium-Albuterol Nebulize 3 ml INHALATION RT-QID PRN 07/04/22 08/15/23 History [Duoneb 0.5 mg-3 mg/3 ml Soln] hydrOXYzine HCL [Atarax] 25 mg PO HS 10/12/22 08/15/23 History Triamcinolone 0.1% Cream [Kenalog 1 applic TOPICAL BID PRN 06/07/23 08/15/23 History 0.1% Cream] amLODIPine [Norvasc] 2.5 mg PO DAILY 30 Days #30 tab 06/11/23 08/15/23 Rx Aspirin 81 mg PO DAILY 08/15/23 08/15/23 History Budesonide-Formot 160-4.5 Mcg 2 puff INHALATION RT-BID 08/15/23 08/15/23 History [Symbicort 160-4.5 Mcg Inhaler] Ezetimibe [Zetia] 10 mg PO DAILY 08/15/23 08/15/23 History Warfarin [Coumadin] 2.5 mg PO SUMOTUWEFRSA 08/15/23 08/15/23 History Warfarin [Coumadin] 5 mg PO TH 08/15/23 08/15/23 History Allergies Allergy/AdvReac Type Severity Reaction Status Date / Time No Known Allergies Allergy Verified 08/15/23 10:06 Physical Exam Vitals: Vital Signs Temp Pulse Pulse Resp BP Pulse Ox 08/16/23 08:38 80 08/16/23 08:25 78 08/16/23 07:00 97.9 F 86 16 130/72 94 L 08/16/23 06:18 92 L 08/16/23 02:00 98.1 F 86 16 166/88 95 08/15/23 20:27 80 08/15/23 20:16 77 08/15/23 18:00 73 20 152/92 92 L 08/15/23 15:15 97.9 F 77 20 145/91 92 L 08/15/23 12:30 78 20 169/95 91 L 08/15/23 11:44 70 08/15/23 11:32 68 08/15/23 10:33 78 20 172/96 91 L Intake and Output 08/15/23 08/16/2308/16/23 22:59 06:59 14:59 Intake Total 100 Output Total 1 Balance 100 -1 Intake: Oral 100 Output: Post Void Residual 1 Other: Voiding Method Toilet Toilet # Voids 0 Weight 48.988 kg Results - Lab Results Most recent lab results Calcium 9.0 mg/dL (8.4-10.2) 08/15/23 05:29 08/15/23 05:29 08/15/23 05:29 Assessment and Plan Plan: Assessment: 1. Acute kidney injury secondary to ATN. BAM inhibitor held. Creatinine 2.83 on admission. No hydronephrosis noted on kidney ultrasound. 2. 2 mm nonobstructive left kidney stone. No intervention is planned by urology at this time. 3. History of aortobiiliac endovascular stent graft. 4. Chronic kidney disease stage IIIA with baseline creatinine 1.1-1.2 secondary to nephrosclerosis/ischemic nephropathy. Right kidney small in size. No evidence of renal artery stenosis. 5. Hypertension with chronic kidney disease. Plan: Maintain IV fluids. Continue to hold benazepril. Avoid nephrotoxins. Add Flomax. Follow-up morning labs. Thank you for the consultation. I will continue to follow the patient with you during her hospital stay.
[2023-08-16] MEDS ORDERED: SODIUM ZIRCONIUM CYCLOSILICATE 10 GM PACKET PO ONE (09:24)
[2023-08-16] MEDS ORDERED: INSULIN REGULAR 100 UNIT/ML VIAL (IV) IV ONE (09:25)
[2023-08-16] MEDS ORDERED: DEXTROSE 50% SYRINGE 50 ML IVP STA (09:26)
[2023-08-16] MEDS ORDERED: SODIUM BICARB 8.4% 50 ML SYR (1 MEQ/ML) IV STA (09:27)
[2023-08-16] MEDS: TAMSULOSIN 0.4 MG CAP.ER.24H PO SCH (09:53)
[2023-08-16] MEDS ORDERED: bisacodyL 10 MG SUPP RECTAL STA (12:59)
[2023-08-16] MEDS: SODIUM CHLORIDE 0.9% 1,000 ML IV SCH (14:40)
[2023-08-16] MEDS ORDERED: NA PHOS,M-B/NA PHOS,DI-BA 133 ML ENEMA RECTAL ONE (14:55)
[2023-08-16] MEDS: DEXTROSE 5% IN WATER 1,000 ML with SODIUM BICARB (1 MEQ/ML) 150 ML IV SCH (15:16)
[2023-08-16] MEDS: LACTULOSE 20 GM/30 ML CUP PO SCH ×2 (16:53→20:08)
--- NOTE | 2023-08-16 16:53 | P.PN ---
Subjective Progress Note Date: 08/16/23 This is a 78 year old female with medical history of atrial fibrillation, COPD, DVT, hypertension, hyperlipidemia, thyroid disorder, aortic aneurysm, former smoker. Patient is anticoagulated with warfarin, INR 2.1. Patient comes into the ER by ambulance complaining of severe left flank pain radiating into the left lower quadrant. Patient states that she had pain earlier in the day Saturday briefly which went away quickly, she went to sleep last night and was woken up around 3 AM today with stabbing pain in the left flank had some nausea but has not vomited. Came in by ambulance. Denies any history of kidney stones. No fever or chills. No change in bowel habits no diarrhea, no black tarry, bloody or dark stools. No dysuria, no urgency frequency or burning sensation. Earlier this month was in to see her PCP for routine check up and was sent to nephrology office due to kidney function states she was given the all clear. Creatinine at that time was 1.1. Initial blood work in the ER this admission shows BUN of 37 and creatinine of 2.83. White blood cell count is normal at 9.9. Normal hemoglobin. Urinalysis reveals cloudy urine, 1+ protein, small leukocyte esterase, rare bacteria and rare mucus. Patient had an abdominal/Pelvis CT done showing punctate 2 millimeter nonobstructing left renal calculus with no hydronephrosis seen on either side. There is bilateral renal cysts measuring up to 2.7 cm a 1.2 cm indeterminate lesion in the left kidney suspected to represent hemorrhagic or proteinaceous cysts similar compared to April 082022. There is a previous aortobiiliac endovascular stent graft with a [place] sac similar to 5.1 cm. The heterogenous sensitivity including calcification within the campo sac also remains unchanged. A stable aneurysm of the abdominal aorta 3.2 cm. There is a patchy obesity at the right base rule out infectious versus summation pneumonia background COPD. There is sigmoid diverticulosis without acute diverticulitis. Renal duplex shows no renal artery stenosis. Patient is admitted in observation for pain management and hydration, nephrology and urology have been consulted. 08/16/2023 Patient evaluated today sitting up in bed. Left sided flank pain has improved. Patient was unable to urinate over night required placement of IDC with minimal urine output. Total in the main bag is about 50 mls. Urology and nephrology following. Patients lower abdomen is distended she reports not having a bowel movement in 4 to 5 days and will add on bowel regimen. Labs today showing INR 3.6. Sodium 138, potassium 6.1 and 5.2., BUN 40.2, creatinine 4.7 GFR of 9. Review of Systems Constitutional: Denied any fatigue denied any fever. Cardio vascular: denied any chest pain, palpitations Gastrointestinal: denied any nausea, vomiting, diarrhea. Reports constipation and lower abdominal pain. Pulmonary: Denied any shortness of breath cough Neurologic denied any new focal deficits All inpatient medications were reviewed and appropriate changes in these medications as dictated in the interval history and assessment and plan. PHYSICAL EXAMINATION: GENERAL: The patient is alert and oriented x3, not in any acute distress. Well developed, well nourished. HEENT: Pupils are round and equally reacting to light. EOMI. No scleral icterus. No conjunctival pallor. Normocephalic, atraumatic. No pharyngeal erythema. No thyromegaly. CARDIOVASCULAR: S1 and S2 present. No murmurs, rubs, or gallops. PULMONARY: Scattered expiratory wheezing. ABDOMEN: Soft, nontender, nondistended, normoactive bowel sounds. No palpable organomegaly. Left CVA tenderness MUSCULOSKELETAL: No joint swelling or deformity. EXTREMITIES: No cyanosis, clubbing, or pedal edema. NEUROLOGICAL: Gross neurological examination did not reveal any focal deficits. SKIN: No rashes. Assessment and Plan -Acute kidney injury due to ATN, and medication affect patient is on ACEI outpatient which will be held at this time. Imaging does not reveal any obstructive uropathy. Nephrology on consultation patient is being hydrated will repeat BMP in the AM. -Hyperkalemia treated with lokelma and improved to 5.2 -Left flank pain with CT imaging revealing a 2mm nonobstructive renal calculi suspect patient is passing the stone will consult urology for evaluation as symptoms are persisting. Pain management in place with IV dilaudid and norco. -Hx of AAA with stenting stable at 3.2 cm. -Constipation being treated with enema and laxatives. -Hx of renal artery stenting with no stenosis noted on imaging. -Persistent atrial fibrillation anticoagulated with warfarin INR stable at 2.1. -Hx of COPD with mild acute excerbation Mention of scattered opacities on CT will follow up with chest xray continue on symbicort and duoneb. -Hypertension resumed on home medications carvedilol and amlodipine -Hx of DVT -Hx of diastolic heart failure with no acute exacerbation GI prophylaxis DVT prophylaxis The impression and plan of care has been dictated by Nina Monroe, Nurse Practitioner as directed. Dr. Becky MD I have performed a history and physical examination and medical decision making of this patient, discussed the same with the dictator, and agree with the dictators assessment and plan as written, documented as a scribe. Based on total visit time, I have performed more than 50% of this visit. Objective - Vital Signs Vital signs: Vital Signs Temp 97.9 F 08/16/23 07:00 Pulse 80 08/16/23 08:38 Resp 16 08/16/23 07:00 BP 130/72 08/16/23 07:00 Pulse Ox 94 L 08/16/23 07:00 FiO2 Intake & Output 08/15/23 08/16/23 08/16/23 18:59 06:59 18:59 Intake Total 550 100 180 Output Total 1 Balance 550 100 179 Weight 48.988 kg Intake: Intake, IV Titration 300 Amount Sodium Chloride 0.9% 1, 300 000 ml @ 75 mls/hr IV . [id number] [facility] Rx#:[id number] Oral 250 100 180 Output: Post Void Residual 1 Other: Voiding Method Toilet # Voids 1 0 # Bowel Movements 0 - Labs CBC & Chem 7: 08/15/23 05:29 08/16/23 11:28 Labs: Abnormal Lab Results - Last 24 Hours (Table) 08/16/23 08/16/23 Range/Units 04:40 04:40 PT 35.0 H (10.0-12.5) sec INR 3.6 H (<1.2) Potassium 6.1 A* (3.5-5.5) mmol/L Carbon Dioxide 20.3 L (21.6-31.8) mmol/L Anion Gap 13.70 H (4.00-12.00) mmol/L BUN 40.2 H (9.0-27.0) mg/dL Creatinine 4.7 H (0.6-1.5) mg/dL Est GFR (CKD-EPI) 9 L (>=60) BUN/Creatinine Ratio 8.55 L (12.00-20.00) Ratio Assessment and Plan Time with Patient: Less than 30
[2023-08-16] MEDS: ACETAMINOPHEN IV (For NPO) 1,000 MG in EMPTY BAG 1 BAG IVPB SCH ×2 (17:37→23:46)
--- NOTE | 2023-08-16 17:55 | XR ---
EXAMINATION TYPE: XR abdomen 2V DATE OF EXAM: 08/16/2023 5:41 PM CLINICAL INDICATION:Female, 78 years old with history of abdominal pain constipation; COMPARISON: 08/15/2023.. TECHNIQUE: Two views of the abdomen were obtained. FINDINGS: Aortic iliac stent graft as well as bilateral iliac stent grafts. There is a upper abdomina l celiac axis versus SMA stent graft also present.. The bowel gas pattern is nonspecific without dila rusty loops of small or large bowel. There is no evidence for organomegaly or pneumoperitoneum. The os seous structures are intact. No abnormal calcifications are present. Fecal material and gas are demo nstrated throughout the colon and rectum. Surgical clips in the left inguinal region. IMPRESSION: Nonspecific bowel gas pattern without radiographic evidence for acute process.
[2023-08-16] MEDS ORDERED: WARFARIN 0.5 MG TAB PO ONE (18:00)
[2023-08-16] MEDS: MONTELUKAST 10 MG TAB PO SCH (20:09)
[2023-08-17 05:01] LABS: Prothrombin Time 84.8 sec (10.0-12.5)
[2023-08-17 05:11] LABS: INR 8.6 (<1.2)
[2023-08-17] MEDS: ACETAMINOPHEN IV (For NPO) 1,000 MG in EMPTY BAG 1 BAG IVPB SCH ×2 (05:11→12:39)
[2023-08-17] MEDS ORDERED: PHYTONADIONE ORAL 5 MG/5 ML ORAL.SYRG PO STA (06:01)
[2023-08-17] MEDS: carvediloL 12.5 MG TAB PO SCH ×2 (06:18→20:06)
[2023-08-17] MEDS: SYMBICORT 160-4.5 MCG INHALER INHALATION SCH ×2 (08:45→18:49)
[2023-08-17] MEDS: IPRATROPIUM-ALBUTEROL 3 ML NEB INHALATION PRN (08:45)
[2023-08-17] MEDS ORDERED: FUROSEMIDE 10 MG/ML 10 ML VIAL IV STA (09:20)
[2023-08-17] MEDS: DEXTROSE 5% IN WATER 1,000 ML with SODIUM BICARB (1 MEQ/ML) 150 ML IV SCH ×2 (09:31→20:06)
[2023-08-17] MEDS: ATORVASTATIN 80 MG TAB PO SCH (09:32)
[2023-08-17] MEDS: CHOLECALCIFEROL 25 MCG (1000 IU) TABLET PO SCH (09:32)
[2023-08-17] MEDS: LACTULOSE 20 GM/30 ML CUP PO SCH ×4 (09:32→22:47)
[2023-08-17] MEDS: amLODIPine 2.5 MG TAB PO SCH (09:32)
[2023-08-17] MEDS: ASPIRIN 81 MG PO SCH (09:32)
[2023-08-17] MEDS: TAMSULOSIN 0.4 MG CAP.ER.24H PO SCH (09:32)
[2023-08-17] MEDS: EZETIMIBE 10 MG TAB PO SCH (09:32)
[2023-08-17] MEDS: FAMOTIDINE 20 MG TAB PO SCH (09:32)
[2023-08-17 10:08] LABS: Magnesium 1.9 mg/dL (1.5-2.4)
[2023-08-17 11:47] LABS: BUN/Creat Ratio 7.54 Ratio (12.00-20.00); Blood Urea Nitrogen 44.5 mg/dL (9.0-27.0); Carbon Dioxide 20.8 mmol/L (21.6-31.8); Chloride 100 mmol/L (96-109); Glucose 136 mg/dL (70-110); Potassium 4.9 mmol/L (3.5-5.5); Sodium 137 mmol/L (135-145)
[2023-08-17 11:48] LABS: Calcium 7.9 mg/dL (8.7-10.3)
--- NOTE | 2023-08-17 12:03 | P.PN ---
Subjective Patient is seen in follow-up for acute kidney injury on chronic kidney disease. Renal function worsening with creatinine up to 5.9 today. Has a Molina catheter. Oliguric. Receiving IV fluids. Hemodynamically stable. Vital signs are stable. General: No acute distress. HEENT: Head exam is unremarkable. LUNGS: Scattered rhonchi. HEART: Rate and Rhythm are regular. ABDOMEN: Nontender. EXTREMITITES: No edema. Objective - Vital Signs Vital signs: Vital Signs Temp 98.1 F 08/17/23 07:43 Pulse 88 08/17/23 08:55 Resp 16 08/17/23 07:43 BP 117/78 08/17/23 07:43 Pulse Ox 93 L 08/17/23 08:45 FiO2 Intake & Output 08/16/23 08/17/23 08/17/23 18:59 06:59 18:59 Intake Total 870 Output Total 1 0 Balance 869 0 Weight 50.4 kg Intake: Intake, IV Titration 600 Amount Sodium Chloride 0.9% 1, 600 000 ml @ 75 mls/hr IV . [id number] [facility] Rx#:[id number] Oral 270 Output: Urine 0 Post Void Residual 1 Other: Voiding Method Indwelling Catheter Indwelling Catheter Indwelling Catheter # Voids 0 # Bowel Movements 1 1 - Labs CBC & Chem 7: 08/15/23 05:29 08/17/23 04:02 Labs: Abnormal Lab Results - Last 24 Hours (Table) 08/16/23 08/17/23 08/17/23 Range/Units 11:28 04:02 04:02 PT 84.8 H (10.0-12.5) sec INR 8.6 H* (<1.2) Potassium 5.2 H (3.5-5.1) mmol/L Carbon Dioxide 20.8 L (21.6-31.8) mmol/L Anion Gap 16.20 H (4.00-12.00) mmol/L BUN 44.5 H (9.0-27.0) mg/dL Creatinine 5.9 H (0.6-1.5) mg/dL Est GFR (CKD-EPI) 7 L (>=60) BUN/Creatinine Ratio 7.54 L (12.00-20.00) Ratio Glucose 136 H (70-110) mg/dL Calcium 7.9 L (8.7-10.3) mg/dL Microbiology - Last 24 Hours (Table) 08/15/23 07:07 Blood Culture - Preliminary Blood Assessment and Plan Plan: Assessment: 1. Acute kidney injury secondary to ATN. BAM inhibitor held. Creatinine 2.83 on admission - 5.9 today. No hydronephrosis noted on kidney ultrasound. 2. 2 mm nonobstructive left kidney stone. No intervention is planned by urology at this time. 3. History of aortobiiliac endovascular stent graft. 4. Chronic kidney disease stage IIIA with baseline creatinine 1.1-1.2 secondary to nephrosclerosis/ischemic nephropathy. Right kidney small in size. No ev idence of renal artery stenosis. 5. Hypertension with chronic kidney disease. 6. Hyperkalemia secondary to acute kidney injury and metabolic acidosis. Improved with medical management. 7. Coagulopathy. INR 8.6. Plan: Maintain bicarb drip for now. Lasix 80 mg IV once now. Continue to hold benazepril. Avoid nephrotoxins. Check echocardiogram. Consults cardiology. If no improvement in urine output in the next 3-4 hours, will initiate renal replacement therapy. Check serologies as well.
[2023-08-17] MEDS ORDERED: LIDOCAINE 1% INJ 10MG/ML (30 ML VIAL-PF) SQ ONE (14:12)
[2023-08-17] MEDS ORDERED: MIDAZOLAM 2 MG/2 ML VIAL IVP ONE (14:12)
[2023-08-17] MEDS ORDERED: WARFARIN 0.5 MG TAB PO ONE (18:00)
--- NOTE | 2023-08-17 19:02 | CA ---
Transthoracic Echo Report Name: Jennifer Evangelista Age: 78 Gender: F : 1945 Exam Date: 08/17/2023 15:50 Exam Location: [facility] Ht (in): Wt (lb): Ordering Physician: Sevn Gandhi DO Attending/Referring Phys: Parking Lot Signaler Colette Piedra RDCS Procedure CPT: Indications: sob Cardiac Hx: Technical Quality: Good Contrast 1: Total Dose (mL): Contrast 2: Total Dose (mL): MEASUREMENTS (Male / Female) Normal Values 2D ECHO LV Diastolic Diameter PLAX 3.9 cm 4.2 - 5.9 / 3.9 - 5.3 cm LV Systolic Diameter PLAX 3.0 cm IVS Diastolic Thickness 1.1 cm 0.6 - 1.0 / 0.6 - 0.9 cm LVPW Diastolic Thickness 1.1 cm 0.6 - 1.0 / 0.6 - 0.9 cm LV Relative Wall Thickness 0.6 RV Internal Dim ED PLAX 3.4 cm LA Systolic Diameter LX 4.1 cm 3.0 - 4.0 / 2.7 - 3.8 cm LV Diastolic Volume MOD BP 50.4 cm??? 67 - 155 / 56 - 104 cm??? LV Systolic Volume MOD BP 19.1 cm??? 22 - 58 / 19 - 49 cm??? LV Ejection Fraction MOD BP 62.0 % >= 55 % LV Diastolic Volume MOD 4C 46.1 cm??? LV Systolic Volume MOD 4C 20.3 cm??? LV Ejection Fraction MOD 4C 55.8 % LV Diastolic Length 4C 5.8 cm LV Systolic Length 4C 5.0 cm LV Diastolic Volume MOD 2C 51.6 cm??? LV Systolic Volume MOD 2C 16.4 cm??? LV Ejection Fraction MOD 2C 68.1 % LV Diastolic Length 2C 6.3 cm LV Systolic Length 2C 5.6 cm LA Volume 80.5 cm??? 18 - 58 / 22 - 52 cm??? M-MODE Aortic Root Diameter MM 2.9 cm MV E Point Septal Separation 0.5 cm AV Cusp Separation MM 1.6 cm DOPPLER AV Peak Velocity 134.8 cm/s AV Peak Gradient 7.3 mmHg AI Peak Velocity 262.0 cm/s AI Peak Gradient 27.4 mmHg AI Pressure Half Time 299.5 ms MV Area PHT 4.9 cm??? MV Deceleration Time 165.2 ms TR Peak Velocity 287.1 cm/s TR Peak Gradient 33.0 mmHg Right Ventricular Systolic Press 36.9 mmHg FINDINGS Left Ventricle Left ventricular ejection fraction is estimated at 55-60 %. Left ventricular cavity size normal. Mild concentric LVH. Sigmoid shaped septum. No obvious regional wall motion abnormality Right Ventricle Mild right ventricular dilatation. Mild pulmonary hypertension. Right Atrium Severe right atrial dilatation Left Atrium Severe left atrial dilatation Mitral Valve Structurally normal mitral valve. Mitral annular calcification. Mild mitral regurgitation. Aortic Valve Thickened aortic valve without stenosis. Mild aortic regurgitation. Tricuspid Valve Structurally normal tricuspid valve. Mild tricuspid regurgitation. Pulmonic Valve Pulmonic valve not well visualized. Pericardium No pericardial effusion. Aorta Normal size aortic root and proximal ascending aorta. CONCLUSIONS Left ventricular ejection fraction is estimated at 55-60 %. Left ventricular cavity size normal. Mild concentric LVH. Sigmoid shaped septum. No obvious regional wall motion abnormality. Severe biatrial dilatation Mild functional MR Patient appears to be in atrial fibrillation during the study Previewed by: Dr Sung Moon (Electronically Signed) Final Date: 17 August 2023 19:02
[2023-08-17] MEDS: MONTELUKAST 10 MG TAB PO SCH (20:06)
--- NOTE | 2023-08-17 21:55 | OP ---
OPERATIVE REPORT DATE OF SERVICE : PREOPERATIVE DIAGNOSIS: Acute chronic renal failure. POSTOPERATIVE DIAGNOSIS: Acute chronic renal failure. PROCEDURE: Ultrasound-guided 20 cm dialysis catheter placed, right femoral approach. DESCRIPTION OF PROCEDURE: The patient was seen in the room. The patient was brought to the [employer]. Right groin was prepped and draped in usual sterile manner. 1% lidocaine infiltrated with IV sedation. Ultrasound-guided micropuncture introduced to the right femoral vein. Micropuncture guidewire was passed and 4-Romanian dilator advanced on top of the guidewire. Then, we passed a regular guidewire without any resistance, checking the C- arm control. Dilator was advanced on top of the guidewire. Then, we placed triple- lumen 20 cm dialysis catheter on the top of the guidewire. Guidewire was removed, flushed with heparin saline and hep-locked, secured with 3-0 nylon. The patient tolerated the procedure well. MMODL / IJN: [id number] /
[2023-08-17 23:07] LABS: Albumin 3.2 g/dL (3.8-4.9); Protein, Total 5.3 g/dL (6.2-8.2)
[2023-08-17 23:19] LABS: Hepatitis A Antibody IgM Nonreactive; Hepatitis B Core IgM Nonreactive; Hepatitis B Surface Antigen Nonreactive; Hepatitis C IgG Antibody Nonreactive
--- NOTE | 2023-08-17 23:48 | P.PN ---
Subjective Progress Note Date: 08/17/23 This is a 78 year old female with medical history of atrial fibrillation, COPD, DVT, hypertension, hyperlipidemia, thyroid disorder, aortic aneurysm, former smoker. Patient is anticoagulated with warfarin, INR 2.1. Patient comes into the ER by ambulance complaining of severe left flank pain radiating into the left lower quadrant. Patient states that she had pain earlier in the day Saturday briefly which went away quickly, she went to sleep last night and was woken up around 3 AM today with stabbing pain in the left flank had some nausea but has not vomited. Came in by ambulance. Denies any history of kidney stones. No fever or chills. No change in bowel habits no diarrhea, no black tarry, blood y or dark stools. No dysuria, no urgency frequency or burning sensation. Earlier this month was in to see her PCP for routine check up and was sent to nephrology office due to kidney function states she was given the all clear. Creatinine at that time was 1.1. Initial blood work in the ER this admission shows BUN of 37 and creatinine of 2.83. White blood cell count is normal at 9.9. Normal hemoglo bin. Urinalysis reveals cloudy urine, 1+ protein, small leukocyte esterase, rare bacteria and rare mucus. Patient had an abdominal/Pelvis CT done showing punctate 2 millimeter nonobstructing left renal calculus with no hydronephrosis seen on either side. There is bilateral renal cysts measuring up to 2.7 cm a 1.2 cm indeterminate lesion in the left kidney suspected to represent hemorrhagic or proteinaceous cysts similar compared to April 082022. There is a previous aortobiiliac endovascular stent graft with a [place] sac similar to 5.1 cm. The heterogenous sensitivity including calcification within the [place] sac also remains unchanged. A stable aneurysm of the abdominal aorta 3.2 cm. There is a patchy obesity at the right base rule out infectious versus summation pneumonia background COPD. There is sigmoid diverticulosis without acute diverticulitis. Renal duplex shows no renal artery stenosis. Patient is admitted in observation for pain management and hydration, nephrology and urology have been consulted. 08/16/2023 Patient evaluated today sitting up in bed. Left sided flank pain has improved. Patient was unable to urinate over night required placement of IDC with minimal urine output. Total in the main bag is about 50 mls. Urology and nephrology following. Patients lower abdomen is distended she reports not having a bowel movement in 4 to 5 days and will add on bowel regimen. Labs today showing INR 3.6. Sodium 138, potassium 6.1 and 5.2., BUN 40.2, creatinine 4.7 GFR of 9. 08/17/2023 Patient is currently lying in the bed. Awake and alert. Currently on room air. Patient does have minimal urine output. Main catheter is in place. Abdominal x-ray showed normal bowel gas pattern without radiographic evidence for acute process. Patient is being continued bowel regimen due to constipation. Laboratory showed sodium 137 potassium 4.9 chloride 100 bicarb is 20.8 BUN 44.5 and creatinine increased to 5.9. proBNP 38 200. Nephrology is recommending renal replacement therapy patient is agreeable today. Vascular surgery was consulted for dialysis catheter placement. Discussed with the patient and and her at bedside. Current medications reviewed. Review of Systems Constitutional: Denied any fatigue denied any fever. Cardio vascular: denied any chest pain, palpitations Gastrointestinal: denied any nausea, vomiting, diarrhea. Reports constipation and lower abdominal pain. Pulmonary: Denied any shortness of breath cough Neurologic denied any new focal deficits All inpatient medications were reviewed and appropriate changes in these me dications as dictated in the interval history and assessment and plan. PHYSICAL EXAMINATION: GENERAL: The patient is alert and oriented x3, not in any acute distress. Well developed, well nourished. HEENT: Pupils are round and equally reacting to light. EOMI. No scleral icterus. No conjunctival pallor. Normocephalic, atraumatic. No pharyngeal erythema. No thyromegaly. CARDIOVASCULAR: S1 and S2 present. No murmurs, rubs, or gallops. PULMONARY: Scattered expiratory wheezing. ABDOMEN: Soft, nontender, nondistended, normoactive bowel sounds. No palpable organomegaly. Left CVA tenderness MUSCULOSKELETAL: No joint swelling or deformity. EXTREMITIES: No cyanosis, clubbing, or pedal edema. NEUROLOGICAL: Gross neurological examination did not reveal any focal deficits. SKIN: No rashes. Assessment and Plan -Acute kidney injury due to ATN, and medication affect patient is on ACEI outpa tient which will be held at this time. Imaging does not reveal any obstructive uropathy. Nephrology is on board. Creatinine level increased to 5.9 today. Recommends renal replacement therapy. Dialysis catheter was placed today. -Hyperkalemia treated with lokelma and improved to 5.2 -Left flank pain with CT imaging revealing a 2mm nonobstructive renal calculi suspect patient is passing the stone. Urology board t urology for evaluation as symptoms are persisting. Pain management in place with IV dilaudid and norco. -Hx of AAA with stenting stable at 3.2 cm. -Constipation being treated with enema and laxatives. -Hx of renal artery stenting with no stenosis noted on imaging. -Persistent atrial fibrillation anticoagulated with warfarin INR stable at 2.1. -Hx of COPD with mild acute excerbation Mention of scattered opacities on CT will follow up with chest xray continue on symbicort and duoneb. -Hypertension resumed on home medications carvedilol and amlodipine -Hx of DVT -Hx of diastolic heart failure with no acute exacerbation GI prophylaxis DVT prophylaxis Objective - Vital Signs Vital signs: Vital Signs Temp 98.1 F 08/17/23 07:43 Pulse 88 08/17/23 08:55 Resp 16 08/17/23 07:43 BP 117/78 08/17/23 07:43 Pulse Ox 93 L 08/17/23 08:45 FiO2 Intake & Output 08/16/23 08/17/23 08/17/23 18:59 06:59 18:59 Intake Total 870 Output Total 1 0 Balance 869 0 Weight 50.4 kg Intake: Intake, IV Titration 600 Amount Sodium Chloride 0.9% 1, 600 000 ml @ 75 mls/hr IV . [id number] [facility] Rx#:[id number] Oral 270 Output: Urine 0 Post Void Residual 1 Other: Voiding Method Indwelling Catheter Indwelling Catheter Indwelling Catheter # Voids 0 # Bowel Movements 1 1 - Labs CBC & Chem 7: 08/15/23 05:29 08/17/23 04:02 Labs: Abnormal Lab Results - Last 24 Hours (Table) 08/17/23 08/17/23 Range/Units 04:02 04:02 PT 84.8 H (10.0-12.5) sec INR 8.6 H* (<1.2) Carbon Dioxide 20.8 L (21.6-31.8) mmol/L Anion Gap 16.20 H (4.00-12.00) mmol/L BUN 44.5 H (9.0-27.0) mg/dL Creatinine 5.9 H (0.6-1.5) mg/dL Est GFR (CKD-EPI) 7 L (>=60) BUN/Creatinine Ratio 7.54 L (12.00-20.00) Ratio Glucose 136 H (70-110) mg/dL Calcium 7.9 L (8.7-10.3) mg/dL Microbiology - Last 24 Hours (Table) 08/15/23 07:07 Blood Culture - Preliminary Blood
--- NOTE | 2023-08-18 01:20 | CONS ---
CONSULTATION This patient has a history of acute chronic renal failure. The patient has been admitted. The patient's BUN and creatinine are high. The patient is scheduled to have a dialysis catheter placement. MEDICAL HISTORY: History of chronic kidney disease, atrial fibrillation, COPD, history of hypertension. PAST HISTORY: The patient had aortic stent graft placed in the past. PHYSICAL EXAMINATION: NECK: Supple. Trachea central. CHEST: Clear. A few crackles at the lung bases. First and second sounds present. ABDOMEN: Soft, nontender. Femoral pulses are palpable bilaterally. PLAN: Placement of dialysis catheter. Risks and complications discussed. MMODL / IJN: [id number] /
[2023-08-18] MEDS: carvediloL 12.5 MG TAB PO SCH ×2 (05:57→17:42)
[2023-08-18] MEDS: ONDANSETRON 4 MG/2 ML VIAL IVP PRN (05:57)
[2023-08-18] MEDS: DEXTROSE 5% IN WATER 1,000 ML with SODIUM BICARB (1 MEQ/ML) 150 ML IV SCH (05:59)
[2023-08-18 07:12] LABS: INR 2.9 (<1.2); Prothrombin Time 28.2 sec (10.0-12.5)
[2023-08-18 07:28] LABS: Hepatitis B Surface AB- Quant 3.5 mIU/mL
[2023-08-18] MEDS: SYMBICORT 160-4.5 MCG INHALER INHALATION SCH ×2 (07:40→19:58)
[2023-08-18] MEDS: ASPIRIN 81 MG PO SCH (08:11)
[2023-08-18] MEDS: CHOLECALCIFEROL 25 MCG (1000 IU) TABLET PO SCH (08:11)
[2023-08-18] MEDS: ATORVASTATIN 80 MG TAB PO SCH (08:12)
[2023-08-18] MEDS: LACTULOSE 20 GM/30 ML CUP PO SCH ×4 (08:12→20:35)
[2023-08-18] MEDS: FAMOTIDINE 20 MG TAB PO SCH (08:12)
[2023-08-18] MEDS: amLODIPine 2.5 MG TAB PO SCH (08:12)
[2023-08-18] MEDS: TAMSULOSIN 0.4 MG CAP.ER.24H PO SCH (08:12)
[2023-08-18] MEDS: EZETIMIBE 10 MG TAB PO SCH (08:12)
[2023-08-18 09:07] LABS: BUN/Creat Ratio 5.68 Ratio (12.00-20.00); Blood Urea Nitrogen 31.8 mg/dL (9.0-27.0); Calcium 7.9 mg/dL (8.7-10.3); Carbon Dioxide 28.9 mmol/L (21.6-31.8); Chloride 95 mmol/L (96-109); Glucose 95 mg/dL (70-110); Phosphorus 5.2 mg/dL (2.4-5.1); Potassium 4.3 mmol/L (3.5-5.5); Sodium 138 mmol/L (135-145)
[2023-08-18 09:12] LABS: Basophils # (A) 0.04 X 10*3/uL (0.00-0.10); Basophils % (A) 0.4 %; Eosinophils # (A) 0.12 X 10*3/uL (0.04-0.35); Eosinophils % (A) 1.1 %; HCT 39.7 % (37.2-46.3); HGB 12.5 g/dL (12.0-15.0); Lymphocytes # (A) 0.66 X 10*3/uL (0.90-5.00); Lymphocytes % (A) 5.9 %; MCH 25.5 pg (27.0-32.0); MCHC 31.5 g/dL (32.0-37.0); Mean Platelet Volume 9.5 FL (9.5-12.2); Monocytes # (A) 1.11 X 10*3/uL (0.20-1.00); Monocytes % (A) 9.8 %; NRBC Per 100 WBC 0 X 10*3/uL (0.00-0.01); Neutrophils # (A) 9.28 X 10*3/uL (1.80-7.70); Neutrophils % (A) 82.3 %; Platelet Count 259 X 10*3/uL (140-440); RDW 15.5 % (11.5-14.5); WBC 11.27 X 10*3/uL (4.50-10.00)
--- NOTE | 2023-08-18 11:10 | P.PN ---
Subjective Patient is seen in follow-up for acute kidney injury on chronic kidney disease. Started on hemodialysis 08/17/2023 due to worsening renal function and oliguria. No problems with dialysis yesterday. Oliguric. Vital signs are stable. General: No acute distress. HEENT: Head exam is unremarkable. LUNGS: Scattered rhonchi. HEART: Rate and Rhythm are regular. ABDOMEN: Nontender. EXTREMITITES: No edema. Objective - Vital Signs Vital signs: Vital Signs Temp 98.3 F 08/18/23 07:44 Pulse 73 08/18/23 08:00 Resp 20 08/18/23 08:00 BP 117/76 08/18/23 07:44 Pulse Ox 96 08/18/23 07:44 FiO2 Intake & Output 08/17/23 08/18/23 08/18/23 18:59 06:59 18:59 Intake Total 900 400 118 Output Total 900 0 Balance 900 -500 118 Intake: Intake, IV Titration 900 Amount Dextrose 5% in Water 1, 900 000 ml @ 75 mls/hr IV . [id number] DEWEY with Sodium Bicarb (1 Meq/ml) 150 ml Rx#:[id number] Oral 118 Hemodialysis 400 Output: Urine 0 0 Uretheral ([place]ol[place]) 0 0 Hemodialysis 900 Other: Voiding Method Indwelling Catheter Indwelling Catheter Indwelling Catheter # Bowel Movements 1 - Labs CBC & Chem 7: 08/18/23 05:52 08/18/23 05:52 Labs: Abnormal Lab Results - Last 24 Hours (Table) 08/17/23 08/17/23 08/18/23 Range/Units 04:02 12:33 05:52 WBC (4.50-10.00) X 10*3/uL MCH (27.0-32.0) pg MCHC (32.0-37.0) g/dL RDW (11.5-14.5) % Immature Gran # (0.00-0.04) X 10*3/uL Neutrophils # (1.80-7.70) X 10*3/uL Lymphocytes # (0.90-5.00) X 10*3/uL Monocytes # (0.20-1.00) X 10*3/uL PT 28.2 H (10.0-12.5) sec INR 2.9 H (<1.2) Chloride (96-109) mmol/L Carbon Dioxide 20.8 L (21.6-31.8) mmol/L Anion Gap 16.20 H (4.00-12.00) mmol/L BUN 44.5 H (9.0-27.0) mg/dL Creatinine 5.9 H (0.6-1.5) mg/dL Est GFR (CKD-EPI) 7 L (>=60) BUN/Creatinine Ratio 7.54 L (12.00-20.00) Ratio Glucose 136 H (70-110) mg/dL Calcium 7.9 L (8.7-10.3) mg/dL Phosphorus (2.4-5.1) mg/dL Total Protein (PEP) 5.3 L (6.2-8.2) g/dL Albumin (PEP) 3.2 L (3.8-4.9) g/dL 08/18/23 08/18/23 Range/Units 05:52 05:52 WBC 11.27 H (4.50-10.00) X 10*3/uL MCH 25.5 L (27.0-32.0) pg MCHC 31.5 L (32.0-37.0) g/dL RDW 15.5 H (11.5-14.5) % Immature Gran # 0.06 H (0.00-0.04) X 10*3/uL Neutrophils # 9.28 H (1.80-7.70) X 10*3/uL Lymphocytes # 0.66 L (0.90-5.00) X 10*3/uL Monocytes # 1.11 H (0.20-1.00) X 10*3/uL PT (10.0-12.5) sec INR (<1.2) Chloride 95 L (96-109) mmol/L Carbon Dioxide (21.6-31.8) mmol/L Anion Gap 14.10 H (4.00-12.00) mmol/L BUN 31.8 H (9.0-27.0) mg/dL Creatinine 5.6 H (0.6-1.5) mg/dL Est GFR (CKD-EPI) 7 L (>=60) BUN/Creatinine Ratio 5.68 L (12.00-20.00) Ratio Glucose (70-110) mg/dL Calcium 7.9 L (8.7-10.3) mg/dL Phosphorus 5.2 H (2.4-5.1) mg/dL Total Protein (PEP) (6.2-8.2) g/dL Albumin (PEP) (3.8-4.9) g/dL Microbiology - Last 24 Hours (Table) 08/15/23 07:07 Blood Culture - Preliminary Blood Assessment and Plan Plan: Assessment: 1. Acute kidney injury secondary to ATN. BAM inhibitor held. Creatinine up to 5.9 dated 08/17/2023. Started on hemodialysis 08/17/2023 due to severe kidney injury and oliguria. Has temporary femoral dialysis catheter. No hydronephrosis noted on kidney ultrasound. UA with 1+ protein and no blood. 2. 2 mm nonobstructive left kidney stone. No intervention is planned by urology at this time. 3. History of aortobiiliac endovascular stent graft. 4. Chronic kidney disease stage IIIA with baseline creatinine 1.1-1.2 secondary to nephrosclerosis/ischemic nephropathy. Right kidney small in size. No evidence of renal artery stenosis. 5. Hypertension with chronic kidney disease. Controlled. 6. Hyperkalemia secondary to acute kidney injury and metabolic acidosis. Improved with medical management. 7. Coagulopathy. Improved. Plan: Second treatment of hemodialysis today. Stop bicarb drip. Start normal saline at 50 mL an hour. Status post 80 mg IV Lasix given 08/17/2023 with no response and urine output. Continue to hold benazepril. Avoid nephrotoxins. Preserved ejection fraction noted on echocardiogram. Severe biatrial dilatation noted. Follow-up serologies. Negative so far. Phosphorus level 5.3 dated 08/18/2023. Repeat chest x-ray.
[2023-08-18] MEDS: SODIUM CHLORIDE 0.9% 1,000 ML IV SCH (11:51)
--- NOTE | 2023-08-18 12:07 | XR ---
EXAMINATION TYPE: XR chest 1V DATE OF EXAM: 08/18/2023 11:45 AM CLINICAL INDICATION:Female, 78 years old with history of sob; [facility] COMPARISON: Chest radiographs from 08/07/2023 TECHNIQUE: XR chest 1V Frontal view of the chest. FINDINGS: Lungs/Pleura: There is flattening of the diaphragm with increased lucency of the lungs. No evidence o f pneumothorax, pleural effusion or focal consolidation. Pulmonary vascularity: Unremarkable. Heart/mediastinum: Cardiomediastinal silhouette is unremarkable. Atherosclerotic calcifications are seen in the aorta. Musculoskeletal: No acute osseous pathology. IMPRESSION: 1. Cardiomegaly and mild pulmonary vascular congestion. Correlate with BNP for congestive heart fail ure. 2. COPD changes.
--- NOTE | 2023-08-18 15:35 | P.CRDCN ---
History of Present Illness Consult date: 08/18/23 History of present illness: HISTORY OF PRESENTING ILLNESS Patient is a 78-year-old female with past medical history of chronic atrial fibrillation managed on warfarin therapy. She also has history of COPD, DVT, hypertension, hyperlipidemia. She is a former smoker. She also has history of CAD status post PCI. Peripheral arterial disease. B ilateral renal artery stenosis with stenting, aortic aneurysm status post endograft repair, Last cath in September 2022 showed 60% OM disease, 90% diagonal disease, 30% RCA disease, she got PCI done to her diagonal artery This time patient got admitted because of acute worsening kidney function. She also had subtherapeutic INR. Her kidney function worsened and she does not hypokalemia for which she is requiring hemodialysis at this time. This is a new hemodialysis center for her First hemodialysis was yesterday 08/17/2023 REVIEW OF SYSTEMS 14 point review of system is negative except what is mentioned above in HPI. PHYSICAL EXAMINATION Vital signs reviewed. Head: Normocephalic. Eyes: Sclerae nonicteric. Neck: Brisk carotid upstroke, no jugular venous distention. Lungs: Clear to auscultation. Heart: Regular rate and rhythm, S1-S2, no S3, no murmur or rub. Abdomen: Soft nontender, positive bowel sounds no organomegaly. Extremities: No edema, intact distal pulses. Neuro: Alert, oritented, no focal deficits ASSESSMENT AAMIR and oliguric ATN Hyperkalemia Subtherapeutic INR HFpEF, not on exacerbation at present H/o of aortic aneurysm and endograft repair H/o of bilateral renal artery stent PLAN Aspirin 81 mg, atorvastatin 80 mg, amlodipine 2.5 mg daily Hold other nephrotoxic medications. Patient may benefit from a abdominal CT with contrast to visualize the aortic aneurysm endograft and renal artery perfusion. This should be done once patient is stabilized on hemodialysis Past Medical History Past Medical History: Atrial Fibrillation, Heart Failure, COPD, Deep Vein Thrombosis (DVT), Hyperlipidemia, Hypertension, Osteoarthritis (OA), Pneumonia, Thyroid Disorder Additional Past Medical History / Comment(s): AORTIC ANEURYSM. History of Any Multi-Drug Resistant Organisms: None Reported Past Surgical History: Appendectomy, Tonsillectomy, Tubal Ligation Additional Past Surgical History / Comment(s): STENT- AORTIC ANEURSYM AND STENT- RENAL ARTERY. BILATERAL CAROTIDS. Past Anesthesia/Blood Transfusion Reactions: No Reported Reaction Smoking Status: Former smoker - Past Family History fmaily Family Medical History: Cancer Medications and Allergies Home Medications Medication Instructions Recorded Confirmed Type Atorvastatin [Lipitor] 80 mg PO DAILY 02/09/22 08/15/23 History Cholecalciferol [Vitamin D3 (25 50 mcg PO DAILY 02/09/22 08/15/23 History Mcg = 1000 Iu)] Montelukast Sodium [Singulair] 10 mg PO HS 02/09/22 08/15/23 History carvediloL 25 mg PO BID 02/09/22 08/15/23 History Benazepril HCl 20 mg PO DAILY 07/04/22 08/15/23 History Ipratropium-Albuterol Nebulize 3 ml INHALATION RT-QID PRN 07/04/22 08/15/23 History [Duoneb 0.5 mg-3 mg/3 ml Soln] hydrOXYzine HCL [Atarax] 25 mg PO HS 10/12/22 08/15/23 History Triamcinolone 0.1% Cream [Kenalog 1 applic TOPICAL BID PRN 06/07/23 08/15/23 History 0.1% Cream] amLODIPine [Norvasc] 2.5 mg PO DAILY 30 Days #30 tab 06/11/23 08/15/23 Rx Aspirin 81 mg PO DAILY 08/15/23 08/15/23 History Budesonide-Formot 160-4.5 Mcg 2 puff INHALATION RT-BID 08/15/23 08/15/23 History [Symbicort 160-4.5 Mcg Inhaler] Ezetimibe [Zetia] 10 mg PO DAILY 08/15/23 08/15/23 History Warfarin [Coumadin] 2.5 mg PO [id number] 08/15/23 08/15/23 History Warfarin [Coumadin] 5 mg PO TH 08/15/23 08/15/23 History Allergies Allergy/AdvReac Type Severity Reaction Status Date / Time No Known Allergies Allergy Verified 08/15/23 10:06 Physical Exam Vitals: Vital Signs Temp Pulse Resp BP Pulse Ox 08/18/23 14:00 98 F 77 18 120/77 97 08/18/23 08:00 73 20 08/18/23 07:44 98.3 F 73 20 117/76 96 08/18/23 07:42 93 L 08/18/23 02:09 98.2 F 90 16 129/75 94 L 08/17/23 19:20 97.7 F 90 18 154/72 08/17/23 19:11 98.1 F 100 15 135/67 95 08/17/23 18:50 90 L Intake and Output 08/18/23 08/18/23 08/18/23 06:59 14:59 22:59 Intake Total 236 Output Total 0 0 Balance 0 236 Intake: Oral 236 Output: Urine 0 0 Uretheral ([place]) 0 0 Other: Voiding Method Indwelling Catheter # Bowel Movements 1 Results 08/18/23 05:52 08/18/23 05:52 Coagulation 08/18/23 Range/Units 05:52 PT 28.2 H (10.0-12.5) sec CBC 08/18/23 Range/Units 05:52 WBC 11.27 H (4.50-10.00) X 10*3/uL RBC 4.90 (4.10-5.20) X 10*6/uL Hgb 12.5 (12.0-15.0) g/dL Hct 39.7 (37.2-46.3) % Plt Count 259 (140-440) X 10*3/uL Comprehensive Metabolic Panel 08/18/23 Range/Units 05:52 Sodium 138 (135-145) mmol/L Potassium 4.3 (3.5-5.5) mmol/L Chloride 95 L (96-109) mmol/L Carbon Dioxide 28.9 (21.6-31.8) mmol/L BUN 31.8 H (9.0-27.0) mg/dL Creatinine 5.6 H (0.6-1.5) mg/dL Glucose 95 (70-110) mg/dL Calcium 7.9 L (8.7-10.3) mg/dL Current Medications Generic Name Dose Route Start Last Admin Trade Name Freq PRN Reason Stop Dose Admin Acetaminophen 650 mg 08/15/23 10:33 Acetaminophen Tab 325 Mg Tab PO Q6HR PRN Fever and/ or Pain Hydrocodone Bitart/Acetaminophen 1 each 08/15/23 11:22 08/16/23 23:47 Hydrocodone/Apap 5-325mg 1 Each Tab PO 1 each Q6HR PRN Administration Pain Albuterol/Ipratropium 3 ml 08/15/23 10:31 08/17/23 08:45 Ipratropium-Albuterol 3 Ml Neb INHALATION 3 ml RT-QID PRN Administration Shortness Of Breath Amlodipine Besylate 2.5 mg 08/15/23 11:30 08/18/23 08:12 Amlodipine 2.5 Mg Tab PO 2.5 mg DAILY DEWEY Administration Aspirin 81 mg 08/16/23 09:00 08/18/23 08:11 Aspirin 81 Mg PO 81 mg DAILY DEWEY Administration Atorvastatin Calcium 80 mg 08/16/23 09:00 08/18/23 08:12 Atorvastatin 80 Mg Tab PO 80 mg DAILY DEWEY Administration Budesonide/Formoterol Fumarate 2 puff 08/15/23 20:00 08/18/23 07:40 Symbicort 160-4.5 Mcg Inhaler INHALATION 2 puff RT-BID DEWEY Administration Carvedilol 25 mg 08/15/23 17:30 08/18/23 05:57 Carvedilol 12.5 Mg Tab PO 25 mg BID-W/MEALS DEWEY Administration Cholecalciferol 50 mcg 08/16/23 09:00 08/18/23 08:11 Cholecalciferol 25 Mcg (1000 Iu) Tablet PO 50 mcg DAILY DEWEY Administration Ezetimibe 10 mg 08/16/23 09:00 08/18/23 08:12 Ezetimibe 10 Mg Tab PO 10 mg DAILY DEWEY Administration Famotidine 20 mg 08/16/23 09:00 08/18/23 08:12 Famotidine 20 Mg Tab PO 20 mg DAILY DEWEY Administration Sodium Chloride 1,000 mls @ 50 mls/hr 08/18/23 11:15 08/18/23 11:51 Saline 0.9% IV 50 mls/hr .Q20H DEWEY Administration Lactulose 20 gm 08/16/23 16:45 08/18/23 08:15 Lactulose 20 Gm/30 Ml Cup PO Not Given TID DEWEY Miscellaneous Information 1 each 08/15/23 10:32 Warfarin Per Pharmacy MISCELLANE DIRECTED PRN Per Protocol Protocol Montelukast Sodium 10 mg 08/15/23 21:00 08/17/23 20:06 Montelukast 10 Mg Tab PO 10 mg HS DEWEY Administration Naloxone HCl 0.2 mg 08/15/23 08:39 Naloxone 0.4 Mg/Ml 1 Ml Vial IV Q2M PRN Opioid Reversal Ondansetron HCl 4 mg 08/15/23 08:39 08/18/23 05:57 Ondansetron 4 Mg/2 Ml Vial IVP 4 mg Q8HR PRN Administration Nausea And Vomiting Tamsulosin HCl 0.4 mg 08/16/23 09:15 08/18/23 08:12 Tamsulosin 0.4 Mg Cap.Er.24h PO 0.4 mg [id number] DEWEY Administration Warfarin Sodium 2 mg 08/18/23 18:00 Warfarin 2 Mg Tab PO DAILY@1800 [facility] Intake and Output 08/18/23 08/18/23 08/18/23 06:59 14:59 22:59 Intake Total 236 Output Total 0 0 Balance 0 236 Intake: Oral 236 Output: Urine 0 0 Uretheral (Molina) 0 0 Other: Voiding Method Indwelling Catheter # Bowel Movements 1 08/18/23 05:52 08/18/23 05:52
[2023-08-18] MEDS ORDERED: WARFARIN 2 MG TAB PO SCH (18:00)
[2023-08-18] MEDS: MONTELUKAST 10 MG TAB PO SCH (20:34)
[2023-08-19] MEDS: carvediloL 12.5 MG TAB PO SCH ×2 (05:49→17:24)
[2023-08-19] MEDS: SODIUM CHLORIDE 0.9% 1,000 ML IV SCH (05:49)
[2023-08-19 06:13] LABS: INR 1.8 (<1.2); Prothrombin Time 18.2 sec (10.0-12.5)
[2023-08-19] MEDS: IPRATROPIUM-ALBUTEROL 3 ML NEB INHALATION PRN ×2 (08:03→20:19)
[2023-08-19] MEDS: SYMBICORT 160-4.5 MCG INHALER INHALATION SCH ×2 (08:03→20:19)
[2023-08-19] MEDS: ATORVASTATIN 80 MG TAB PO SCH (09:17)
[2023-08-19] MEDS: TAMSULOSIN 0.4 MG CAP.ER.24H PO SCH (09:17)
[2023-08-19] MEDS: CHOLECALCIFEROL 25 MCG (1000 IU) TABLET PO SCH (09:17)
[2023-08-19] MEDS: FAMOTIDINE 20 MG TAB PO SCH (09:17)
[2023-08-19] MEDS: EZETIMIBE 10 MG TAB PO SCH (09:17)
[2023-08-19] MEDS: ASPIRIN 81 MG PO SCH (09:17)
[2023-08-19] MEDS: amLODIPine 2.5 MG TAB PO SCH (09:18)
[2023-08-19] MEDS: LACTULOSE 20 GM/30 ML CUP PO SCH ×3 (09:18→20:07)
[2023-08-19 10:33] LABS: Basophils # (A) 0.06 X 10*3/uL (0.00-0.10); Basophils % (A) 0.8 %; Eosinophils % (A) 2.7 %; HCT 37.9 % (37.2-46.3); HGB 11.7 g/dL (12.0-15.0); Lymphocytes # (A) 0.76 X 10*3/uL (0.90-5.00); Lymphocytes % (A) 10.4 %; MCH 25.7 pg (27.0-32.0); MCHC 30.9 g/dL (32.0-37.0); MCV 83.1 FL (80.0-97.0); Mean Platelet Volume 9.3 FL (9.5-12.2); Monocytes # (A) 1.04 X 10*3/uL (0.20-1.00); Monocytes % (A) 14.2 %; NRBC Per 100 WBC 0 X 10*3/uL (0.00-0.01); Neutrophils # (A) 5.22 X 10*3/uL (1.80-7.70); Neutrophils % (A) 71.6 %; Platelet Count 236 X 10*3/uL (140-440); RBC 4.56 X 10*6/uL (4.10-5.20); RDW 15.4 % (11.5-14.5)
[2023-08-19 10:56] LABS: BUN/Creat Ratio 4.96 Ratio (12.00-20.00); Blood Urea Nitrogen 24.3 mg/dL (9.0-27.0); Calcium 7.5 mg/dL (8.7-10.3); Carbon Dioxide 27.7 mmol/L (21.6-31.8); Chloride 95 mmol/L (96-109); Glucose 88 mg/dL (70-110); Magnesium 1.7 mg/dL (1.5-2.4); Potassium 4.3 mmol/L (3.5-5.5); Sodium 133 mmol/L (135-145)
[2023-08-19] MEDS ORDERED: FUROSEMIDE 10 MG/ML 10 ML VIAL IV STA (11:38)
--- NOTE | 2023-08-19 11:39 | P.PN ---
Subjective Patient is seen in follow-up for acute kidney injury on chronic kidney disease. Started on hemodialysis 08/17/2023 due to worsening renal function and oliguria. No problems with dialysis yesterday. Oliguric. No changes overnight. Son present at bedside. Vital signs are stable. General: No acute distress. HEENT: Head exam is unremarkable. LUNGS: Scattered rhonchi. HEART: Rate and Rhythm are regular. ABDOMEN: Nontender. EXTREMITITES: No edema. Objective - Vital Signs Vital signs: Vital Signs Temp 97.6 F 08/19/23 08:00 Pulse 82 08/19/23 08:17 Resp 18 08/19/23 08:00 BP 137/86 08/19/23 08:00 Pulse Ox 98 08/19/23 08:00 FiO2 Intake & Output 08/18/23 08/19/23 08/19/23 18:59 06:59 18:59 Intake Total 636 Output Total 540 150 Balance 96 -150 Intake: Oral 236 Hemodialysis 400 Output: Urine 40 150 Uretheral (Molina) 20 Hemodialysis 500 Other: Voiding Method Indwelling Catheter Indwelling Catheter - Labs CBC & Chem 7: 08/19/23 05:28 08/19/23 05:28 Labs: Abnormal Lab Results - Last 24 Hours (Table) 08/19/23 08/19/23 08/19/23 Range/Units 05:28 05:28 05:28 Hgb 11.7 L (12.0-15.0) g/dL MCH 25.7 L (27.0-32.0) pg MCHC 30.9 L (32.0-37.0) g/dL RDW 15.4 H (11.5-14.5) % MPV 9.3 L (9.5-12.2) FL Lymphocytes # 0.76 L (0.90-5.00) X 10*3/uL Monocytes # 1.04 H (0.20-1.00) X 10*3/uL PT 18.2 H (10.0-12.5) sec INR 1.8 H (<1.2) Sodium 133 L (135-145) mmol/L Chloride 95 L (96-109) mmol/L Creatinine 4.9 H (0.6-1.5) mg/dL Est GFR (CKD-EPI) 9 L (>=60) BUN/Creatinine Ratio 4.96 L (12.00-20.00) Ratio Calcium 7.5 L (8.7-10.3) mg/dL Microbiology - Last 24 Hours (Table) 08/15/23 07:07 Blood Culture - Preliminary Blood Assessment and Plan Plan: Assessment: 1. Acute kidney injury secondary to ATN. BAM inhibitor held. Creatinine up to 5.9 dated 08/17/2023. Started on hemodialysis 08/17/2023 due to severe kidney injury and oliguria. Has temporary femoral dialysis catheter. No hydronephrosis noted on kidney ultrasound. UA with 1+ protein and no blood. 2. 2 mm nonobstructive left kidney stone. No intervention is planned by urology at this time. 3. History of aortobiiliac endovascular stent graft. 4. Chronic kidney disease stage IIIA with baseline creatinine 1.1-1.2 secondary to nephrosclerosis/ischemic nephropathy. Right kidney small in size. No evidence of renal artery stenosis noted on renal artery duplex. Left kidney normal in size. 5. Hypertension with chronic kidney disease. Controlled. 6. Hyperkalemia secondary to acute kidney injury and metabolic acidosis. Improved with medical management. 7. Coagulopathy. Improved. Plan: Third treatment of hemodialysis tomorrow. Maintain normal saline at 50 mL an hour. Status post 80 mg IV Lasix given 08/17/2023 with no response and urine output. Repeat IV Lasix today. Continue to hold benazepril. Avoid nephrotoxins. Preserved ejection fraction noted on echocardiogram. Severe biatrial dilatation noted. Follow-up serologies. Negative so far. Phosphorus level 5.3 dated 08/18/2023. Again had long discussion with patient and her son present at bedside. Patient hesitant to renal replacement therapy. Discussed with patient that because she is oliguric, prognosis will be very guarded if she chooses not to proceed with renal placement therapy at this time. Patient is willing to do renal replacement therapy for now but will let me know if changes her mind. Will notify vascular surgery to insert permacath tomorrow. manager of project management to set up outpatient hemodialysis. Kidney biopsy for definitive diagnosis was discussed with patient. She is not interested in pursuing this.
--- NOTE | 2023-08-19 15:24 | P.PN ---
Subjective Progress Note Date: 08/19/23 Progress note Patient is doing well from cardiac vessel standpoint. She is hemodynamically stable. Her creatinine is still elevated. HISTORY OF PRESENTING ILLNESS Patient is a 78-year-old female with past medical history of chronic atrial fibrillation managed on warfarin therapy. She also has history of COPD, DVT, hypertension, hyperlipidemia. She is a former smoker. She also has history of CAD status post PCI. Peripheral arterial disease. Bilateral renal artery stenosis with stenting, aortic aneurysm status post endograft repair, Last cath in September 2022 showed 60% OM disease, 90% diagonal disease, 30% RCA disease, she got PCI done to her diagonal artery This time patient got admitted because of acute worsening kidney function. She also had subtherapeutic INR. Her kidney function worsened and she does not hypokalemia for which she is requiring hemodialysis at this time. This is a new hemodialysis center for her First hemodialysis was yesterday 08/17/2023 REVIEW OF SYSTEMS 14 point review of system is negative except what is mentioned above in HPI. PHYSICAL EXAMINATION BP 137/86, heart rate 82 beats a minute, atrial fibrillation as per telemetry Head: Normocephalic. Eyes: Sclerae nonicteric. Neck: Brisk carotid upstroke, no jugular venous distention. Lungs: Clear to auscultation. Subclavian dialysis catheter in place Heart: Irregularly irregular, S1-S2, no S3, no murmur or rub. ASSESSMENT AAMIR and oliguric ATN, requiring hemodialysis Chronic atrial fibrillation Hyperkalemia Subtherapeutic INR HFpEF, not on exacerbation at present H/o of aortic aneurysm and endograft repair H/o of bilateral renal artery stent Echo showed preserved LV systolic function, severe biatrial dilatation PLAN Aspirin 81 mg, atorvastatin 80 mg, amlodipine 2.5 mg daily Continue warfarin with an INR goal of 2-3 Hold other nephrotoxic medications. Patient may benefit from a abdominal CT with contrast to visualize the aortic aneurysm endograft and renal artery perfusion. This should be done once patient is stabilized on hemodialysis Objective - Vital Signs Vital signs: Vital Signs Temp 97.6 F 08/19/23 08:00 Pulse 82 08/19/23 08:17 Resp 18 08/19/23 08:00 BP 137/86 08/19/23 08:00 Pulse Ox 98 08/19/23 08:00 FiO2 Intake & Output 08/18/23 08/19/23 08/19/23 18:59 06:59 18:59 Intake Total 636 Output Total 540 150 Balance 96 -150 Intake: Oral 236 Hemodialysis 400 Output: Urine 40 150 Uretheral ([place]olina) 20 Hemodialysis 500 Other: Voiding Method Indwelling Catheter Indwelling Catheter Indwelling Catheter - Labs CBC & Chem 7: 08/19/23 05:28 08/19/23 05:28 Labs: Abnormal Lab Results - Last 24 Hours (Table) 08/19/23 08/19/23 08/19/23 Range/Units 05:28 05:28 05:28 Hgb 11.7 L (12.0-15.0) g/dL MCH 25.7 L (27.0-32.0) pg MCHC 30.9 L (32.0-37.0) g/dL RDW 15.4 H (11.5-14.5) % MPV 9.3 L (9.5-12.2) FL Lymphocytes # 0.76 L (0.90-5.00) X 10*3/uL Monocytes # 1.04 H (0.20-1.00) X 10*3/uL PT 18.2 H (10.0-12.5) sec INR 1.8 H (<1.2) Sodium 133 L (135-145) mmol/L Chloride 95 L (96-109) mmol/L Creatinine 4.9 H (0.6-1.5) mg/dL Est GFR (CKD-EPI) 9 L (>=60) BUN/Creatinine Ratio 4.96 L (12.00-20.00) Ratio Calcium 7.5 L (8.7-10.3) mg/dL Microbiology - Last 24 Hours (Table) 08/15/23 07:07 Blood Culture - Preliminary Blood
[2023-08-19] MEDS ORDERED: WARFARIN 2.5 MG TAB PO ONE (18:00)
[2023-08-19] MEDS: MONTELUKAST 10 MG TAB PO SCH (20:07)
[2023-08-20] MEDS: SODIUM CHLORIDE 0.9% 1,000 ML IV SCH (03:34)
[2023-08-20] MEDS: carvediloL 12.5 MG TAB PO SCH ×3 (06:04→17:45)
[2023-08-20 06:51] LABS: INR 1.7 (<1.2); Prothrombin Time 17.7 sec (10.0-12.5)
[2023-08-20] MEDS: IPRATROPIUM-ALBUTEROL 3 ML NEB INHALATION PRN ×4 (08:24→20:04)
[2023-08-20] MEDS: SYMBICORT 160-4.5 MCG INHALER INHALATION SCH ×2 (08:24→20:04)
[2023-08-20 09:02] LABS: BUN/Creat Ratio 5.87 Ratio (12.00-20.00); Blood Urea Nitrogen 35.8 mg/dL (9.0-27.0); Calcium 7.6 mg/dL (8.7-10.3); Carbon Dioxide 25.6 mmol/L (21.6-31.8); Chloride 95 mmol/L (96-109); Glucose 85 mg/dL (70-110); Magnesium 1.9 mg/dL (1.5-2.4); Potassium 4.5 mmol/L (3.5-5.5); Sodium 133 mmol/L (135-145)
[2023-08-20] MEDS: FAMOTIDINE 20 MG TAB PO SCH (09:07)
[2023-08-20] MEDS: EZETIMIBE 10 MG TAB PO SCH (09:07)
[2023-08-20] MEDS: LACTULOSE 20 GM/30 ML CUP PO SCH ×3 (09:07→21:00)
[2023-08-20] MEDS: VERAPAMIL 40 MG TAB PO SCH ×2 (09:07→21:01)
[2023-08-20] MEDS: ATORVASTATIN 80 MG TAB PO SCH (09:07)
[2023-08-20] MEDS: CHOLECALCIFEROL 25 MCG (1000 IU) TABLET PO SCH (09:07)
[2023-08-20] MEDS: TAMSULOSIN 0.4 MG CAP.ER.24H PO SCH (09:07)
--- NOTE | 2023-08-20 09:37 | P.PN ---
Subjective HISTORY OF PRESENT ILLNESS: Patient examined this morning at the bedside. Patient currently denies chest pain or pressure. She denies shortness of breath. Patient is currently not on telemetry monitoring at the time of examination although she appears tachycardic upon evaluation. She remains on Coumadin. INR today 1.7. PHYSICAL EXAM: VITAL SIGNS: Reviewed. GENERAL: Well-developed in no acute distress. NECK: Supple. No JVD or thyromegaly LUNGS: Respirations even and unlabored. Lungs with expiratory wheezing noted HEART: Irregular rate and rhythm. S1 and S2 heard. EXTREMITIES: Normal range of motion. No clubbing or cyanosis. Peripheral pulses intact. No lower extremity edema ASSESSMENT: Acute kidney injury, requiring hemodialysis Chronic atrial fibrillation COPD Coronary artery disease with previous stenting of diagonal, September 2022 History of heart failure with preserved ejection fraction, currently euvolemic Hypertension Hyperlipidemia History of aortic aneurysm and endograft repair History of bilateral renal artery stenting Former nicotine dependence PLAN: Initiate telemetry monitoring Discontinue amlodipine Begin verapamil 40 mg twice a day Decrease carvedilol to 12.5 mg twice a day Hemodialysis per nephrology Continue Coumadin. Monitor INR. Further recommendations pending patient's course Nurse practitioner note has been reviewed by physician. Signing provider agrees with the documented findings, assessment, and plan of care. Objective - Vital Signs Vital signs: Vital Signs Temp 97.9 F 08/20/23 07:45 Pulse 80 08/20/23 08:24 Resp 18 08/20/23 07:45 BP 154/84 08/20/23 07:45 Pulse Ox 94 L 08/20/23 07:45 FiO2 Intake & Output 08/19/23 08/20/23 08/20/23 18:59 06:59 18:59 Intake Total 240 180 Output Total 100 100 Balance 140 -100 180 Intake: Oral 240 180 Output: Urine 100 100 Other: Voiding Method Indwelling Catheter Indwelling Catheter - Labs CBC & Chem 7: 08/19/23 05:28 08/20/23 05:45 Labs: Abnormal Lab Results - Last 24 Hours (Table) 08/19/23 08/19/23 08/20/23 Range/Units 05:28 05:28 05:45 Hgb 11.7 L (12.0-15.0) g/dL MCH 25.7 L (27.0-32.0) pg MCHC 30.9 L (32.0-37.0) g/dL RDW 15.4 H (11.5-14.5) % MPV 9.3 L (9.5-12.2) FL Lymphocytes # 0.76 L (0.90-5.00) X 10*3/uL Monocytes # 1.04 H (0.20-1.00) X 10*3/uL PT 17.7 H (10.0-12.5) sec INR 1.7 H (<1.2) Sodium 133 L (135-145) mmol/L Chloride 95 L (96-109) mmol/L Anion Gap (4.00-12.00) mmol/L BUN (9.0-27.0) mg/dL Creatinine 4.9 H (0.6-1.5) mg/dL Est GFR (CKD-EPI) 9 L (>=60) BUN/Creatinine Ratio 4.96 L (12.00-20.00) Ratio Calcium 7.5 L (8.7-10.3) mg/dL 08/20/23 Range/Units 05:45 Hgb (12.0-15.0) g/dL MCH (27.0-32.0) pg MCHC (32.0-37.0) g/dL RDW (11.5-14.5) % MPV (9.5-12.2) FL Lymphocytes # (0.90-5.00) X 10*3/uL Monocytes # (0.20-1.00) X 10*3/uL PT (10.0-12.5) sec INR (<1.2) Sodium 133 L (135-145) mmol/L Chloride 95 L (96-109) mmol/L Anion Gap 12.40 H (4.00-12.00) mmol/L BUN 35.8 H (9.0-27.0) mg/dL Creatinine 6.1 H (0.6-1.5) mg/dL Est GFR (CKD-EPI) 7 L (>=60) BUN/Creatinine Ratio 5.87 L (12.00-20.00) Ratio Calcium 7.6 L (8.7-10.3) mg/dL
--- NOTE | 2023-08-20 11:19 | P.PN ---
Subjective Patient is seen in follow-up for acute kidney injury on chronic kidney disease. Started on hemodialysis 08/17/2023 due to worsening renal function and oliguria. Remains oliguric. No changes overnight. Vital signs are stable. General: No acute distress. HEENT: Head exam is unremarkable. LUNGS: Scattered rhonchi. HEART: Rate and Rhythm are regular. ABDOMEN: Nontender. EXTREMITITES: No edema. Objective - Vital Signs Vital signs: Vital Signs Temp 97.9 F 08/20/23 07:45 Pulse 80 08/20/23 08:24 Resp 18 08/20/23 07:45 BP 154/84 08/20/23 07:45 Pulse Ox 94 L 08/20/23 07:45 FiO2 Intake & Output 08/19/23 08/20/23 08/20/23 18:59 06:59 18:59 Intake Total 240 180 Output Total 100 100 Balance 140 -100 180 Intake: Oral 240 180 Output: Urine 100 100 Other: Voiding Method Indwelling Catheter Indwelling Catheter - Labs CBC & Chem 7: 08/19/23 05:28 08/20/23 05:45 Labs: Abnormal Lab Results - Last 24 Hours (Table) 08/20/23 08/20/23 Range/Units 05:45 05:45 PT 17.7 H (10.0-12.5) sec INR 1.7 H (<1.2) Sodium 133 L (135-145) mmol/L Chloride 95 L (96-109) mmol/L Anion Gap 12.40 H (4.00-12.00) mmol/L BUN 35.8 H (9.0-27.0) mg/dL Creatinine 6.1 H (0.6-1.5) mg/dL Est GFR (CKD-EPI) 7 L (>=60) BUN/Creatinine Ratio 5.87 L (12.00-20.00) Ratio Calcium 7.6 L (8.7-10.3) mg/dL Assessment and Plan Plan: Assessment: 1. Acute kidney injury secondary to ATN. BAM inhibitor held. Creatinine up to 5.9 dated 08/17/2023. Started on hemodialysis 08/17/2023 due to severe kidney injury and oliguria. Has temporary femoral dialysis catheter. No hydronephrosis noted on kidney ultrasound. UA with 1+ protein and no blood. 2. 2 mm nonobstructive left kidney stone. No intervention is planned by urology at this time. 3. History of aortobiiliac endovascular stent graft. 4. Chronic kidney disease stage IIIA with baseline creatinine 1.1-1.2 secondary to nephrosclerosis/ischemic nephropathy. Right kidney small in size. No evidence of renal artery stenosis noted on renal artery duplex. Left kidney normal in size. 5. Hypertension with chronic kidney disease. Stable. 6. Hyperkalemia secondary to acute kidney injury and metabolic acidosis. Improved with dialysis and medical management. 7. Coagulopathy. Improved. Plan: Third treatment of hemodialysis today. Hep-Lock IV fluids. Status post 80 mg IV Lasix given 08/17/2023 and 08/19/2023 with no response and urine output. Continue to hold benazepril. Avoid nephrotoxins. Preserved ejection fraction noted on echocardiogram. Severe biatrial dilatation noted. Follow-up serologies. Negative so far. Phosphorus level 5.3 dated 08/18/2023. Permacath to be placed today. Discussed with vascular surgery. contract administration manager to set up outpatient hemodialysis. Kidney biopsy for definitive diagnosis was discussed with patient. She is not interested in pursuing this.
[2023-08-20 14:42] LABS: C-ANCA <1:20 Titer (<1:20)
[2023-08-20] MEDS: ASPIRIN 81 MG PO SCH (16:18)
[2023-08-20] MEDS: ONDANSETRON 4 MG/2 ML VIAL IVP PRN (17:45)
[2023-08-20] MEDS: HYDROcodone/APAP 5-325MG 1 EACH TAB PO PRN (17:45)
[2023-08-20] MEDS ORDERED: WARFARIN 2.5 MG TAB PO ONE (18:00)
[2023-08-20 19:12] LABS: Anti-DNA, DS unit <1.0 IU/mL; DNA Double-Stranded Negative (Negative)
[2023-08-20] MEDS: MONTELUKAST 10 MG TAB PO SCH (21:01)
--- NOTE | 2023-08-21 05:49 | P.PN ---
Subjective Progress Note Date: 08/20/23 This is a 78 year old female with medical history of atrial fibrillation, COPD, DVT, hypertension, hyperlipidemia, thyroid disorder, aortic aneurysm, former smoker. Patient is anticoagulated with warfarin, INR 2.1. Patient comes into the ER by ambulance complaining of severe left flank pain radiating into the left lower quadrant. Patient states that she had pain earlier in the day Saturday briefly which went away quickly, she went to sleep last night and was woken up around 3 AM today with stabbing pain in the left flank had some nausea but has not vomited. Came in by ambulance. Denies any history of kidney stones. No fever or chills. No change in bowel habits no diarrhea, no black tarry, blo pankaj or dark stools. No dysuria, no urgency frequency or burning sensation. Earlier this month was in to see her PCP for routine check up and was sent to nephrology office due to kidney function states she was given the all clear. Creatinine at that time was 1.1. Initial blood work in the ER this admission shows BUN of 37 and creatinine of 2.83. White blood cell count is normal at 9.9. Normal hemoglobin. Urinalysis reveals cloudy urine, 1+ protein, small leukocyte esterase, rare bacteria and rare mucus. Patient had an abdominal/Pelvis CT done showing punctate 2 millimeter nonobstructing left renal calculus with no hydronephrosis seen on either side. There is bilateral renal cysts measuring up to 2.7 cm a 1.2 cm indeterminate lesion in the left kidney suspected to represent hemorrhagic or proteinaceous cysts similar compared to April 082022. There is a previous aortobiiliac endovascular stent graft with a [place] sac similar to 5.1 cm. The heterogenous sensitivity including calcification within the [place] sac also remains unchanged. A stable aneurysm of the abdominal aorta 3.2 cm. There is a patchy obesity at the right base rule out infectious versus summation pneumonia background COPD. There is sigmoid diverticulosis without acute diverticulitis. Renal duplex shows no renal artery stenosis. Patient is admitted in observation for pain management and hydration, nephrology and urology have been consulted. 08/16/2023 Patient evaluated today sitting up in bed. Left sided flank pain has improved. Patient was unable to urinate over night required placement of IDC with minimal urine output. Total in the main bag is about 50 mls. Urology and nephrology following. Patients lower abdomen is distended she reports not having a bowel movement in 4 to 5 days and will add on bowel regimen. Labs today showing INR 3.6. Sodium 138, potassium 6.1 and 5.2., BUN 40.2, creatinine 4.7 GFR of 9. 08/17/2023 Patient is currently lying in the bed. Awake and alert. Currently on room air. Patient does have minimal urine output. Main catheter is in place. Abdominal x-ray showed normal bowel gas pattern without radiographic evidence for acute process. Patient is being continued bowel regimen due to constipation. Laboratory showed sodium 137 potassium 4.9 chloride 100 bicarb is 20.8 BUN 44.5 and creatinine increased to 5.9. proBNP 38 200. Nephrology is recommending renal replacement therapy patient is agreeable today. Vascular surgery was consulted for dialysis catheter placement. 08/20/2023 Patient is seen this morning and scheduled to receive a permacath placement today for continued hemodialysis in the outpatient setting. Dr. Mcqueen vascular following and arranging for this. Patient is oliguric and can prob have the main catheter removed. Patient is tolerating diet and denies further nausea or vomiting noted. patient is inquiring when she can go home. Patient is agreeable for now to continue with dialysis and case management following and arranging for outpatient at [facility]. Review of systems: Constitutional: No reports of fatigue, fever, or chills Cardiovascular: No reports of chest pain or palpitations Respiratory: No reports of shortness of breath or cough GI: No reports of nausea, vomiting, or diarrhea : No reports of dysuria or retention Neurovascular: No reports of weakness or numbness All medications have been reviewed All inpatient medications were reviewed and appropriate changes in these medications as dictated in the interval history and assessment and plan. PHYSICAL EXAMINATION: GENERAL: The patient is alert and oriented x3, thin built, elderly appearing, Well developed HEENT: Pupils are round and equally reacting to light. EOMI. No scleral icterus. No conjunctival pallor. Normocephalic, atraumatic. No pharyngeal erythema. No thyromegaly. CARDIOVASCULAR: S1 and S2 present. No murmurs, rubs, or gallops. PULMONARY: Scattered rhonchi noted otherwise clear to auscultation. ABDOMEN: Soft, nontender, nondistended, normoactive bowel sounds. No palpable organomegaly. Left CVA tenderness improving MUSCULOSKELETAL: No joint swelling or deformity. EXTREMITIES: No cyanosis, clubbing, or pedal edema. NEUROLOGICAL: Gross neurological examination did not reveal any focal deficits. SKIN: No rashes. Assessment and Plan -Acute kidney injury due to ATN, and medication affect patient is on ACEI outpa tient which will be held at this time. Imaging does not reveal any obstructive uropathy. Nephrology is on board. Recommends renal replacement therapy and to receive day 3 today. Permacath Dialysis catheter to be placed by vascular surgery today. -Hyperkalemia, improved -Left flank pain with CT imaging revealing a 2mm nonobstructive renal calculi suspect patient is passing the stone. -Hx of AAA with stenting stable at 3.2 cm. -Constipation being treated with enema and laxatives. -Hx of renal artery stenting with no stenosis noted on imaging. -Persistent atrial fibrillation anticoagulated with warfarin INR stable at 2.1. -Hx of COPD with mild acute excerbation, continue on symbicort and duoneb. -Hypertension, resumed on home medications carvedilol and amlodipine -Hx of DVT -Hx of diastolic heart failure with no acute exacerbation GI prophylaxis DVT prophylaxis Plan: Vascular surgery following and plans to place permacath today for outpatient dialysis. Case management awaiting a chair time Possible discharge planning in 24 hours Remove indwelling main catheter follow up labs ordered for am The impression and plan of care has been dictated by Amarilis Villegas, Nurse Practitioner as directed. Dr. Reji MD I have performed a history and examination and MDM of this patient, discussed the same with the dictator, and agree with the dictator's assessment and plan as written ,documented as a scribe. Based on total visit time, I have performed more than 50% of the visit. Objective - Vital Signs Vital signs: Vital Signs Temp 97.9 F 08/20/23 07:45 Pulse 80 08/20/23 08:24 Resp 18 08/20/23 07:45 BP 154/84 08/20/23 07:45 Pulse Ox 94 L 08/20/23 07:45 FiO2 Intake & Output 08/19/23 08/20/23 08/20/23 18:59 06:59 18:59 Intake Total 240 180 Output Total 100 100 Balance 140 -100 180 Intake: Oral 240 180 Output: Urine 100 100 Other: Voiding Method Indwelling Catheter Indwelling Catheter - Labs CBC & Chem 7: 08/19/23 05:28 08/20/23 05:45 Labs: Abnormal Lab Results - Last 24 Hours (Table) 08/19/23 08/20/23 08/20/23 Range/Units 05:28 05:45 05:45 PT 17.7 H (10.0-12.5) sec INR 1.7 H (<1.2) Sodium 133 L 133 L (135-145) mmol/L Chloride 95 L 95 L (96-109) mmol/L Anion Gap 12.40 H (4.00-12.00) mmol/L BUN 35.8 H (9.0-27.0) mg/dL Creatinine 4.9 H 6.1 H (0.6-1.5) mg/dL Est GFR (CKD-EPI) 9 L 7 L (>=60) BUN/Creatinine Ratio 4.96 L 5.87 L (12.00-20.00) Ratio Calcium 7.5 L 7.6 L (8.7-10.3) mg/dL
[2023-08-21] MEDS: carvediloL 12.5 MG TAB PO SCH ×2 (05:55→16:44)
[2023-08-21] MEDS ORDERED: MIDAZOLAM 2 MG/2 ML VIAL IVP ONE (07:24)
[2023-08-21 07:25] LABS: INR 1.7 (<1.2); Prothrombin Time 17.1 sec (10.0-12.5)
[2023-08-21] MEDS ORDERED: LIDOCAINE 1% INJ 10MG/ML (20 ML MDV) SQ ONE (07:27)
[2023-08-21] MEDS ORDERED: HEPARIN SODIUM 1,000 UN/ML (10ML VL) IV ONE (07:40)
[2023-08-21] MEDS: SYMBICORT 160-4.5 MCG INHALER INHALATION SCH (08:03)
[2023-08-21] MEDS: IPRATROPIUM-ALBUTEROL 3 ML NEB INHALATION PRN ×3 (08:03→15:49)
--- NOTE | 2023-08-21 08:17 | OP ---
OPERATIVE REPORT DATE OF SERVICE : PREOPERATIVE DIAGNOSIS: Acute chronic renal failure. POSTOPERATIVE DIAGNOSIS: Acute chronic renal failure. PROCEDURES PERFORMED: 1. Ultrasound-guided 19 cm dialysis catheter, right jugular approach. 2. Removal of the right femoral temporary dialysis catheter. DESCRIPTION OF PROCEDURE: The patient was brought to the factory laborer. Right side of the neck and chest was prepped and draped in a sterile manner. 1% lidocaine was infiltrated with IV sedation. Ultrasound-guided micropuncture was introduced into the right jugular vein. Micropuncture guidewire was passed and 4-Portuguese sheath advanced on top of the guidewire. Then, we passed a regular guidewire, which was parked in the inferior vena cava. A tunnel was created. Through the tunnel, we brought 23 cm dialysis catheter. Dilator was advanced on top of the guidewire. Then, we placed a sheath on the top of the guidewire. Through the sheath, we introduced the dialysis catheter. Tip of the catheter in superior vena and atrial junction. Flushed with heparin saline and hep- locked, secured with 3-0 nylon. Dressing applied. The patient tolerated the procedure well. Then right femoral catheter removed from the right groin. Pressures were held. The patient tolerated the procedure well and transferred to the room in satisfactory condition. MMODL / IJN: [id number] /
--- NOTE | 2023-08-21 08:49 | P.PN ---
Subjective HISTORY OF PRESENT ILLNESS: Patient examined this morning at the bedside. Patient currently denies chest pain or pressure. She denies shortness of breath. Patient is currently not on telemetry monitoring at the time of examination although she appears tachycardic upon evaluation. She remains on Coumadin. INR today 1.7. 08-21-2023 Patient currently off the floor for dialysis catheter placement. Patient has had no complaints of chest pain or shortness of breath. Per nursing, patient did have a short episode of bradycardia with a heart rate in the 40s yesterday while she was sleeping. Patient was asymptomatic. Heart rates this morning are documented in the 70s. Blood pressure slightly high this morning at 166/88. She did undergo hemodialysis yesterday. PHYSICAL EXAM: VITAL SIGNS: Reviewed. GENERAL: Well-developed in no acute distress. NECK: Supple. No JVD or thyromegaly LUNGS: Respirations even and unlabored. Lungs with expiratory wheezing noted HEART: Irregular rate and rhythm. S1 and S2 heard. EXTREMITIES: Normal range of motion. No clubbing or cyanosis. Peripheral pulses intact. No lower extremity edema ASSESSMENT: Acute kidney injury, requiring hemodialysis Chronic atrial fibrillation COPD Coronary artery disease with previous stenting of diagonal, September 2022 History of heart failure with preserved ejection fraction, currently euvolemic Hypertension Hyperlipidemia History of aortic aneurysm and endograft repair History of bilateral renal artery stenting Former nicotine dependence PLAN: Continue telemetry monitoring Hemodialysis per nephrology Continue Coumadin. Monitor INR. Further recommendations pending patient's course Nurse practitioner note has been reviewed by physician. Signing provider agrees with the documented findings, assessment, and plan of care. Objective - Vital Signs Vital signs: Vital Signs Temp 97.4 F L 08/21/23 08:00 Pulse 72 08/21/23 08:24 Resp 16 08/21/23 08:00 BP 166/88 08/21/23 08:15 Pulse Ox 94 L 08/21/23 08:15 FiO2 Intake & Output 08/20/23 08/21/23 08/21/23 18:59 06:59 18:59 Intake Total 580 Output Total 1500 0 Balance -920 0 Intake: Oral 180 Hemodialysis 400 Output: Urine 0 Hemodialysis 1500 Other: Voiding Method Indwelling Catheter - Labs CBC & Chem 7: 08/19/23 05:28 08/20/23 05:45 Labs: Abnormal Lab Results - Last 24 Hours (Table) 08/17/23 08/20/23 08/21/23 Range/Units 12:33 05:45 05:45 PT 17.1 H (10.0-12.5) sec INR 1.7 H (<1.2) Sodium 133 L (135-145) mmol/L Chloride 95 L (96-109) mmol/L Anion Gap 12.40 H (4.00-12.00) mmol/L BUN 35.8 H (9.0-27.0) mg/dL Creatinine 6.1 H (0.6-1.5) mg/dL Est GFR (CKD-EPI) 7 L (>=60) BUN/Creatinine Ratio 5.87 L (12.00-20.00) Ratio Calcium 7.6 L (8.7-10.3) mg/dL [id number] 0.42 H (0.10-0.40) g/dL Microbiology - Last 24 Hours (Table) 08/15/23 07:07 Blood Culture - Final Blood
[2023-08-21 08:55] VITALS: TEMP 97.4
[2023-08-21] MEDS ORDERED: hydrALAZINE HCL 25 MG TAB PO SCH (09:00)
[2023-08-21] MEDS: ASPIRIN 81 MG PO SCH (09:17)
[2023-08-21] MEDS: TAMSULOSIN 0.4 MG CAP.ER.24H PO SCH (09:18)
[2023-08-21] MEDS: EZETIMIBE 10 MG TAB PO SCH (09:18)
[2023-08-21] MEDS: CHOLECALCIFEROL 25 MCG (1000 IU) TABLET PO SCH (09:18)
[2023-08-21] MEDS: ATORVASTATIN 80 MG TAB PO SCH (09:18)
[2023-08-21] MEDS: VERAPAMIL 40 MG TAB PO SCH (09:18)
[2023-08-21] MEDS: FAMOTIDINE 20 MG TAB PO SCH (09:18)
[2023-08-21] MEDS: LACTULOSE 20 GM/30 ML CUP PO SCH ×2 (09:19→16:32)
--- NOTE | 2023-08-21 09:35 | XR ---
EXAMINATION TYPE: XR chest 1V confirm line plcmt DATE OF EXAM: 08/21/2023 9:29 AM CLINICAL INDICATION:Female, 78 years old with history of [facility] HEMOD[facility]ACEMENT; [facility] COMPARISON: Chest radiographs from 08/18/2023 TECHNIQUE: XR chest 1V confirm line plcmt Frontal view of the chest. FINDINGS: Lungs/Pleura: There is no evidence of pleural effusion, focal consolidation, or pneumothorax. Pulmonary vascularity: Pulmonary vascular congestion. Heart/mediastinum: Cardiomediastinal silhouette is enlarged and stable. Musculoskeletal: No acute osseous pathology. Other findings: None Lines/Tubes: Right internal jugular central venous catheter with distal tip at the superior vena cava. IMPRESSION: 1. Stable right chest tube with tip at the superior vena cava. 2. Mild pulmonary vascular congestion.
[2023-08-21] MEDS: HYDROcodone/APAP 5-325MG 1 EACH TAB PO PRN (10:28)
--- NOTE | 2023-08-21 10:41 | P.PN ---
Subjective Patient is seen in follow-up for acute kidney injury on chronic kidney disease. Started on hemodialysis 08/17/2023 due to worsening renal function and oliguria. Remains oliguric. Permacath placed this morning. Vital signs are stable. General: No acute distress. HEENT: Head exam is unremarkable. LUNGS: Scattered rhonchi. HEART: Rate and Rhythm are regular. ABDOMEN: Nontender. EXTREMITITES: No edema. Objective - Vital Signs Vital signs: Vital Signs Temp 97.4 F L 08/21/23 08:00 Pulse 83 08/21/23 09:15 Resp 16 08/21/23 08:00 BP 173/98 08/21/23 09:15 Pulse Ox 96 08/21/23 09:15 FiO2 Intake & Output 08/20/23 08/21/23 08/21/23 18:59 06:59 18:59 Intake Total 580 Output Total 1500 0 Balance -920 0 Intake: Oral 180 Hemodialysis 400 Output: Urine 0 Hemodialysis 1500 Other: Voiding Method Indwelling Catheter Indwelling Catheter - Labs CBC & Chem 7: 08/19/23 05:28 08/20/23 05:45 Labs: Abnormal Lab Results - Last 24 Hours (Table) 08/17/23 08/21/23 Range/Units 12:33 05:45 PT 17.1 H (10.0-12.5) sec INR 1.7 H (<1.2) [id number] 0.42 H (0.10-0.40) g/dL Microbiology - Last 24 Hours (Table) 08/15/23 07:07 Blood Culture - Final Blood Assessment and Plan Plan: Assessment: 1. Acute kidney injury secondary to ATN. BAM inhibitor held. Creatinine up to 5.9 dated 08/17/2023. Started on hemodialysis 08/17/2023 due to severe kidney injury and oliguria. Permacath placed 08/21/2023. No hydronephrosis noted on kidney ultrasound. UA with 1+ protein and no blood. 2. 2 mm nonobstructive left kidney stone. No intervention is planned by urology at this time. 3. History of aortobiiliac endovascular stent graft. 4. Chronic kidney disease stage IIIA with baseline creatinine 1.1-1.2 secondary to nephrosclerosis/ischemic nephropathy. Right kidney small in size. No evidence of renal artery stenosis noted on renal artery duplex. Left kidney normal in size. 5. Hypertension with chronic kidney disease. Exacerbated by pain. 6. Hyperkalemia secondary to acute kidney injury and metabolic acidosis. Improved with dialysis and medical management. 7. Coagulopathy. Improved. Plan: Hemodialysis today. She will be maintained on Saturday schedule outpatient. Status post 80 mg IV Lasix given 08/17/2023 and 08/19/2023 with no response and urine output. Continue to hold benazepril. Avoid nephrotoxins. Preserved ejection fraction noted on echocardiogram. Severe biatrial dilatation noted. Follow-up serologies. Negative so far. Serum immunofixation shows IgG kappa paraprotein. Check serum light chain levels. Consult oncology. Phosphorus level 5.3 dated 08/18/2023. Kidney biopsy for definitive diagnosis was discussed with patient. She is not interested in pursuing this.
[2023-08-21 13:18] VITALS: BMI 19.1
[2023-08-21] MEDS ORDERED: WARFARIN 2.5 MG TAB PO ONE (18:00)
[2023-08-21 20:00] LABS: Basophils # (A) 0.06 X 10*3/uL (0.00-0.10); Basophils % (A) 0.9 %; Eosinophils # (A) 0.22 X 10*3/uL (0.04-0.35); Eosinophils % (A) 3.4 %; HCT 35.4 % (37.2-46.3); HGB 10.8 g/dL (12.0-15.0); Lymphocytes # (A) 0.83 X 10*3/uL (0.90-5.00); MCH 25.8 pg (27.0-32.0); MCHC 30.5 g/dL (32.0-37.0); MCV 84.7 FL (80.0-97.0); Mean Platelet Volume 9.5 FL (9.5-12.2); Monocytes # (A) 1.07 X 10*3/uL (0.20-1.00); Monocytes % (A) 16.7 %; NRBC Per 100 WBC 0 X 10*3/uL (0.00-0.01); Neutrophils # (A) 4.18 X 10*3/uL (1.80-7.70); Neutrophils % (A) 65.4 %; Platelet Count 209 X 10*3/uL (140-440); RBC 4.18 X 10*6/uL (4.10-5.20); RDW 15.4 % (11.5-14.5)
[2023-08-21 21:25] VITALS: BP 177/91; PULSE 80; RESP 18
[2023-08-21 23:56] LABS: Immunoglobulin M <35.0 mg/dL (40.0-280.0)
[2023-08-22 00:45] LABS: BUN/Creat Ratio 5.63 Ratio (12.00-20.00); Blood Urea Nitrogen 33.2 mg/dL (9.0-27.0); Calcium 7.4 mg/dL (8.7-10.3); Carbon Dioxide 23.6 mmol/L (21.6-31.8); Chloride 96 mmol/L (96-109); Glucose 89 mg/dL (70-110); Magnesium 1.8 mg/dL (1.5-2.4); Potassium 4.5 mmol/L (3.5-5.5); Sodium 133 mmol/L (135-145)
[2023-08-23 11:00] LABS: Free Kappa Lt Chain Qnt, Serum 7.76 mg/dL (0.33-1.94); Free Lambda Lt Chain Qnt, Seru 7.15 mg/dL (0.57-2.63)
--- NOTE | 2023-08-23 14:20 | IR ---
PICC Insertion: EXAMINATION TYPE: IR cvc insert non tunneled Intraoperative/procedural fluoroscopic services were pro vided. CLINICAL INDICATION:Female, 78 years old with history of RENAL FAILURE, 0.1MIN FLUORO, [id number]; , PH H Total fluoroscopy time is 0.1 min. DAP: 20.68 uGycm2 Please see the operative/procedural note for further details.
--- NOTE | 2023-08-24 11:46 | IR ---
EXAMINATION TYPE: IR cvc insert central tunneled DATE OF EXAM: 08/21/2023 FLUOROSCOPY hemodialysis catheter placement, 0.6min fluoro, [id number]. 153 images provided.
== END 2023-08-21 17:42 | disposition home health service (06) | DRG 683 ==
LOC: EC 03:32 → 6NMEDSUR 08:39 → OBSVTOIN 08-16 10:46
PROVIDERS: ADMIT Hospitalist; ATTEND Hospitalist
PROC: 5A1D70Z Performance of Urinary Filtration, Intermittent, Less than 6 Hours Per Day (ICD-10-PCS; 2023-08-17)
PROC: 06HY33Z Insertion of Infusion Device into Lower Vein, Percutaneous Approach (ICD-10-PCS; principal; 2023-08-17 13:51)
PROC: 02HV33Z Insertion of Infusion Device into Superior Vena Cava, Percutaneous Approach (ICD-10-PCS; 2023-08-21 08:30)
PROC: 06PYX3Z Removal of Infusion Device from Lower Vein, External Approach (ICD-10-PCS; 2023-08-21 08:30)
DX: N17.0 Acute kidney failure with tubular necrosis (principal); D68.4 Acquired coagulation factor deficiency; E87.20 Acidosis, unspecified; I13.2 Hypertensive heart and chronic kidney disease with heart failure and with stage 5 chronic kidney disease, or end stage renal disease; I48.19 Other persistent atrial fibrillation; J44.1 Chronic obstructive pulmonary disease with (acute) exacerbation; I50.32 Chronic diastolic (congestive) heart failure; I71.40 Abdominal aortic aneurysm, without rupture, unspecified; N18.6 End stage renal disease; E87.5 Hyperkalemia; N28.1 Cyst of kidney, acquired; K57.30 Diverticulosis of large intestine without perforation or abscess without bleeding; N20.0 Calculus of kidney; E78.5 Hyperlipidemia, unspecified; K59.00 Constipation, unspecified; Z99.2 Dependence on renal dialysis; Z95.828 Presence of other vascular implants and grafts; Z86.79 Personal history of other diseases of the circulatory system; Z87.891 Personal history of nicotine dependence; Z79.51 Long term (current) use of inhaled steroids; Z79.82 Long term (current) use of aspirin; Z79.01 Long term (current) use of anticoagulants; Z79.02 Long term (current) use of antithrombotics/antiplatelets; Z95.5 Presence of coronary angioplasty implant and graft; Z79.899 Other long term (current) drug therapy; Z86.718 Personal history of other venous thrombosis and embolism
CPT/HCPCS: 36415; 36556; 36558; 71045; 71046; 74019; 74176; 76937; 77001; 80048; 80053; 80074; 81001; 82784; 83605; 83690; 83735; 83880; 83883; 84100; 84132; 84165; 85025; 85610; 85730; 86038; 86160; 86162; 86225; 86255; 86334; 86706; 87040; 90935; 93306; 93975; 94640; 94760; 96361; 96374; 96375; 96376; 99211; 99285

== ENCOUNTER 2023-10-01 07:51 | Day surgery (SDC) | payer MEDICARE ==
[2023-10-01 09:17] VITALS: TEMP 97.8
[2023-10-01] MEDS: DESMOPRESSIN ACETATE 13 MCG in SODIUM CHLORIDE 0.9% 50 ML IVPB ONE (09:23)
[2023-10-01] MEDS: MICROFIBRILLAR COLLAGEN HEMOST 0.5 GM PACK TOPICAL ONE (10:40)
[2023-10-01 12:35] VITALS: RESP 16
--- NOTE | 2023-10-01 13:10 | CT ---
EXAMINATION TYPE: CT biopsy renal LT DATE OF EXAM: 10/01/2023 10:57 AM CLINICAL INDICATION:Female, 78 years old with history of N17.9 ACUTE KIDNEY FAILURE, UNSPECIFIED; bio psy renal lt, acute kidney failure COMPARISON: 08/07/2023 CT DLP: 987 mGycm, Automated exposure control for dose reduction was used. Contrast used: mL of , none Oral contrast used: none ATTENDING: Dr. Teja Nath TECHNIQUE: CT guided percutaneous biopsy of the left kidney using coaxial method. No sedation was utilized. One or more CT dose reduction strategies were utilized during this examination. Total CT dose 97 mGycm. FINDINGS: The procedure was explained to the patient including risks of bleeding, bruising, infection, damage t o nearby organs and need for additional therapy including potential surgery. All questions were answ ered and consent was obtained. The previous studies were reviewed. The patient was placed on the CT couch in the supine position. The overlying skin was marked and prepped using sterile method. Timeout was taken per protocol. Follo wing administration of conscious sedation and local anesthesia a 19 gauge coaxial needle was introd uced on the left kidney. The coaxial needle tip was directed into the kidney cortex with CT guidance . Three 18 gauge coaxial biopsies were then obtained. Following the procedure the needle was remov ed and sterile dressing was applied to the percutaneous site. Post biopsy imaging demonstrated a sma ll perinephric hematoma and Avitene was placed. Patient was taken for postprocedure observation in st able condition. IMPRESSIONS: 1. Status post percutaneous left random kidney biopsy mass biopsy as described above. Pathology resu lts pending. 2. Small perinephric hematoma.
[2023-10-01 15:11] VITALS: BP 159/75; PULSE 81
== END 2023-10-01 14:35 | disposition home or self-care (01) ==
LOC: RADPROMAIN 07:51
PROVIDERS: ATTEND Internal Medicine
DX: N17.9 Acute kidney failure, unspecified (principal); N18.32 Chronic kidney disease, stage 3b; Z87.891 Personal history of nicotine dependence; Z79.899 Other long term (current) drug therapy
CPT/HCPCS: 96365; 50200; 77012; J2597